=== PATIENT | female | born 1970 | race Hispanic/Latino ===

== ENCOUNTER 2019-03-14 13:37 | Emergency (ER) | payer SELFPAY ==
--- NOTE | 2019-03-14 15:10 | RAD REPORT ---
EXAM DESCRIPTION: Bruna Cuenca (2 Views)03/14/2019 2:52 pm CLINICAL HISTORY: Cough COMPARISON: 2015 FINDINGS: The lungs appear clear of acute infiltrate. The heart is normal size. Old left rib fractu res IMPRESSION: No acute abnormalities displayed
[2019-03-14 15:26] LABS: Absolute Lymphocytes (CBC) 1.7 K/uL (0.7-4.9); Basophils % 0.5 % (0-1.3); Lymphocytes % 24.2 % (15.3-44.8); MPV 9.9 fL (7.6-11.3); RBC Red Blood Cell Count 4.28 M/uL (3.86-4.86)
[2019-03-14 15:34] LABS: Potassium 3.4 mmol/L (3.5-5.1)
[2019-03-14] MEDS ORDERED: MORPHINE 4 MG/ML SYR ONE (15:38)
[2019-03-14] MEDS ORDERED: ONDANSETRON 4 MG/2 ML VIAL ONE (15:39)
--- NOTE | 2019-03-14 15:53 | EDPHYS ---
Physician Documentation [facility] Name: Ninfa Gordon Age: 48 yrs Sex: Female : 1970 Arrival Date: 03/14/2019 Time: 13:45 Bed 16 Private MD: Ferny Watkins T ED Physician Param Duarte HPI: 03/14 15:27 This 48 yrs old Female presents to ER via Ambulatory with complaints of Rib kb pain. 15:27 The patient or guardian reports cough, that is intermittent, described as moderate, kb with no sputum, flu symptoms. The patient has not experienced similar symptoms in the past. The patient has not recently seen a physician. 15:28 Onset: The symptoms/episode began/occurred 1 week(s) ago. Severity of symptoms: At kb their worst the symptoms were moderate, in the emergency department the symptoms are unchanged. Modifying factors: The symptoms are alleviated by nothing, the symptoms are aggravated by nothing. Associated signs and symptoms: Pertinent positives: chest pain, with cough, with movement, with breathing. Pt reports cough, chills, malaise and chest pain. States pain feels like pain she had in the past with pneumonia. States she has also had rib fractures on left side in the past and is worried that they are moving. 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 - Social history:: Smoking status: Patient uses tobacco products, smokes one-half pack cigarettes per day. - Ebola Screening: : Patient denies travel to an Ebola-affected area in the 21 days before illness onset. ROS: 15:25 ENT: Negative for injury, pain, and discharge, Neck: Negative for injury, pain, and kb swelling, Abdomen/GI: Negative for abdominal pain, nausea, vomiting, diarrhea, and constipation, Back: Negative for injury and pain, MS/Extremity: Negative for injury and deformity, Skin: Negative for injury, rash, and discoloration, Neuro: Negative for headache, weakness, numbness, tingling, and seizure. 15:25 Cardiovascular: Positive for chest pain, with cough, with movement, Negative for edema, orthopnea, palpitations, paroxysmal nocturnal dyspnea. 15:25 Respiratory: Positive for cough, pleurisy, Negative for dyspnea on exertion, hemoptysis, orthopnea, shortness of breath, sputum production, wheezing. 15:27 Constitutional: Positive for chills. kb Exam: 15:27 Constitutional: This is a well developed, well nourished patient who is awake, alert, kb and in no acute distress. Head/Face: Normocephalic, atraumatic. ENT: Nares patent. No nasal discharge, no septal abnormalities noted. Tympanic membranes are normal and external auditory canals are clear. Oropharynx with no redness, swelling, or masses, exudates, or evidence of obstruction, uvula midline. Mucous membranes moist. Neck: Trachea midline, no thyromegaly or masses palpated, and no cervical lymphadenopathy. Supple, full range of motion without nuchal rigidity, or vertebral point tenderness. No Meningismus. Chest/axilla: Normal chest wall appearance and motion. Nontender with no deformity. No lesions are appreciated. Cardiovascular: Regular rate and rhythm with a normal S1 and S2. No gallops, murmurs, or rubs. Normal PMI, no JVD. No pulse deficits. Respiratory: Lungs have equal breath sounds bilaterally, clear to auscultation and percussion. No rales, rhonchi or wheezes noted. No increased work of breathing, no retractions or nasal flaring. Abdomen/GI: Soft, non-tender, with normal bowel sounds. No distension or tympany. No guarding or rebound. No evidence of tenderness throughout. Back: No spinal tenderness. No costovertebral tenderness. Full range of motion. Skin: Warm, dry with normal turgor. Normal color with no rashes, no lesions, and no evidence of cellulitis. MS/ Extremity: Pulses equal, no cyanosis. Neurovascular intact. Full, normal range of motion. Neuro: Awake and alert, GCS 15, oriented to person, place, time, and situation. Cranial nerves II-XII grossly intact. Motor strength 5/5 in all extremities. Sensory grossly intact. Cerebellar exam normal. Normal gait. 15:49 ECG was reviewed by the Attending Physician. kb Vital Signs: 14:11 BP 140 / 99; Pulse 93; Resp 18; Temp 98.2; Pulse Ox 99% on R/A; Weight 79.38 kg; Height aj1 5 ft. 2 in. (157.48 cm) (R); Pain 8/10; 15:36 BP 140 / 90; Pulse 77; Resp 18; Temp 98.2(O); Pulse Ox 100% on R/A; Pain 8/10; mh5 14:11 Body Mass Index 32.01 (79.38 kg, 157.48 cm) aj1 MDM: 14:02 Patient medically screened. kb 15:22 Data reviewed: vital signs, nurses notes. Data interpreted: Pulse oximetry: on room air kb is 99 %. Interpretation: normal. Counseling: I had a detailed discussion with the patient and/or guardian regarding: the historical points, exam findings, and any diagnostic results supporting the discharge/admit diagnosis, lab results, radiology results, the need for outpatient follow up, a family practitioner, to return to the emergency department if symptoms worsen or persist or if there are any questions or concerns that arise at home. 03/14 14:12 Order name: CBC with Diff; Complete Time: 15:31 kb 03/14 14:12 Order name: Basic Metabolic Panel; Complete Time: 15:35 kb 03/14 14:12 Order name: Flu; Complete Time: 14:52 kb 03/14 14:12 Order name: Strep; Complete Time: 14:52 kb 03/14 14:53 Order name: Throat Culture EDDE 03/14 15:03 Order name: Urine Dipstick--Ancillary (enter results) 03/14 14:12 Order name: Chest Pa And Lat (2 Views) XRAY; Complete Time: 15:17 kb 03/14 15:03 Order name: Urine --Ancillary (enter results) 03/14 15:35 Order name: EKG; Complete Time: 15:36 kb 03/14 15:35 Order name: EKG - Nurse/Tech; Complete Time: 16:00 kb EC:49 Rate is 70 beats/min. Rhythm is regular, Normal Sinus Rhythm. QRS [place] is Normal. ND kb interval is normal at 160 msec. QRS interval is normal at 76 msec. QT interval is normal at 400 msec. Interpreted by me. Reviewed by me. Administered Medications: 15:42 Drug: morphine 4 mg Route: IVP; Site: left antecubital; aj 16:18 Follow up: Response: No adverse reaction; Pain is decreased; RASS: Alert and Calm (0) aj 15:42 Drug: Zofran 4 mg Route: IVP; Site: left antecubital; aj 16:17 Follow up: Response: No adverse reaction aj Disposition: 03/14/19 15:53 Discharged to Home. Impression: Acute upper respiratory infection, unspecified, Pleurisy. - Condition is Stable. - Discharge Instructions: Upper Respiratory Infection, Adult, [id number], Viral Respiratory Infection, Izcm-[id number]-Xrgh, Pleurisy, [id number]. - Prescriptions for Prednisone 20 mg Oral Tablet - take 1 tablet by ORAL route once daily for 5 days; 5 tablet. Diclofenac Sodium 75 mg Oral Tablet, Delayed Release (E.C.) - take 1 tablet by ORAL route 2 times per day As needed; 30 tablet. - Medication Reconciliation Form, Thank You Letter, Antibiotic Education, Prescription Opioid Use form. - Follow up: Emergency Department; When: As needed; Reason: Worsening of condition. Follow up: Private Physician; When: 2 - 3 days; Reason: Recheck today's complaints, Continuance of care, Re-evaluation by your physician. Addendum: 03/17/2019 19:36 Co-signature as Attending Physician, Param Duarte MD. 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 Impression: Acute upper respiratory aj1 infection, unspecified; Pleurisy. Condition is Stable. Forms are Medication Reconciliation Form, Thank You Letter, Antibiotic Education, Prescription Opioid Use. Follow up: Emergency Department; When: As needed; Reason: Worsening of condition. Follow up: Private Physician; When: 2 - 3 days; Reason: Recheck today's complaints, Continuance of care, Re-evaluation by your physician. kb
--- NOTE | 2019-03-14 15:53 | ER ---
Nurse's Notes [facility] Name: Ninfa Gordon Age: 48 yrs Sex: Female : 1970 Arrival Date: 03/14/2019 Time: 13:45 Bed 16 Private MD: Ferny Watkins T Diagnosis: Acute upper respiratory infection, unspecified;Pleurisy Presentation: 03/14 14:10 Presenting complaint: Patient states: Pain to right side that is worse with deep aj1 breathing, chills, and headache since . Denies recent injury, denies fever. Transition of care: patient was not received from another setting of care. Onset of symptoms was March 2019. Risk Assessment: Do you want to hurt yourself or someone else? Patient reports no desire to harm self or others. Initial Sepsis Screen: Does the patient meet any 2 criteria? No. Patient's initial sepsis screen is negative. Does the patient have a suspected source of infection? Yes: Productive cough/pneumonia. Care prior to arrival: None. 14:10 Method Of Arrival: Ambulatory aj 14:10 Acuity: TRES 3 aj1 Triage Assessment: 14:11 General: Appears in no apparent distress. uncomfortable, Behavior is cooperative, aj1 restless. Pain: Pain currently is 8 out of 10 on a pain scale. 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 - Social history:: Smoking status: Patient uses tobacco products, smokes one-half pack cigarettes per day. - Ebola Screening: : Patient denies travel to an Ebola-affected area in the 21 days before illness onset. Screenin:15 Abuse screen: Denies threats or abuse. Denies injuries from another. Nutritional aj1 screening: No deficits noted. Tuberculosis screening: No symptoms or risk factors identified. Fall Risk None identified. Assessment: 14:15 General: Appears in no apparent distress. uncomfortable, Behavior is calm. Pain: aj1 Complains of pain in diaphragm Pain does not radiate. Pain currently is 8 out of 10 on a pain scale. Pain: Aggravated by deep breathing. Neuro: Level of Consciousness is awake, alert, obeys commands, Oriented to person, place, time, situation. Cardiovascular: Heart tones S1 S2 present Patient's skin is warm and dry. Respiratory: Airway is patent Respiratory effort is even, unlabored, Respiratory pattern is regular, symmetrical, Breath sounds are clear bilaterally. GI: No signs and/or symptoms were reported involving the gastrointestinal system. : No signs and/or symptoms were reported regarding the genitourinary system. EENT: No signs and/or symptoms were reported regarding the EENT system. Derm: No signs and/or symptoms reported regarding the dermatologic system. Skin is pink, warm \T\ dry. normal. Musculoskeletal: No signs and/or symptoms reported regarding the musculoskeletal system. Circulation, motion, and sensation intact. 15:15 Reassessment: Patient appears in no apparent distress at this time. No changes from [facility] previously documented assessment. Patient and/or family updated on plan of care and expected duration. Pain level reassessed. Patient is alert, oriented x 3, equal unlabored respirations, skin warm/dry/pink. 16:16 Reassessment: Patient appears in no apparent distress at this time. No changes from 1 previously documented assessment. Patient and/or family updated on plan of care and expected duration. Pain level reassessed. Patient is alert, oriented x 3, equal unlabored respirations, skin warm/dry/pink. Vital Signs: 14:11 BP 140 / 99; Pulse 93; Resp 18; Temp 98.2; Pulse Ox 99% on R/A; Weight 79.38 kg; Height aj1 5 ft. 2 in. (157.48 cm) (R); Pain 8/10; 15:36 BP 140 / 90; Pulse 77; Resp 18; Temp 98.2(O); Pulse Ox 100% on R/A; Pain 8/10; mh5 14:11 Body Mass Index 32.01 (79.38 kg, 157.48 cm) aj ED Course: 13:45 Patient arrived in ED. mr 13:45 Ferny Watkins MD is Private Physician. mr 14:01 [facility]C [facility]. kb 14:01 Param Duarte MD is Attending Physician. kb 14:10 Daniel, Santa, RN is Primary Nurse. aj1 14:10 Triage completed. aj1 14:11 Arm band placed on. aj1 14:15 No provider procedures requiring assistance completed. aj1 14:52 Chest Pa And Lat (2 Views) XRAY In Process Unspecified. EDMD 15:06 Initial lab(s) drawn, by az, sent to lab. Urine collected: clean catch specimen, clear. mh5 Inserted saline lock: 22 gauge in left antecubital area, using aseptic technique. 15:07 Patient has correct armband on for positive identification. Placed in gown. Bed in low mh5 position. Call light in reach. Side rails up X 1. Warm blanket given. Pulse ox on. NIBP on. 15:07 Urine --Ancillary (enter results) Sent. [facility] 15:07 Urine Dipstick--Ancillary (enter results) Sent. [facility] 15:07 Throat Culture Sent. [facility] 15:07 Basic Metabolic Panel Sent. [facility] 15:07 CBC with Diff Sent. [facility] 16:03 EKG done, by fastener technologist. reviewed by Sheryl PANCHAL. 3 16:17 IV discontinued, intact, bleeding controlled, No redness/swelling at site. Pressure aj1 dressing applied. Administered Medications: 15:42 Drug: morphine 4 mg Route: IVP; Site: left antecubital; aj1 16:18 Follow up: Response: No adverse reaction; Pain is decreased; RASS: Alert and Calm (0) aj1 15:42 Drug: Zofran 4 mg Route: IVP; Site: left antecubital; aj1 16:17 Follow up: Response: No adverse reaction aj Outcome: 15:53 Discharge ordered by . kb 16:17 Discharged to home ambulatory. aj1 16:17 Condition: good 16:17 Discharge instructions given to patient, Instructed on discharge instructions, follow up and referral plans. medication usage, Demonstrated understanding of instructions, follow-up care, medications, Prescriptions given X 3. 16:21 Patient left the ED. aj1 Signatures: Dispatcher [employer] Sheryl Gonzalez, ANSLEY HERRING-[place], RN RN aj1 Johnson, Nicolasa VazquezNinfa [facility] Barbie Townsend 3
[2019-03-14 16:31] VITALS: TEMP 98.2
[2019-03-14 16:32] VITALS: BP 140/90; O2SAT 100
[2019-03-14 17:42] LABS: Urine Blood TRACE (NEG); Urine Glucose NEGATIVE (NEG); Urine Protein NEGATIVE (NEG); Urine Specific Gravity 1.015 (1.005-1.030)
--- NOTE | 2019-03-15 08:18 | EKG ---
Test Date: 2019-03-14 Test Time: 15:46:23 Diabetes Specialist: LINDA MEASUREMENT RESULTS: Intervals: Rate: 70 MA: 160 QRSD: 76 QT: 400 QTc: 432 [place]: P: 57 MA: 160 QRS: 58 T: 42 INTERPRETIVE STATEMENTS: Normal sinus rhythm Normal ECG Compared to ECG 10/03/2013 06:34:14 Atrial premature complex(es) no longer present Electronically Signed On 03-15-19 08:16:10 DATA POWER CONSULTANT by Pasquale Hdz
== END 2019-03-14 16:21 | disposition home or self-care (01) ==
LOC: ER 13:37
DX: J06.9 Acute upper respiratory infection, unspecified (principal); R09.1 Pleurisy; F17.210 Nicotine dependence, cigarettes, uncomplicated
CPT/HCPCS: 36415; 71046; 80048; 81003; 81025; 85025; 87070; 87081; 87804; 93005; 96374; 96375; 99284; J2405

== ENCOUNTER 2019-09-05 14:14 | Emergency (ER) | payer SELFPAY ==
[2019-09-05] MEDS ORDERED: NA CHLORIDE 0.9% 1,000 ML ONE (16:41)
[2019-09-05] MEDS ORDERED: FENTANYL CITR 100 MCG/2 ML ONE (16:41)
[2019-09-05 16:54] LABS: Absolute Lymphocytes (CBC) 2.4 K/uL (0.7-4.9); Basophils % 0.5 % (0-1.3); Hematocrit 42.8 % (36.0-45.0); Lymphocytes % 34.6 % (15.3-44.8); MPV 8.9 fL (7.6-11.3); RBC Red Blood Cell Count 4.42 M/uL (3.86-4.86)
[2019-09-05 17:09] LABS: BUN Blood Urea Nitrogen 9 mg/dL (7-18); Bicarbonate 26 mmol/L (21-32); Glucose Level 95 mg/dL (74-106); Potassium 3.5 mmol/L (3.5-5.1); Sodium Level 138 mmol/L (136-145); Troponin (Emerg Dept Use Only) < 0.02 ng/mL (0.0-0.045)
--- NOTE | 2019-09-05 17:33 | RAD REPORT ---
EXAM DESCRIPTION: RAD - Chest Pa And Lat (2 Views) - 09/05/2019 5:25 pm CLINICAL HISTORY: chest pain Chest pain. COMPARISON: Chest Pa And Lat (2 Views) dated 03/14/2019; CHEST SINGLE VIEW dated 08/27/2014; CHEST SI NGLE VIEW dated 10/03/2013; CHEST SINGLE VIEW dated 08/23/2013; Ribs Left dated 09/05/2019 FINDINGS: Two views of the chest and left rib series are submitted: The lungs are mildly emphysematous but clear. The heart is normal in size. Several old left posterior rib fractures are seen. In addition, there is evidence of acute or subacut e left lateral seventh and eighth rib fractures.
[2019-09-05] MEDS ORDERED: MORPHINE 4 MG/ML SYR IV ONE (18:30)
--- NOTE | 2019-09-05 19:34 | RAD REPORT ---
EXAM DESCRIPTION: CT - Chest For Pe Angio - 09/05/2019 7:28 pm CLINICAL HISTORY: Chest pain. breathing difficulty COMPARISON: THORAX WO CONTRAST dated 08/27/2014; Ribs Left dated 09/05/2019; Chest Pa And Lat (2 Views ) dated 09/05/2019 TECHNIQUE: CT angiogram of the pulmonary arteries was performed with MIP. All CT scans are performed using dose optimization technique as appropriate and may include automated exposure control or mA/KV adjustment according to patient size. FINDINGS: No evidence of pulmonary thromboembolism. No acute aortic finding demonstrated. The lungs are clear. No significant pericardial or pleural fluid. Several left-sided rib fractures are seen which have an old/remote appearance but without complete diallo ny bridging. IMPRESSION: No evidence of pulmonary thromboembolism.
--- NOTE | 2019-09-06 03:46 | EDPHYS ---
Physician Documentation [facility] Name: Ninfa Gordon Age: 49 yrs Sex: Female : 1970 Arrival Date: 09/05/2019 Time: 14:16 Bed 14 Private MD: ED Physician Lalit Robledo HPI: 09/04 16:35 This 49 yrs old Female presents to ER via Ambulatory with complaints of snw Breathing Difficulty, Rib Pain. 16:35 The patient has shortness of breath at rest. Onset: The symptoms/episode began/occurred snw 8 day(s) ago, and became worse and became persistent. Duration: The symptoms are continuous. The patient's shortness of breath is aggravated by movement, pressure. Associated signs and symptoms: Pertinent positives: chest pain, shortness of breath. Severity of symptoms: At their worst the symptoms were moderate severe in the emergency department the symptoms are unchanged. The patient has experienced similar episodes in the past. The patient has not recently seen a physician. hx of multiple rib fractures 2014, pneumonia x 2 since that time. 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 - Social history:: Smoking status: Patient reports the use of cigarette tobacco products, smokes one-half pack cigarettes per day. ROS: 16:34 Constitutional: Negative for fever, chills, and weight loss, Eyes: Negative for injury, snw pain, redness, and discharge, ENT: Negative for injury, pain, and discharge, Neck: Negative for injury, pain, and swelling, Abdomen/GI: Negative for abdominal pain, nausea, vomiting, diarrhea, and constipation, Back: Negative for injury and pain, : Negative for injury, bleeding, discharge, and swelling, MS/Extremity: Negative for injury and deformity, Skin: Negative for injury, rash, and discoloration, Neuro: Negative for headache, weakness, numbness, tingling, and seizure, Psych: Negative for depression, anxiety, suicide ideation, homicidal ideation, and hallucinations. 16:34 Cardiovascular: Positive for chest pain, with cough, with movement, of the anterior aspect of left upper chest, left lateral posterior chest, left lateral anterior chest and left breast. 16:34 Respiratory: Positive for pleurisy, of the left chest. Exam: 16:33 Constitutional: This is a well developed, well nourished patient who is awake, alert, snw and in no acute distress. Head/Face: Normocephalic, atraumatic. Eyes: Pupils equal round and reactive to light, extra-ocular motions intact. Lids and lashes normal. Conjunctiva and sclera are non-icteric and not injected. Cornea within normal limits. Periorbital areas with no swelling, redness, or edema. ENT: Nares patent. No nasal discharge, no septal abnormalities noted. Tympanic membranes are normal and external auditory canals are clear. Oropharynx with no redness, swelling, or masses, exudates, or evidence of obstruction, uvula midline. Mucous membranes moist. Neck: Trachea midline, no thyromegaly or masses palpated, and no cervical lymphadenopathy. Supple, full range of motion without nuchal rigidity, or vertebral point tenderness. No Meningismus. Chest/axilla: Normal chest wall appearance and motion. Nontender with no deformity. No lesions are appreciated. Cardiovascular: Regular rate and rhythm with a normal S1 and S2. No gallops, murmurs, or rubs. Normal PMI, no JVD. No pulse deficits. 16:33 Abdomen/GI: Soft, non-tender, with normal bowel sounds. No distension or tympany. No guarding or rebound. No evidence of tenderness throughout. Back: No spinal tenderness. No costovertebral tenderness. Full range of motion. Skin: Warm, dry with normal turgor. Normal color with no rashes, no lesions, and no evidence of cellulitis. MS/ Extremity: Pulses equal, no cyanosis. Neurovascular intact. Full, normal range of motion. Neuro: Awake and alert, GCS 15, oriented to person, place, time, and situation. Cranial nerves II-XII grossly intact. Motor strength 5/5 in all extremities. Sensory grossly intact. Cerebellar exam normal. Normal gait. Psych: Awake, alert, with orientation to person, place and time. Behavior, mood, and affect are within normal limits. 16:33 Respiratory: mild respiratory distress is noted, Respirations: shallow respirations, splinting, tachypnea, Breath sounds: are clear throughout, no bronchial sounds. Vital Signs: 14:33 BP 142 / 101; Pulse 85; Resp 16; Temp 97.9; Pulse Ox 100% ; Weight 79.38 kg; Pain 8/10; jl7 16:21 BP 153 / 103; Pulse 80; Resp 17 S; Pulse Ox 100% ; Pain 9/10; ca1 17:32 BP 137 / 85; Pulse 72; Resp 18 S; Pulse Ox 100% on R/A; ca1 18:32 BP 139 / 82; Pulse 62; Resp 16 S; Pulse Ox 99% on R/A; ca1 19:38 BP 135 / 75; Pulse 66; Resp 17 S; Pulse Ox 100% on R/A; ca1 20:20 BP 151 / 101; Pulse 63; Resp 18 S; Pulse Ox 100% on R/A; ca1 21:00 BP 143 / 99; Pulse 72; Resp 16 S; Pulse Ox 100% on R/A; ca1 MDM: 16:16 Patient medically screened. snw 20:49 Data reviewed: vital signs, nurses notes, lab test result(s), EKG, radiologic studies. snw Counseling: I had a detailed discussion with the patient and/or guardian regarding: the historical points, exam findings, and any diagnostic results supporting the discharge/admit diagnosis, the presence of at least one elevated blood pressure reading (>120/80) during this emergency department visit, lab results, radiology results, the need for outpatient follow up, to return to the emergency department if symptoms worsen or persist or if there are any questions or concerns that arise at home, smoking cessation. Special discussion: Based on the patient's history, exam, and Dx evaluation, there is no indication for emergent intervention or inpatient Tx. It is understood by the patient/guardian that if the Sx's persist or worsen they need to return immediately for re-evaluation. I have referred the patient to see his PCP for further evaluation of high blood pressure. Based on the history and exam findings, there is no indication for further emergent testing or inpatient evaluation. I discussed with the patient/guardian the need to see the primary care provider for further evaluation of the symptoms. 09/04 16:22 Order name: DD [facility] 09/04 16:22 Order name: Blood Culture* [facility] 09/04 16:22 Order name: CBC with Diff snw 09/04 16:22 Order name: Chem 7 snw 09/04 16:22 Order name: Troponin (emerg Dept Use Only) snw 09/04 16:36 Order name: Basic Metabolic Panel; Complete Time: 17:14 EDMS 09/04 16:36 Order name: CBC with Automated Diff; Complete Time: 17:14 EDMS 09/04 16:36 Order name: D-Dimer; Complete Time: 17:14 EDMS 09/04 16:36 Order name: Troponin (Emerg Dept Use Only); Complete Time: 17:14 EDMS 09/04 16:36 Order name: Blood Culture EDMS 09/04 16:36 Order name: Chest Pa And Lat (2 Views); Complete Time: 17:40 EDMS 09/04 16:36 Order name: Ribs Left EDMS 09/04 16:22 Order name: EKG; Complete Time: 03:52 snw 09/04 16:22 Order name: EKG - Nurse/Tech; Complete Time: 16:44 snw 09/04 17:14 Order name: CT Chest For PE Angio snw 09/04 20:46 Order name: INCENTIVE SPIROMETRY snw Administered Medications: 16:49 Drug: NS 0.9% 1000 ml Route: IV; Rate: 125 ml/hr; Site: left antecubital; ca1 21:00 Follow up: IV Status: Order to discontinue infusion; Order to discontinue infusion, Pt ca1 is discharged 16:49 Drug: fentaNYL (PF) 25 mcg {Note: rASS - 0-.} Route: IVP; Site: left antecubital; ca1 17:10 Follow up: Response: No adverse reaction; Pain is unchanged, physician notified; RASS: ca1 Alert and Calm (0) 17:14 Drug: fentaNYL (PF) 25 mcg {Note: rASS - 0.} Route: IVP; Site: left antecubital; ca1 18:29 Follow up: Response: No adverse reaction; Pain is unchanged, physician notified; RASS: ca1 Alert and Calm (0) 18:31 Drug: morphine 4 mg {Note: rass - 0.} Route: IVP; Site: left antecubital; ca1 19:05 Follow up: Response: No adverse reaction; Pain is decreased; RASS: Alert and Calm (0) ca1 Disposition: 09/05 08:20 Co-signature as Attending Physician, Lalit Robledo MD I agree with the assessment and kdr plan of care. Disposition: 09/05/19 20:48 Discharged to Home. Impression: Multiple fractures of ribs, left side - most chronic, 2 acute, Costochondritis. - Condition is Stable. - Discharge Instructions: Costochondritis, Hypertension, Rib Fracture, Steps to Quit Smoking, Smoking Hazards, Form - Blood Pressure Record Sheet. - Prescriptions for Diclofenac Sodium 75 mg Oral Tablet Sustained Release - take 1 tablet by ORAL route 2 times per day; 30 tablet. orphenadrine citrate 100 mg Oral Tablet Sustained Release - take 1 tablet by ORAL route 2 times per day As needed; 20 tablet. - Medication Reconciliation Form, Thank You Letter, Antibiotic Education, Prescription Opioid Use form. - Follow up: Emergency Department; When: As needed; Reason: Worsening of condition. Follow up: Private Physician; When: 2 - 3 days; Reason: Recheck today's complaints, Continuance of care, Re-evaluation by your physician. Signatures: Dispatcher [employer] EDND Lalit Robledo MD MD [facility] Kiana Schulz, REHABILITATION CASE COORDINATOR-C REHABILITATION CASE COORDINATOR-Csnw Estefani Lopez RN RN jl7 Brit Chadwick RN RN ca1 Corrections: (The following items were deleted from the chart) 09/04 21:07 20:48 09/05/2019 20:48 Discharged to Home. Impression: Multiple fractures of ribs, left ca1 side - most chronic, 2 acute; Costochondritis. Condition is Stable. Forms are Medication Reconciliation Form, Thank You Letter, Antibiotic Education, Prescription Opioid Use. Follow up: Emergency Department; When: As needed; Reason: Worsening of condition. Follow up: Private Physician; When: 2 - 3 days; Reason: Recheck today's complaints, Continuance of care, Re-evaluation by your physician. snw
--- NOTE | 2019-09-06 03:46 | ER ---
Nurse's Notes [facility] Name: Ninfa Gordon Age: 49 yrs Sex: Female : 1970 Arrival Date: 09/05/2019 Time: 14:16 Bed 14 Private MD: Diagnosis: Multiple fractures of ribs, left side-most chronic, 2 acute;Costochondritis Presentation: 09/04 14:33 Chief complaint: Patient states: Reports broken ribs from 2014, about 8 days ago jl7 started feeling like something is poking out and started having pain with inspiration, denies recent trauma. Coronavirus screen: Proceed with normal triage. Patient denies a cough. Patient denies shortness of breath or difficulty breathing. Patient denies measured and/or subjective temperature greater than 100.4F prior to today's visit. Patient denies travel on a cruise ship or to a country the [facility] currently lists as an affected area. Patient denies contact with known and/or suspected case of COVID-19. Ebola Screen: No symptoms or risks identified at this time. Initial Sepsis Screen: Does the patient meet any 2 criteria? No. Patient's initial sepsis screen is negative. Does the patient have a suspected source of infection? No. Patient's initial sepsis screen is negative. Risk Assessment: Do you want to hurt yourself or someone else? Patient reports no desire to harm self or others. Onset of symptoms was August 29, 2019. 14:33 Method Of Arrival: Ambulatory [facility] 14:33 Acuity: TRES 3 jl7 Triage Assessment: 14:37 General: Appears in no apparent distress. uncomfortable, Behavior is calm, cooperative, jl7 appropriate for age. Pain: Complains of pain in left ribs Pain currently is 8 out of 10 on a pain scale. Pain began 8 days ago. Neuro: Level of Consciousness is awake, alert, obeys commands, Oriented to person, place, time, situation. Cardiovascular: Patient's skin is warm and dry. Respiratory: Reports pain with movement pain with respiration since x 8 days Pain is 8 out of 10 on a pain scale. Airway is patent Respiratory effort is even, unlabored, shallow, Respiratory pattern is regular, symmetrical, Breath sounds are clear bilaterally. Crepitus is absent Onset: The symptoms/episode began/occurred x8 days, the patient has moderate shortness of breath. Derm: Skin is pink, warm \\T\\ dry. 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 - Social history:: Smoking status: Patient reports the use of cigarette tobacco products, smokes one-half pack cigarettes per day. Screenin:21 Abuse screen: Denies threats or abuse. Denies injuries from another. Nutritional ca1 screening: No deficits noted. Tuberculosis screening: No symptoms or risk factors identified. Fall Risk IV access (20 points). Assessment: 16:21 General: Appears in no apparent distress. uncomfortable, Behavior is calm, cooperative, ca1 appropriate for age. Pain: Complains of pain in diaphragm Pain currently is 9 out of 10 on a pain scale. Pain began 7-8 days days Aggravated by repositioning. Neuro: Level of Consciousness is awake, alert, obeys commands, Oriented to person, place, time, situation, Appropriate for age. Cardiovascular: Heart tones S1 S2 present Capillary refill < 3 seconds Patient's skin is warm and dry. Rhythm is sinus rhythm. Respiratory: Airway is patent Respiratory effort is even, unlabored, Respiratory pattern is regular, symmetrical, Breath sounds are clear bilaterally. GI: Abdomen is flat, non-distended, Bowel sounds present X 4 quads. Abd is soft and non tender X 4 quads. : No signs and/or symptoms were reported regarding the genitourinary system. EENT: No signs and/or symptoms were reported regarding the EENT system. Derm: Skin is intact, is healthy with good turgor, Skin is pink, warm \\T\\ dry. Musculoskeletal: Circulation, motion, and sensation intact. Capillary refill < 3 seconds. 17:32 Reassessment: Patient appears in no apparent distress at this time. Patient and/or ca1 family updated on plan of care and expected duration. Pain level reassessed. Patient is alert, oriented x 3, equal unlabored respirations, skin warm/dry/pink. 18:32 Reassessment: Patient appears in no apparent distress at this time. Patient and/or ca1 family updated on plan of care and expected duration. Pain level reassessed. Patient is alert, oriented x 3, equal unlabored respirations, skin warm/dry/pink. 19:45 Reassessment: Patient appears in no apparent distress at this time. Patient and/or ca1 family updated on plan of care and expected duration. Pain level reassessed. Patient is alert, oriented x 3, equal unlabored respirations, skin warm/dry/pink. 20:20 Reassessment: Patient appears in no apparent distress at this time. Patient and/or ca1 family updated on plan of care and expected duration. Pain level reassessed. Patient is alert, oriented x 3, equal unlabored respirations, skin warm/dry/pink. 21:00 Reassessment: Patient appears in no apparent distress at this time. Patient is alert, ca1 oriented x 3, equal unlabored respirations, skin warm/dry/pink. Vital Signs: 14:33 BP 142 / 101; Pulse 85; Resp 16; Temp 97.9; Pulse Ox 100% ; Weight 79.38 kg; Pain 8/10; jl7 16:21 BP 153 / 103; Pulse 80; Resp 17 S; Pulse Ox 100% ; Pain 9/10; ca1 17:32 BP 137 / 85; Pulse 72; Resp 18 S; Pulse Ox 100% on R/A; ca1 18:32 BP 139 / 82; Pulse 62; Resp 16 S; Pulse Ox 99% on R/A; ca1 19:38 BP 135 / 75; Pulse 66; Resp 17 S; Pulse Ox 100% on R/A; ca1 20:20 BP 151 / 101; Pulse 63; Resp 18 S; Pulse Ox 100% on R/A; ca1 21:00 BP 143 / 99; Pulse 72; Resp 16 S; Pulse Ox 100% on R/A; ca1 ED Course: 14:16 Patient arrived in ED. ds1 14:37 Triage completed. jl7 14:37 Arm band placed on right wrist. jl7 14:42 Patient placed in waiting room, Patient notified of wait time. jl7 16:14 Kiana Schulz FNP-C is PSYCHIATRICP. snw 16:14 Lalit Robledo MD is Attending Physician. snw 16:21 Brit Chadwick RN is Primary Nurse. ca1 16:21 Patient has correct armband on for positive identification. Placed in gown. Bed in low ca1 position. Call light in reach. Side rails up X 1. Pulse ox on. NIBP on. Warm blanket given. 16:40 Initial lab(s) drawn, by me, sent to lab. First set of blood cultures drawn. 5 16:43 Troponin (Emerg Dept Use Only) Sent. mh5 16:44 Blood Culture Sent. mh5 16:44 D-Dimer Sent. mh5 16:44 CBC with Automated Diff Sent. mh5 16:44 Basic Metabolic Panel Sent. mh5 16:44 Inserted saline lock: 22 gauge in left antecubital area, using aseptic technique. Blood 5 collected. 17:21 Chest Pa And Lat (2 Views) In Process Unspecified. EDMS 17:21 Ribs Left In Process Unspecified. EDMS 21:05 No provider procedures requiring assistance completed. IV discontinued, intact, ca1 bleeding controlled, No redness/swelling at site. Pressure dressing applied. Administered Medications: 16:49 Drug: NS 0.9% 1000 ml Route: IV; Rate: 125 ml/hr; Site: left antecubital; ca1 21:00 Follow up: IV Status: Order to discontinue infusion; Order to discontinue infusion, Pt ca1 is discharged 16:49 Drug: fentaNYL (PF) 25 mcg {Note: rASS - 0-.} Route: IVP; Site: left antecubital; ca1 17:10 Follow up: Response: No adverse reaction; Pain is unchanged, physician notified; RASS: ca1 Alert and Calm (0) 17:14 Drug: fentaNYL (PF) 25 mcg {Note: rASS - 0.} Route: IVP; Site: left antecubital; ca1 18:29 Follow up: Response: No adverse reaction; Pain is unchanged, physician notified; RASS: ca1 Alert and Calm (0) 18:31 Drug: morphine 4 mg {Note: rass - 0.} Route: IVP; Site: left antecubital; ca1 19:05 Follow up: Response: No adverse reaction; Pain is decreased; RASS: Alert and Calm (0) ca1 Outcome: 20:48 Discharge ordered by [place]ico 21:05 Discharged to home ambulatory. ca1 21:05 Condition: stable 21:05 Discharge instructions given to patient, Pt states,"my daughter in law is driving me home" Instructed on discharge instructions, follow up and referral plans. medication usage, Demonstrated understanding of instructions, follow-up care, medications, Prescriptions given X 2. 21:07 Patient left the ED. ca1 Signatures: Dispatcher [employer] EDMS Kiana Schulz, BRIANC CIRCUIT BOARD ASSEMBLER-Angie Izaguirre ds1 Ninfa Vazquez [facility] Estefani Lopez, LAMINE RN jl7 Brit Chadwick RN RN ca1 Corrections: (The following items were deleted from the chart) 16:25 16:21 Pain: Complains of pain in diaphragm Pain began 7-8 days days Aggravated by ca1 repositioning, ca1 16:26 16:21 Pulse 80bpm; Resp 17bpm; Spontaneous; Pulse Ox 100%; Pain 9/10; ca1 ca1 21:07 17:32 Pulse 72bpm; Resp 18bpm; Spontaneous; Pulse Ox 100% RA; ca1 ca1
--- NOTE | 2019-09-06 13:01 | EKG ---
Test Date: 2019-09-05 Test Time: 16:44:24 Plate Molder: MONTANAT MEASUREMENT RESULTS: Intervals: Rate: 62 ND: 174 QRSD: 78 QT: 438 QTc: 444 [place]: P: 52 ND: 174 QRS: 36 T: 48 INTERPRETIVE STATEMENTS: Normal sinus rhythm Normal ECG Compared to ECG 03/14/2019 15:46:23 No significant changes Electronically Signed On 09-06-19 12:58:28 CDT by Pasquale Hdz
[2019-09-06 18:16] VITALS: TEMP 97.9
[2019-09-06 18:22] VITALS: O2SAT 100
[2019-09-06 18:25] VITALS: BP 143/99
== END 2019-09-05 21:07 | disposition home or self-care (01) ==
LOC: ER 14:14
DX: S22.42XA Multiple fractures of ribs, left side, initial encounter for closed fracture (principal); M94.0 Chondrocostal junction syndrome [Tietze]; F17.210 Nicotine dependence, cigarettes, uncomplicated
CPT/HCPCS: 36415; 71046; 71275; 80048; 84484; 85025; 85379; 87040; 93005; 96361; 96374; 96375; 99284; J3010; J7030; Q9967

== ENCOUNTER 2019-10-16 20:15 | Inpatient (IN) | payer SELFPAY ==
[2019-10-16] MEDS ORDERED: PROMETHAZINE INJ 25 MG/ML AMP ONE (20:39)
[2019-10-16] MEDS ORDERED: NA CHLORIDE 0.9% 1,000 ML ONE (20:39)
[2019-10-16] MEDS ORDERED: MORPHINE 2 MG/ML SYR ONE (20:39)
[2019-10-16 20:40] LABS: Absolute Lymphocytes (CBC) 2.5 K/uL (0.7-4.9); Basophils % 0.9 % (0-1.3); Hematocrit 49.4 % (36.0-45.0); Lymphocytes % 18.5 % (15.3-44.8); MPV 9.3 fL (7.6-11.3); RBC Red Blood Cell Count 5.14 M/uL (3.86-4.86)
[2019-10-16] MEDS ORDERED: HYDROMORPHONE HCL 0.5 MG/0.5 ML INJ ONE ×2 (20:43→21:58)
[2019-10-16 21:12] LABS: ALT/SGPT 54 U/L (12-78); AST/SGOT 38 U/L (15-37); Albumin 5.2 g/dL (3.4-5.0); Alkaline Phosphatase 75 U/L (45-117); BUN Blood Urea Nitrogen 19 mg/dL (7-18); Bicarbonate 21 mmol/L (21-32); Bilirubin Direct 0.2 mg/dL (0-0.2); Bilirubin Total 0.7 mg/dL (0.2-1.0); Glucose Level 144 mg/dL (74-106); Lipase 146 U/L (73-393); Potassium 3.4 mmol/L (3.5-5.1); Protein, Total 9.6 g/dL (6.4-8.2); Sodium Level 137 mmol/L (136-145); Troponin (Emerg Dept Use Only) < 0.02 ng/mL (0.0-0.045)
[2019-10-16] MEDS ORDERED: FAMOTIDINE 20 MG/2 ML VIAL IV ONE (21:58)
--- NOTE | 2019-10-16 23:09 | ER ---
Nurse's Notes [facility] Name: Ninfa Gordon Age: 49 yrs Sex: Female : 1970 Arrival Date: 10/16/2019 Time: 20:15 Bed 20 Private MD: Diagnosis: Intractable pain and vomiting;Colitis, unspecified;Dehydration;Acute kidney failure Presentation: 10/15 20:16 Chief complaint: EMS states: "Patient stated she was working in the heat for the last vc three days, today she got overheated, started having stomach cramps, she is cool to the touch, and has a headache, her vitals were good.". 20:16 Coronavirus screen: Proceed with normal triage. Patient denies a cough. Patient denies vc shortness of breath or difficulty breathing. Patient denies measured and/or subjective temperature greater than 100.4F prior to today's visit. Patient denies travel on a cruise ship or to a country the [facility] currently lists as an affected area. Patient denies contact with known and/or suspected case of COVID-19. Ebola Screen: No symptoms or risks identified at this time. Initial Sepsis Screen: Does the patient meet any 2 criteria? RR > 20 per min. HR > 90 bpm. Initial Sepsis Screen: Does the patient meet any 2 criteria? HR > 90 bpm. No. Patient's initial sepsis screen is negative. Does the patient have a suspected source of infection? No. Patient's initial sepsis screen is negative. Risk Assessment: Do you want to hurt yourself or someone else? Patient reports no desire to harm self or others. Onset of symptoms was October 13, 2019. 20:16 Method Of Arrival: EMS: [facility] vc 20:16 Acuity: TRES 2 vc Triage Assessment: 20:16 General: Appears distressed, uncomfortable, ill, Behavior is agitated, crying, vc inappropriate for age, Reports chills for 0-12 hours. Pain: Complains of pain in abdomen Pain radiates to back Pain currently is 10 out of 10 on a pain scale. Quality of pain is described as sharp, stabbing, Pain began 2-3 days ago. Is continuous. Historical: - Allergies: 20:30 Tylenol; sg 20:35 Morphine; "doesnt work for me, only dilaudid for pain"; sg - Home Meds: 20:31 None [Active]; sg - PMHx: 20:31 None; sg - PSHx: 20:30 ; sg - Immunization history:: Adult Immunizations unknown. - Social history:: Smoking status: Patient reports the use of cigarette tobacco products. - Family history:: not pertinent. - Hospitalizations: : No recent hospitalization is reported. Screenin:16 Abuse screen: Denies threats or abuse. Nutritional screening: Has had N/V for 3 or more vc days. Tuberculosis screening: No symptoms or risk factors identified. Fall Risk None identified. Assessment: 20:30 General: Appears distressed, uncomfortable, ill, obese, Behavior is anxious, crying, vc inappropriate for age. Pain: Complains of pain in abdomen Pain radiates to back Pain currently is 10 out of 10 on a pain scale. Quality of pain is described as sharp, shooting, Alleviated by medications. Neuro: Level of Consciousness is lethargic, Oriented to person, place, time, situation, Appropriate for age. Cardiovascular: Reports diaphoresis, nausea, vomiting, Capillary refill < 3 seconds Rhythm is. Respiratory: Airway is patent Respiratory effort is even, unlabored, Respiratory pattern is regular, symmetrical. GI: Pt is actively vomiting clear fluid, Reports lower abdominal pain, upper abdominal pain, nausea, vomiting. : No signs and/or symptoms were reported regarding the genitourinary system. Derm: Skin is diaphoretic, Skin temperature is cold. 21:30 Reassessment: Patient appears in no apparent distress at this time. Patient and/or vc family updated on plan of care and expected duration. Pain level reassessed. Patient states symptoms have not improved. 22:30 Reassessment: Patient appears in no apparent distress at this time. Patient and/or vc family updated on plan of care and expected duration. Pain level reassessed. Patient states symptoms have not improved. 22:55 Reassessment: emergency department technician reports negative results, notified. 10/16 01:00 Reassessment: Patient appears in no apparent distress at this time. Patient is alert, vc oriented x 3, equal unlabored respirations, skin warm/dry/pink. General: Appears uncomfortable, ill. GI: Pt is actively vomiting bile. 01:20 Reassessment: pt reports she cannot find her cell phone, believes she may have left it sg in exam room [address] prior to going to [address] Called pt phone number, pt answered cell phone. 01:55 Reassessment: Patient appears in no apparent distress at this time. Patient and/or vc family updated on plan of care and expected duration. Pain level reassessed. Patient is alert, oriented x 3, equal unlabored respirations, skin warm/dry/pink. Patient laying on side with eyes closed, no vomiting noted. Vital Signs: 10/15 20:16 BP 148 / 107; Pulse 102; Resp 20; Temp 97.7(O); Pulse Ox 100% on R/A; Pain 10/10; vc 21:00 BP 155 / 119; Pulse 74; Resp 19; Pulse Ox 95% on R/A; vc 22:00 BP 158 / 116; Pulse 72; Resp 20; Pulse Ox 96% on R/A; vc 23:00 BP 175 / 112; Pulse 92; Resp 20; Pulse Ox 98% on R/A; vc 10/16 00:00 BP 157 / 100; Pulse 64; Resp 20; Pulse Ox 93% on R/A; vc 01:40 BP 166 / 106; Pulse 84; Resp 19; Temp 97.4; Pulse Ox 96% on R/A; vc ED Course: 10/15 20:15 Patient arrived in ED. cf2 20:16 Arm band placed on right wrist. Emesis basin given. vc 20:16 Patient has correct armband on for positive identification. Bed in low position. Call vc light in reach. Pulse ox on. NIBP on. 20:18 Param Duarte MD is Attending Physician. rn 20:21 Aspen Tang RN is Primary Nurse. vc 20:46 Triage completed. vc 22:34 Abdomen In Process Unspecified. EDMS 23:07 US Abdomen Limited In Process Unspecified. EDMS 23:08 Ana Maria Sam MD is Hospitalizing Provider. rn 10/16 01:58 No provider procedures requiring assistance completed. Patient admitted, IV remains in vc place. Administered Medications: 10/15 20:34 CANCELLED (Duplicate Order): morphine 2 mg IVP once; (PAIN>8) RASS on ADMN: Gio4, rn Very Agttd3, Agttd2, Rstlss1, AlertClm0, Drwsy-1, LtSdtn-2, ModSdtn-3, DpSdtn-4, UnArsble-5 x2 20:47 Drug: Phenergan 12.5 mg Route: IVP; Site: right antecubital; vc 23:09 Follow up: Response: No adverse reaction vc 20:47 Drug: NS 0.9% 1000 ml Route: IV; Rate: 1000 ml; Site: right antecubital; vc 20:47 Drug: Dilaudid 0.5 mg Route: IVP; Site: right antecubital; vc 23:09 Follow up: Response: No adverse reaction vc 21:55 Drug: Pepcid 20 mg Route: IVP; Site: left antecubital; vc 23:08 Follow up: Response: No adverse reaction vc 21:55 Drug: Dilaudid 0.5 mg Route: IVP; Site: right antecubital; vc 23:08 Follow up: Response: No adverse reaction vc Outcome: 23:09 Decision to Hospitalize by Provider. rn 10/16 01:58 Condition: good vc 02:15 Patient left the ED. sg Signatures: Dispatcher [employer] EDBladimir Jesus RN RN sg Param Duarte MD MD rn Frazier, Celesta cf2 Aspen Tang RN RN vc Corrections: (The following items were deleted from the chart) 10/15 20:35 20:30 Allergies: Morphine; sg sg
--- NOTE | 2019-10-16 23:09 | EDPHYS ---
Physician Documentation [facility] Name: Ninfa Gordon Age: 49 yrs Sex: Female : 1970 Arrival Date: 10/16/2019 Time: 20:15 Bed 20 Private MD: ED Physician Param Duarte HPI: 10/15 20:47 This 49 yrs old Female presents to ER via EMS with complaints of abdominal rn pain, vomiting. 20:47 The patient presents with abdominal pain in the epigastric area. Onset: The rn symptoms/episode began/occurred 3 day(s) ago. The symptoms do not radiate. Associated signs and symptoms: Pertinent positives: nausea and vomiting, Pertinent negatives: anorexia, blood in stools, fever, shortness of breath, vomiting blood. The symptoms are described as crampy, sharp. Modifying factors: The symptoms are alleviated by nothing, the symptoms are aggravated by touching the area. Severity of pain: At its worst the pain was moderate in the emergency department the pain is unchanged. The patient has experienced similar episodes in the past. The patient has not recently seen a physician. Reports nausea and upper abd pain for 2 days, got worse today, reports unable to hold anything down. She has had abd pain like this before without clear diagnosis other than gastritis, denies chest pain, reports only dilaudid works for her. . Historical: - Allergies: 20:30 Tylenol; sg 20:35 Morphine; "doesnt work for me, only dilaudid for pain"; sg - Home Meds: 20:31 None [Active]; sg - PMHx: 20:31 None; sg - PSHx: 20:30 ; sg - Immunization history:: Adult Immunizations unknown. - Social history:: Smoking status: Patient reports the use of cigarette tobacco products. - Family history:: not pertinent. - Hospitalizations: : No recent hospitalization is reported. ROS: 20:47 Constitutional: Negative for fever, chills, and weight loss, Eyes: Negative for injury, rn pain, redness, and discharge, Cardiovascular: Negative for chest pain, palpitations, and edema, Respiratory: Negative for shortness of breath, cough, wheezing, and pleuritic chest pain, Abdomen/GI: + abdominal pain and nausea/vomiting Back: Negative for injury and pain, : Negative for injury, bleeding, discharge, and swelling, MS/Extremity: Negative for injury and deformity, Skin: Negative for injury, rash, and discoloration, Neuro: Negative for headache, weakness, numbness, tingling, and seizure. Exam: 20:47 Constitutional: This is a well developed, well nourished patient who is awake, alert, rn holding emesis bag with vomit, non-bloody Head/Face: Normocephalic, atraumatic. Eyes: Pupils equal round and reactive to light, extra-ocular motions intact. Lids and lashes normal. Conjunctiva and sclera are non-icteric and not injected. Cornea within normal limits. Periorbital areas with no swelling, redness, or edema. ENT: dry MM Cardiovascular: tachycardic, regular Respiratory: Speaking full sentences. No increased work of breathing, no retractions or nasal flaring. Abdomen/GI: soft, mild epigastric tenderness, neg fisher Skin: Warm, dry MS/ Extremity: Pulses equal, no cyanosis. Neuro: Awake and alert, GCS 15, oriented to person, place, time, and situation. Cranial nerves II-XII grossly intact. Motor strength 5/5 in all extremities. Sensory grossly intact. Cerebellar exam normal. Vital Signs: 20:16 BP 148 / 107; Pulse 102; Resp 20; Temp 97.7(O); Pulse Ox 100% on R/A; Pain 10/10; vc 21:00 BP 155 / 119; Pulse 74; Resp 19; Pulse Ox 95% on R/A; vc 22:00 BP 158 / 116; Pulse 72; Resp 20; Pulse Ox 96% on R/A; vc 23:00 BP 175 / 112; Pulse 92; Resp 20; Pulse Ox 98% on R/A; vc 10/16 00:00 BP 157 / 100; Pulse 64; Resp 20; Pulse Ox 93% on R/A; vc 01:40 BP 166 / 106; Pulse 84; Resp 19; Temp 97.4; Pulse Ox 96% on R/A; vc MDM: 10/15 20:18 Patient medically screened. rn 23:07 Differential diagnosis: appendicitis, bowel obstruction, cholecystitis, Cholelithiasis, rn diverticulitis, gastritis, gastroesophageal reflux disease, non-specific abd pain, pancreatitis, Peptic Ulcer Disease, colitis. Data reviewed: vital signs, nurses notes, lab test result(s), radiologic studies, CT scan, and as a result, I will admit patient. Counseling: I had a detailed discussion with the patient and/or guardian regarding: the historical points, exam findings, and any diagnostic results supporting the discharge/admit diagnosis, lab results, radiology results, the need for further work-up and treatment in the hospital. Response to treatment: the patient's symptoms have mildly improved after treatment, and as a result, I will admit patient. Admission orders: after a detailed discussion of the patient's condition and case, the admit orders are written by me. ED course: Pt with intractable pain, mild renal insufficiency compared to past, intractable vomiting, + colitis with elevated WBC, will admit with abx to Dr. allen.. 10/15 20:19 Order name: Basic Metabolic Panel; Complete Time: 21:45 rn 10/15 20:19 Order name: CBC with Diff; Complete Time: 21:17 rn 10/15 20:19 Order name: Hepatic Function; Complete Time: 21:45 rn 10/15 20:19 Order name: Lipase; Complete Time: 21:45 rn 10/15 20:19 Order name: Troponin (emerg Dept Use Only); Complete Time: 21:45 rn 10/15 20:19 Order name: Urine Microscopic Only rn 10/16 00:49 Order name: CBC with Automated Diff EDMS 10/16 00:49 Order name: CBC with Automated Diff EDMS 10/16 00:49 Order name: CBC with Automated Diff EDMS 10/16 00:49 Order name: Comprehensive Metabolic Panel EDMS 10/16 00:49 Order name: Comprehensive Metabolic Panel EDMS 10/16 00:49 Order name: Comprehensive Metabolic Panel EDMS 10/16 00:49 Order name: Protime (+INR) EDMS 10/16 00:49 Order name: Protime (+INR) EDMS 10/15 20:19 Order name: US Abdomen Limited rn 10/15 21:49 Order name: Abdomen EDMS 10/16 00:49 Order name: Protime (+INR) EDMS 10/16 00:50 Order name: PTT, Activated Partial Thromb EDMS 10/16 00:50 Order name: PTT, Activated Partial Thromb EDMS 10/16 00:50 Order name: PTT, Activated Partial Thromb EDMS 10/16 01:19 Order name: Urine Dipstick--Ancillary (enter results) 10/16 01:19 Order name: Urine --Ancillary (enter results) 10/16 01:51 Order name: Urine --Ancillary [facility] 10/16 01:51 Order name: Urine Dipstick-Ancillary [facility] 10/15 20:19 Order name: IV Saline Lock; Complete Time: 21:21 rn 10/15 20:19 Order name: Labs collected and sent; Complete Time: 01:36 rn 10/15 20:19 Order name: EKG; Complete Time: 20:20 rn 10/15 20:19 Order name: EKG - Nurse/Tech; Complete Time: 23:56 rn 10/15 20:19 Order name: Urine Dipstick-Ancillary (obtain specimen); Complete Time: 01:35 rn 10/16 00:49 Order name: CONS Pharmacy Consult [facility] 10/16 00:49 Order name: CONS Physician Consult [facility] 10/16 00:49 Order name: NPO EDMS Administered Medications: 20:34 CANCELLED (Duplicate Order): morphine 2 mg IVP once; (PAIN>8) RASS on ADMN: Combtv4, rn Very Agttd3, Agttd2, Rstlss1, AlertClm0, Drwsy-1, LtSdtn-2, ModSdtn-3, DpSdtn-4, UnArsble-5 x2 20:47 Drug: Phenergan 12.5 mg Route: IVP; Site: right antecubital; vc 23:09 Follow up: Response: No adverse reaction vc 20:47 Drug: NS 0.9% 1000 ml Route: IV; Rate: 1000 ml; Site: right antecubital; vc 20:47 Drug: Dilaudid 0.5 mg Route: IVP; Site: right antecubital; vc 23:09 Follow up: Response: No adverse reaction vc 21:55 Drug: Pepcid 20 mg Route: IVP; Site: left antecubital; vc 23:08 Follow up: Response: No adverse reaction vc 21:55 Drug: Dilaudid 0.5 mg Route: IVP; Site: right antecubital; vc 23:08 Follow up: Response: No adverse reaction vc Disposition: 10/16/19 23:09 Hospitalization ordered by Ana Maria Allen for Inpatient Admission. Preliminary diagnosis are Intractable pain and vomiting, Colitis, unspecified, Dehydration, Acute kidney failure. - Bed requested for Telemetry/MedSurg (Inpatient). - Status is Inpatient Admission. sg - Condition is Stable. - Problem is new. - Symptoms are unchanged. Signatures: Dispatcher [employer] EDMS Bladimir Myles RN RN sg Param Duarte MD MD rn Lasagna, Tonya RN RN tl1 Aspen Tang RN RN vc Corrections: (The following items were deleted from the chart) 20:34 20:19 morphine 2 mg IVP once; (PAIN>8) RASS on ADMN: Combtv4, Very Agttd3, Agttd2, rn Rstlss1, AlertClm0, Drwsy-1, LtSdtn-2, ModSdtn-3, DpSdtn-4, UnArsble-5 x2 ordered. rn 20:35 20:30 Allergies: Morphine; sg sg 21:49 21:47 Abdomen Pelvis W Con+CT.RAD.BRZ ordered. [facility] 10/16 01:05 10/15 23:09 Hospitalization Ordered by Ana Maria Allen MD for Inpatient Admission. tl1 Preliminary diagnosis is Intractable pain and vomiting; Colitis, unspecified; Dehydration; Acute kidney failure. Bed requested for Telemetry/MedSurg (Inpatient). Status is Inpatient Admission. Condition is Stable. Problem is new. Symptoms are unchanged. rn 10/16 02:15 01:05 10/16/2019 23:09 Hospitalization Ordered by Ana Maria Allen MD for Inpatient sg Admission. Preliminary diagnosis is Intractable pain and vomiting; Colitis, unspecified; Dehydration; Acute kidney failure. Bed requested for Telemetry/MedSurg (Inpatient). Status is Inpatient Admission. Condition is Stable. Problem is new. Symptoms are unchanged. tl1
[2019-10-17] MEDS ORDERED: ACETAMINOPHEN 500 MG TAB PO PRN (00:44)
[2019-10-17] MEDS ORDERED: MORPHINE 2 MG/ML SYR IV PRN (00:44)
[2019-10-17] MEDS ORDERED: HYDROMORPHONE HCL 1 MG/ML INJ IV PRN ×2 (01:13→06:25)
[2019-10-17] MEDS ORDERED: ONDANSETRON 4 MG/2 ML VIAL ONE (01:34)
[2019-10-17] MEDS: ONDANSETRON 4 MG/2 ML VIAL IV PRN ×3 (01:34→11:21)
[2019-10-17 01:51] LABS: Urine Blood 1+ (NEG); Urine Glucose NEGATIVE (NEG); Urine Protein 2+ (NEG); Urine Specific Gravity >1.030 (1.005-1.030); Urine pH 5.5 (5.0-7.0)
[2019-10-17 02:03] LABS: Urine Bacteria 20-50 /HPF (<20); Urine Culture Reflex Order REFLEXED; Urine RBC <5 /HPF (NONE SEEN)
[2019-10-17] MEDS: NA CHLORIDE 0.9% 1,000 ML IV SCH ×4 (02:32→20:43)
[2019-10-17 02:41] VITALS: BMI 35.1
[2019-10-17] MEDS: Levofloxacin 250mg IV 250 MG/50 ML BAG IV SCH (04:32)
[2019-10-17] MEDS: METRONIDAZOLE 500mg IVPB 500 MG/100 ML BAG IV SCH ×4 (05:14→23:58)
[2019-10-17 05:45] LABS: Absolute Lymphocytes (CBC) 1.3 K/uL (0.7-4.9); Basophils % 0.4 % (0-1.3); Hematocrit 45.9 % (36.0-45.0); Lymphocytes % 10.5 % (15.3-44.8); MPV 9.9 fL (7.6-11.3); RBC Red Blood Cell Count 4.81 M/uL (3.86-4.86)
[2019-10-17 05:51] LABS: Albumin 4.5 g/dL (3.4-5.0); Bilirubin Total 0.5 mg/dL (0.2-1.0); Potassium 3.4 mmol/L (3.5-5.1); Protein, Total 8.9 g/dL (6.4-8.2)
[2019-10-17 06:13] LABS: Protime INR 1.15
--- NOTE | 2019-10-17 06:24 | EKG ---
Test Date: 2019-10-16 Test Time: 23:25:37 [id number] Architect: EVELIN MEASUREMENT RESULTS: Intervals: Rate: 69 AK: 182 QRSD: 76 QT: 418 QTc: 447 [place]: P: 57 AK: 182 QRS: 58 T: 48 INTERPRETIVE STATEMENTS: Normal sinus rhythm with sinus arrhythmia Normal ECG Compared to ECG 09/05/2019 16:44:24 No significant changes Electronically Signed On 10-17-19 06:24:15 CDT by Pasquale Hdz
[2019-10-17] MEDS ORDERED: LORazepam 2 MG/ML VIAL IV ONE (06:25)
--- NOTE | 2019-10-17 06:34 | P.HP ---
Certification for Inpatient Patient admitted to: Inpatient With expected LOS: >2 Midnights Patient will require the following post-hospital care: None Practitioner: I am a practitioner with admitting privileges, knowledge of patient current condition, hospital course, and medical plan of care. Services: Services provided to patient in accordance with Admission requirements found in Title 42 Section 412.3 of the Code of Federal Regulations Patient History Date of Service: 10/17/19 Reason for admission: Acute diverticulitis History of Present Illness: Patient is a 49-year-old female came to the hospital with abdominal pain. Patient was having severe abdominal pain which is had an on and off for the last 3 years. The last time she had was in the hospital with a couple of years ago for similar issues. She says she was told she has diverticulitis. In the emergency room she was given pain medication and IV antibiotics. CT scan revealed diverticulitis. Patient will be admitted to the hospital for IV antibiotic therapy and pain control. Continue IV fluids at this time as well. Monitor labs and we will also consult Gastroenterology. Allergies acetaminophen [From Tylenol] Allergy (Verified 10/17/19 02:12) Itching morphine Allergy (Verified 10/17/19 02:12) Unknown Home Medications: NK [No Home Meds] 10/17/19 - Past Medical/Surgical History Has patient received pneumonia vaccine in the past: No Diabetic: No -: Gastric ulcer disease -: Rib fracture -: Pneumonia -: x 2 - Family History Father Family History: Reviewed- Non-Contributory - Social History Smoking Status: Light Tobacco smoker (1-9 cigarettes/day) Alcohol use: No CD- Drugs: No Caffeine use: Yes Place of Residence: Home Review of Systems 10-point ROS is otherwise unremarkable Physical Examination - Vital Signs Temperature: 98.1 F Blood Pressure: 171/90 Pulse: 73 Respirations: 18 Pulse Ox (%): 97 - Physical Exam General: Alert, In no apparent distress, Oriented x3 HEENT: Atraumatic, PERRLA, Mucous membr. moist/pink, EOMI, Sclerae nonicteric Neck: Supple, 2+ carotid pulse no bruit, No LAD, Without JVD or thyroid abnormality Respiratory: Clear to auscultation bilaterally, Normal air movement Cardiovascular: Regular rate/rhythm, Normal S1 S2, No murmurs Gastrointestinal: Normal bowel sounds, Soft and benign, Non-distended, No rebound, No guarding, Tenderness Musculoskeletal: No clubbing, No swelling, No tenderness Integumentary: No rashes Neurological: Normal gait, Normal speech, Normal strength at 5/5 x4 extr, Normal tone, Sensation intact, Cranial nerves 3-12 intact, Normal affect Lymphatics: No axilla or inguinal lymphadenopathy - Studies Laboratory Data (last 24 hrs) 10/16/19 20:25: WBC 13.5 H, Hgb 16.3 H, Hct 49.4 H, Plt Count 288 10/16/19 20:25: Sodium 137, Potassium 3.4 L, BUN 19 H, Creatinine 1.70 H, Glucose 144 H, Total Bilirubin 0.7, AST 38 H, ALT 54, Alkaline Phosphatase 75, Lipase 146 Assessment & Plan - Problems (Diagnosis) (1) Acute diverticulitis Current Visit: Yes Status: Acute (2) Intractable nausea and vomiting Current Visit: Yes Status: Acute (3) Gastritis without peptic ulcer disease Current Visit: Yes Status: Acute - Plan 1. Continue with IV hydration 2. Continue with IV antibiotics 3. Continue with pain control 4. NPO 5. GI consultation; outpatient colonoscopy in 6-12 weeks 6. Serial H&H, and we will monitor CBC, BMP, LFTs and lipase along with electrolytes. 7. Continue with anxiolytics as well 8. GI and DVT prophylaxis Discharge Plan: Home Plan to discharge in: Greater than 2 days - Advance Directives Does patient have a Living Will: No Does patient have a Durable POA for Healthcare: No - Code Status/Comfort Care Code Status Assessed: Yes Code Status: Full Code Critical Care: No Time Spent Managing PTS Care (In Minutes): 45
[2019-10-17 07:00] LABS: Blood Morphology Comment NOT SEEN (NOT SEEN); Platelet Estimate ADEQ; Platelets, Giant FEW PRESENT
--- NOTE | 2019-10-17 08:29 | RAD REPORT ---
EXAM DESCRIPTION: US - Abdomen Exam Limited - 10/16/2019 11:06 pm CLINICAL HISTORY: ABD PAIN COMPARISON: ABDOMINAL EXAM LIMITED dated 08/23/2013 FINDINGS: The gallbladder demonstrates no gallstones. No pericholecystic fluid or gallbladder wall t hickening. The common bile duct is normal measuring 2 mm. The liver demonstrates no findings of intrahepatic biliary dilatation. IMPRESSION: Unremarkable examination.
[2019-10-17] MEDS: HYDROMORPHONE HCL 0.5 MG/0.5 ML INJ IV PRN ×4 (11:16→23:57)
--- NOTE | 2019-10-17 20:08 | RAD REPORT ---
EXAM DESCRIPTION: CT ABDOMEN PELVIS WITHOUT IV CONTRAST CLINICAL HISTORY: Abdominal pain with nausea and vomiting. COMPARISON: None. TECHNIQUE: CT scan of the abdomen and pelvis was performed without IV contrast. This exam was perfor med according to our departmental dose-optimization program, which includes automated exposure contro l, adjustment of the mA and/or kV according to patient size and/or use of iterative reconstruction te chnique. FINDINGS: The lung bases are clear. No pleural or pericardial effusions. There is no hiatal hernia. The liver, spleen, pancreas, gallbladder, adrenal glands, and kidneys are unremarkable. No hydronephr osis or urinary stones are seen. The uterus is enlarged and lobulated suggestive of fibroids. The stomach and duodenum are unremarkable. No small bowel obstruction. The appendix is normal. There is mild wall thickening of the transverse and descending colon. No adenopathy, free fluid, or free ai r is identified. The aorta is normal in caliber. No acute bony findings are seen. No abnormal body wall hernia. IMPRESSION: Query mild colitis versus underdistention involving the distal colon. Electronically signed by: Florencio Hardwick MD 10/16/2019 10:55 PM CDT Due to temporary technical issues with the PACS/Fluency reporting system, reports are being signed by the in house radiologist without review as a courtesy to ensure prompt reporting. The interpreting r adiologist is fully responsible for the content of the report.
[2019-10-17] MEDS: LORazepam 2 MG/ML VIAL IV PRN (20:27)
[2019-10-18] MEDS: Levofloxacin 250mg IV 250 MG/50 ML BAG IV SCH (03:31)
[2019-10-18] MEDS: NA CHLORIDE 0.9% 1,000 ML IV SCH ×3 (03:33→07:00)
[2019-10-18] MEDS: ONDANSETRON 4 MG/2 ML VIAL IV PRN ×5 (03:43→21:52)
[2019-10-18] MEDS: HYDROMORPHONE HCL 0.5 MG/0.5 ML INJ IV PRN ×5 (03:50→21:52)
[2019-10-18 05:15] LABS: Absolute Lymphocytes (CBC) 3.3 K/uL (0.7-4.9); Hematocrit 38.6 % (36.0-45.0); Lymphocytes % 38.5 % (15.3-44.8); MPV 10.1 fL (7.6-11.3); RBC Red Blood Cell Count 3.99 M/uL (3.86-4.86)
[2019-10-18 05:17] LABS: Protime INR 1.16
[2019-10-18 05:30] LABS: ALT/SGPT 37 U/L (12-78); AST/SGOT 31 U/L (15-37); Albumin 3.6 g/dL (3.4-5.0); Alkaline Phosphatase 51 U/L (45-117); BUN Blood Urea Nitrogen 12 mg/dL (7-18); Bicarbonate 25 mmol/L (21-32); Bilirubin Total 0.8 mg/dL (0.2-1.0); Glucose Level 84 mg/dL (74-106); Potassium 3.5 mmol/L (3.5-5.1); Protein, Total 6.8 g/dL (6.4-8.2); Sodium Level 137 mmol/L (136-145)
[2019-10-18] MEDS: METRONIDAZOLE 500mg IVPB 500 MG/100 ML BAG IV SCH ×4 (05:57→23:26)
[2019-10-18] MEDS: LORazepam 2 MG/ML VIAL IV PRN ×2 (07:34→17:04)
[2019-10-18] MEDS ORDERED: TEMAZEPAM 15 MG CAP PO PRN (08:41)
[2019-10-18] MEDS: Ringers Lactate 1,000 ML IV SCH ×3 (09:38→23:26)
--- NOTE | 2019-10-18 22:10 | CON ---
Date of Consultation: 10/18/2019 Reason For Consultation: Abdominal pain associated with nausea, vomiting, chills, and abnormal CT re vealing inflammation in the splenic flexure. History Of Present Illness: The patient is a 49-year-old female with significant history of C-sections and broken ribs. The patient states that she was in a state of health until approximatel y 4 days ago when she started experiencing left-sided abdominal pain, left upper quadrant greater meryl n left lower quadrant midepigastric pain, 9/10, now 8/10 associated with chills, nausea, vomiting. S he also has some headaches. CT scan revealed inflammation of the transverse and descending colons. She denies any fever, night sweats, diarrhea, hematochezia, melena, as well as constipation. She has had no stools since admission. She smokes about a quarter of pack of cigarettes per day for many ye ars. She is with occasional alcohol use. Of note, she states that she has had multiple bro neeraj ribs from a work accident where a co-worker had some poles and slipped and fell, and the poles hi t her chest and broke her ribs. Severe coughing broke her ribs and a strong hug from a friend broke her ribs as well. The patient denies ever having DEXA/bone density study done. Also, she has had el evated white count on admission at 13.5 down to 8.7 with IV fluids and antibiotics. Past Medical History: Significant for C-sections, broken ribs from work accident when her co-worker had poles that fell and it pushed the poles into her chest and broke her ribs. Severe coughing broke her ribs and a strong hug from a friend broke some ribs on her as well. No prior bone density scan study. By chart review, she has had x2, pneumonia, and gastric ulcers in the past. Home Medications: None. Allergies: TYLENOL, MORPHINE. Social History: She is , 2 children. Quarter pack tobacco per day. Rare alcohol use. Family History: Father with coronary artery disease, myocardial infarction, stroke. Mother with saray g cancer, both . Review of Systems: Patient has left upper quadrant, midepigastric, left lower quadrant pain with chills, nausea, vomitin g, headaches, tobacco quarter pack per day. Positive CT scan and pelvis. She denies any fever, nigh t sweats, diarrhea, constipation, hematochezia, melena, seizure, syncope, lower extremity edema, musc le aches, joint aches, backaches, depression, anxiety. No hemoptysis, hematemesis, coffee-grounds em esis, hematuria, dysuria, polydipsia. Physical Examination: Vital Signs: Patient is 5 feet 2 inches, 192 pounds, BMI 35.1 kg/sq m. Laboratory Data And Imaging: She has a white count of 8.7, down from 13.5 on the , 12.1 on the 05 08. Hemoglobin is 13.0, down from 16.3 and 15.0, previous 2 days. A platelet count of 215. Polys of 50%, down from 84% yesterday; lymphocytes 39%; monocytes 10%. The patient has a PT of 13.7, INR o f 1.2, PTT of 30.9. The patient has a sodium 137, potassium 3.5, chloride 108, bicarb 25, BUN 12, cr eatinine of 0.7, glucose 84, calcium 8.4, total bilirubin 0.8, AST 31, ALT 37, alkaline phosphatase 5 1, rapid troponin I less than 0.02. Total protein 6.8, albumin 3.6, lipase 146. Urinalysis 1+ ketone s, 1+ blood with 20-50 bacteria, negative nitrite, negative leukocyte esterase, less than 5 squamous epithelial cells, 2+ protein, negative test, and sterile pyuria. CT of abdomen and pelvis reveals inflammation with mild thickening of the transverse and descending c olon, otherwise negative. Ultrasound abdomen is negative. Impression: 1.Suspect ischemic colitis with abdominal pain being the predominant feature and first sign she had, associated with nausea, vomiting, headaches, and chills with tobacco use. CT of the abdomen and pel vis revealed inflammation of transverse and descending colon consistent with possible ischemic coliti s. Less likely would be diverticulitis or infectious colitis. The patient denies any fevers, night sweats, diarrhea, hematochezia, melena or coffee-grounds emesis. She has had no stools since admissi on. 2.Sepsis with white count of 13.5 on admission down to 12.1, down 8.7, now with IV fluids, IV antibi otics. 3.History of , broken ribs. In the past. Recommendation: 1.Increase IV fluids from normal saline 100 cc an hour to lactated Ringer's 150 cc an hour. The pat ient still has significant pain after almost 24-36 hours in hospital, otherwise continue IV antibioti cs. 2.Ice chips and water. 3.Outpatient colonoscopy in 4-6 weeks. 4.Monitor labs and also continue p.r.n. pain medications and antiemetics. COLTEN/MAXIM Voice ID: [id number] Report ID: [id number]
[2019-10-19] MEDS: LORazepam 2 MG/ML VIAL IV PRN ×3 (01:16→17:24)
[2019-10-19] MEDS: HYDROMORPHONE HCL 0.5 MG/0.5 ML INJ IV PRN ×5 (02:06→18:50)
[2019-10-19] MEDS: ONDANSETRON 4 MG/2 ML VIAL IV PRN ×5 (02:07→18:50)
[2019-10-19] MEDS: Levofloxacin 250mg IV 250 MG/50 ML BAG IV SCH (03:45)
[2019-10-19] MEDS ORDERED: ACETAMINOPHEN 500 MG TAB PO ONE (05:17)
[2019-10-19] MEDS: METRONIDAZOLE 500mg IVPB 500 MG/100 ML BAG IV SCH ×4 (05:38→23:54)
[2019-10-19] MEDS: Ringers Lactate 1,000 ML IV SCH ×4 (06:00→18:51)
[2019-10-19] MEDS: TRAMADOL HCL 50 MG TAB PO PRN ×2 (08:02→21:30)
[2019-10-19 10:59] LABS: Absolute Lymphocytes (CBC) 3.2 K/uL (0.7-4.9); Basophils % 0.8 % (0-1.3); Hematocrit 39.6 % (36.0-45.0); Lymphocytes % 48.5 % (15.3-44.8); MPV 9.7 fL (7.6-11.3); RBC Red Blood Cell Count 4.19 M/uL (3.86-4.86)
[2019-10-19 11:12] LABS: BUN Blood Urea Nitrogen 5 mg/dL (7-18); Bicarbonate 25 mmol/L (21-32); Glucose Level 80 mg/dL (74-106); Magnesium 1.7 mg/dL (1.8-2.4); Phosphorus 2.5 mg/dL (2.5-4.9); Potassium 3.5 mmol/L (3.5-5.1); Sodium Level 140 mmol/L (136-145)
--- NOTE | 2019-10-19 15:12 | P.PN ---
Subjective Date of Service: 10/19/19 Chief Complaint: LLQ/LUQ pain, abn CT with inflam transverse / descending colon Subjective: Improving (Less abdominal pain, N/V today though still problematic for her. She is awaiting MRA mesenteric. Tolerated ice chips and water, but not CLs well.) Review of Systems 10-point ROS is otherwise unremarkable General: Weakness, Malaise (Improved.) Gastrointestinal: Nausea (Improved.), Abdominal Pain (Improved.) Physical Examination - Vital Signs Temperature: 97.8 F Blood Pressure: 142/76 Pulse: 59 Respirations: 16 Pulse Ox (%): 99 - Physical Exam General: Alert, In no apparent distress, Oriented x3, Cooperative HEENT: Atraumatic, Normocephalic, PERRLA, EOMI Neck: Supple Respiratory: Normal air movement Cardiovascular: Normal pulses Gastrointestinal: No rebound, No guarding, Tenderness Neurological: Normal speech, Normal strength at 5/5 x4 extr Assessment And Plan - Current Problems (Diagnosis) (1) Colitis Current Visit: Yes Status: Acute Comment: Possible ischemic colitis versus less likely diverticulitis versus infectious colitis versus other (2) Abnormal CT of the abdomen Current Visit: Yes Status: Acute (3) Nausea & vomiting Current Visit: Yes Status: Acute (4) LLQ abdominal pain Current Visit: Yes Status: Acute (5) LUQ abdominal pain Current Visit: Yes Status: Acute - Plan REC: 1) await MRA abdomen 2) continue aggressive IVFs 3) check lactate 4) monitor other labs 5) continue prn pain medications / anti-emetics
--- NOTE | 2019-10-19 20:14 | RAD REPORT ---
EXAM DESCRIPTION: MRI - MRA Abdomen W/Cont - 10/19/2019 8:02 pm CLINICAL HISTORY: Ischemic colitis Abdominal pain COMPARISON: No comparisons FINDINGS: MR angiogram of the abdominal aorta and branching vessels was performed. No aortic aneurysm or dissection is seen. Widely patent bilateral renal arteries noted. The celiac axis, SMA are widely patent. The CASSANDRA is naylor nt but small in size. No solid organ abnormality grossly appreciated. IMPRESSION: No significant flow abnormality of the abdominal aorta and visceral arteries identified.
[2019-10-19] MEDS ORDERED: LORAZEPAM 1 MG TABLET PO ONE (21:48)
[2019-10-20 00:09] VITALS: O2SAT 100
[2019-10-20] MEDS: Ringers Lactate 1,000 ML IV SCH ×2 (03:03→08:36)
[2019-10-20] MEDS: Levofloxacin 250mg IV 250 MG/50 ML BAG IV SCH (03:03)
[2019-10-20] MEDS: HYDROMORPHONE HCL 0.5 MG/0.5 ML INJ IV PRN ×2 (03:16→09:56)
[2019-10-20] MEDS: ONDANSETRON 4 MG/2 ML VIAL IV PRN ×2 (03:16→09:56)
[2019-10-20] MEDS ORDERED: DIPHENHYDRAMINE 50 MG/ML VIAL IV ONE (03:47)
[2019-10-20] MEDS: METRONIDAZOLE 500mg IVPB 500 MG/100 ML BAG IV SCH ×2 (05:11→11:54)
[2019-10-20 06:33] LABS: BUN Blood Urea Nitrogen 4 mg/dL (7-18); Bicarbonate 26 mmol/L (21-32); Glucose Level 74 mg/dL (74-106); Magnesium 1.8 mg/dL (1.8-2.4); Phosphorus 2.9 mg/dL (2.5-4.9); Potassium 3.5 mmol/L (3.5-5.1); Sodium Level 139 mmol/L (136-145)
[2019-10-20 06:40] LABS: Absolute Lymphocytes (CBC) 2.4 K/uL (0.7-4.9); Basophils % 0.6 % (0-1.3); Hematocrit 39.3 % (36.0-45.0); Lymphocytes % 39.7 % (15.3-44.8); MPV 9.8 fL (7.6-11.3); RBC Red Blood Cell Count 4.08 M/uL (3.86-4.86)
[2019-10-20] MEDS: TRAMADOL HCL 50 MG TAB PO PRN (08:34)
[2019-10-20] MEDS: LORazepam 2 MG/ML VIAL IV PRN (10:48)
[2019-10-20 13:43] VITALS: BP 157/90; TEMP 98.7
--- NOTE | 2019-10-21 02:13 | P.PN ---
Subjective Date of Service: 10/18/19 Patient continues to improve. Still having some pain as well. Continue with antibiotics and pain control. GI consultation pending. Review of Systems 10-point ROS is otherwise unremarkable Physical Examination - Vital Signs Temperature: 98.7 F Blood Pressure: 157/90 Pulse: 65 Respirations: 16 Pulse Ox (%): 98 - Physical Exam General: Alert, In no apparent distress, Oriented x3 Respiratory: Clear to auscultation bilaterally, Normal air movement Cardiovascular: Regular rate/rhythm, Normal S1 S2, No murmurs Gastrointestinal: Normal bowel sounds, Soft and benign, Non-distended, Tenderness (Mild epigastric tenderness) Musculoskeletal: No clubbing, No swelling, No tenderness Neurological: Normal strength at 5/5 x4 extr, Normal tone, Sensation intact, Cranial nerves 3-12 intact, Normal affect Lymphatics: No axilla or inguinal lymphadenopathy - Studies Medications List Reviewed: Yes Assessment & Plan - Problems (Diagnosis) (1) Acute diverticulitis Status: Acute (2) Intractable nausea and vomiting Status: Acute (3) Gastritis without peptic ulcer disease Status: Acute (4) Mesenteric ischemia Status: Acute - Plan 1. Continue with IV hydration 2. Continue with IV antibiotics 3. Continue with pain control 4. Start clear liquid diet if okay with GI 5. GI consultation pending; colonoscopy pending 6. Serial H&H, and we will monitor CBC, BMP, LFTs and lipase along with electrolytes. 7. Continue with anxiolytics as well 8. GI and DVT prophylaxis Discharge Plan: Home Plan to discharge in: Greater than 2 days - Advance Directives Does patient have a Living Will: No Does patient have a Durable POA for Healthcare: No - Code Status/Comfort Care Code Status: Full Code Critical Care: No Time Spent Managing PTS Care (In Minutes): 25
--- NOTE | 2019-10-21 02:16 | P.PN ---
Subjective Date of Service: 10/19/19 Appreciate GI consultation. Concern for mesenteric ischemia. Check lactic acidosis an MRI of the abdomen with angio. Review of Systems 10-point ROS is otherwise unremarkable Physical Examination - Vital Signs Temperature: 98.7 F Blood Pressure: 157/90 Pulse: 65 Respirations: 16 Pulse Ox (%): 98 - Physical Exam General: Alert, In no apparent distress, Oriented x3 Respiratory: Clear to auscultation bilaterally, Normal air movement Cardiovascular: Regular rate/rhythm, Normal S1 S2 Gastrointestinal: Normal bowel sounds, Soft and benign, Non-distended Musculoskeletal: No clubbing, No swelling, No tenderness Neurological: Normal strength at 5/5 x4 extr, Normal tone, Sensation intact, Cranial nerves 3-12 intact - Studies Medications List Reviewed: Yes Assessment & Plan - Problems (Diagnosis) (1) Acute diverticulitis Status: Acute (2) Intractable nausea and vomiting Status: Acute (3) Gastritis without peptic ulcer disease Status: Acute (4) Mesenteric ischemia Status: Acute - Plan 1. Continue with IV hydration 2. Continue with IV antibiotics 3. Continue with pain control 4. Start clear liquid diet if okay with GI 5. GI consultation pending; colonoscopy pending 6. Check lactate level 7. Continue with anxiolytics as well 8. MRI of the abdomen with angio 9. GI and DVT prophylaxis Discharge Plan: Home Plan to discharge in: Greater than 2 days - Advance Directives Does patient have a Living Will: No Does patient have a Durable POA for Healthcare: No - Code Status/Comfort Care Code Status: Full Code Critical Care: No Time Spent Managing PTS Care (In Minutes): 25
--- NOTE | 2019-10-21 02:20 | P.DS ---
Discharge Date: 10/20/19 Disposition: ROUTINE DISCHARGE Discharge Condition: GOOD Reason for Admission: LLQ/LUQ pain, abn CT with inflam transverse / descending colon Consultations: Gastroenterology - Problems (1) Acute diverticulitis Status: Acute (2) Intractable nausea and vomiting Status: Acute (3) Gastritis without peptic ulcer disease Status: Acute (4) Mesenteric ischemia Status: Acute Brief History of Present Illness: Patient is a 49-year-old female came to the hospital with abdominal pain. Patient was having severe abdominal pain which is had an on and off for the last 3 years. The last time she had was in the hospital with a couple of years ago for similar issues. She says she was told she has diverticulitis. In the emergency room she was given pain medication and IV antibiotics. CT scan revealed diverticulitis. Patient will be admitted to the hospital for IV antibiotic therapy and pain control. Continue IV fluids at this time as well. Monitor labs and we will also consult Gastroenterology. Hospital Course: Patient has done well during hospital stay. Abdominal pain is improved. MRI of the abdomen was negative. No evidence of poor mesenteric blood flow. Lactic acid level was negative. Continue with antibiotics and outpatient colonoscopy. Vital Signs/Physical Exam: Temp Pulse Resp BP Pulse Ox 98.7 F 65 16 157/90 H 98 10/21/19 02:16 10/21/19 02:16 10/21/19 02:16 10/21/19 02:16 10/21/19 02:16 General: Alert, In no apparent distress, Oriented x3 Laboratory Data at Discharge: WBC 6.0 K/uL (4.3-10.9) 10/20/19 05:48 Hgb 13.4 g/dL (12.0-15.0) 10/20/19 05:48 Hct 39.3 % (36.0-45.0) 10/20/19 05:48 Plt Count 193 K/uL (152-406) 10/20/19 05:48 PT 13.7 SECONDS (9.5-12.5) H 10/18/19 04:30 INR 1.16 10/18/19 04:30 APTT 30.9 SECONDS (24.3-36.9) 10/18/19 04:30 Sodium 139 mmol/L (136-145) 10/20/19 05:48 Potassium 3.5 mmol/L (3.5-5.1) 10/20/19 05:48 BUN 4 mg/dL (7-18) L 10/20/19 05:48 Creatinine 0.61 mg/dL (0.55-1.3) 10/20/19 05:48 Glucose 74 mg/dL (74-106) 10/20/19 05:48 Phosphorus 2.9 mg/dL (2.5-4.9) 10/20/19 05:48 Magnesium 1.8 mg/dL (1.8-2.4) 10/20/19 05:48 Total Bilirubin 0.8 mg/dL (0.2-1.0) 10/18/19 04:30 AST 31 U/L (15-37) 10/18/19 04:30 ALT 37 U/L (12-78) 10/18/19 04:30 Alkaline Phosphatase 51 U/L (45-117) 10/18/19 04:30 Lipase 146 U/L (73-393) 10/16/19 20:25 Home Medications: Levofloxacin [Levaquin] 500 mg PO DAILY #7 tablet 10/20/19 Lorazepam [Ativan] 1 mg PO BEDTIME PRN #20 tablet 10/20/19 metroNIDAZOLE [Flagyl] 500 mg PO Q8H #21 tablet 10/20/19 traMADol HCL [Ultram*] 50 mg PO Q6HR #60 tab 10/20/19 New Medications: Lorazepam [Ativan] 1 mg PO BEDTIME PRN #20 tablet PRN Reason: Insomnia metroNIDAZOLE [Flagyl] 500 mg PO Q8H #21 tablet Levofloxacin [Levaquin] 500 mg PO DAILY #7 tablet traMADol HCL [Ultram*] 50 mg PO Q6HR #60 tab Patient Discharge Instructions: OK TO DC IV AND DC HOME. FOLLOW-UP WITH PRIMARY CARE PROVIDER IN 1-2 WEEKS. FOLLOW-UP WITH gastroenterology IN 1-2 WEEKS to schedule for outpatient colonoscopy. RETURN TO THE ER IF symptoms worsen. CALL DR. ALCANTARA AT [phone] IF ANY QUESTIONS REGARDING HOSPITAL STAY. PLEASE CALL THE FLOOR AT [phone] IF ANY MEDICATION OR NURSING QUESTIONS. Diet: ADA Activity: Fall precautions Followup: Salomon Zuñiga MD [ASSOCIATE-ACTIVE - CAN ADMIT] - (Call to make an appointment. ) Time spent managing pt's care (in minutes): 25
== END 2019-10-20 14:06 | disposition home or self-care (01) | DRG 391 ==
LOC: ER 20:15 → ERHOLD 10-17 01:07 → 2ND 10-17 02:06
PROVIDERS: ADMIT Hospitalist; ATTEND Hospitalist
DX: K57.32 Diverticulitis of large intestine without perforation or abscess without bleeding (principal); K55.059 Acute (reversible) ischemia of intestine, part and extent unspecified; F17.210 Nicotine dependence, cigarettes, uncomplicated; K29.70 Gastritis, unspecified, without bleeding; Z88.5 Allergy status to narcotic agent
CPT/HCPCS: 36415; 74176; 76705; 80048; 80053; 80076; 81003; 81015; 81025; 83605; 83690; 83735; 84100; 84484; 85025; 85610; 85730; 87086; 87088; 93005; 99284; J1170; J1200; J2270; J2405; J2550; J7030; J7120; U0002

== ENCOUNTER 2019-10-21 15:59 | Emergency (ER) | payer SELFPAY ==
[2019-10-21 18:07] LABS: Absolute Lymphocytes (CBC) 3.1 K/uL (0.7-4.9); Hematocrit 43.7 % (36.0-45.0); Lymphocytes % 37.8 % (15.3-44.8); MPV 10.2 fL (7.6-11.3); RBC Red Blood Cell Count 4.52 M/uL (3.86-4.86)
[2019-10-21] MEDS ORDERED: PROMETHAZINE INJ 25 MG/ML AMP ONE (18:47)
[2019-10-21 18:48] LABS: Albumin 4.1 g/dL (3.4-5.0); Bilirubin Direct 0.2 mg/dL (0-0.2); Bilirubin Total 0.7 mg/dL (0.2-1.0); Potassium 3.2 mmol/L (3.5-5.1); Protein, Total 7.4 g/dL (6.4-8.2)
[2019-10-21] MEDS ORDERED: FENTANYL CITR 100 MCG/2 ML ONE (18:48)
[2019-10-21] MEDS ORDERED: NA CHLORIDE 0.9% 1,000 ML ONE (18:48)
[2019-10-21] MEDS ORDERED: HYDROMORPHONE HCL 1 MG/ML INJ ONE (20:32)
--- NOTE | 2019-10-21 20:51 | EDPHYS ---
Physician Documentation [facility] Name: Ninfa Gordon Age: 49 yrs Sex: Female : 1970 Arrival Date: 10/21/2019 Time: 16:01 Bed 14 Private MD: ED Physician Ana Maria Blank HPI: 10/20 18:29 This 49 yrs old Female presents to ER via Ambulatory with complaints of pm1 Nausea/Vomiting. 18:29 The patient presents to the emergency department with nausea, vomiting, abdominal pain, pm1 of the left lower quadrant. Onset: The symptoms/episode began/occurred today. Possible causes: admitted for diverticulitis 6 days ago and was discharged yesterday. The symptoms are aggravated by nothing. The symptoms are alleviated by nothing. patient does not have antiemetic at home. Associated signs and symptoms: Pertinent negatives: constipation, dysuria, fever. Severity of symptoms: in the emergency department the symptoms are worse. The patient has been recently been admitted at [facility], was discharged yesterday. Historical: - Allergies: 16:24 Tylenol; ss - PSHx: 16:24 ; ss - Immunization history:: Adult Immunizations up to date. - Social history:: Smoking status: Patient reports the use of cigarette tobacco products, smokes one-half pack cigarettes per day. ROS: 18:29 Constitutional: Negative for fever, chills, and weight loss, Neck: Negative for injury, pm1 pain, and swelling, Cardiovascular: Negative for chest pain, palpitations, and edema, Respiratory: Negative for shortness of breath, cough, wheezing, and pleuritic chest pain. 18:29 Back: Negative for injury and pain, : Negative for injury, bleeding, discharge, and swelling, MS/Extremity: Negative for injury and deformity, Skin: Negative for injury, rash, and discoloration, Neuro: Negative for headache, weakness, numbness, tingling, and seizure. 18:29 Abdomen/GI: Positive for abdominal pain, nausea and vomiting, Negative for diarrhea, constipation. Exam: 18:29 Constitutional: This is a well developed, well nourished patient who is awake, alert, pm1 and in no acute distress. Head/Face: Normocephalic, atraumatic. 18:29 Back: No spinal tenderness. No costovertebral tenderness. Full range of motion. Skin: Warm, dry with normal turgor. Normal color with no rashes, no lesions, and no evidence of cellulitis. MS/ Extremity: Pulses equal, no cyanosis. Neurovascular intact. Full, normal range of motion. 18:29 Cardiovascular: Exam negative for acute changes, Rate: normal, Rhythm: regular, Pulses: no pulse deficits are appreciated. 18:29 Respiratory: Exam negative for acute changes, respiratory distress, shortness of breath. 18:29 Abdomen/GI: Inspection: abdomen appears normal, Bowel sounds: normal, Palpation: abdomen is soft and non-tender, in all quadrants, mass, is not appreciated, rebound tenderness, is not appreciated. 18:29 Neuro: Exam negative for acute changes, Orientation: is normal, Mentation: is normal, Motor: is normal, moves all fours. 18:29 Psych: Behavior/mood is anxious, Affect is animated, Oriented to person, place, time. Vital Signs: 16:17 BP 131 / 98; Pulse 95; Resp 18; Temp 98.4(TE); Pulse Ox 100% on R/A; Weight 79.38 kg; ss Height 5 ft. 2 in. (157.48 cm); Pain 9/10; 18:00 BP 146 / 95; Pulse 93; Resp 25 S; Pulse Ox 100% ; Pain 8/10; jp3 16:17 Body Mass Index 32.01 (79.38 kg, 157.48 cm) ss MDM: 18:29 Patient medically screened. pm1 20:15 Physician consultation: Ana Maria Sam MD was contacted at 20:15, regarding consult, pm1 patient's condition, Patient just discharged to home yesterday and does not meet any criteria for readmission. Patient's labs within normal limits. Patient has follow up with Yogesh for colonoscopy and patient will need to follow up with pain management if she would like additional pain medications. . 20:49 Data reviewed: vital signs. Data interpreted: Pulse oximetry: on room air is 100 %. pm1 Interpretation: normal. 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 10/20 17:44 Order name: Basic Metabolic Panel; Complete Time: 18:56 ss 10/20 17:44 Order name: CBC with Diff; Complete Time: 18:31 ss 10/20 17:44 Order name: Hepatic Function; Complete Time: 18:56 ss 10/20 17:44 Order name: Lipase; Complete Time: 18:56 ss 10/20 17:44 Order name: IV Saline Lock; Complete Time: 17:55 ss 10/20 17:44 Order name: Labs collected and sent; Complete Time: 17:55 ss Administered Medications: 18:38 CANCELLED (Physician Discretion): morphine 4 mg IVP once; RASS on ADMIN: Combtv4, Very pm1 Agttd3, Agttd2, Rstlss1, AlertClm0, Drwsy-1, Lt Sdtn-2, Mod Sdtn-3, Dp Sdtn-4, UnArsble-5 18:45 Drug: Phenergan 12.5 mg Route: IVP; Site: left antecubital; 21:06 Follow up: Response: No adverse reaction 18:45 Drug: fentaNYL (PF) 50 mcg Route: IVP; Site: left antecubital; 21:06 Follow up: Response: No adverse reaction 18:50 Drug: NS 0.9% 1000 ml Route: IV; Rate: 1000 ml; Site: left antecubital; 21:07 Follow up: Response: No adverse reaction; IV Status: Completed infusion 20:55 Drug: Dilaudid 1 mg Route: IVP; Site: left antecubital; 21:38 Follow up: Response: No adverse reaction Disposition: 10/21 07:05 Co-signature as Attending Physician, Ana Maria Blank MD. ma2 Disposition: 10/21/19 20:50 Discharged to Home. Impression: Nausea and vomiting, Unspecified abdominal pain. - Condition is Stable. - Discharge Instructions: Abdominal Pain, Adult, Nausea and Vomiting, Adult. - Prescriptions for Phenergan 25 mg Rectal Suppository - insert 1 suppository by RECTAL route every 6 hours As needed; 12 suppository. promethazine 25 mg Oral Tablet - take 1 tablet by ORAL route every 6 hours As needed; 20 tablet. - Medication Reconciliation Form, Thank You Letter, Antibiotic Education, Prescription Opioid Use form. - Follow up: Emergency Department; When: As needed; Reason: Worsening of condition. Follow up: Salomon Zuñiga MD; When: 2 - 3 days; Reason: Recheck today's complaints, Continuance of care, Re-evaluation by your physician. - Problem is new. - Symptoms have improved. Signatures: Dispatcher [employer] EDMS Pia Phelan, RN RN Frantz Kumar NP BED AND BREAKFAST OPERATOR pm1 Ana Maria Blank MD MD ga2 Vivien Solorzano, RN RN Corrections: (The following items were deleted from the chart) 10/20 18:38 18:32 morphine 4 mg IVP once; RASS on ADMIN: Combtv4, Very Agttd3, Agttd2, Rstlss1, pm1 AlertClm0, Drwsy-1, Lt Sdtn-2, Mod Sdtn-3, Dp Sdtn-4, UnArsble-5 ordered. pm1 21:53 20:50 10/21/2019 20:50 Discharged to Home. Impression: Nausea and vomiting; Unspecified ah abdominal pain. Condition is Stable. Forms are Medication Reconciliation Form, Thank You Letter, Antibiotic Education, Prescription Opioid Use. Follow up: Emergency Department; When: As needed; Reason: Worsening of condition. Follow up: Salomon Zuñiga; When: 2 - 3 days; Reason: Recheck today's complaints, Continuance of care, Re-evaluation by your physician. Problem is new. Symptoms have improved. pm1
--- NOTE | 2019-10-21 20:51 | ER ---
Nurse's Notes [facility] Name: Ninfa Gordon Age: 49 yrs Sex: Female : 1970 Arrival Date: 10/21/2019 Time: 16:01 Bed 14 Private MD: Diagnosis: Nausea and vomiting;Unspecified abdominal pain Presentation: 10/20 16:17 Chief complaint: Patient states: N/V that began 10/13/19. Pt was admitted to the [facility] 10/15 and discharged home yesterday dx diverticulitis. Pt reports that her N/V is getting worse as well as her chronic neck pain from all of the heaving. "Dr. Sam said to call him immediately if I had to come back to the ER.". Coronavirus screen: Proceed with normal triage. Patient denies a cough. Patient denies shortness of breath or difficulty breathing. Patient denies measured and/or subjective temperature greater than 100.4F prior to today's visit. Patient denies travel on a cruise ship or to a country the [facility] currently lists as an affected area. Patient denies contact with known and/or suspected case of COVID-19. Coronavirus screen: Prior COVID test collected on: 10/16/19 NEGATIVE RESULTS. Ebola Screen: Patient denies exposure to infectious person. Patient denies travel to an Ebola-affected area in the 21 days before illness onset. Initial Sepsis Screen: Does the patient meet any 2 criteria? No. Patient's initial sepsis screen is negative. Does the patient have a suspected source of infection? No. Patient's initial sepsis screen is negative. Risk Assessment: Do you want to hurt yourself or someone else? Patient reports no desire to harm self or others. Onset of symptoms was October 13, 2019. 16:17 Method Of Arrival: Ambulatory 16:17 Acuity: TRES 3 ss Historical: - Allergies: 16:24 Tylenol; ss - PSHx: 16:24 ; ss - Immunization history:: Adult Immunizations up to date. - Social history:: Smoking status: Patient reports the use of cigarette tobacco products, smokes one-half pack cigarettes per day. Screenin:50 Abuse screen: Denies threats or abuse. Nutritional screening: No deficits noted. Tuberculosis screening: No symptoms or risk factors identified. Fall Risk None identified. Assessment: 18:00 General: Appears uncomfortable, Behavior is appropriate for age, anxious, crying. Pain: ah Complains of pain in abdomen. Neuro: Level of Consciousness is awake, alert, Oriented to person, place, time, situation, Appropriate for age. Cardiovascular: Capillary refill < 3 seconds Patient's skin is warm and dry. Respiratory: Airway is patent Respiratory effort is even, unlabored, Respiratory pattern is regular, symmetrical. GI: Bowel sounds present X 4 quads. Reports nausea, vomiting, since x1wk. Derm: Skin is intact, is healthy with good turgor. 19:00 Reassessment: Patient and/or family updated on plan of care and expected duration. Pain ah level reassessed. 19:30 Reassessment: Pt resting at this time. No needs voiced. Awaiting on results from lab. 21:30 Reassessment: Discharge instructions given to patient and educated on prescriptions. pt ah voiced understanding. Vital Signs: 16:17 BP 131 / 98; Pulse 95; Resp 18; Temp 98.4(TE); Pulse Ox 100% on R/A; Weight 79.38 kg; ss Height 5 ft. 2 in. (157.48 cm); Pain 9/10; 18:00 BP 146 / 95; Pulse 93; Resp 25 S; Pulse Ox 100% ; Pain 8/10; jp3 16:17 Body Mass Index 32.01 (79.38 kg, 157.48 cm) ED Course: 16:01 Patient arrived in ED. bp1 16:23 Triage completed. ss 16:24 Arm band placed on right wrist. 17:55 Initial lab(s) drawn, by me, sent to lab. Inserted saline lock: 20 gauge in left jp3 antecubital area, using aseptic technique. Blood collected. Patient maintains SpO2 saturation greater than 95% on room air. 17:56 Bed in low position. Call light in reach. Side rails up X 1. Warm blanket given. Verbal 3 reassurance given. Lights dimmed. Pulse ox on. NIBP on. 18:15 Lab(s) recollected, by me, sent to lab. 3 18:20 Frantz Kumar NP is PHCP. pm1 18:20 Ana Maria Blank MD is Attending Physician. pm1 18:36 Vivien Solorzano, RN is Primary Nurse. 20:50 Salomon Zuñiga MD is Referral Physician. pm1 21:30 No provider procedures requiring assistance completed. IV discontinued, intact, bleeding controlled, No redness/swelling at site. Pressure dressing applied. Administered Medications: 18:38 CANCELLED (Physician Discretion): morphine 4 mg IVP once; RASS on ADMIN: Combtv4, Very pm1 Agttd3, Agttd2, Rstlss1, AlertClm0, Drwsy-1, Lt Sdtn-2, Mod Sdtn-3, Dp Sdtn-4, UnArsble-5 18:45 Drug: Phenergan 12.5 mg Route: IVP; Site: left antecubital; 21:06 Follow up: Response: No adverse reaction 18:45 Drug: fentaNYL (PF) 50 mcg Route: IVP; Site: left antecubital; 21:06 Follow up: Response: No adverse reaction 18:50 Drug: NS 0.9% 1000 ml Route: IV; Rate: 1000 ml; Site: left antecubital; 21:07 Follow up: Response: No adverse reaction; IV Status: Completed infusion 20:55 Drug: Dilaudid 1 mg Route: IVP; Site: left antecubital; 21:38 Follow up: Response: No adverse reaction Outcome: 20:50 Discharge ordered by . pm1 21:43 Discharged to home ambulatory. 21:43 Condition: good 21:43 Discharge instructions given to patient, Instructed on discharge instructions, follow up and referral plans. Demonstrated understanding of instructions, follow-up care, medications, Prescriptions given X 2. 21:53 Patient left the ED. Signatures: Pia Phelan, RN RN Frantz Kumar, KANG BUSINESS CASE ANALYST pm1 Errol Ruiz jp3 Vivien Solorzano, RN RN Evelyne Major bp1
[2019-10-21 22:01] VITALS: TEMP 98.4; O2SAT 100
[2019-10-21 22:07] VITALS: BP 146/95
== END 2019-10-21 21:53 | disposition home or self-care (01) ==
LOC: ER 15:59
DX: R10.9 Unspecified abdominal pain (principal); F17.210 Nicotine dependence, cigarettes, uncomplicated; Z88.6 Allergy status to analgesic agent
CPT/HCPCS: 36415; 80048; 80076; 83690; 85025; 96361; 96374; 96375; 99284; J1170; J2550; J3010; J7030

== ENCOUNTER 2019-11-24 19:10 | Emergency (ER) | payer SELFPAY ==
[2019-11-24 19:25] LABS: Absolute Lymphocytes (CBC) 3.9 K/uL (0.7-4.9); Basophils % 0.9 % (0-1.3); Hematocrit 42.6 % (36.0-45.0); Lymphocytes % 48.9 % (15.3-44.8); MPV 10.3 fL (7.6-11.3); RBC Red Blood Cell Count 4.42 M/uL (3.86-4.86)
[2019-11-24] MEDS ORDERED: ONDANSETRON 4 MG/2 ML VIAL ONE ×2 (19:26→20:19)
[2019-11-24] MEDS ORDERED: NA CHLORIDE 0.9% 1,000 ML ONE (19:26)
[2019-11-24] MEDS ORDERED: MORPHINE 4 MG/ML SYR ONE ×2 (19:33→20:43)
[2019-11-24] MEDS ORDERED: PANTOPRAZOLE 40 MG INJ ONE (19:38)
[2019-11-24 19:56] LABS: Blood Morphology Comment NOT SEEN (NOT SEEN); Platelet Estimate ADEQ; Platelets, Giant NOTED
[2019-11-24 19:58] LABS: ALT/SGPT 39 U/L (12-78); Albumin 4.1 g/dL (3.4-5.0); Alkaline Phosphatase 54 U/L (45-117); BUN Blood Urea Nitrogen 15 mg/dL (7-18); Bicarbonate 24 mmol/L (21-32); Bilirubin Direct < 0.1 mg/dL (0-0.2); Bilirubin Total 0.2 mg/dL (0.2-1.0); Glucose Level 106 mg/dL (74-106); Lipase 233 U/L (73-393); Protein, Total 8.2 g/dL (6.4-8.2); Sodium Level 141 mmol/L (136-145)
[2019-11-24 19:59] LABS: AST/SGOT 35 U/L (15-37); Potassium 4.5 mmol/L (3.5-5.1)
[2019-11-24] MEDS ORDERED: FENTANYL CITR 100 MCG/2 ML ONE (20:16)
[2019-11-24] MEDS ORDERED: PROMETHAZINE INJ 25 MG/ML AMP ONE (20:42)
--- NOTE | 2019-11-24 20:53 | RAD REPORT ---
EXAM DESCRIPTION: CT - Abdomen Pelvis W Contrast - 11/24/2019 8:22 pm CLINICAL HISTORY: ABD PAIN COMPARISON: CT ABD PELVIS W CONTRAST dated 08/27/2014; Abdomen Pelvis Wo Contrast dated 10/16/2019 TECHNIQUE: Biphasic, helical CT imaging of the abdomen and pelvis was performed following 100 ml non -ionic IV contrast. No oral contrast administered. All CT scans are performed using dose optimization technique as appropriate and may include automated exposure control or mA/KV adjustment according to patient size. FINDINGS: No suspicious findings in the lung bases. Small hiatal hernia is present. This accentuates rodriguez of the distal esophagus. The liver, spleen, and pancreas show no suspicious findings. Gallbladder and biliary tree are also wi thout suspicious finding. Symmetric renal function is seen with no hydronephrosis or suspicious renal mass. No pyelonephritis o r acute parenchymal process. No bladder abnormalities. No adrenal abnormalities. Lobulated multi fibr oid uterus is present matching comparison. No ovarian or adnexal acute finding. No dilated bowel loops or bowel wall thickening. Appendix is normal. No free air, free fluid or infla mmatory stranding. Small fat only umbilical hernia again noted. No mass or bulky lymphadenopathy. A few small sub centimeter peripancreatic and periaortic lymph nodes are present. No suspicious bony findings. IMPRESSION: Contrast enhanced CT abdomen and pelvis showing no acute or emergent finding. No new finding or suspicious changes since prior imaging.
--- NOTE | 2019-11-24 21:39 | EDPHYS ---
Physician Documentation [facility] Name: Ninfa Gordon Age: 49 yrs Sex: Female : 1970 Arrival Date: 11/24/2019 Time: 19:13 Bed 5 Private MD: ED Physician Darnell Singh HPI: 11/23 21:41 This 49 yrs old Female presents to ER via EMS with complaints of Vomiting. tw4 21:41 The patient presents to the emergency department with nausea, vomiting, 10 times since tw4 the onset of symptoms. Onset: The symptoms/episode began/occurred today. Possible causes: unknown. The symptoms are aggravated by nothing. The symptoms are alleviated by nothing. Associated signs and symptoms: The patient has no apparent associated signs or symptoms. Severity of symptoms: At their worst the symptoms were moderate in the emergency department the symptoms are unchanged. The patient has not experienced similar symptoms in the past. Historical: - Allergies: 19:17 Tylenol; jd3 - Home Meds: 19:17 Tramadol Oral [Active]; jd3 - PMHx: 19:17 Diverticulitis; jd3 - PSHx: 19:17 ; jd3 - Immunization history:: Adult Immunizations up to date. - Social history:: Smoking status: Patient reports the use of cigarette tobacco products, smokes one-half pack cigarettes per day. ROS: 21:41 Constitutional: Negative for fever, chills, and weight loss, Cardiovascular: Negative tw4 for chest pain, palpitations, and edema, Respiratory: Negative for shortness of breath, cough, wheezing, and pleuritic chest pain, Back: Negative for injury and pain, MS/Extremity: Negative for injury and deformity, Skin: Negative for injury, rash, and discoloration, Neuro: Negative for headache, weakness, numbness, tingling, and seizure. 21:41 Abdomen/GI: Positive for Exam: 21:41 Constitutional: This is a well developed, well nourished patient who is awake, alert, tw4 and in no acute distress. Head/Face: Normocephalic, atraumatic. Chest/axilla: Normal chest wall appearance and motion. Nontender with no deformity. No lesions are appreciated. Vital Signs: 19:14 BP 167 / 72; Pulse 84; Resp 24 S; Temp 98.6(O); Pulse Ox 100% on R/A; Weight 77.11 kg jd3 (R); Height 5 ft. 2 in. (157.48 cm) (R); Pain 10/10; 20:40 BP 163 / 107; Pulse 70; Resp 20; Pulse Ox 100% on R/A; mg2 22:08 BP 140 / 90; Pulse 89; Resp 18; Pulse Ox 100% on R/A; ea 19:14 Body Mass Index 31.09 (77.11 kg, 157.48 cm) jd3 MDM: 19:47 Patient medically screened. tw4 21:44 Differential diagnosis: Nonspecific abd pain, gastritis. Data reviewed: vital signs, tw4 nurses notes. Data reviewed: lab test result(s), CBC, electrolytes, hepatic panel, radiologic studies, CT scan. Data interpreted: Pulse oximetry: Interpretation: normal. Counseling: I had a detailed discussion with the patient and/or guardian regarding: the historical points, exam findings, and any diagnostic results supporting the discharge/admit diagnosis. Medication response: Zofran markedly relieved the patient's nausea. Response to treatment: the patient's symptoms have markedly improved after treatment, and as a result, I will discharge patient. Special discussion: I discussed with the patient/guardian in detail that at this point there is no indication for admission to the hospital. It is understood, however, that if the symptoms persist or worsen the patient needs to return immediately for re-evaluation. Special discussion: Based on the patient's Hx, exam, and Dx evaluation, there is no indication for emergent surgery or inpatient Tx. It is understood by the patient/guardian that if the Sx's persist or worsen they need to return immediately for re-evaluation. 11/23 19:14 Order name: Basic Metabolic Panel; Complete Time: 20:45 mg2 11/23 20:45 Interpretation: CL 111; GFR 81. tw11/23 19:14 Order name: CBC with Diff; Complete Time: 20:45 mg2 11/23 20:46 Interpretation: Normal except: LYM% 48.9; VANCE% 38.7. tw4 11/23 19:14 Order name: Hepatic Function; Complete Time: 20:45 mg2 11/23 20:46 Interpretation: Normal except: GLOB 4.1; A/G 1.0. tw4 11/23 19:14 Order name: Lipase; Complete Time: 20:45 mg2 11/23 20:46 Interpretation: Within normal limits: LIP 233. tw4 11/23 19:28 Order name: Manual Differential; Complete Time: 20:45 EDMS 11/23 20:46 Interpretation: Normal except: LYM 50. tw4 11/23 20:02 Order name: CT Abd/Pelvis - IV Contrast Only; Complete Time: 21:18 tw4 11/23 19:14 Order name: IV Saline Lock; Complete Time: 19:14 mg2 11/23 19:14 Order name: Labs collected and sent; Complete Time: 19:14 mg2 Administered Medications: 19:19 Drug: Zofran (Ondansetron) 4 mg Route: IVP; Site: left antecubital; mg2 20:39 Follow up: Response: No adverse reaction mg2 19:19 Drug: NS 0.9% 1000 ml Route: IV; Rate: 1000 ml; Site: left antecubital; mg2 20:40 Follow up: Response: No adverse reaction; IV Status: Completed infusion; IV Intake: mg2 1000ml 19:25 Drug: morphine 4 mg Route: IVP; Site: left antecubital; mg2 20:39 Follow up: Response: No adverse reaction; RASS: Alert and Calm (0) mg2 19:32 Drug: ProTONIX 40 mg Route: IVP; Site: left antecubital; mg2 20:39 Follow up: Response: No adverse reaction mg2 20:10 Drug: fentaNYL (PF) 25 mcg Route: IVP; Site: left antecubital; mg2 20:39 Follow up: Response: No adverse reaction; RASS: Alert and Calm (0) mg2 20:11 Drug: Zofran (Ondansetron) 4 mg Route: IVP; Site: left antecubital; mg2 20:39 Follow up: Response: No adverse reaction mg2 20:38 Drug: morphine 4 mg Route: IVP; Site: left antecubital; mg2 22:04 Follow up: Response: No adverse reaction mg2 20:39 Drug: Phenergan 12.5 mg Route: IVP; Site: left antecubital; mg2 22:04 Follow up: Response: No adverse reaction mg2 22:05 Drug: GI Cocktail without - (Maalox Suspension 30 ml, Lidocaine Liquid 2 % 15 mg2 ml) Route: PO; 22:12 Follow up: Response: Medication administered at discharge. ea Disposition: 11/24/19 21:39 Discharged to Home. Impression: Gastritis, unspecified, without bleeding. - Condition is Stable. - Discharge Instructions: Gastritis, Adult. - Prescriptions for Protonix 40 mg Oral Tablet - take 1 tablet by ORAL route once daily; 30 tablet. Zofran 4 mg Oral Tablet - take 1 tablet by ORAL route every 12 hours As needed; 6 tablet. Phenergan 25 mg Rectal Suppository - insert 1 suppository by RECTAL route every 6 hours As needed; 12 suppository. promethazine 25 mg Oral Tablet - take 1 tablet by ORAL route every 6 hours As needed; 20 tablet. - Medication Reconciliation Form, Thank You Letter, Antibiotic Education, Prescription Opioid Use form. - Follow up: Private Physician; When: Upon discharge from the Emergency Department; Reason: Recheck today's complaints, Continuance of care, Re-evaluation by your physician. - Problem is new. - Symptoms have improved. Signatures: Dispatcher [employer] EDLila James RN RN ea Davies, Jonathon, RN RN jd3 Darnell Singh MD MD tw4 Jose Andrade RN RN mg2 Corrections: (The following items were deleted from the chart) 22:12 21:39 11/24/2019 21:39 Discharged to Home. Impression: Gastritis, unspecified, without ea bleeding. Condition is Stable. Forms are Medication Reconciliation Form, Thank You Letter, Antibiotic Education, Prescription Opioid Use. Follow up: Private Physician; When: Upon discharge from the Emergency Department; Reason: Recheck today's complaints, Continuance of care, Re-evaluation by your physician. Problem is new. Symptoms have improved. tw4
--- NOTE | 2019-11-24 21:39 | ER ---
Nurse's Notes [facility] Name: Ninfa Gordon Age: 49 yrs Sex: Female : 1970 Arrival Date: 11/24/2019 Time: 19:13 Bed 5 Private MD: Diagnosis: Gastritis, unspecified, without bleeding Presentation: 11/23 19:13 Chief complaint: EMS states: "pt is reporting epigastric abdominal pain that started at jd3 about 1300 today. since then she has been vomiting a dark red color the pt thinks is blood.". Coronavirus screen: Proceed with normal triage. Ebola Screen: Patient negative for fever greater than or equal to 101.5 degrees Fahrenheit, and additional compatible Ebola Virus Disease symptoms. Initial Sepsis Screen: Does the patient meet any 2 criteria? No. Patient's initial sepsis screen is negative. Does the patient have a suspected source of infection? No. Patient's initial sepsis screen is negative. Risk Assessment: Do you want to hurt yourself or someone else? Patient reports no desire to harm self or others. Onset of symptoms was November 24, 2019. 19:13 Method Of Arrival: EMS: [facility] 19:13 Acuity: TRSE 3 jd3 Historical: - Allergies: 19:17 Tylenol; jd3 - Home Meds: 19:17 Tramadol Oral [Active]; jd3 - PMHx: 19:17 Diverticulitis; jd3 - PSHx: 19:17 ; jd3 - Immunization history:: Adult Immunizations up to date. - Social history:: Smoking status: Patient reports the use of cigarette tobacco products, smokes one-half pack cigarettes per day. Screenin:17 Abuse screen: Denies threats or abuse. Nutritional screening: No deficits noted. jd3 Tuberculosis screening: No symptoms or risk factors identified. Fall Risk IV access (20 points). Ambulatory Aid- None/Bed Rest/Nurse Assist (0 pts). Gait- Normal/Bed Rest/Wheelchair (0 pts) Mental Status- Oriented to own ability (0 pts). Total Mclean Fall Scale indicates No Risk (0-24 pts). Assessment: 19:20 General: Appears uncomfortable, Behavior is restless. Pain: Complains of pain in mg2 abdomen. Neuro: Level of Consciousness is awake, alert, obeys commands, Oriented to person, place, time, situation. Cardiovascular: Capillary refill < 3 seconds Patient's skin is warm and dry. Respiratory: Airway is patent Respiratory effort is even, unlabored, Respiratory pattern is regular, symmetrical. GI: Abdomen is non-distended, Pt is actively vomiting. : No signs and/or symptoms were reported regarding the genitourinary system. EENT: No signs and/or symptoms were reported regarding the EENT system. Derm: Skin is intact, is healthy with good turgor, Skin is pink, warm \\T\\ dry. normal. Musculoskeletal: Circulation, motion, and sensation intact. Capillary refill < 3 seconds. 20:40 Reassessment: Patient appears in no apparent distress at this time. Patient is alert, mg2 oriented x 3, equal unlabored respirations, skin warm/dry/pink. patient still in pain. pain medicine given as ordered. 22:07 Reassessment: Patient and/or family updated on plan of care and expected duration. Pain ea level reassessed. Patient is alert, oriented x 3, equal unlabored respirations, skin warm/dry/pink. Discharge instruction given to patient, verbalized the understanding of instruction. Pt reports she has no ride home and is unable to pay for taxi. Vital Signs: 19:14 BP 167 / 72; Pulse 84; Resp 24 S; Temp 98.6(O); Pulse Ox 100% on R/A; Weight 77.11 kg jd3 (R); Height 5 ft. 2 in. (157.48 cm) (R); Pain 10/10; 20:40 BP 163 / 107; Pulse 70; Resp 20; Pulse Ox 100% on R/A; mg2 22:08 BP 140 / 90; Pulse 89; Resp 18; Pulse Ox 100% on R/A; ea 19:14 Body Mass Index 31.09 (77.11 kg, 157.48 cm) jd3 ED Course: 19:13 Patient arrived in ED. jd3 19:13 Jose Andrade, RN is Primary Nurse. mg2 19:14 Triage completed. jd3 19:15 Arm band placed on. jd3 19:15 Inserted saline lock: 20 gauge in left antecubital area, using aseptic technique. Blood mg2 collected. 19:17 Patient has correct armband on for positive identification. Bed in low position. Call j light in reach. Side rails up X2. quality assurance monitor final on. Pulse ox on. NIBP on. 19:19 Darnell Singh MD is Attending Physician. tw4 19:19 No provider procedures requiring assistance completed. mg2 20:21 CT Abd/Pelvis - IV Contrast Only In Process Unspecified. EDMS 22:08 IV discontinued, intact, bleeding controlled, No redness/swelling at site. Pressure ea dressing applied. Administered Medications: 19:19 Drug: Zofran (Ondansetron) 4 mg Route: IVP; Site: left antecubital; mg2 20:39 Follow up: Response: No adverse reaction mg2 19:19 Drug: NS 0.9% 1000 ml Route: IV; Rate: 1000 ml; Site: left antecubital; mg2 20:40 Follow up: Response: No adverse reaction; IV Status: Completed infusion; IV Intake: mg2 1000ml 19:25 Drug: morphine 4 mg Route: IVP; Site: left antecubital; mg2 20:39 Follow up: Response: No adverse reaction; RASS: Alert and Calm (0) mg2 19:32 Drug: ProTONIX 40 mg Route: IVP; Site: left antecubital; mg2 20:39 Follow up: Response: No adverse reaction mg2 20:10 Drug: fentaNYL (PF) 25 mcg Route: IVP; Site: left antecubital; mg2 20:39 Follow up: Response: No adverse reaction; RASS: Alert and Calm (0) mg2 20:11 Drug: Zofran (Ondansetron) 4 mg Route: IVP; Site: left antecubital; mg2 20:39 Follow up: Response: No adverse reaction mg2 20:38 Drug: morphine 4 mg Route: IVP; Site: left antecubital; mg2 22:04 Follow up: Response: No adverse reaction mg2 20:39 Drug: Phenergan 12.5 mg Route: IVP; Site: left antecubital; mg2 22:04 Follow up: Response: No adverse reaction mg2 22:05 Drug: GI Cocktail without - (Maalox Suspension 30 ml, Lidocaine Liquid 2 % 15 mg2 ml) Route: PO; 22:12 Follow up: Response: Medication administered at discharge. ea Intake: 20:40 IV: 1000ml; Total: 1000ml. mg2 Outcome: 21:39 Discharge ordered by . tw4 22:07 Discharge instructions given to patient, Instructed on discharge instructions, follow ea up and referral plans. medication usage, Demonstrated understanding of instructions, follow-up care, medications, Prescriptions given X 4. 22:12 Patient left the ED. ea Signatures: Dispatcher [employer] EDLila James RN RN Jose Simmons RN RN jd3 Darnell Singh MD MD tw4 Jose Andrade RN RN mg2
[2019-11-24] MEDS ORDERED: MAGNE/ALUM HYDROXD 30 ML UCUP ONE (22:12)
[2019-11-24] MEDS ORDERED: LIDOCAINE VISCOUS 2% SOLN 15 ML UDC ONE (22:12)
[2019-11-24 22:20] VITALS: TEMP 98.6; O2SAT 100
[2019-11-24 22:22] VITALS: BP 140/90
== END 2019-11-24 22:12 | disposition home or self-care (01) ==
LOC: ER 19:10
DX: K29.70 Gastritis, unspecified, without bleeding (principal); F17.210 Nicotine dependence, cigarettes, uncomplicated; Z88.6 Allergy status to analgesic agent
CPT/HCPCS: 36415; 74177; 80048; 80076; 83690; 85025; 96361; 96374; 96375; 99284; C9113; J2405; J2550; J3010; J7030; Q9967

== ENCOUNTER 2020-05-29 11:22 | Emergency (ER) | payer SELFPAY ==
--- OUTSIDE RECORDS SUMMARY | 2020-05-29 11:25 | XMS REPORT | Continuity of Care Document ---
:1970 Author Organization [facility] t Address [address] [place] [address] Care Team Providers Name Role Phone Leonel Stovall MD Attending Clinician Vasyl RAMAN, Chiara Attending Clinician Unavailable Radha KAPADIA, Chiara Attending Clinician Tiera ALICEA, S Attending Clinician Problems This patient has no known problems. Allergies, Adverse Reactions, Alerts This patient has no known allergies or adverse reactions. Medications This patient has no known medications. Procedures This patient has no known procedures. Encounters Start End Encounter Admission Attending Care Care Encounter Source Date/Time Date/Time Type Type Clinicians Facility Department ID 2019-12-11 2019-12-11 Emergency Sia, TRAUMA [id number] 07:58:00 11:57:00 [facility] [id number] 2019-12-02 2019-12-02 Letter Darell LINARES [id number] 00:00:00 00:00:00 (Out) Melvina real [id number] [facility] [id number] 2019-12-02 2019-12-02 Telephone Darell LINARES [id number] 00:00:00 00:00:00 Melvina real [id number] [facility] [id number] 2019-11-29 2019-11-29 Emergency [facility] [id number] 17:39:52 22:40:00 Marina Ma [id number] [place] [id number] [place] [id number] 2019-11-27 2019-11-28 Emergency [facility] [id number] 19:33:27 00:42:00 Jaleel Ma [id number] [place] [id number] [place] [id number] [id number] Results This patient has no known results.
--- NOTE | 2020-05-29 14:21 | RAD REPORT ---
EXAM DESCRIPTION: RAD - Chest Pa And Lat (2 Views) - 05/29/2020 2:12 pm CLINICAL HISTORY: PAIN Chest pain. COMPARISON: Chest Pa And Lat (2 Views) dated 09/05/2019; Chest Pa And Lat (2 Views) dated 03/14/2019; CHEST SINGLE VIEW dated 08/27/2014; CHEST SINGLE VIEW dated 10/03/2013 FINDINGS: The lungs are clear. The heart is normal in size. Several old left lateral rib fractures a re noted.
--- NOTE | 2020-05-29 14:22 | RAD REPORT ---
EXAM DESCRIPTION: RAD - Ribs Right - 05/29/2020 2:12 pm CLINICAL HISTORY: PAIN Right-sided rib pain COMPARISON: Chest Pa And Lat (2 Views) dated 05/29/2020 FINDINGS: No displaced rib fracture is present. No aggressive rib lesion.
--- NOTE | 2020-05-29 16:49 | RAD REPORT ---
EXAM DESCRIPTION: CT - Head Brain Wo Cont - 05/29/2020 4:40 pm CLINICAL HISTORY: HEADACHE Headache, drowsiness COMPARISON: No comparisons TECHNIQUE: All CT scans are performed using dose optimization technique as appropriate and may inclu de automated exposure control or mA/KV adjustment according to patient size. FINDINGS: No intracranial hemorrhage, hydrocephalus or extra-axial fluid collection.No areas of brai n edema or evidence of midline shift. The paranasal sinuses and mastoids are clear. The calvarium is intact. IMPRESSION: No acute intracranial abnormality.
[2020-05-29] MEDS ORDERED: KETOROLAC 30 MG/ML INJ ONE (16:51)
[2020-05-29] MEDS ORDERED: DIPHENHYDRAMINE 50 MG/ML VIAL ONE (16:51)
[2020-05-29] MEDS ORDERED: DIAZEPAM 10 MG/2 ML INJ SYRINGE ONE (16:51)
--- NOTE | 2020-05-29 16:53 | RAD REPORT ---
EXAM DESCRIPTION: CT - Thorax Wo Con CLINICAL HISTORY: Chest pain right sided rib pain COMPARISON: Chest For Pe Angio dated 09/05/2019 FINDINGS: The lungs are clear. No pleural thickening or pleural effusion. No pneumothorax. No axillary, mediastinal or hilar adenopathy. No acute fracture seen along the right. Old left rib fractures are present. No gross upper abdominal finding. All CT scans are performed using dose optimization technique as appropriate and may include automated exposure control or mA/KV adjustment according to patient size. IMPRESSION: No acute intrathoracic abnormality.
--- NOTE | 2020-05-29 17:25 | ER ---
Nurse's Notes [facility] Name: Ninfa Gordon Age: 49 yrs Sex: Female : 1970 Arrival Date: 05/29/2020 Time: 11:23 Bed 28 Private MD: Diagnosis: Strain of muscle and tendon of back wall of thorax;Headache Presentation: 05/29 12:16 Chief complaint: Patient states: I think I cranked a rib from my back on the R side. I ca1 did not fall, I just moved around on the bed, I stretched and felt it. It was about 4 days ago today. I broke ribs before from just coughing and sneezing. Pretty much a lot my ribs on the L side are cracked and some have hairline fractures. I am also having pain in between my shoulder blades, I have sustained an injury 2 years ago, it has been chronic and has just gotten worse. I also have a splitting headache right now which started last night. Coronavirus screen: Client denies travel out of the [place] in the last 14 days. headache, Client presents with at least one sign or symptom that may indicate coronavirus-19. Standard/surgical mask placed on the client. Provider contacted for isolation considerations. Ebola Screen: Patient negative for fever greater than or equal to 101.5 degrees Fahrenheit, and additional compatible Ebola Virus Disease symptoms Patient denies exposure to infectious person. Patient denies travel to an Ebola-affected area in the 21 days before illness onset. No symptoms or risks identified at this time. Initial Sepsis Screen: Does the patient meet any 2 criteria? No. Patient's initial sepsis screen is negative. Does the patient have a suspected source of infection? No. Patient's initial sepsis screen is negative. Risk Assessment: Do you want to hurt yourself or someone else? Patient reports no desire to harm self or others. Onset of symptoms was May 29, 2020. 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 - Social history:: Smoking status: Patient reports the use of cigarette tobacco products, smokes one-half pack cigarettes per day, Patient uses street drugs, marijuana. Screenin:20 Abuse screen: Denies threats or abuse. Nutritional screening: No deficits noted. rb3 Tuberculosis screening: No symptoms or risk factors identified. Fall Risk None identified. Assessment: 12:24 Reassessment: Pt states, "My doctor says that I can't have CT scans, that I should just ca1 have MRIs if I need one". 16:20 General: Appears uncomfortable, Behavior is crying. Pain: Complains of pain in right rb3 mid back Pain currently is 10 out of 10 on a pain scale. Pain began x 4 days. Pain: Complains of pain in thoracic area. Neuro: Level of Consciousness is awake, alert, obeys commands, Oriented to person, place, time, situation. Neuro: Reports headache similar to previous headaches. Cardiovascular: Patient's skin is warm and dry. Respiratory: Airway is patent Respiratory effort is even, unlabored, Respiratory pattern is regular, symmetrical. GI: No signs and/or symptoms were reported involving the gastrointestinal system. : No signs and/or symptoms were reported regarding the genitourinary system. Musculoskeletal: Range of motion: intact in all extremities. 16:50 Reassessment: Patient is alert, oriented x 3, equal unlabored respirations, skin aa5 warm/dry/pink. Pt back from CT scan . 17:17 Reassessment: Patient is alert, oriented x 3, equal unlabored respirations, skin aa5 warm/dry/pink. Patient states feeling better. Patient states symptoms have improved. Vital Signs: 12:16 BP 132 / 99; Pulse 67; Resp 17 S; Temp 98.2(TE); Pulse Ox 99% on R/A; Weight 79.38 kg ca1 (R); Height 5 ft. 2 in. (157.48 cm) (R); Pain 8/10; 16:56 BP 129 / 94; Pulse 70; Resp 18 S; Pulse Ox 98% on R/A; aa5 12:16 Body Mass Index 32.01 (79.38 kg, 157.48 cm) ca1 ED Course: 11:23 Patient arrived in ED. ag5 12:21 Triage completed. ca1 12:22 Arm band placed on right wrist. ca1 14:09 XRAY Chest Pa And Lat (2 Views) In Process Unspecified. EDMS 14:09 Ribs Right XRAY In Process Unspecified. EDMS 16:03 Ryan Bond PA is PHCP. [facility] 16:03 Lalit Robledo MD is Attending Physician. [facility] 16:20 Patient has correct armband on for positive identification. Bed in low position. Call rb3 light in reach. Side rails up X 1. Pulse ox on. NIBP on. 16:35 Inserted saline lock: 22 gauge in left antecubital area, using aseptic technique. Blood kj1 collected. 16:40 CT Head Brain wo Cont In Process Unspecified. EDMS 16:41 CT Chest Wo Con In Process Unspecified. EDMS 17:52 No provider procedures requiring assistance completed. IV discontinued, intact, rb3 bleeding controlled, No redness/swelling at site. Pressure dressing applied. Administered Medications: 16:50 Drug: Valium 5 mg Route: IVP; Site: left antecubital; aa5 17:15 Follow up: Response: No adverse reaction aa5 16:50 Drug: diphenhydrAMINE 12.5 mg Route: IVP; Site: left antecubital; aa5 17:15 Follow up: Response: No adverse reaction aa5 16:50 Drug: Ketorolac 30 mg Route: IVP; Site: left antecubital; aa5 17:15 Follow up: Response: No adverse reaction aa5 Outcome: 17:25 Discharge ordered by MD. [facility] 17:52 Discharged to home ambulatory. rb3 17:52 Condition: stable 17:52 Discharge instructions given to patient, Instructed on discharge instructions, follow up and referral plans. medication usage, Demonstrated understanding of instructions, follow-up care, medications, Prescriptions given X 1. 17:52 Patient left the ED. rb3 Signatures: Dispatcher [employer] EDMT Ryan Bond PA PA Susy Acosta, LAMINE RN aa5 Brit Chadwick RN RN ca1 YrisGaryhansel ag5 Anu Romero kj1 Marbella Zhao RN RN rb3 Corrections: (The following items were deleted from the chart) 16:56 16:10 Susy Zepeda, RN is Primary Nurse. aa5 aa5
--- NOTE | 2020-05-29 17:26 | EDPHYS ---
Physician Documentation [facility] Name: Ninfa Gordon Age: 49 yrs Sex: Female : 1970 Arrival Date: 05/29/2020 Time: 11:23 Bed 28 Private MD: ED Physician Lalit Robledo HPI: 05/29 12:24 This 49 yrs old Female presents to ER via Ambulatory with complaints of Back jmm Pain, Rib Pain. 12:24 The patient presents with pain and an injury. Onset: The symptoms/episode jmm began/occurred acutely, 4 day(s) ago. The pain does not radiate. Modifying factors: The patient symptoms are alleviated by nothing, the patient symptoms are aggravated by coughing, movement. The patient has experienced similar episodes in the past. This is a 49 year old female with a history of diverticulitis, anxiety that presents to the ED with complaints of right sided posterior rib pain which occurred after stretching 4 days ago. Patient states the pain now radiates up the back and now has a left sided headache. Headache gradual onset, similar to previous headaches. . 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 - Social history:: Smoking status: Patient reports the use of cigarette tobacco products, smokes one-half pack cigarettes per day, Patient uses street drugs, marijuana. ROS: 12:24 Constitutional: Negative for fever, chills, and weight loss, Cardiovascular: Negative jmm for chest pain, palpitations, and edema, Respiratory: Negative for shortness of breath, cough, wheezing, and pleuritic chest pain. 12:24 Back: Positive for pain with movement. 12:24 Neuro: Positive for headache. 12:24 All other systems are negative. Exam: 12:24 Head/Face: atraumatic. Eyes: EOMI, no conjunctival erythema appreciated ENT: Moist jmm Mucus Membranes Neck: Trachea midline, Supple Chest/axilla: Normal chest wall appearance and motion. Cardiovascular: Regular rate and rhythm. No edema appreciated Respiratory: Normal respirations, no respiratory distress appreciated Abdomen/GI: Non distended, soft 12:24 Skin: General appearance color normal MS/ Extremity: Moves all extremities, no obvious deformities appreciated, no edema noted to the lower extremities Neuro: Awake and alert, normal gait Psych: Behavior is normal, Mood is normal, Patient is cooperative and pleasant 12:24 Constitutional: The patient appears alert, awake, anxious. 12:24 Back: right posterior lateral rib pain on palpation. Vital Signs: 12:16 BP 132 / 99; Pulse 67; Resp 17 S; Temp 98.2(TE); Pulse Ox 99% on R/A; Weight 79.38 kg ca1 (R); Height 5 ft. 2 in. (157.48 cm) (R); Pain 8/10; 16:56 BP 129 / 94; Pulse 70; Resp 18 S; Pulse Ox 98% on R/A; aa5 12:16 Body Mass Index 32.01 (79.38 kg, 157.48 cm) ca1 MDM: 16:18 Patient medically screened. jens 17:23 Data reviewed: vital signs, nurses notes. Counseling: I had a detailed discussion with jens the patient and/or guardian regarding: the historical points, exam findings, and any diagnostic results supporting the discharge/admit diagnosis, radiology results, the need for outpatient follow up, to return to the emergency department if symptoms worsen or persist or if there are any questions or concerns that arise at home. ED course: Imaging studies negative. I do not suspect meningitis or SAH. Patient advised to follow up with PCP and otherwise given strict return precautions. patient understood and agrees with the plan of care. . 05/29 12:24 Order name: XRAY Chest Pa And Lat (2 Views); Complete Time: 16: [facility] 05/29 12:30 Order name: Ribs Right XRAY; Complete Time: 16: [facility] 05/29 16:20 Order name: CT Head Brain wo Cont; Complete Time: 16:59 [facility] 05/29 16:20 Order name: CT Chest Wo Con; Complete Time: 16:59 [facility] 05/29 16:20 Order name: Saline Lock; Complete Time: 16:36 [facility] Administered Medications: 16:50 Drug: Valium 5 mg Route: IVP; Site: left antecubital; aa5 17:15 Follow up: Response: No adverse reaction aa5 16:50 Drug: diphenhydrAMINE 12.5 mg Route: IVP; Site: left antecubital; aa5 17:15 Follow up: Response: No adverse reaction aa5 16:50 Drug: Ketorolac 30 mg Route: IVP; Site: left antecubital; aa5 17:15 Follow up: Response: No adverse reaction aa5 Disposition: 18:06 Co-signature as Attending Physician, Lalit Robledo MD I agree with the assessment and kdr plan of care. Disposition: 05/29/20 17:25 Discharged to Home. Impression: Strain of muscle and tendon of back wall of thorax, Headache. - Condition is Stable. - Discharge Instructions: Thoracic Strain. - Prescriptions for Zanaflex 4 mg Oral Tablet - take 1 tablet by ORAL route every 8 hours As needed; 20 tablet. - Medication Reconciliation Form, Thank You Letter, Antibiotic Education, Prescription Opioid Use form. - Follow up: Private Physician; When: 2 - 3 days; Reason: Recheck today's complaints, Continuance of care, Re-evaluation by your physician. Signatures: Dispatcher [employer] EDMS Lalit Robledo MD MD kdr Mickail, Joel, PA PA [facility] Susy Zepeda RN RN aa5 Brit Chadwick RN RN ca1 Anu Romero kj1 Marbella Zhao RN RN rb3 Corrections: (The following items were deleted from the chart) 17:50 17:25 05/29/2020 17:25 Discharged to Home. Impression: Strain of muscle and tendon of kj1 back wall of thorax; Headache. Condition is Stable. Forms are Medication Reconciliation Form, Thank You Letter, Antibiotic Education, Prescription Opioid Use. Follow up: Private Physician; When: 2 - 3 days; Reason: Recheck today's complaints, Continuance of care, Re-evaluation by your physician. [facility] 17:52 17:50 05/29/2020 17:25 Discharged to Home. Impression: Strain of muscle and tendon of rb3 back wall of thorax; Headache. Condition is Stable. Discharge Instructions: Thoracic Strain. Prescriptions for Zanaflex 4 mg Oral Tablet - take 1 tablet by ORAL route every 8 hours As needed; 20 tablet. and Forms are Medication Reconciliation Form, Thank You Letter, Antibiotic Education, Prescription Opioid Use. Follow up: Private Physician; When: 2 - 3 days; Reason: Recheck today's complaints, Continuance of care, Re-evaluation by your physician. kj1
[2020-05-29 21:25] VITALS: TEMP 98.2
[2020-05-29 21:26] VITALS: BP 129/94; O2SAT 98
== END 2020-05-29 17:52 | disposition home or self-care (01) ==
LOC: ER 11:22
DX: S29.012A Strain of muscle and tendon of back wall of thorax, initial encounter (principal); R51.9 Headache, unspecified; F17.210 Nicotine dependence, cigarettes, uncomplicated; X58.XXXA Exposure to other specified factors, initial encounter; F41.9 Anxiety disorder, unspecified
CPT/HCPCS: 70450; 71046; 71250; 96374; 96375; 99284; J1200; J3360

== ENCOUNTER 2020-08-27 15:36 | Emergency (ER) | payer SELFPAY ==
--- OUTSIDE RECORDS SUMMARY | 2020-08-27 15:39 | XMS REPORT | Continuity of Care Document ---
:1970 [address] [facility] t Address [address] [place] [address] Care Team Providers Name Role Phone Leonel [...] Department ID 2019-12-11 2019-12-11 Emergency Sia, TRAUMA [id number] 07:58:00 11:57[facility] [id number] 2019-12-02 2019-12-02 Letter Darell LINARES [id number] 00:00:00 00:00:00 (Out) Melvina real [id number] [facility] [id number] 2019-12-02 2019-12-02 Telephone Darell LINARES [id number] 00:00:00 00:00:00 Melvina real [id number] [facility] [id number] 2019-11-29 2019-11-29 Emergency [facility] [id number] 17:39:52 22:40:00 Marina Ma [id number] [place] [id number] [place] [id number] 2019-11-27 2019-11-28 Emergency [facility] [id number] 19:33:27 00:42:00 Jaleel Ma [id number] [place] [id number] [place] [id number] [id number] Results This patient has no known results.
--- NOTE | 2020-08-27 18:03 | ER ---
Nurse's Notes [facility] Name: Ninfa Gordon Age: 49 yrs Sex: Female : 1970 Arrival Date: 08/27/2020 Time: 15:40 Bed 15 Private MD: Diagnosis: Rash and other nonspecific skin eruption;Headache Presentation: 08/27 16:38 Chief complaint: Patient states: frontal headache that radiates into top of the head em started 4 days ago, also reports a rash that started 3 days ago on her hands that is moving up her arms, reports nausea with the headache, hx of concussion in the past, denies fever. Coronavirus screen: Client denies travel out of the [place] in the last 14 days. Ebola Screen: Patient negative for fever greater than or equal to 101.5 degrees Fahrenheit, and additional compatible Ebola Virus Disease symptoms Patient denies exposure to infectious person. Patient denies travel to an Ebola-affected area in the 21 days before illness onset. No symptoms or risks identified at this time. Initial Sepsis Screen: Does the patient meet any 2 criteria? No. Patient's initial sepsis screen is negative. Does the patient have a suspected source of infection? No. Patient's initial sepsis screen is negative. Risk Assessment: Do you want to hurt yourself or someone else? Patient reports no desire to harm self or others. Onset of symptoms was August 27, 2020. 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 - Social history:: Smoking status: Patient reports the use of cigarette tobacco products, smokes one-half pack cigarettes per day. Screenin:59 Abuse screen: Denies threats or abuse. Nutritional screening: No deficits noted. tw2 Tuberculosis screening: No symptoms or risk factors identified. Fall Risk None identified. Assessment: 17:50 General: Appears in no apparent distress. Behavior is calm, cooperative, appropriate tw2 for age. Pain: Denies pain. Neuro: Level of Consciousness is awake, alert, obeys commands, Oriented to person, place, time, situation. Cardiovascular: Capillary refill < 3 seconds Patient's skin is warm and dry. Respiratory: Airway is patent Respiratory effort is even, unlabored, Respiratory pattern is regular, symmetrical. Derm: Reports increased itching, on b/l arms. Musculoskeletal: Range of motion: intact in all extremities. 18:43 Reassessment: Patient appears in no apparent distress at this time. No changes from tw2 previously documented assessment. Patient and/or family updated on plan of care and expected duration. Pain level reassessed. Patient is alert, oriented x 3, equal unlabored respirations, skin warm/dry/pink. Vital Signs: 16:38 BP 137 / 91; Pulse 81; Resp 18; Temp 97.9; Pulse Ox 100% on R/A; Weight 79.38 kg; em Height 5 ft. 2 in. (157.48 cm); Pain 8/10; 17:50 BP 122 / 83; Pulse 77; Resp 17; Pulse Ox 99% on R/A; tw2 16:38 Body Mass Index 32.01 (79.38 kg, 157.48 cm) em ED Course: 15:40 Patient arrived in ED. mr 16:33 Laxmi Jaeger RN is Primary Nurse. tw2 16:35 Bed in low position. Call light in reach. Pulse ox on. NIBP on. tw2 16:42 Triage completed. em 16:42 Arm band placed on. em 17:21 Ryan Bond PA is PHCP. [facility] 17:21 Lalit Robledo MD is Attending Physician. [facility] 18:43 No provider procedures requiring assistance completed. Patient did not have IV access tw2 during this emergency room visit. Administered Medications: 18:43 Drug: Motrin (ibuprofen) 800 mg Route: PO; tw2 Outcome: 18:02 Discharge ordered by . [facility] 18:43 Discharged to home ambulatory. tw2 18:43 Condition: stable 18:43 Discharge instructions given to patient, Instructed on discharge instructions, follow up and referral plans. no drinking with medication, no driving heavy equipment, medication usage, Demonstrated understanding of instructions, follow-up care, medications, Prescriptions given X 4. 18:51 Patient left the ED. Signatures: Verónica Stovall RN RN Ryan Bond PA PA jmm Rivera, Mary mr DeseanZaid, RN RN em Laxmi Jaeger RN RN tw2 Corrections: (The following items were deleted from the chart) 16:42 16:42 Social history: Smoking status: Patient denies any tobacco usage or history of. emanuel
--- NOTE | 2020-08-27 18:04 | EDPHYS ---
Physician Documentation [facility] Name: Ninfa Gordon Age: 49 yrs Sex: Female : 1970 Arrival Date: 08/27/2020 Time: 15:40 Bed 15 Private MD: ED Physician Lalit Robledo HPI: 08/27 17:30 This 49 yrs old Female presents to ER via Ambulatory with complaints of Rash. [facility] 17:30 The patient's rash thought to be caused by an unknown cause. The rash is located on the jmm right arm and left arm. Onset: The symptoms/episode began/occurred gradually, 3 day(s) ago. Associated signs and symptoms: Pertinent positives: headache. This is a 49 year old female with a history of anxiety that presents to the ED with complaints of rash to both hands and forearms for the past 3 days. Described as itcy. Patient also has a frontal headeache which is similar to previous headaches. Denies fever. . 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 - Social history:: Smoking status: Patient reports the use of cigarette tobacco products, smokes one-half pack cigarettes per day. ROS: 17:30 Constitutional: Negative for fever, chills, and weight loss, Cardiovascular: Negative jmm for chest pain, palpitations, and edema, Respiratory: Negative for shortness of breath, cough, wheezing, and pleuritic chest pain. 17:30 Skin: Positive for rash. 17:30 All other systems are negative. Exam: 17:30 Constitutional: This is a well developed, well nourished patient who is awake, alert, jmm and in no acute distress. Head/Face: atraumatic. Eyes: EOMI, no conjunctival erythema appreciated ENT: Moist Mucus Membranes Neck: Trachea midline, Supple Chest/axilla: Normal chest wall appearance and motion. Cardiovascular: Regular rate and rhythm. No edema appreciated Respiratory: Normal respirations, no respiratory distress appreciated Abdomen/GI: Non distended, soft Back: Normal ROM 17:30 Abdomen/GI: Non distended, soft Neuro: Awake and alert, normal gait Psych: Behavior is normal, Mood is normal, Patient is cooperative and pleasant 17:30 Skin: rash noted to the hands, forearms bilaterally, consistent with scabies type lesions. Vital Signs: 16:38 BP 137 / 91; Pulse 81; Resp 18; Temp 97.9; Pulse Ox 100% on R/A; Weight 79.38 kg; em Height 5 ft. 2 in. (157.48 cm); Pain 8/10; 17:50 BP 122 / 83; Pulse 77; Resp 17; Pulse Ox 99% on R/A; tw2 16:38 Body Mass Index 32.01 (79.38 kg, 157.48 cm) em MDM: 17:31 Patient medically screened. jmm 17:59 Data reviewed: vital signs. Counseling: I had a detailed discussion with the patient jmm and/or guardian regarding: the historical points, exam findings, and any diagnostic results supporting the discharge/admit diagnosis, the need for outpatient follow up, to return to the emergency department if symptoms worsen or persist or if there are any questions or concerns that arise at home. ED course: Patient is alert and non toxic in appearance in the ED. I do not suspect SAH or meningitis. Rash appears consistent with scabies. Administered Medications: 18:43 Drug: Motrin (ibuprofen) 800 mg Route: PO; tw2 Disposition: 08/28 06:21 Co-signature as Attending Physician, Lalit Robledo MD I agree with the assessment and kdr plan of care. Disposition: 08/27/20 18:02 Discharged to Home. Impression: Rash and other nonspecific skin eruption, Headache. - Condition is Stable. - Discharge Instructions: Rash. - Prescriptions for Elimite 5 % Topical Cream - apply 1 application by TOPICAL route one time Wash after 12 hours.; 60 gram. Hydroxyzine HCl 25 mg Oral Tablet - take 1 tablet by ORAL route every 6 hours As needed; 30 tablet. Prednisone 20 mg Oral Tablet - take 3 tablet by ORAL route once daily for 5 days; 15 tablet. Tramadol 50 mg Oral Tablet - take 1 tablet by ORAL route every 8 hours as needed; 12 tablet. - Medication Reconciliation Form, Thank You Letter, Antibiotic Education, Prescription Opioid Use form. - Follow up: Private Physician; When: 2 - 3 days; Reason: Recheck today's complaints, Continuance of care, Re-evaluation by your physician. Signatures: Verónica Stovall RN RN sv Lalit Robledo MD MD kdr Mickail, Joel, PA PA jmm Munoz, Edgar, RN RN em Laxmi Jaeger RN RN tw2 Corrections: (The following items were deleted from the chart) 08/27 16:42 16:42 Social history: Smoking status: Patient denies any tobacco usage or history of. emem 18:51 18:02 08/27/2020 18:02 Discharged to Home. Impression: Rash and other nonspecific skin sv eruption; Headache. Condition is Stable. Forms are Medication Reconciliation Form, Thank You Letter, Antibiotic Education, Prescription Opioid Use. Follow up: Private Physician; When: 2 - 3 days; Reason: Recheck today's complaints, Continuance of care, Re-evaluation by your physician. jens
[2020-08-27] MEDS ORDERED: IBUPROFEN 400 MG TAB ONE (18:57)
[2020-08-27 19:07] VITALS: BP 137/91; TEMP 97.9; O2SAT 100
== END 2020-08-27 18:51 | disposition home or self-care (01) ==
LOC: ER 15:36
DX: R21 Rash and other nonspecific skin eruption (principal); F17.210 Nicotine dependence, cigarettes, uncomplicated; Z88.6 Allergy status to analgesic agent
CPT/HCPCS: 99283

== ENCOUNTER 2021-03-22 11:20 | Emergency (ER) | payer OTHER ==
--- OUTSIDE RECORDS SUMMARY | 2021-03-22 11:25 | XMS REPORT | Continuity of Care Document ---
:1970 Author Organization [facility] t Address [address] [place] [address] Care Team Providers Name Role Phone NILA CERVANTES JR. Attending Clinician Unavailable NILA CERVANTES Attending Clinician Unavailable Rosales HERRING, Pamella Attending Clinician Pamella SAUL Attending Clinician Unavailable Leonel Sotvall MD Attending Clinician Chiara Fallon RN Attending Clinician Unavailable Chiara Ch NP Attending Clinician Chiara CH Attending Clinician Unavailable Caty Mott MD Attending Clinician Caty MOTT Attending Clinician Unavailable Payers Payer Name Policy Type Policy Number Effective Date Expiration Date [facility] [id number] HEALTH Problems Condition Condition Condition Status Onset Resolution Last Treating Co mments Source Name Details Category Date Date Treatment Clinician Date No known No known Disease Unive rs active active ity of problems problems [facility] Allergies, Adverse Reactions, Alerts Allergy Allergy Status Severity Reaction(s) Onset Inactive Treating Comm ents Source Name Type Date Date Clinician Acetamin Propensi Active Itching Unive rs ophen ty to 5-25 ity of adverse 00:00: [place] reaction 00 Medical s Branch ACETAMIN DRUG Active ITCHING Univers OPHEN INGREDI 5-25 ity of 00:00: 00 Medical Branch Pantopra Propensi Active Unknown - Uni vers zole ty to See comments 8-11 ity of Sodium adverse 00:00: [place] reaction 00 [facility] s Branch PANTOPRA DRUG Active Unknown-Cmnt Un agustín ZOLE INGREDI 8-11 ity of SODIUM 00:00: [place] 00 Medical Branch NO KNOWN Drug Active Univers ALLERGIE Class ity of S [facility] Social History Social Habit Start Date Stop Date Quantity Comments Source Exposure to Not sure [facility] SARS-CoV-2 (event) Medica l Branch Sex Ass[birth year] [facility] 00:00:00 00:00:00 [facility] Smoking Status Start Date Stop Date Source Unknown if ever smoked [facility] Medications Ordered Filled Start Stop Current Ordering Indication Dosage Frequency Signature Comments Components Source Medication Medication Date Date Medication? Clinician (SIG) Name Name FENTanyl PF 2020- No 50ug 50 mcg, Un agustín (SUBLIMAZE 09-24 Slow IV ity o f (PF)) 03:45: 02:43 Push, [place] injection 00 :00 ONCE, 1 Medical 50 mcg dose, [facility] 09/23/20 at 2245, Routine methocarbam Yes [id number] 750mg Take 1 Univers oL 5-25 tablet by ity of (ROBAXIN-75 00:00: mouth 4 [place] 0) 750 mg 00 (four) Medical tablet times Branch daily as needed for Pain (scale 7-10). traMADoL 2020- No [id number] 50mg Take 1 Univer s (ULTRAM) 50 5-25 06-02 tablet by it y of mg tablet 00:00: 04:59 mouth [place] 00 :00 every 6 Medical (six) Branch hours as needed for Pain (scale 7-10) for up to 7 days. Indication s: acute pain traMADol Yes 50mg 50 mg, Univers (ULTRAM) 11 Oral, ity of tablet 50 16:18: Q6HPRN, [place] mg 36 Starting Medical [facility] 12/11/19 at 1118, Until Discontinu ed, AMANDA, pain famotidine 2019- No 20mg 20 mg, Univ ers (PEPCID 12-10 0811 Intravenou ity o f (PF)) 14:45: 14:35 s, ONCE, 1 [place] injection 00 :00 dose, e Medic al 20 mg 12/11/19 at Branch 0945, Routine ondansetron 2020-0 2020- No 4mg 4 mg, Slow Univers (ZOFRAN 12-10 IV Push, ity of (PF)) 14:45: 14:35 ONCE, 1 [place] injection 4 00 :00 dose, [facility] ical mg 12/11/19 at Branch 0945, AMANDA morpHINE 2020-0 2020- No 4mg 4 mg, Slow Un agustín injection 4 12-10 IV Push, ity of mg 14:45: 14:35 ONCE, 1 [place] 00 :00 dose, [facility] Medical 12/11/19 at Branch 0945, STAT ondansetron 2020-0 Yes [id number] 4mg Take 1 Univers 4 mg tablet 8-11 tablet by ity of 00:00: mouth [place] 00 every 8 Medical (eight) Branch hours as needed for Nausea and Vomiting (N/V). famotidine 2020-0 Yes [id number] 40mg Take 1 U nivers (PEPCID) 40 8-11 tablet by ity of mg tablet 00:00: mouth [place] 00 daily. Medical Branch ondansetron 2020-0 Yes [id number] 4mg Take 1 Univers 4 mg tablet 8-11 tablet by ity of 00:00: mouth [place] 00 every 8 Medical (eight) Branch hours as needed for Nausea and Vomiting (N/V). famotidine 2020-0 Yes [id number] 40mg Take 1 U nivers (PEPCID) 40 8-11 tablet by ity of mg tablet 00:00: mouth [place] 00 daily. Medical Branch traMADol 50 2020-0 2020- No [id number] 50mg Take 1 Uni vers mg tablet 12-10 tablet by ity of 00:00: 04:59 mouth [place] 00 :00 every 6 Medical (six) Branch hours as needed (pain) for up to 7 days. Indication s: acute pain LORazepam 2020-0 2020- No 1mg 1 mg, Univer s (ATIVAN) 11-29 Oral, ity of tablet 1 mg 04:00: 03:18 ONCE, 1 [place] dose, [facility] 11/29/19 at Branch 2300, AMANDA NaCl 0.9% 2020-0 Yes 1000mL at 500 Univ ers (NS) IV 7-31 mL/hr, ity of infusion 02:00: Intravenou [place] 1,000 mL 00 s, Medical CONTINUOUS Branch , Starting [place] 11/29/19 at 2100, Until Discontinu ed, AMANDA ketorolac 2019- 2020- No 30mg 30 mg, Unive rs (TORADOL) 11-29 Slow IV ity of injection 02:00: 01:08 Push, [place] 30 mg 00 :00 ONCE, 1 Medical dose, [facility] 11/29/19 at 2100, Routine
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 Restricted medication : ARLEY CH famotidine 2019- 2020- No 20mg 20 mg, Univ ers (PEPCID AC) 11-28 Oral, ity of tablet 20 23:45: 22:48 ONCE, 1 [place] mg 00 :00 dose, [facility] Medical 11/29/19 at Branch 1845, AMANDA diphenhydrA 2019- 2020- No 50mg 50 mg, Uni vers MINE 11-28 Oral, ity of (BENADRYL) 23:45: 22:48 ONCE, 1 [place] tablet 50 00 :00 dose, [facility] Medic al mg 11/29/19 at Branch 1845, AMANDA dexamethaso 2019- 2020- No 10mg 10 mg, Uni vers ne 11-28 Intramuscu ity of (DECADRON 22:42: 22:50 lar, ONCE, [place] PHOSPHATE) 00 :00 1 dose, Medica l injection [facility] 10 mg 11/29/19 at 1745, STAT methylPREDN 2020-0 Yes [id number] Take by [facility] 4 7-30 mouth ity of mg tablets 00:00: [place]-INSTRU [place] 00 CTIONS. Medical follow Branch package directions methylPREDN 2020-0 Yes [id number] [facility] ity of mg tablets 00:00: [place]-INSTRU [place] CTIONS. Medical follow Branch package directions methylPREDN 2020-0 Yes [id number] [facility] mouth ity of mg tablets 00:00: SEE-INSTRU [place] CTIONS. Medical follow Branch package directions methylPREDN 2020-0 Yes [id number] Take by [facility] 4 7-30 mouth ity of mg tablets 00:00: [place]-INSTRU [place] CTIONS. Medical follow Branch package directions methylPREDN 2020-0 Yes [id number] Take by Univers ISolone 4 7-30 mouth ity of mg tablets 00:00: SEE-INSTRU [place] 00 CTIONS. Medical follow Branch package directions famotidine 2019-0 2020- No [id number] 20mg Take 1 Univers (PEPCID) 20 7-30 08-14 tablet by it y of mg tablet 00:00: 04:59 mouth 2 [place] 00 :00 (two) Medical times Branch daily for 14 days. famotidine 2019-0 2020- No [id number] 20mg Take 1 Univers (PEPCID) 20 7- 08-14 tablet by it y of mg tablet 00:00: 04:59 mouth 2 [place] 00 :00 (two) Medical times Branch daily for 14 days. famotidine 2019-0 2019- No [id number] 20mg Take 1 Univers (PEPCID) 20 7- 08-14 tablet by it y of mg tablet 00:00: 04:59 mouth 2 [place] 00 :00 (two) Medical times Branch daily for 14 days. famotidine 2019-0 2019- No [id number] 20mg Take 1 Univers (PEPCID) 20 7- 08-14 tablet by it y of mg tablet 00:00: 04:59 mouth 2 [place] 00 :00 (two) Medical times Branch daily for 14 days. LORazepam 2019-0 2019- No [id number] 1mg Take 1 U nivers (ATIVAN) 1 7-30 08-05 tablet by ity of mg tablet 00:00: 04:59 mouth at [place] 00 :00 bedtime Medical for 5 Branch days. LORazepam 2020-0 2020- No [id number] 1mg Take 1 U nivers (ATIVAN) 1 7-30 08-05 tablet by ity of mg tablet 00:00: 04:59 mouth at [place] 00 :00 bedtime Medical for 5 Branch days. LORazepam 2020-0 2020- No [id number] 1mg Take 1 U nivers (ATIVAN) 1 7-30 08-05 tablet by ity of mg tablet 00:00: 04:59 mouth at [place] 00 :00 bedtime Medical for 5 Branch days. FENTanyl PF 2019-0 2019- No 50ug 50 mcg, Un agustín (SUBLIMAZE 11-27 Slow IV ity o f (PF)) 03:30: 02:34 Push, [place] injection 00 :00 ONCE, 1 Medical 50 mcg dose, [facility] 11/27/19 at 2230, Routine iohexol 2020-0 2020- No 120mL 120 mL, Unive rs (OMNIPAQUE 11-27 Intravenou it y of 350 03:15: 02:58 s, ONCE, 1 [place] BULK-150 00 :00 dose, Tue Medica l mL) 11/27/19 at Branch injection 2215, 120 mL Routine ketorolac 2019-0 2020- No 30mg 30 mg, Unive rs (TORADOL) 11-27 Slow IV ity of injection 02:45: 01:44 Push, [place] 30 mg 00 :00 ONCE, 1 Medical dose, [facility] 11/27/19 at 2145, Routine
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 Restricted medication : XIAO MOTT dicyclomine 2019-0 2020- No 20mg 20 mg, Uni vers (BENTYL) 11-27 Intramuscu ity of injection 02:45: 01:45 lar, [place]CE [place] 20 mg 00 :00 NOW, 1 Medical dose, [facility] 11/27/19 at 2145, Routine pantoprazol 2019-0 2020- No 40mg 40 mg, IV Univers e 11-27 Piggyback, ity of (PROTONIX) 02:00: 01:21 ONCE, 1 [place] 40 mg in 00 :00 dose, Tue Medica l NaCl 0.9% 11/27/19 at Bran ch (NS) 100 mL 2100, 100 MINI-BAG mL FENTanyl PF 2020-0 2020- No 50ug 50 mcg, Un agustín (SUBLIMAZE 11-27 Slow IV ity o f (PF)) 02:00: 01:04 Push, [place] injection 00 :00 ONCE, 1 Medical 50 mcg dose, [facility] 11/27/19 at 2100, Routine proMETHazin 2020-0 2020- No 25mg 25 mg, IV Univers e 11-27 Piggyback, ity of (PHENERGAN) 02:00: 00:56 ONCE, 1 [place] 25 mg in 00 :00 dose, Tue Medica l NaCl 0.9% 11/27/19 at Bran ch (NS) 50 mL 2100, 50 piggyback mL NaCl 0.9% 2019-0 2019- No 1000mL at 999 Uni vers (NS) bolus 11-27 mL/hr, ity of infusion 01:45: 03:43 1,000 mL, [place] 1,000 mL 00 :00 IV Medical Infusion, Branch ONCE, 1 dose, 11/27/19 at 2044, STAT ondansetron 2019-0 2019- No 4mg 4 mg, Slow Univers (ZOFRAN 11-27 IV Push, ity of (PF)) 01:45: 00:43 ONCE, 1 [place] injection 4 00 :00 dose, Tue Med ical mg 11/27/19 at Branch 2044, AMANDA dicyclomine 2020-0 Yes [id number] 20mg Take 1 Univers 20 mg 7-28 tablet by ity of tablet 00:00: mouth [place] 00 every 6 Medical (six) Branch hours as needed for Abdominal pain. proMETHazin 2020-0 Yes [id number] 25mg Take 1 Univers e 25 mg 7-28 tablet by ity of tablet 00:00: mouth every 6 Medical (six) Branch hours as needed for N/V unresponsi ve to Ondansetro n. proMETHazin 2020-0 Yes [id number] 25mg Insert 1 Univers e 7-28 Suppositor ity of (PHENERGAN) 00:00: y [place] 25 mg 00 rectum Medical suppository every 4 Branc h (four) hours as needed for Nausea and Vomiting (N/V) or N/V unresponsi ve to oral antiemetic s. lactulose 2020-0 Yes [id number] 30mL Take 30 mL Univers 10 gram/15 7-28 by mouth 3 ity of mL oral 00:00: (three) [place] solution 00 times Medical daily as Branch needed for Constipati on or For bowel movement. dicyclomine 2020-0 Yes [id number] 20mg Take 1 Univers 20 mg 7-28 tablet by ity of tablet 00:00: mouth 00 every 6 Medical (six) Branch hours as needed for Abdominal pain. proMETHazin 2020-0 Yes [id number] 25mg Take 1 Univers e 25 mg 7-28 tablet by ity of tablet 00:00: mouth [place] 00 every 6 Medical (six) Branch hours as needed for N/V unresponsi ve to Ondansetro n. proMETHazin 2020-0 Yes [id number] 25mg Insert 1 Univers e 7-28 Suppositor ity of (PHENERGAN) 00:00: y into [place] 25 mg 00 rectum Medical suppository every 4 Branc h (four) hours as needed for Nausea and Vomiting (N/V) or N/V unresponsi ve to oral antiemetic s. lactulose 2020-0 Yes [id number] 30mL Take 30 mL Univers 10 gram/15 7-28 by mouth 3 ity of mL oral 00:00: (three) [place] solution 00 times Medical daily as Branch needed for Constipati on or For bowel movement. dicyclomine 2020-0 Yes [id number] 20mg Take 1 Univers 20 mg 7-28 tablet by ity of tablet 00:00: mouth [place] 00 every 6 Medical (six) Branch hours as needed for Abdominal pain. proMETHazin 2020-0 Yes [id number] 25mg Take 1 Univers e 25 mg 7-28 tablet by ity of tablet 00:00: mouth [place] 00 every 6 Medical (six) Branch hours as needed for N/V unresponsi ve to Ondansetro n. proMETHazin 2020-0 Yes [id number] 25mg Insert 1 Univers e 7-28 Suppositor ity of (PHENERGAN) 00:00: y into [place] 25 mg 00 rectum Medical suppository every 4 Branc h (four) hours as needed for Nausea and Vomiting (N/V) or N/V unresponsi ve to oral antiemetic s. lactulose 2020-0 Yes [id number] 30mL Take 30 mL Univers 10 gram/15 7-28 by mouth 3 ity of mL oral 00:00: (three) [place] solution 00 times Medical daily as Branch needed for Constipati on or For bowel movement. dicyclomine 2020-0 Yes [id number] 20mg Take 1 Univers 20 mg 7-28 tablet by ity of tablet 00:00: mouth [place] 00 every 6 Medical (six) Branch hours as needed for Abdominal pain. proMETHazin 2020-0 Yes [id number] 25mg Take 1 Univers e 25 mg 7-28 tablet by ity of tablet 00:00: mouth [place] 00 every 6 Medical (six) Branch hours as needed for N/V unresponsi ve to Ondansetro n. proMETHazin 2020-0 Yes [id number] 25mg Insert 1 Univers e 7-28 Suppositor ity of (PHENERGAN) 00:00: y into [place] 25 mg 00 rectum Medical suppository every 4 Branc h (four) hours as needed for Nausea and Vomiting (N/V) or N/V unresponsi ve to oral antiemetic s. lactulose 2020-0 Yes [id number] 30mL Take 30 mL Univers 10 gram/15 7-28 by mouth 3 ity of mL oral 00:00: (three) [place] solution 00 times Medical daily as Branch needed for Constipati on or For bowel movement. dicyclomine 2020-0 Yes [id number] 20mg Take 1 Univers 20 mg 7-28 tablet by ity of tablet 00:00: mouth [place] 00 every 6 Medical (six) Branch hours as needed for Abdominal pain. pantoprazol 2020-0 Yes [id number] 40mg Take 1 Univers e 7-28 tablet by ity of (PROTONIX) 00:00: mouth [place] 40 mg EC 00 daily. Medical tablet Branch proMETHazin 2020-0 Yes [id number] 25mg Take 1 Univers e 25 mg 7-28 tablet by ity of tablet 00:00: mouth [place] 00 every 6 Medical (six) Branch hours as needed for N/V unresponsi ve to Ondansetro n. proMETHazin 2020-0 Yes [id number] 25mg Insert 1 Univers e 7-28 Suppositor ity of (PHENERGAN) 00:00: y into [place] 25 mg 00 rectum Medical suppository every 4 Branc h (four) hours as needed for Nausea and Vomiting (N/V) or N/V unresponsi ve to oral antiemetic s. lactulose 2020-0 Yes [id number] 30mL Take 30 mL Univers 10 gram/15 7-28 by mouth 3 ity of mL oral 00:00: (three) [place] solution 00 times Medical daily as Branch needed for Constipati on or For bowel movement. dicyclomine 2020-0 Yes [id number] 20mg Take 1 Univers 20 mg 7-28 tablet by ity of tablet 00:00: mouth [place] 00 every 6 Medical (six) Branch hours as needed for Abdominal pain. proMETHazin 2019-0 Yes [id number] 25mg Take 1 Univers e 25 mg 7-28 tablet by ity of tablet 00:00: mouth [place] 00 every 6 Medical (six) Branch hours as needed for N/V unresponsi ve to Ondansetro n. proMETHazin 2019-0 Yes [id number] 25mg Insert 1 Univers e 7-28 Suppositor ity of (PHENERGAN) 00:00: y into [place] 25 mg 00 rectum Medical suppository every 4 Branc h (four) hours as needed for Nausea and Vomiting (N/V) or N/V unresponsi ve to oral antiemetic s. lactulose 2019-0 Yes [id number] 30mL Take 30 mL Univers 10 gram/15 7-28 by mouth 3 ity of mL oral 00:00: (three) [place] solution 00 times Medical daily as Branch needed for Constipati on or For bowel movement. pantoprazol 2020- No [id number] 40mg Take 1 Univers e 7-28 07-30 tablet by ity of (PROTONIX) 00:00: 00:00 mouth [place] 40 mg EC 00 :00 daily. Medical tablet Branch Vital Signs Vital Name Observation Time Observation Value Comments Source Systolic blood 2020-09-24 03:00:00 128 mm[Hg] [facility] Diastolic blood 2020-09-24 03:00:00 90 mm[Hg] [facility] Heart rate 2020-09-24 03:00:00 57 /min [facility] Respiratory rate 2020-09-24 03:00:00 12 /min [facility] Oxygen saturation in 2020-09-24 03:00:00 97 /min [facility] Arterial blood by [facility] Pulse oximetry Branch Body temperature 2020-09-23 23:34:00 36.94 Loan [facility] Body weight 2020-09-23 23:34:00 77.111 kg [facility] BMI 2020-09-23 23:34:00 31.09 kg/m2 [facility] Systolic blood 2019-12-11 15:50:00 149 mm[Hg] [facility] Diastolic blood 2019-12-11 15:50:00 96 mm[Hg] Unive rsity of pressure [place] [facility] Heart rate 2019-12-11 15:50:00 75 /min [facility] [place] [facility] Body temperature 2019-12-11 15:50:00 36.83 Loan [facility] [place] [facility] Respiratory rate 2019-12-11 15:50:00 20 /min [facility] [place] [facility] Oxygen saturation in 2019-12-11 15:50:00 99 /min [facility] of Arterial blood by [place] [facility] Pulse oximetry Branch Body weight 2019-12-11 12:55:00 77.111 kg [facility] [place] [facility] BMI 2019-12-11 12:55:00 31.09 kg/m2 [facility] [place] [facility] Systolic blood 2019-12-11 15:50:00 149 mm[Hg] Univer sity of pressure [place] [facility] Diastolic blood 2019-12-11 15:50:00 96 mm[Hg] Unive rsity of pressure [place] [facility] Heart rate 2019-12-11 15:50:00 75 /min [facility] [place] [facility] Body temperature 2019-12-11 15:50:00 36.83 Loan [facility] [place] [facility] Respiratory rate 2019-12-11 15:50:00 20 /min [facility] [place] [facility] Oxygen saturation in 2019-12-11 15:50:00 99 /min University of Arterial blood by [facility] landon Pulse oximetry Branch Body weight 2019-12-11 12:55:00 77.111 kg [facility] [place] [facility] BMI 2019-12-11 12:55:00 31.09 kg/m2 [facility] [place] [facility] Systolic blood 2019-11-30 03:00:00 127 mm[Hg] Univer sity of pressure [place] [facility] Diastolic blood 2019-11-30 03:00:00 78 mm[Hg] Unive rsity of pressure [place] [facility] Heart rate 2019-11-30 03:00:00 71 /min [facility] [place] [facility] Respiratory rate 2019-11-30 03:00:00 20 /min [facility] [place] [facility] Oxygen saturation in 2019-11-30 03:00:00 98 /min University of Arterial blood by [place] [facility] Pulse oximetry Branch Body temperature 2019-11-29 22:39:00 37.44 Loan [facility] [place] [facility] Body height 2019-11-29 22:39:00 157.5 cm [facility] [place] [facility] Body weight 2019-11-29 22:39:00 77.111 kg [facility] [place] [facility] BMI 2019-11-29 22:39:00 31.09 kg/m2 [facility] [place] [facility] Systolic blood 2019-11-30 03:00:00 127 mm[Hg] Univer sity of pressure [place] [facility] Diastolic blood 2019-11-30 03:00:00 78 mm[Hg] Unive rsity of pressure [place] [facility] Heart rate 2019-11-30 03:00:00 71 /min [facility] [place] [facility] Respiratory rate 2019-11-30 03:00:00 20 /min [facility] [place] [facility] Oxygen saturation in 2019-11-30 03:00:00 98 /min University of Arterial blood by [place] [facility] Pulse oximetry Branch Body temperature 2019-11-29 22:39:00 37.44 Loan [facility] [place] [facility] Body height 2019-11-29 22:39:00 157.5 cm [facility] [place] [facility] Body weight 2019-11-29 22:39:00 77.111 kg [facility] [place] [facility] BMI 2019-11-29 22:39:00 31.09 kg/m2 [facility] [place] [facility] Systolic blood 2019-11-28 03:42:00 158 mm[Hg] Univer sity of pressure [place] [facility] Diastolic blood 2019-11-28 03:42:00 88 mm[Hg] Unive rsity of pressure [place] [facility] Heart rate 2019-11-28 03:42:00 79 /min [facility] [place] [facility] Respiratory rate 2019-11-28 03:42:00 20 /min [facility] [place] [facility] Oxygen saturation in 2019-11-28 03:42:00 98 /min University of Arterial blood by [facility] landon Pulse oximetry Branch Body temperature 2019-11-28 00:40:00 37.5 Loan [facility] [place] [facility] Body height 2019-11-28 00:37:00 157.5 cm [facility] [place] [facility] Body weight 2019-11-28 00:37:00 77.111 kg [facility] [place] [facility] BMI 2019-11-28 00:37:00 31.09 kg/m2 [facility] [place] [facility] Systolic blood 2019-11-28 03:42:00 158 mm[Hg] Univer sity of pressure [facility] Diastolic blood 2019-11-28 03:42:00 88 mm[Hg] Unive rsity of pressure [facility] Heart rate 2019-11-28 03:42:00 79 /min [facility] Respiratory rate 2019-11-28 03:42:00 20 /min [facility] Oxygen saturation in 2019-11-28 03:42:00 98 /min [facility] Arterial blood by [facility] Pulse oximetry [place] Body temperature 2019-11-28 00:40:00 37.5 Loan [facility] Body height 2019-11-28 00:37:00 157.5 cm [facility] Body weight 2019-11-28 00:37:00 77.111 kg [facility] BMI 2019-11-28 00:37:00 31.09 kg/m2 [facility] Procedures Procedure Date / Time Performed Performing Clinician Sourcameron e D-DIMER 2020-09-24 00:40:00 Jorge Saul [facility] [place] [facility] XR CHEST 1 VW 2020-09-24 00:37:38 Jorge Saul [facility] [place] [facility] LIPASE 2020-09-24 00:01:00 Jorge Saul [facility] [place] [facility] TROPONIN I 2020-09-24 00:01:00 Jorge Saul [facility] [place] [facility] COMP. METABOLIC PANEL 2020-09-24 00:01:00 [facility] ([id number]) [facility] CBC WITH DIFF 2020-09-24 00:01:00 Jorge Saul [facility] [place] [facility] NOTICE OF PRIVACY 2020-09-23 23:25:33 Doctor Unassigned, No Univ [facility] PRACTICES Name [facility] CONSENT/REFUSAL FOR 2020-09-23 23:24:41 [facility] Name [facility] TREATMENT US GALL BLADDER 2019-12-11 15:08:38 Javi Stovall [facility] [place] [facility] LIPASE 2019-12-11 14:35:00 Javi Stovall [facility] [place] [facility] TEST, SERUM 2019-12-11 14:35:00 Javi Stovall [facility] HEPATIC FUNCTION PANEL 2019-12-11 14:35:00 Javi Stovall [facility] ([id number]) Medical [place] (ALB,T.PRO,BILI T,BU/BC,ALT,AST,ALK PHOS) BASIC METABOLIC PANEL 2019-12-11 14:35:00 S[place] [facility] (NA, K, CL, CO2, Medical Branch GLUCOSE, BUN, CREATININE, CA) CBC WITH DIFF 2019-12-11 14:35:00 Javi Stovall [facility] [place] [facility] COMP. METABOLIC PANEL 2019-11-30 02:21:00 Arley Ch [facility] ([id number]) [facility] CBC WITH DIFF 2019-11-30 01:10:00 Arley Ch [facility] [place] [facility] RAPID STREP SCREEN FOR 2019-11-29 22:47:00 Arley Ch [facility] GROUP A Medical Branch NOTICE OF PRIVACY 2019-11-29 22:31:49 Doctor Unassigned, No [facility] PRACTICES Name Medical Branch ADC / LCC - DRUG 2019-11-28 03:43:00 Xiao Mott [facility] SCREEN TRIAGE Medical Branch URINALYSIS 2019-11-28 03:22:00 Xiao Mott [facility] [place] [facility] CT ABDOMEN PELVIS W 2019-11-28 03:03:48 Xiao Mott [facility] CONTRAST [facility] Branch EKG-12 LEAD 2019-11-28 02:24:56 Xiao Mott [facility] [place] [facility] LIPASE 2019-11-28 00:44:00 Xiao Mott [facility] [place] [facility] TROPONIN I 2019-11-28 00:44:00 Xiao Mott [facility] [place] [facility] COMP. METABOLIC PANEL 2019-11-28 00:44:00 Xiao Mott [facility] ([id number]) Medical Branch CBC WITH DIFF 2019-11-28 00:44:00 Xiao Mott [facility] [place] [facility] CONSENT/REFUSAL FOR 2019-11-28 00:21:45 Doctor Unassigned, No [facility] DIAGNOSIS AND Name Medical Branch TREATMENT NOTICE OF PRIVACY 2019-11-28 00:21:31 Doctor Unassigned, No Univ ersity [facility] PRACTICES Name Medical Branch Encounters Start End Encounter Admission Attending Care Care Encounter Source Date/Time Date/Time Type Type Clinicians Facility Department ID 2020-12-01 2020-12-01 Outpatient BILLY GARCIA, [facility] [id number] [facility] 13:22:49 15:25:46 BLAKE landis of Medicin e 2020-12-01 2020-12-01 Outpatient CERVANTES, [facility] SLE [id number] [facility] 00:00:00 00:00:00 BLAKE 2020-09-23 2020-09-23 Emergency [facility] [id number] Univers 18:36:00 22:14:00 Jorge Pamella Ma 350.1.13.[address] [facility] 4.2.7.2.686 [facility] [phone] [place] [id number] [place] 2020-09-23 2020-09-23 Emergency X [facility] ERT [id number] Univers 18:36:00 18:36:00 JORGE ity of [facility] 2019-12-11 2019-12-11 Emergency [place], TRAUMA 1.2.609.900 [id number] Univers 07:58:00 11:57:00 [facility] 350.1.13.10 ity of 4.2.7.2.686 [facility] [id number] [facility] 014 Branch 2019-12-11 2019-12-11 Emergency [place], TRAUMA [id number] 07:58:00 11:57:00 [facility] 350.1.13.10 4.2.7.2.686 [id number] 014 2019-12-11 2019-12-11 Emergency X [facility] ERT [id number] Univers 07:53:00 07:53:00 ity of [facility] 2019-12-02 2019-12-02 Letter Darell LINARES 1.2.840.114 [id number] 00:00:00 00:00:00 (Out) Melvina real 350.1.13.10 [facility] 4.2.7.2.686 [id number] 019 2019-12-02 2019-12-02 Telephone Stenstadjayy LINARES 1.2.840.114 [id number] 00:00:00 00:00:00 Melvina real 350.1.13.10 [facility] 4.2.7.2.686 [id number] 2019-12-02 2019-12-02 Telephone Stenstadjayy LINARES 1.2.840.114 [id number] [facility] 00:00:00 00:00:00 Melvina real 350.1.13.10 ity of [address]686 Howard as [phone] [address] 2019-12-02 2019-12-02 Letter Stendylan LINARES 1.2.840.114 [id number] Univers 00:00:00 00:00:00 (Out) Melvina real 350.1.13.10 ity [place] [address].2.7.2.686 Howard as [phone] [address] 2019-11-29 2019-11-29 Emergency [facility] 1.2.542.785 [id number] 17:39:52 22:40:00 Arley Chiara Ma 350.1.13.10 [facility] 4.2.7.2.686 [place] [phone] [facility] 2019-11-29 2019-11-29 Emergency [facility] 1.2.296.121 [id number] [facility] 17:39:52 22:40:00 Arley Chiara Ma 350.1.13.[address] [facility] 4.2.7.2.686 [facility] [id number] [address] 2019-11-29 2019-11-29 Emergency X [facility] ERT [id number] [facility] 17:39:52 17:39:52 ARLEY itcelsa [facility] 2019-11-27 2019-11-28 Emergency [facility] [id number] 19:33:27 00:42:00 Xiao Ma 350.1.13.10 [facility] 4.2.7.2.686 [place] [phone] [id number] 2019-11-27 2019-11-28 Emergency [facility] 1.2.282.480 [id number] Univers 19:33:27 00:42:00 X[facility]13.10 [facility] 4.2.7.2.686 [facility] [phone] [place] 732594 [place] 2019-11-27 2019-11-27 Emergency X [facility] ERT [id number] Univers 19:33:27 19:33:27 [facility] Results Test Description Test Time Test Comments Results Result [facility] e Comments RAD, SPINE, 2020-12-01 Reason for CERVICAL, 15:57:00 Exam:->neck pain, COMPLETE, WITH chronicReason for FLEX Exam:->headaches [facility] - due to old head [facility] JESSIKA DE LEON : 1970 Sex: F FINAL REPORT EXAMINATION: RAD, SPINE, CERVICAL, COMPLETE, WITH FLEX \\T\\ EXTENSION INDICATION: Neck pain, chronic headaches COMPARISON: None DISCUSSION:On the lateral view, the cervical spine is visualized from the level of the skull base to C7. No acute displaced fracture or compression deformity is visualized.No abnormal spinal alignment. No dynamic motion noted on flexion and extension views.Mild multilevel degenerative disc changes with uncovertebral arthropathy. Soft tissues are unremarkable. IMPRESSION:No acute osseous abnormality. Mild multilevel degenerative disc changes and uncovertebral arthropathy. Signed: Milvia Ford MDReport Verified Date/Time: 12/01/2020 15:57:57 Reading Location: [facility] Reading Room [address] [place] [address] D-DIMER 2020-09-24 01:08:22 Test Item Value Reference Range Interpretation Comme nts D-DIMER (test code = <0.27 See_Comment [Autom ated message] The [id number]) system which ge nerated this result tra nsmitted reference range : <0.41 ?g/mL (FEU). Th e reference range was not used to interpr et this result as normal/abnormal . ANNI (test code = ANNI) This test may be used in conjunction with a clinical pretest probability (PTP) assessment model to exclude venous thromboembolism (VTE) in patients suspected of deep venous thrombosis (DVT) and pulmonary embolism (PE) A D-Dimer value less than 0.50 ?g/ml (FEU) has a negative predicative value of 96 to 100% (95% CI)and 97 to 100% (95% CI) as an aid in the diagnosis of deep vein thrombosis (DVT) and pulmonary embolism when there is low or moderate pretest probability of PE or DVT. D-Dimer values are expressed in initial fibrinogen equivalent units (FEU)" The assay results should be used with other information, including the clinical context, in forming a diagnosis. Lab Interpretation Normal (test code = 60438-6) [facility] [id number] 00:31:25 Test Item Value Reference Range Interpretation Comments TROPONIN I (test <0.012 See_Comment [Automated code = 9670980036) message] The system which generated this result transmitted reference range : <=0.034 ng/mL. The reference range was not used to interpr et this result as normal/abnormal . ANNI (test code = Equal or Less than ANNI) 0.034 ng/ml---Normal ?Note: Cardiac troponin begins to rise 3-4 hours after the onset of ischemia. Repeat in 4-6 hours if the sample was drawn within 3-4 hours of the onset of the symptom and found normal. Between 0.035 and 0.120 ng/mL--- Borderline. Questionable myocardial injury or necrosis ? ?Note: Serial measurement may be necessary to confirm or exclude the diagnosis of myocardial injury or necrosis; Clinical correlation (symptoms, EKGs, imaging studies, and others) required; Repeat in 4-6 hours if clinically indicated. ? Equal or Higher than 0.121 ng/mL---Abnormal. Myocardial Injury or Necrosis Likely ? Biotin has been reported to cause a negative bias, interpret results relative to patient's use of biotin. ? Lab Interpretation Normal (test code = 25968-8) [facility]. METABOLIC PANEL ([id number])2020-09-24 00:21:01 Test Item Value Reference Range Interpretation Comments NA (test code = 140 mmol/L 135-145 6426559599) K (test code = 3.6 mmol/L 3.5-5.0 4661233611) CL (test code = 108 mmol/L 98-108 4260833909) CO2 TOTAL (test code = 25 mmol/L 23-31 6010706336) AGAP (test code = 2-16 7666331169) BUN (test code = 8 mg/dL 7-23 5591734653) GLUCOSE (test code = 100 mg/dL 70-110 5830728460) CREATININE (test code = 0.56 mg/dL 0.50-1.04 5214470019) TOTAL BILI (test code = 0.3 mg/dL 0.1-1.5 6627221442) CALCIUM (test code = 9.4 mg/dL 8.6-10.6 2702477603) T PROTEIN (test code = 7.1 g/dL 6.3-8.2 2846065133) ALBUMIN (test code = 4.4 g/dL 3.5-5.0 4078998405) ALK PHOS (test code = 59 U/L 34-122 4184474588) ALTv (test code = 120 U/L 5-35 H 1742-6) AST(SGOT) (test code = 81 U/L 13-40 H 0771541369) eGFR (test code = mL/min/1.73m2 0879366718) ANNI (test code = ANNI) Association of Glomerular Filtration Rate (GFR) and Staging of Kidney Disease* + --+ --+ ------+| GFR (mL/min/1.73 m2) ?| With Kidney Damage ?| ?Without Kidney Damage+ --------+ --------+ +| ?>90 ?| ?Stage one ?| ? Normal ?+ ---+ ---+ -------+| ?60-89 ?| ?Stage two ?| ? Decreased GFR ? + --+ --+ ------+| ?30-59 ?| ?Stage three ?| ? Stage three ? + --+ --+ ------+| ?15-29 ?| ?Stage four ? | ? Stage four ?+ ---+ ---+ -------+| ?<15 (or dialysis) ? ?| ?Stage five ? | ? Stage five ?+ ---+ ---+ -------+ *Each stage assumes the associated GFR level has been in effect for at least three months. ?Stages 1 to 5, with or without kidney disease, indicate chronic kidney disease. Notes: Determination of stages one and two (with eGFR >59mL/min/1.73 m2) requires estimation of kidney damage for at least three months as defined by structural or functional abnormalities of the kidney, manifested by either:Pathological abnormalities or Markers of kidney damage (including abnormalities in the composition of the blood or urine or abnormalities in imaging tests). Lab Interpretation Abnormal (test code = 80224-6) [facility], [id number] 00:20:41 Test Item Value Reference Range Interpretation Comments LIPASE (test code = 5006641722) 172 U/L 0-220 Lab Interpretation (test code = Normal 29803-2) [facility] WITH [id number] 00:08:14 Test Item Value Reference Range Interpretation Comments WBC (test code = See_Comment [Automated message] 6690-2) The system [employer] generated this result transmitted ref erence range: 4.30 - 1 1.10 10*3/?L. The re ference range was not u sed to interpret this result as normal/abnor mal. RBC (test code = See_Comment [Automated message] 789-8) The system [employer] generated this result transmitted ref erence range: 3.93 - 5 .25 10*6/?L. The re ference range was not u sed to interpret this result as normal/abnor mal. HGB (test code = 13.9 g/dL 11.6-15.0 718-7) HCT (test code = 41.7 % 35.7-45.2 4544-3) MCV (test code = 95.0 fL 80.6-95.5 787-2) MCH (test code = 31.7 pg 25.9-32.8 785-6) MCHC (test code = 33.3 g/dL 31.6-35.1 786-4) RDW-SD (test code 46.3 fL 39.0-49.9 = 42531-8) RDW-CV (test code 13.1 % 12.0-15.5 = 788-0) PLT (test code = See_Comment [Automated message] 777-3) The system Desinoic h generated this result transmitted ref erence range: 166 - 35 8 10*3/?L. The re ference range was not u sed to interpret this result as normal/abnor mal. MPV (test code = 10.8 fL 9.5-12.9 60887-7) NRBC/100 WBC (test See_Comment [Automat ed message] code = 0131276810) The syste m which generated this result transmitted ref erence range: 0.0 - 10 .0 /100 WBCs. The refer ence range was not u sed to interpret this result as normal/abnor mal. NRBC x10^3 (test <0.01 See_Comment [Automated message] code = 8680812156) The syste m which generated this result transmitted ref erence range: 10*3/?L. The reference range was not used to interpr et this result as normal/abnormal . GRAN MAT (NEUT) % 35.8 % (test code = 770-8) IMM GRAN % (test 0.20 % code = 4838169829) LYMPH % (test code 52.0 % = 736-9) MONO % (test code 9.8 % = 5905-5) EOS % (test code = 1.9 % 713-8) BASO % (test code 0.3 % = 706-2) GRAN MAT 2.09 10*3/uL 1.88-7.09 x10^3(ANC) (test code = 4226839343) IMM GRAN x10^3 <0.03 0.00-0.06 (test code = 0907176704) LYMPH x10^3 (test 3.03 10*3/uL 1.32-3.29 code = 731-0) MONO x10^3 (test 0.57 10*3/uL 0.33-0.92 code = 742-7) EOS x10^3 (test 0.11 10*3/uL 0.03-0.39 code = 711-2) BASO x10^3 (test <0.03 0.01-0.07 code = 704-7) [facility] GALL [id number] 16:11:13 No cholelithiasis or sonographic evidence of cholecystitis. ILazaro MD., have reviewed this study and agree with the abovereport.US GALL BLADDER HISTORY: 49 years-old; Female; RUQ abdominal pain COMPARISON: Abdominopelvic CT 11/27/2019 FINDINGS: LIVER: The liver is normal in size and measures 12.8 cm. Normalechotexture, echogenicity, and contour No focal hepatic lesion. Hepatopetal ?flow within the main portal vein. GALLBLADDER: There is no cholelithiasis, wall thickening (2 mm),gallbladder distention, or pericholecystic fluid. Limited evaluation ofsonographic Mcdowell's sign due to administration of pain medication. Thecommon bile duct measures 4 mm. PANCREAS: Incompletely visualized due to overlying bowel gas. RIGHT KIDNEY: The partially visualized right kidney is unremarkable. [facility] Results Inft User - 12/11/2019 11:12 AM CDTUS GALL BLADDER HISTORY: 49 years-old; Female; RUQ abdominal pain COMPARISON: Abdominopelvic CT 11/27/2019 FINDINGS: LIVER: The liver is normal in size and measures 12.8 cm. Normalechotexture, echogenicity, and contour No focal hepatic lesion. Hepatopetal flow within the main portal vein. GALLBLADDER: There is no cholelithiasis, wall thickening (2 mm ),gallbladder distention, or pericholecystic fluid. Limited evaluation ofsonographic Mcdowell's sign due to administration of pain medication. Thecommon bile duct measures 4 mm.PANCREAS: Incompletely visualized due to overlying bowel gas.RIGHT KIDNEY: The partially visualized right kidney is unremarkable .IMPRESSIONNo cholelithiasis or sonographic evidence of cholecystitis.I, Lazaro Hinkle MD., have reviewed this study and agree with the abovereport.[facility] HospitalLip[facility] [id number] 15:06:00 Test Item Value Reference Range Interpretation Comments LIPASE (test code = 6622569837) 346 U/L 0-220 H Lab Interpretation (test code = Abnormal 73439-8) [facility] (NA, K, CL, CO2, GLUCOSE, BUN, CREATININE, CA)2019-12-11 15:01:00 Test Item Value Reference Range Interpretation Comments NA (test code = 137 mmol/L 135-145 6706790161) K (test code = 4.6 mmol/L 3.5-5 9195364640) CL (test code = 104 mmol/L 98-108 2655644031) CO2 TOTAL (test code = 23 mmol/L 23-31 5742425323) AGAP (test code = 2-16 7595962929) BUN (test code = 8 mg/dL 7-23 3973369981) GLUCOSE (test code = 96 mg/dL 70-110 4190203658) CREATININE (test code 0.68 mg/dL 0.5-1.04 = 0297453030) CALCIUM (test code = 10.1 mg/dL 8.6-10.6 9719797658) eGFR Calculation mL/min/1.73m2 (Non-) (test code = 2664536895) eGFR Calculation mL/min/1.73m2 () (test code = 1501917441) ANNI (test code = ANNI) Association of Glomerular Filtration Rate (GFR) and Staging of Kidney Disease* + -+ + ---+| GFR (mL/min/1.73 m2) ?| With Kidney Damage ?| ?Without Kidney Damage+ -------+ ------+ ---------+| ?>90 ?| ?Stage one ?| ? Normal ?+ --+ -+ ----+| ?60-89 ?| ?Stage two ?| ? Decreased GFR ? + -+ + ---+| ?30-59 ?| ?Stage three ?| ? Stage three ? + -+ + ---+| ?15-29 ?| ?Stage four ? | ? Stage four ?+ --+ -+ ----+| ?<15 (or dialysis) ? ?| ?Stage five ? | ? Stage five ?+ --+ -+ ----+ *Each stage assumes the associated GFR level has been in effect for at least three months. ?Stages 1 to 5, with or without kidney disease, indicate chronic kidney disease. Notes: Determination of stages one and two (with eGFR >59mL/min/1.73 m2) requires estimation of kidney damage for at least three months as defined by structural or functional abnormalities of the kidney, manifested by either:Pathological abnormalities or Markers of kidney damage (including abnormalities in the composition of the blood or urine or abnormalities in imaging tests). [facility] HospitalHep[facility] Function Panel (ALB, T.PRO, BILI T, BU/BC, ALT, AST, ALK PHOS)2019-12-11 15:01:00 Test Item Value Reference Range Interpretation Comments TOTAL BILI (test code = 4733551800) 0.7 mg/dL 0.1-1.1 BILI UNCON (test code = 3743772431) 0.8 mg/dL 0.1-1.1 BILI CONJ (test code = 6925640775) 0.0 mg/dL 0-0.3 T PROTEIN (test code = 5554936911) 7.6 g/dL 6.3-8.2 ALBUMIN (test code = 0918006410) 4.6 g/dL 3.5-5 ALK PHOS (test code = 0707949702) 53 U/L 34-122 ALTv (test code = 1742-6) 36 U/L 5-35 H AST(SGOT) (test code = 3812820719) 40 U/L 13-40 Lab Interpretation (test code = Abnormal 30894-6) [facility] HospitalPregnancy Test, [id number] 15:00:00 Test Item Value Reference Range Interpretation Comments PREG SERUM (test code Negative = 9315927850) ANNI (test code = ANNI) Less than 10 IU/L. ?If low titer or ectopic is suspected, resubmit specimen in 48-72 hours. [facility] HospitalCBC with [id number] 14:48:00 Test Item Value Reference Range Interpretation Comments WBC (test code = See_Comment [Automated 6690-2) message] The sy stem which generated this result transmitted reference range : 4.30 - 11.10 10*3/?L. The reference range was not used to interpret this result as normal/abnormal . RBC (test code = See_Comment [Automated 789-8) message] The sy stem which generated this result transmitted reference range : 3.93 - 5.25 10*6/?L. The reference range was not used to interpret this result as normal/abnormal . HGB (test code = 14.6 g/dL 11.6-15 718-7) HCT (test code = 43.8 % 35.7-45.2 4544-3) MCV (test code = 96.1 fL 80.6-95.5 H 787-2) MCH (test code = 32.0 pg 25.9-32.8 785-6) MCHC (test code = 33.3 g/dL 31.6-35.1 786-4) RDW-SD (test code = 48.1 fL 39-49.9 15631-2) RDW-CV (test code = 13.4 % 12-15.5 788-0) PLT (test code = See_Comment [Automated 777-3) message] The sy stem which generated this result transmitted reference range : 166 - 358 10*3/ ?L. The reference r bhavani was not used to interpret this result as normal/abnormal . MPV (test code = 10.6 fL 9.5-12.9 67966-9) NRBC/100 WBC (test See_Comment [Automat ed code = 8641139311) message] The system which generated this result transmitted reference range : 0.0 - 10.0 /100 WBCs. The refer ence range was not u sed to interpret th is result as normal/abnormal . NRBC x10^3 (test code <0.01 See_Comment [Auto mated = 2370017029) message] The s ystem which generated this result transmitted reference range : 10*3/?L. The reference range was not used to interpret this result as normal/abnormal . GRAN MAT (NEUT) % 50.1 % (test code = 770-8) IMM GRAN % (test code 0.30 % = 5234191549) LYMPH % (test code = 36.4 % 736-9) MONO % (test code = 11.5 % 5905-5) EOS % (test code = 1.4 % 713-8) BASO % (test code = 0.3 % 706-2) GRAN MAT x10^3(ANC) 3.17 10*3/uL 1.88-7.09 (test code = 5268380695) IMM GRAN x10^3 (test <0.03 0-0.06 code = 1414254614) LYMPH x10^3 (test code 2.31 10*3/uL 1.32-3.29 = 731-0) MONO x10^3 (test code 0.73 10*3/uL 0.33-0.92 = 742-7) EOS x10^3 (test code = 0.09 10*3/uL 0.03-0.39 711-2) BASO x10^3 (test code <0.03 0.01-0.07 = 704-7) Lab Interpretation Abnormal (test code = 43698-6) [facility] HospitalCOMP. METABOLIC PANEL (24954)2019-11-30 03:03:00 Test Item Value Reference Range Interpretation Comments NA (test code = 134 mmol/L 135-145 L 8086276599) K (test code = 3.9 mmol/L 3.5-5 6820162360) CL (test code = 100 mmol/L 98-108 2914739562) CO2 TOTAL (test code = 24 mmol/L 23-31 5912129719) AGAP (test code = 2-16 0710893898) BUN (test code = 17 mg/dL 7-23 8441959527) GLUCOSE (test code = 95 mg/dL 70-110 1205649969) CREATININE (test code = 0.80 mg/dL 0.5-1.04 9249332336) TOTAL BILI (test code = 0.5 mg/dL 0.1-1.2 0154802820) CALCIUM (test code = 9.8 mg/dL 8.6-10.6 5362113871) T PROTEIN (test code = 7.7 g/dL 6.3-8.2 0925437080) ALBUMIN (test code = 4.5 g/dL 3.5-5 1560260731) ALK PHOS (test code = 41 U/L 34-122 6564899633) ALTv (test code = 27 U/L 5-35 1742-6) AST(SGOT) (test code = 31 U/L 13-40 8146798655) eGFR Calculation mL/min/1.73m2 (Non-) (test code = 0373885092) eGFR Calculation mL/min/1.73m2 () (test code = 6076390590) ANNI (test code = ANNI) Association of Glomerular Filtration Rate (GFR) and Staging of Kidney Disease* + --+ --+ ------+| GFR (mL/min/1.73 m2) ?| With Kidney Damage ?| ?Without Kidney Damage+ --------+ --------+ +| ?>90 ?| ?Stage one ?| ? Normal ?+ ---+ ---+ -------+| ?60-89 ?| ?Stage two ?| ? Decreased GFR ? + --+ --+ ------+| ?30-59 ?| ?Stage three ?| ? Stage three ? + --+ --+ ------+| ?15-29 ?| ?Stage four ? | ? Stage four ?+ ---+ ---+ -------+| ?<15 (or dialysis) ? ?| ?Stage five ? | ? Stage five ?+ ---+ ---+ -------+ *Each stage assumes the associated GFR level has been in effect for at least three months. ?Stages 1 to 5, with or without kidney disease, indicate chronic kidney disease. Notes: Determination of stages one and two (with eGFR >59mL/min/1.73 m2) requires estimation of kidney damage for at least three months as defined by structural or functional abnormalities of the kidney, manifested by either:Pathological abnormalities or Markers of kidney damage (including abnormalities in the composition of the blood or urine or abnormalities in imaging tests). Lab Interpretation Abnormal (test code = 61725-8) [facility] WITH [id number] 01:43:00 Test Item Value Reference Range Interpretation Comments WBC (test code = See_Comment [Automated message] 6690-2) The system [employer] generated this result transmitted ref erence range: 4.30 - 1 1.10 10*3/?L. The re ference range was not u sed to interpret this result as normal/abnor mal. RBC (test code = See_Comment [Automated message] 299-8) The system [employer] generated this result transmitted ref erence range: 3.93 - 5 .25 10*6/?L. The re ference range was not u sed to interpret this result as normal/abnor mal. HGB (test code = 14.2 g/dL 11.6-15 718-7) HCT (test code = 40.7 % 35.7-45.2 4544-3) MCV (test code = 91.3 fL 80.6-95.5 787-2) MCH (test code = 31.8 pg 25.9-32.8 785-6) MCHC (test code = 34.9 g/dL 31.6-35.1 786-4) RDW-SD (test code 42.8 fL 39-49.9 = 91799-6) RDW-CV (test code 12.9 % 12-15.5 = 788-0) PLT (test code = See_Comment [Automated message] 277-3) The system [employer] generated this result transmitted ref erence range: 166 - 35 8 10*3/?L. The re ference range was not u sed to interpret this result as normal/abnor mal. MPV (test code = 10.9 fL 9.5-12.9 95953-4) NRBC/100 WBC (test See_Comment [Automat ed message] code = 7372674653) The syste m which generated this result transmitted ref erence range: 0.0 - 10 .0 /100 WBCs. The refer ence range was not u sed to interpret this result as normal/abnor mal. NRBC x10^3 (test <0.01 See_Comment [Automated message] code = 1183186150) The syste m which generated this result transmitted ref erence range: 10*3/?L. The reference range was not used to interpr et this result as normal/abnormal . GRAN MAT (NEUT) % 61.3 % (test code = 196-8) IMM GRAN % (test 0.20 % code = 1559304763) LYMPH % (test code 29.9 % = 736-9) MONO % (test code 6.3 % = 5905-5) EOS % (test code = 1.7 % 713-8) BASO % (test code 0.6 % = 706-2) GRAN MAT 5.19 10*3/uL 1.88-7.09 x10^3(ANC) (test code = 0581658393) IMM GRAN x10^3 <0.03 0-0.06 (test code = 7958429917) LYMPH x10^3 (test 2.53 10*3/uL 1.32-3.29 code = 731-0) MONO x10^3 (test 0.53 10*3/uL 0.33-0.92 code = 742-7) EOS x10^3 (test 0.14 10*3/uL 0.03-0.39 code = 711-2) BASO x10^3 (test 0.05 10*3/uL 0.01-0.07 code = 704-7) [facility] [id number] 00:25:00 Test Item Value Reference Range Interpretation Comments Streptococcus pyogenes (group A) Negative Negative antigen (test code = 75824-8) Lab Interpretation (test code = Normal 57299-7) [facility] / [facility] - DRUG SCREEN [id number] 04:11:00 Test Item Value Reference Range Interpretation Comments BENZO U (test code = Presumptive Negative A 0870201905) Positive NICHOLAS U (test code = Negative Negative 2251472118) AMPHET (test code = Negative Negative 5432741400) THC (test code = Presumptive Negative A Confirmatio n of 3866782918) Positive Presumptive Positive THC result requires physician order . METHADONE (test code Negative Negative = 3776967858) Meth U (test code = Negative Negative 4582633063) OPIATES (test code = Presumptive Negative A 3873090709) Positive Cocaine Metabolite Negative Negative (test code = 6149093533) PROPOXY (test code = Negative Negative 4695644876) Tric U (test code = Negative Negative 0836247036) PCP (test code = Negative Negative 7505625515) OXYCOD (test code = Negative Negative 7177951582) ANNI (test code = Urine Drug Cutoff ANNI) Ranges Benzodiazepines: ? ? 150 ng/mLBarbiturates : ?200 ng/mLAmphetamine: ? 500 ng/mLCannabinoids : ?50 ?ng/mLMethadone: ? 200 ng/mLMethamphetam ine: ? ? 500 ng/mL Opiates: ? 100 ng/mL or 2000 ng/mLCocaine: ? 150 ng/mLPropoxyphene : ?300 ng/mLTricyclics: ?300 ng/mLOxycodone: ? 100 ng/mLPCP: ? 25 ?ng/mL The results are to be used only for medical (i.e., treatment) purposes. Unconfirmed screening results must not be used for non-medical purposes (e.g., employment testing, legal testing). Lab Interpretation Abnormal (test code = 96822-4) [facility] [facility]00 Test Item Value Reference Range Interpretation Comments APPEARANCE (test code = Clear Clear 7335682715) COLOR (test code = Yellow Yellow 5680014460) PH (test code = 4.8-8.0 4345047705) SP GRAVITY (test code = 1.003-1.030 2592007661) GLU U QUAL (test code = Normal Normal 9739339303) BLOOD (test code = 1+ Negative A 4333419537) KETONES (test code = 5 mg/dL Negative A 4119286969) PROTEIN (test code = Negative Negative 2887-8) UROBILIN (test code = Normal Normal 0175902686) BILIRUBIN (test code = Negative Negative 0119292127) NITRITE (test code = Negative Negative 3413202375) LEUK DIEUDONNE (test code = Negative Negative 5890132017) RBC/HPF (test code = See_Comment [Autom ated message] 8181122631) The system [employer] generated this result transmitted ref erence range: 0 - 3 HP F. The reference range was not used to int erpret this result as normal/abnormal . WBC/HPF (test code = <1 See_Comment [Autom ated message] 4770833257) The system [employer] generated this result transmitted ref erence range: 0 - 5 HP F. The reference range was not used to int erpret this result as normal/abnormal . BACTERIA (test code = Negative Negative 9703675383) MUCOUS (test code = Slight Negative LPF A 2802948892) SQ EPITH (test code = HPF 0786373885) Lab Interpretation (test Abnormal code = 38232-8) [facility] [id number] 03:20:101. ?Mild to moderate stool burden within the rectum and rectosigmoid.Correlate with history of constipation. 2. ?Circumferential thickening of the distal esophagus consistent withreflux esophagitis. Correlate clinically. 3. ?Leiomyomatous uterus with largest fibroid measuring up to 4.6 cm. 4. 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 5. ?Subtle findings as above.CT ABDOMEN AND PELVIS WITH CONTRAST REASON FOR STUDY: Abd pain, acute, generalized COMPARISON: None available. TECHNIQUE: Multidetector axial CT images from lung bases through proximalthighs afterIV administration of nonionic iodinated contrast material.Coronal and sagittal MPR images also generated. FINDINGS: Lower chest: Clear lung bases. ABDOMEN AND PELVISLiver: Liver measures 17 cm in craniocaudal dimension at mid clavicularline. Subcapsular segment II 9 mm cyst ?(2:27). Multiple additional sub-5mm hypoattenuating lesions scattered throughout the liver are too small tocharacterize. Fatty infiltration at the falciform ligament. Biliary Tract/GB: Physiologically distended gallbladder without radiopaquelithiasis. No pericholecystic free fluid or inflammatory change. No biliaryductal dilatation. Spleen: Within normal limits. Pancreas: Within normal limits. Adrenals: Within normal limits. Kidneys: Kidneys enhance symmetrically. No hydronephrosis, nephrolithiasisor renal mass. Bowel: Both small and large bowel appear unremarkable excepting mild tomoderate stool burden within the rectosigmoid and rectum. Appendix isnormal. No abnormal bowel dilatation or wall thickening. Esophogastric tubetip terminates in the stomach fundus. Mild distal esophageal thickening. Peritoneum: No pneumoperitoneum or free. Vasculature: Patent abdominal vasculature.. Lymph Nodes: Within normal limits. ? Pelvic organs: Leiomyomatous uterus contains multiple fibroids with thelargest one measuring at least 4.6 cm in the right anterior uterine body.Few additional fibroids are seen throughout the uterus. For example, asubserosal fibroid measuring at least 2.7 cm arises from the anteriorfundus. Bilateral ovaries appear unremarkable. Abdominal/Pelvic Wall: Small fat-containing umbilical hernia.. Small amountof gas and stranding within subcutaneous right buttock is likely related toinjection therapy. BONES: No acute or aggressive osseous abnormality. Multilevel chronic ribfracture deformities involving anterolateral and posterior ribs. [facility], Radiant Results Inft User - 11/27/2019 10:21 PM CDTCT ABDOMEN AND PELVIS WITH CONTRASTREASON FOR STUDY: Abd pain, acute, generalized COMPARISON:None available.TECHNIQUE: Multidetector axial CT images from lung bases through proximalthighs afterIV administration of nonionic iodinated contrast material.Coronal and sagittal MPR images also genera gege.FINDINGS: Lower chest: Clear lung bases.ABDOMEN AND PELVISLiver: Liver measures 17 cm in craniocaudal dimension at mid clavicularline. Subcapsular segment II 9 mm cyst (2:27). Multiple additional sub-5mm hypoattenuating lesions scattered throughout the liver are too small tocharacterize. Fatty inf iltration at the falciform ligament.Biliary Tract/GB: Physiologically distended gallbladder without radiopaquelithiasis. No pericholecystic free fluid or inflammatory change. No biliaryductal dilatation.Spleen: Within normal limits.Pancreas: Within normal limits.Adrenals: Within normal limits.Kidneys: Kidneys enhance symmetrically. No hydronephrosis, nephrolithiasisor renal mass.Bowel: Both small andlarge bowel appear unremarkable excepting mild tomoderate stool burden within the rectosigmoid and rectum. Appendix isnormal. No abnormal bowel dilatation or wall thickening. Esophogastric tubetip termi nates in the stomach fundus. Mild distal esophageal thickening.Peritoneum: No pneumoperitoneum or free.Vasculature: Patent abdominal vasculature..Lymph Nodes: Within normal limits. Pelvic organs: Leiomyomatous uterus contains multiple fibroids with thelargest one measuring at least 4.6 cm in the right anterior uterine body.Few additional fibroids are seen throughout the uterus. For example, asubserosal fibroid measuring at least 2.7 cm arises from the anteriorfundus. Bilateral ovaries appear unremarkable.Abdominal/Pelvic Wall: Small fat-containing umbilical hernia.. Small amountof gas and stranding within subcutaneous right buttock is likely related toinjection therapy.BONES: No acute or aggressive osseous abnormality. Multilevel chronic ribfracture deformities involving anterolateral and posterior ribs. IMPRESSION1. Mild to moderate stool burden within the rectum and rectosigmoid.Correlate with history of constipation. 2. Circumferential thickening of the distal esophagus consistent withreflux esophagitis. Correlate clinically.3. Leiomyomatous uterus with largest fibroid measuring up to 4.6 cm.4. Multilevel chronic rib deformities involving left anterolateral andposterior ribs.5. Subtle findings as above. [facility] [place] [facility] HospitalTRMILTON [id number] 02:50:00 Test Item Value Reference Range Interpretation Comments TROPONIN I (test <0.012 See_Comment [Automated code = 6441464373) message] The system which generated this result transmitted reference range : <=0.034 ng/mL. The reference range was not used to interpr et this result as normal/abnormal . ANNI (test code = Equal or Less than ANNI) 0.034 ng/ml---Normal ?Note: Cardiac troponin begins to rise 3-4 hours after the onset of ischemia. Repeat in 4-6 hours if the sample was drawn within 3-4 hours of the onset of the symptom and found normal. Between 0.035 and 0.120 ng/mL--- Borderline. Questionable myocardial injury or necrosis ? ?Note: Serial measurement may be necessary to confirm or exclude the diagnosis of myocardial injury or necrosis; Clinical correlation (symptoms, EKGs, imaging studies, and others) required; Repeat in 4-6 hours if clinically indicated. ? Equal or Higher than 0.121 ng/mL---Abnormal. Myocardial Injury or Necrosis Likely ? Biotin has been reported to cause a negative bias, interpret results relative to patient's use of biotin. ? Lab Interpretation Normal (test code = 89883-1) [facility] Metabolic [id number] 01:12:00 Test Item Value Reference Range Interpretation Comments NA (test code = 138 mmol/L 135-145 4775079367) K (test code = 3.6 mmol/L 3.5-5 0807213273) CL (test code = 104 mmol/L 98-108 8715510707) CO2 TOTAL (test code = 26 mmol/L 23-31 9875723359) AGAP (test code = 2-16 0573583571) BUN (test code = 11 mg/dL 7-23 1872883919) GLUCOSE (test code = 128 mg/dL 70-110 H 7144724499) CREATININE (test code = 0.72 mg/dL 0.5-1.04 1378587422) TOTAL BILI (test code = 0.7 mg/dL 0.1-1.5 8659560291) CALCIUM (test code = 10.0 mg/dL 8.6-10.6 1674893973) T PROTEIN (test code = 8.4 g/dL 6.3-8.2 H 6073916212) ALBUMIN (test code = 4.8 g/dL 3.5-5 6734403346) ALK PHOS (test code = 40 U/L 34-122 5220716891) ALTv (test code = 32 U/L 5-35 1742-6) AST(SGOT) (test code = 42 U/L 13-40 H 3400547739) eGFR Calculation mL/min/1.73m2 (Non-) (test code = 9331201611) eGFR Calculation mL/min/1.73m2 () (test code = 5139772245) ANNI (test code = ANNI) Association of Glomerular Filtration Rate (GFR) and Staging of Kidney Disease* + --+ --+ ------+| GFR (mL/min/1.73 m2) ?| With Kidney Damage ?| ?Without Kidney Damage+ --------+ --------+ +| ?>90 ?| ?Stage one ?| ? Normal ?+ ---+ ---+ -------+| ?60-89 ?| ?Stage two ?| ? Decreased GFR ? + --+ --+ ------+| ?30-59 ?| ?Stage three ?| ? Stage three ? + --+ --+ ------+| ?15-29 ?| ?Stage four ? | ? Stage four ?+ ---+ ---+ -------+| ?<15 (or dialysis) ? ?| ?Stage five ? | ? Stage five ?+ ---+ ---+ -------+ *Each stage assumes the associated GFR level has been in effect for at least three months. ?Stages 1 to 5, with or without kidney disease, indicate chronic kidney disease. Notes: Determination of stages one and two (with eGFR >59mL/min/1.73 m2) requires estimation of kidney damage for at least three months as defined by structural or functional abnormalities of the kidney, manifested by either:Pathological abnormalities or Markers of kidney damage (including abnormalities in the composition of the blood or urine or abnormalities in imaging tests). Lab Interpretation Abnormal (test code = 36992-2) [facility] HospitalLipase, [id number] 01:12:00 Test Item Value Reference Range Interpretation Comments LIPASE (test code = 4041596820) 87 U/L 0-220 Lab Interpretation (test code = Normal 86360-1) [facility] HospitalCB with [id number] 01:00:00 Test Item Value Reference Range Interpretation Comments WBC (test code = See_Comment [Automated message] 4890-2) The system [employer] generated this result transmitted ref erence range: 4.30 - 1 1.10 10*3/?L. The re ference range was not u sed to interpret this result as normal/abnor mal. RBC (test code = See_Comment [Automated message] 789-8) The system [employer] generated this result transmitted ref erence range: 3.93 - 5 .25 10*6/?L. The re ference range was not u sed to interpret this result as normal/abnor mal. HGB (test code = 14.7 g/dL 11.6-15 718-7) HCT (test code = 43.1 % 35.7-45.2 4544-3) MCV (test code = 93.9 fL 80.6-95.5 787-2) MCH (test code = 32.0 pg 25.9-32.8 785-6) MCHC (test code = 34.1 g/dL 31.6-35.1 786-4) RDW-SD (test code 44.9 fL 39-49.9 = 98028-3) RDW-CV (test code 13.1 % 12-15.5 = 788-0) PLT (test code = See_Comment [Automated message] 777-3) The system whic h generated this result transmitted ref erence range: 166 - 35 8 10*3/?L. The re ference range was not u sed to interpret this result as normal/abnor mal. MPV (test code = 10.9 fL 9.5-12.9 66282-8) NRBC/100 WBC (test See_Comment [Automat ed message] code = 9154027810) The syste m which generated this result transmitted ref erence range: 0.0 - 10 .0 /100 WBCs. The refer ence range was not u sed to interpret this result as normal/abnor mal. NRBC x10^3 (test <0.01 See_Comment [Automated message] code = 1520397653) The syste m which generated this result transmitted ref erence range: 10*3/?L. The reference range was not used to interpr et this result as normal/abnormal . GRAN MAT (NEUT) % 64.1 % (test code = 770-8) IMM GRAN % (test 0.50 % code = 4739413086) LYMPH % (test code 26.8 % = 736-9) MONO % (test code 7.5 % = 5905-5) EOS % (test code = 0.6 % 713-8) BASO % (test code 0.5 % = 706-2) GRAN MAT 6.75 10*3/uL 1.88-7.09 x10^3(ANC) (test code = 7149785297) IMM GRAN x10^3 0.05 10*3/uL 0-0.06 (test code = 4059600979) LYMPH x10^3 (test 2.82 10*3/uL 1.32-3.29 code = 731-0) MONO x10^3 (test 0.79 10*3/uL 0.33-0.92 code = 742-7) EOS x10^3 (test 0.06 10*3/uL 0.03-0.39 code = 711-2) DARSHANO x10^3 (test 0.05 10*3/uL 0.01-0.07 code = 704-7) [facility]
[2021-03-22] MEDS ORDERED: dexAMETHasone 10 MG/ML VIAL ONE (12:10)
[2021-03-22] MEDS ORDERED: MEPERIDINE HCL 25 MG/ML SYR ONE (12:10)
[2021-03-22 12:34] LABS: Absolute Lymphocytes (CBC) 2.1 K/uL (0.7-4.9); Basophils % 0.6 % (0-1.3); Hematocrit 37.5 % (36.0-45.0); Lymphocytes % 27.6 % (15.3-44.8); MPV 8.9 fL (7.6-11.3); RBC Red Blood Cell Count 3.98 M/uL (3.86-4.86)
--- NOTE | 2021-03-22 12:56 | RAD REPORT ---
EXAM DESCRIPTION: RAD - Chest Single View - 03/22/2021 12:36 pm CLINICAL HISTORY: CHEST PAINCT chest May 29, portable chest May 29 TECHNIQUE: AP portable chest image was obtained 03/22/2021 12:36 pm . FINDINGS: Lungs are clear. Heart and vasculature are normal. No measurable pleural effusion and no p neumothorax. No acute bony abnormality seen. Old left-sided rib trauma remodeling noted. No acute aor tic findings suspected. IMPRESSION: No acute cardiopulmonary process. No significant change from comparison study.
[2021-03-22 12:58] LABS: BUN Blood Urea Nitrogen 11 mg/dL (7-18); Bicarbonate 28 mmol/L (21-32); Glucose Level 100 mg/dL (74-106); NT PRO-BNP 50 pg/mL (<125); Potassium 3.4 mmol/L (3.5-5.1); Sodium Level 140 mmol/L (136-145); Troponin (Emerg Dept Use Only) < 0.02 ng/mL (0.0-0.045)
--- NOTE | 2021-03-22 14:01 | EDPHYS ---
Physician Documentation [facility] Name: Ninfa Gordon Age: 50 yrs Sex: Female : 1970 Arrival Date: 03/22/2021 Time: 11: Bed 2 Private MD: Thuan Iniguez ED Physician Param Duarte HPI: 03/22 12:38 This 50 yrs old Female presents to ER via Wheelchair with complaints of Chest rn Pain, R Arm Numbness. 12:38 The patient or guardian reports chest pain that is located primarily in the anterior rn chest wall. Onset: at an unknown time. The pain radiates to the right shoulder. Associated signs and symptoms: Pertinent positives: cough, Pertinent negatives: abdominal pain, diaphoresis, shortness of breath, syncope, vomiting. The chest pain is described as aching. Duration: The patient or guardian reports multiple episodes, that are intermittent. Modifying factors: The symptoms are alleviated by nothing. the symptoms are aggravated by nothing. Severity of pain: At its worst the pain was moderate in the emergency department the pain is unchanged. The patient has experienced similar episodes in the past. The patient has not recently seen a physician. Patient reports chronic right shoulder and arm pain that has been going on for few years after a traumatic injury and neck injury. States worse pain over the last few days. Reports pain in the arm is burning with sensitivity. No weakness. Also reports having chest pain that is upper and feels dull. Also reports cough that is productive. No fever. No recent trauma. No known history of lung or heart problems.. 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 - Social history:: Smoking status: Patient reports the use of cigarette tobacco products, smokes one-half pack cigarettes per day. - Family history:: not pertinent. - Hospitalizations: : No recent hospitalization is reported. ROS: 12:38 Constitutional: Negative for fever, chills, and weight loss, Eyes: Negative for injury, rn pain, redness, and discharge, Neck: Negative for injury, pain, and swelling, Cardiovascular: Negative for palpitations, and edema, Respiratory: Negative for shortness of breath, wheezing, and pleuritic chest pain, Abdomen/GI: Negative for abdominal pain, nausea, vomiting, diarrhea, and constipation, Back: Negative for injury and pain, MS/Extremity: Negative for injury and deformity, Skin: Negative for injury, rash, and discoloration, Neuro: Negative for headache, weakness, and seizure. Exam: 12:38 Constitutional: This is a well developed, well nourished patient who is awake, alert, rn appears uncomfortable and slow to move right arm Head/Face: Normocephalic, atraumatic. Eyes: Periorbital areas with no swelling, redness, or edema. Cardiovascular: Regular rate and rhythm. No pulse deficits. Respiratory: No increased work of breathing, no retractions or nasal flaring. Abdomen/GI: Soft, non-tender Skin: Warm, dry MS/ Extremity: Pulses equal, no cyanosis. Neurovascular intact. Full, normal range of motion. Equal circumference. Neuro: Awake and alert, GCS 15, oriented to person, place, time, and situation. Cranial nerves II-XII grossly intact. Motor strength 5/5 in all extremities. Sensory grossly intact. 13:06 ECG was reviewed by the Attending Physician. rn Vital Signs: 11:33 BP 128 / 90; Pulse 72; Resp 18; Temp 98.3; Pulse Ox 100% ; Weight 90.72 kg; Height 5 vg1 ft. 2 in. (157.48 cm); Pain 8/10; 13:44 BP 131 / 89; Pulse 65; Resp 15; Pulse Ox 94% ; ll3 11:33 Body Mass Index 36.58 (90.72 kg, 157.48 cm) vg1 MDM: 11:40 Patient medically screened. rn 13:56 Differential diagnosis: acute pericarditis, anxiety, chest wall pain, costochondritis, rn gastroesophageal reflux disease (GERD), pleurisy, pneumonia, pneumothorax, cervical radiculopathy. Data reviewed: vital signs, nurses notes, lab test result(s), EKG, radiologic studies, plain films, and as a result, I will discharge patient. 13:58 Counseling: I had a detailed discussion with the patient and/or guardian regarding: the rn historical points, exam findings, and any diagnostic results supporting the discharge/admit diagnosis, lab results, radiology results, the need for outpatient follow up, to return to the emergency department if symptoms worsen or persist or if there are any questions or concerns that arise at home. 13:59 Response to treatment: the patient's symptoms have mildly improved after treatment, and rn as a result, I will discharge patient. Special discussion: Based on the patient's history, exam, and Dx evaluation, there is no indication for emergent intervention or inpatient Tx. It is understood by the patient/guardian that if the Sx's persist or worsen they need to return immediately for re-evaluation. I discussed with the patient/guardian in detail that at this point there is no indication for admission to the hospital. It is understood, however, that if the symptoms persist or worsen the patient needs to return immediately for re-evaluation. ED course: No acute findings on CXR or blood work, ECG normal, normal vitals. Chronic right arm and neck pain. Will dc home with pcp and pain management f/u. Already on steroid dose pack. . 03/22 11:49 Order name: Basic Metabolic Panel; Complete Time: 13: rn 03/22 11:49 Order name: CBC with Diff; Complete Time: 13: 03/22 11:49 Order name: NT PRO-BNP; Complete Time: 13: 03/22 11:49 Order name: Troponin (emerg Dept Use Only); Complete Time: 13: rn 03/22 11:49 Order name: XRAY Chest (1 view); Complete Time: 13:05 rn 03/22 11:49 Order name: EKG; Complete Time: 11:50 rn 03/22 11:49 Order name: Cardiac monitoring; Complete Time: 12:18 rn 03/22 11:49 Order name: EKG - Nurse/Tech; Complete Time: 12:18 rn 03/22 11:49 Order name: IV Saline Lock; Complete Time: 12: rn 03/22 11:49 Order name: Labs collected and sent; Complete Time: 12: rn 03/22 11:49 Order name: O2 Per Protocol; Complete Time: 12:26 rn 03/22 11:49 Order name: O2 Sat Monitoring; Complete Time: 12:26 rn EC:06 Rate is 67 beats/min. Rhythm is regular. QRS Vining is Normal. NE interval is normal. QRS rn interval is normal. QT interval is normal. No Q waves. T waves are Normal. No ST changes noted. Clinical impression: Normal ECG. Interpreted by me. Reviewed by me. Administered Medications: 12:28 Drug: Demerol (meperidine) 25 mg Route: IVP; Site: right hand; ll3 13:07 Follow up: Response: No adverse reaction; Pain is decreased ll3 12:29 Drug: Decadron - Dexamethasone 10 mg Route: IVP; Site: right hand; ll3 13:08 Follow up: Response: No adverse reaction ll3 14:10 Drug: morphine 4 mg Route: IVP; Site: right hand; jl7 14:49 Follow up: Response: No adverse reaction ll3 Disposition Summary: 03/22/21 14:01 Discharge Ordered Location: Home rn Problem: new rn Symptoms: have improved rn Condition: Stable rn Diagnosis - Chest pain, unspecified rn - Radiculopathy, cervical region rn Followup: rn - With: Private Physician - When: As needed - Reason: Recheck today's complaints, Re-evaluation by your physician Discharge Instructions: - Discharge Summary Sheet rn - Cervical Radiculopathy rn - Nonspecific Chest Pain, Adult rn Forms: - Medication Reconciliation Form rn - Thank You Letter rn - Antibiotic pattern attendant - Prescription Opioid Use rn Signatures: Dispatcher [employer] EDMS Param Duarte MD MD rn Leal, Jahala, RN RN jl7 Chelsey Dias, RN RN rj1 Neva Greene, RN RN ll3 Corrections: (The following items were deleted from the chart) 11:38 11:36 Allergies: Tylenol; vg1 vg1 12:41 12:38 Constitutional: Negative for fever, chills, and weight loss, Eyes: Negative for rn injury, pain, redness, and discharge, Neck: Negative for injury, pain, and swelling, Cardiovascular: Negative for palpitations, and edema, Respiratory: Negative for shortness of breath, wheezing, and pleuritic chest pain, Abdomen/GI: Negative for abdominal pain, nausea, vomiting, diarrhea, and constipation, Back: Negative for injury and pain, MS/Extremity: Negative for injury and deformity, Skin: Negative for injury, rash, and discoloration, Neuro: Negative for headache, weakness, numbness, tingling, and seizure, rn
--- NOTE | 2021-03-22 14:01 | ER ---
Nurse's Notes [facility] Name: Ninfa Gordon Age: 50 yrs Sex: Female : 1970 Arrival Date: 03/22/2021 Time: : Bed 2 Private MD: Thuan Iniguez Diagnosis: Chest pain, unspecified;Radiculopathy, cervical region Presentation: 03/22 11:33 Chief complaint: Patient states: Right arm numbness for 3 years, states today 'its vg1 unbearable'. States Right arm feels like its 'burning'. States pain between the shoulders that radiates to tailbone; states NV for two days and cough for 5 days. States had a concussion in 2019 and has been dealing with pain since. Coronavirus screen: Vaccine status: Patient reports being unvaccinated. Client denies travel out of the [place] in the last 14 days. Ebola Screen: Patient negative for fever greater than or equal to 101.5 degrees Fahrenheit, and additional compatible Ebola Virus Disease symptoms. Initial Sepsis Screen: Does the patient meet any 2 criteria? No. Patient's initial sepsis screen is negative. Does the patient have a suspected source of infection? No. Patient's initial sepsis screen is negative. Risk Assessment: Do you want to hurt yourself or someone else? Patient reports no desire to harm self or others. Onset of symptoms was March 19, 2021. 11:33 Method Of Arrival: Wheelchair vg1 11:33 Acuity: TRES 3 vg1 Triage Assessment: 11:36 General: Appears in no apparent distress. uncomfortable, Behavior is cooperative, vg1 anxious. Pain: Complains of pain in head, back, chest and right arm Pain currently is 8 out of 10 on a pain scale. Neuro: Level of Consciousness is awake, alert, obeys commands, Oriented to person, place, time, situation. Cardiovascular: Patient's skin is warm and dry. Musculoskeletal: Reports numbness in right foot, left foot, right arm and left arm. 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 - Social history:: Smoking status: Patient reports the use of cigarette tobacco products, smokes one-half pack cigarettes per day. - Family history:: not pertinent. - Hospitalizations: : No recent hospitalization is reported. Screenin:11 Abuse screen: Denies threats or abuse. Nutritional screening: No deficits noted. jl7 Tuberculosis screening: No symptoms or risk factors identified. Fall Risk IV access (20 points). Assessment: 13:08 General: Appears in no apparent distress. uncomfortable, Behavior is calm, cooperative. ll3 Pain: Complains of pain in dorsal aspect of right forearm and right wrist Pain does not radiate. Pain currently is 9 out of 10 on a pain scale. Quality of pain is described as aching, Pain began 2-3 days ago. Is continuous. Neuro: Level of Consciousness is awake, alert, obeys commands, Oriented to person, place, time, situation, Gait is unsteady, Speech is normal, Facial symmetry appears normal. Cardiovascular: Patient's skin is warm and dry. Respiratory: Airway is patent Trachea midline Respiratory effort is even, unlabored, Respiratory pattern is regular, symmetrical. GI: Abdomen is round. Derm: Skin is pink, warm \T\ dry. 14:10 Reassessment: Patient appears in no apparent distress at this time. No changes from jl7 previously documented assessment. Patient and/or family updated on plan of care and expected duration. Pain level reassessed. Patient is alert, oriented x 3, equal unlabored respirations, skin warm/dry/pink. Patient states symptoms have improved. Vital Signs: 11:33 BP 128 / 90; Pulse 72; Resp 18; Temp 98.3; Pulse Ox 100% ; Weight 90.72 kg; Height 5 vg1 ft. 2 in. (157.48 cm); Pain 8/10; 13:44 BP 131 / 89; Pulse 65; Resp 15; Pulse Ox 94% ; ll3 11:33 Body Mass Index 36.58 (90.72 kg, 157.48 cm) vg1 ED Course: 11:21 Patient arrived in ED. ds1 11:22 Thuan Iniguez MD is Private Physician. ds1 11:36 Triage completed. vg1 11:36 Arm band placed on. vg1 11:40 Param Duarte MD is Attending Physician. rn 11:43 Neva Greene, LAMINE is Primary Nurse. ll3 12:16 EKG done, by ED staff, reviewed by Param Duarte MD. dh3 12:36 XRAY Chest (1 view) In Process Unspecified. EDMS 14:11 Patient has correct armband on for positive identification. Placed in gown. Bed in low jl7 position. Call light in reach. Side rails up X 1. manager ccu on. Pulse ox on. NIBP on. 14:11 No provider procedures requiring assistance completed. jl7 14:11 Patient maintains SpO2 saturation greater than 95% on room air. jl7 14:48 IV discontinued, intact, bleeding controlled, No redness/swelling at site. Pressure ll3 dressing applied. Administered Medications: 12:28 Drug: Demerol (meperidine) 25 mg Route: IVP; Site: right hand; ll3 13:07 Follow up: Response: No adverse reaction; Pain is decreased ll3 12:29 Drug: Decadron - Dexamethasone 10 mg Route: IVP; Site: right hand; ll3 13:08 Follow up: Response: No adverse reaction ll3 14:10 Drug: morphine 4 mg Route: IVP; Site: right hand; jl7 14:49 Follow up: Response: No adverse reaction ll3 Outcome: 14:01 Discharge ordered by MD. rn 14:48 Discharged to home via wheelchair. ll3 14:48 Condition: stable 14:48 Discharge instructions given to patient, Instructed on discharge instructions, follow up and referral plans. Demonstrated understanding of instructions, follow-up care. 14:49 Patient left the ED. ll3 Signatures: Dispatcher [employer] [facility] Angie Murphy ds1 Param Duarte MD MD rn Leal, Jahala RN RN jl7 Georgina Burkett 3 Chelsey Dias RN RN vg1 Neva Greene, RN RN ll3 Corrections: (The following items were deleted from the chart) 11:38 11:36 Allergies: Tylenol; vg1 vg1
[2021-03-22] MEDS ORDERED: MORPHINE 4 MG/ML SYR ONE (14:02)
[2021-03-22 15:13] VITALS: TEMP 98.3
[2021-03-22 15:15] VITALS: BP 131/89; O2SAT 94
--- NOTE | 2021-03-25 08:12 | EKG ---
Test Date: 2021-03-22 Test Time: 12:11:15 Investment Professional: NGUYỄN MEASUREMENT RESULTS: Intervals: Rate: 67 MT: 180 QRSD: 82 QT: 416 QTc: 439 [place]: P: 73 MT: 180 QRS: 69 T: 64 INTERPRETIVE STATEMENTS: Normal sinus rhythm Normal ECG Compared to ECG 10/16/2019 23:25:37 Sinus arrhythmia no longer present Electronically Signed On 03-25-21 08:04:14 [employer] IN[employer] by Pasquale Hdz
== END 2021-03-22 14:49 | disposition home or self-care (01) ==
LOC: ER 11:20
DX: M54.12 Radiculopathy, cervical region (principal); F32.A Depression, unspecified; Z88.6 Allergy status to analgesic agent; Z88.8 Allergy status to other drugs, medicaments and biological substances
CPT/HCPCS: 93005; 85025; 80048; 36415; 84484; 83880; 71045; 96375; 96374; 99285; J1100; J2175

== ENCOUNTER 2021-04-16 17:03 | Emergency (ER) | payer OTHER ==
--- OUTSIDE RECORDS SUMMARY | 2021-04-16 17:08 | XMS REPORT | Continuity of Care Document ---
:1970 Author Organization [facility] [place] [facility] t Address [address] [place] [address] Care Team Providers Name Role Phone Hira Garcia MD, Ander Primary Care Physician [phone] NILA CERVANTES JR. Attending Clinician Unavailable NILA CERVANTES Attending Clinician Unavailable Rosales HERRING, Pamella Attending Clinician Pamella SAUL Attending Clinician Unavailable Leonel Stovall MD Attending Clinician Chiara Fallon RN Attending Clinician Unavailable Chiara Ch NP Attending Clinician Chiara CH Attending Clinician Unavailable Caty Mott MD Attending Clinician Caty MOTT Attending Clinician Unavailable Payers Payer Name Policy Type Policy Number Effective Date Expiration Date [facility] [id number] HEALTH Problems Condition Condition Condition Status Onset Resolution Last Treating Co mments Source Name Details Category Date Date Treatment Clinician Date No known No known Disease [facility] active active College problems problems of Medicin e Allergies, Adverse Reactions, Alerts Allergy Allergy Status Severity Reaction(s) Onset Inactive Treating Comm ents Source Name Type Date Date Clinician Acetamin Propensi Active Itching Unive rs ophen ty to 5-25 ity of adverse 00:00: [place] reaction 00 Medical s Branch ACETAMIN DRUG Active ITCHING Univers OPHEN INGREDI 5-25 ity of 00:00: [place] 00 Medical Branch Pantopra Propensi Active Unknown - Uni vers zole ty to See comments 12-10 ity of Sodium adverse 00:00: [place] reaction 00 Medical s Branch PANTOPRA DRUG Active Unknown-Cmnt Un agustín ZOLE INGREDI 12-10 ity of SODIUM 00:00: 00 Medical Branch Pantopra Propensi Active Other (See Ba ylor zole ty to Comments) 12-10 [place] Sodium adverse 00:00: of reaction 00 Medicin s to e drug NO KNOWN Drug Active [facility] ALLERGIE Class ity of [facility] Social History Social Habit Start Date Stop Date Quantity Comments Source Exposure to Not sure University of SARS-CoV-2 (event) [facility] Cigarettes smoked 2021-04-01 2021-04-01 [facility] (pack per 00:00:00 00:00:00 Medicin e day) - Reported Tobacco use and 2021-04-01 2021-04-01 Smokeless [facility] llege of exposure 00:00:00 00:00:00 tobacco non-user Medicine Alcohol intake 2021-04-01 2021-04-01 Current drinker [facility] of 00:00:00 00:00:00 of alcohol Medicine (finding) Sex [birth year] [facility] llege of 00:00:00 00:00:00 Medicine Smoking Status Start Date Stop Date Source Smokes tobacco daily 2021-04-01 00:00:00 [facility] Unknown if ever smoked [facility] Medications Ordered Filled Start Stop Current Ordering Indication Dosage Frequency Signature Comments Components Source Medication Medication Date Date Medication? Clinician (SIG) Name Name tizanidine 2020-05 Yes 2mg Take 1 [facility] (ZANAFLEX) 2-01 Tablet by Luz Marina ege 2 MG tablet 00:00: mouth 3 of 00 times Medicin daily as e needed. lamotrigine 2020-05 Yes 1{tbl} Take 1 Ba [facility]lor (LAMICTAL) 1-17 Tablet by Luz Marina ege 25 MG 00:00: mouth two of tablet 00 times Medicin daily. e doxepin 2020-05 Yes 1{capsu Take 1 [facility] (SINEQUAN) 1-17 le} capsule by Col lege 50 MG 00:00: mouth of capsule 00 nightly. Medicin e clonazepam 2020-05 Yes .5mg Take 0.5 [place] [facility] (KLONOPIN) 1-01 mg by Erwin 1 MG tablet 00:00: mouth of 00 daily. Medicin e aripiprazol 2020-05 Yes 1{tbl} Take 1 Ba ylor e (ABILIFY) 1- Tablet by Col lege 5 MG tablet 00:00: mouth of 00 daily. Medicin e methocarbam 2020-05- No 750mg Take 1 Ba y[facility] ol 0-21 12 Tablet by Erwin (ROBAXIN) 00:00: 00:00 mouth 2 of 750 MG 00 :00 times Medicin tablet daily as e needed. meloxicam 2020- No TAKE 1 [facility] (MOBIC) 7.5 9-04-01 TABLET BY Co llege MG tablet 00:00: 00:00 MOUTH of 00 :00 EVERY DAY Medicin e FENTanyl PF No 50ug 50 mcg, Un agustín (SUBLIMAZE 5-26 05-26 Slow IV ity o f (PF)) 03:45: 02:43 Push, [place] injection 00 :00 ONCE, 1 Medical 50 mcg dose, [facility] 09/23/20 at 2245, Routine methocarbam Yes [id number] 750mg Take 1 Univers oL 5-25 tablet [...] traMADol Yes 50mg 50 mg, Univers (ULTRAM) 8-11 Oral, ity of tablet 50 16:18: Q6HPRN, [place] mg 36 Starting Medical [facility] Branch 12/11/19 at 1118, Until Discontinu ed, AMANDA, pain famotidine 2020-0 2020- No 20mg 20 mg, Univ ers (PEPCID 12-10 Intravenou ity o f (PF)) 14:45: 14:35 s, ONCE, 1 [place] injection 00 :00 dose, Tue Medic al 20 mg 12/11/19 at Branch 0945, Routine ondansetron 2020-0 2020- No 4mg 4 mg, Slow Univers (ZOFRAN 12-10 IV Push, ity of (PF)) 14:45: 14:35 ONCE, 1 [place] injection 4 00 :00 dose, Tue Med ical mg 12/11/19 at Branch 0945, AMANDA morpHINE 2020-0 2020- No 4mg 4 mg, Slow Un agustín injection 4 12-10 IV Push, ity of mg 14:45: 14:35 ONCE, 1 [place] 00 :00 dose, Tue Medical 12/11/19 at Branch 0945, STAT ondansetron 2020-0 Yes [id number] 4mg Take 1 Univers 4 mg tablet 8-11 tablet by ity of 00:00: mouth [place] 00 every 8 Medical (eight) Branch hours as needed for Nausea and Vomiting (N/V). famotidine 2020-0 Yes [id number] 40mg Take 1 U nivers (PEPCID) 40 8-11 tablet by ity of mg tablet 00:00: mouth [place] 00 daily. Medical Branch ondansetron 2020-0 Yes [id number] 4mg Take 1 Univers 4 mg tablet 8-11 tablet by ity of 00:00: mouth [place] 00 every 8 Medical (eight) Branch hours as needed for Nausea and Vomiting (N/V). famotidine 2020-0 Yes [id number] 40mg Take 1 U nivers (PEPCID) 40 8-11 tablet by ity of mg tablet 00:00: mouth [place] 00 daily. Medical Branch famotidine 2020-0 Yes 1{tbl} Take 1 [place] [facility] (PEPCID) 40 8-11 Tablet by Col lege MG tablet 00:00: mouth of 00 daily. Medicin e ondansetron 2020-0 Yes 4mg Take 4 mg [facility] (ZOFRAN) 4 8-11 by mouth. Luz Marina ege MG tablet 00:00: of 00 Medicin e traMADol 50 2020-0 2020- No [id number] 50mg Take 1 Uni vers mg tablet 12-10 tablet by ity of 00:00: 04:59 mouth [place] 00 :00 every 6 Medical (six) Branch hours as needed (pain) for up to 7 days. Indication s: acute pain LORazepam 2019- No 1mg 1 mg, Univer s (ATIVAN) 11-29 Oral, ity of tablet 1 mg 04:00: 03:18 ONCE[place] 1 [place] dose, [facility] 11/29/19 at Branch 2300, AMANDA NaCl 0.9% Yes 1000mL at 500 [place] [facility] ers (NS) IV 11-29 mL/hr, ity of infusion 02:00: Intravenou [place] 1,000 mL 00 s, Medical CONTINUOUS Branch , Starting [facility] 11/29/19 at 2100, Until Discontinu ed, AMANDA ketorolac 2019- No 30mg 30 mg, [place] [facility] (TORADOL) 11-29 Slow IV ity of injection 02:00: 01:08 Push, [place] 30 mg 00 :00 ONCE, 1 Medical dose, [facility] Branch 11/29/19 at 2100, Routine
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 Restricted medication : ARLEY CH famotidine 2019- No 20mg 20 mg, [place] [facility] ers (PEPCID AC) 11-28 Oral, ity of tablet 20 23:45: 22:48 ONCE, 1 [place] mg 00 :00 dose, [facility] 11/29/19 at Branch 1845, AMANDA diphenhydrA 2019- No 50mg 50 mg, [facility] vers MINE 11-28 Oral, ity of (BENADRYL) 23:45: 22:48 ONCE, 1 [place] as tablet 50 00 :00 dose, [facility] Medic al mg 11/29/19 at Branch 1845, AMANDA dexamethaso 2019- No 10mg 10 mg, Uni vers ne 11-28 Intramuscu ity of (DECADRON 22:42: 22:50 lar, ONCE, [place] PHOSPHATE) 00 :00 1 dose, Medica l injection [facility] 10 mg 11/29/19 at 1745, STAT methylPREDN 2019-0 Yes [id number] Take by [facility] ISolone 4 7-30 mouth ity of mg tablets 00:00: SEE-INSTRU [place] 00 CTIONS. Medical follow Branch package directions methylPREDN 2020-0 Yes [id number] Take by [facility] ISolone 4 7-30 mouth ity of mg tablets 00:00: SEE-INSTRU [place] 00 CTIONS. Medical follow Branch package directions methylPREDN 2020-0 Yes [id number] Take by [facility] ISolone 4 7-30 mouth ity of mg tablets 00:00: SEE-INSTRU [place] 00 CTIONS. Medical follow Branch package directions methylPREDN 2020-0 Yes [id number] Take by [facility] ISolone 4 7-30 mouth ity of mg tablets 00:00: SEE-INSTRU [place] 00 CTIONS. Medical follow Branch package directions methylPREDN 2020-0 Yes [id number] Take by [facility] ISolone 4 7-30 mouth ity of mg tablets 00:00: SEE-INSTRU [place] 00 CTIONS. Medical follow Branch package directions methylPREDN 2020-0 Yes Take by [facility] 4 7-30 mouth. College MG TBPK 00:00: of 00 Medicin e famotidine 2020-0 2020- No [id number] 20mg Take 1 Univers (PEPCID) 20 7-30 08-14 tablet by it y of mg tablet 00:00: 04:59 mouth 2 [place] 00 :[place] (two) Medical times Branch daily for 14 days. famotidine 2020-0 2020- No [id number] 20mg Take 1 Univers (PEPCID) 20 7-30 08-14 tablet by it y of mg tablet 00:00: 04:59 mouth 2 [place] 00 :00 (two) Medical times Branch daily for 14 days. famotidine 2020-0 2020- No [id number] 20mg Take 1 Univers (PEPCID) 20 7-30 08-14 tablet by it y of mg tablet 00:00: 04:59 mouth 2 [place] 00 :00 (two) Medical times Branch daily for 14 days. famotidine 2020-0 2020- No [id number] 20mg Take 1 Univers (PEPCID) 20 7-30 08-14 tablet by it y of mg tablet 00:00: 04:59 mouth 2 [place] 00 :00 (two) Medical times Branch daily for 14 days. LORazepam 2020-0 2020- No [id number] 1mg Take 1 U nivers (ATIVAN) 1 11-28-05 tablet by ity of mg tablet 00:00: 04:59 mouth at [place] 00 :00 bedtime Medical for 5 Branch days. LORazepam 2020-0 2020- No [id number] 1mg Take 1 U nivers (ATIVAN) 1 11-28 08-05 tablet by ity of mg tablet 00:00: 04:59 mouth at [place] 00 :00 bedtime Medical for 5 Branch days. LORazepam 2020-0 2020- No [id number] 1mg Take 1 U nivers (ATIVAN) 1 11-28-05 tablet by ity of mg tablet 00:00: 04:59 mouth at [place] 00 :00 bedtime Medical for 5 Branch days. FENTanyl PF 2019- 2020- No 50ug 50 mcg, Un agustín (SUBLIMAZE 11-27 Slow IV ity o f (PF)) 03:30: 02:34 Push, [place] injection 00 :00 ONCE, 1 Medical 50 mcg dose, [facility] 11/27/19 at 2230, Routine iohexol 2019- 2020- No 120mL 120 mL, Unive rs (OMNIPAQUE 11-27 Intravenou it y of 350 03:15: 02:58 s, ONCE, 1 [place] BULK-150 00 :00 dose, Tue Medica l mL) 11/27/19 at Branch injection 2215, 120 mL Routine ketorolac 2019-2019- No 30mg 30 mg, Unive rs (TORADOL) 11-27 Slow IV ity of injection 02:45: 01:44 Push, [place] 30 mg 00 :00 ONCE, 1 Medical dose, [facility] 11/27/19 at 2145, Routine
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 Restricted medication : XIAO MOTT dicyclomine 2019-0 2020- No 20mg 20 mg, Uni vers (BENTYL) 11-27 Intramuscu ity of injection 02:45: 01:45 lar, ONCE [place] 20 mg 00 :00 NOW, 1 Medical dose, [facility] 11/27/19 at 2145, Routine pantoprazol 2019-0 2020- No 40mg 40 mg, IV Univers e 11-27 Piggyback, ity of (PROTONIX) 02:00: 01:21 ONCE, 1 [place] 40 mg in 00 :00 dose, Tue Medica l NaCl 0.9% 11/27/19 at [facility] ch (NS) 100 mL 2100, 100 MINI-BAG mL FENTanyl PF 2019- 2020- No 50ug 50 mcg, Un agustín (SUBLIMAZE 11-27 Slow IV ity o f (PF)) 02:00: 01:04 Push, [place] injection 00 :00 ONCE, 1 Medical 50 mcg dose, Tue Branch 11/27/19 at 2100, Routine proMETHazin 2019-0 2020- No 25mg 25 mg, IV Univers e 11-27 Piggyback, ity of (PHENERGAN) 02:00: 00:56 ONCE, 1 [place] 25 mg in 00 :00 dose, Tue Medica l NaCl 0.9% 11/27/19 at [facility] (NS) 50 mL 2100, 50 piggyback mL NaCl 0.9% 0 2020- No 1000mL at [facility] Uni vers (NS) bolus 11-27 mL/hr, ity of infusion 01:45: 03:43 1,000 mL, [place] 1,000 mL 00 :00 IV Medical Infusion, Branch ONCE, 1 dose, [facility] 11/27/19 at 2044, STAT ondansetron 2019-0 2020- No 4mg 4 mg, Slow Univers (ZOFRAN 11-27 IV Push, ity of (PF)) 01:45: 00:43 ONCE, 1 [place] injection 4 00 :00 dose, Tue Med ical mg 11/27/19 at Branch 2044, AMANDA dicyclomine 2019-0 Yes [id number] 20mg Take 1 Univers 20 mg 7-28 tablet by ity of tablet 00:00: mouth 00 every 6 Medical (six) Branch hours as needed for Abdominal pain. proMETHazin 2020-0 Yes [id number] 25mg Take 1 Univers e 25 mg 7-28 tablet by ity of tablet 00:00: mouth 00 every 6 Medical (six) Branch hours as needed for N/V unresponsi ve to Ondansetro n. proMETHazin 2020-0 Yes [id number] 25mg Insert 1 Univers e 7-28 Suppositor ity of (PHENERGAN) 00:00: [place] 25 mg 00 rectum Medical suppository every 4 Branc h (four) hours as needed for Nausea and Vomiting (N/V) or N/V unresponsi ve to oral antiemetic s. lactulose 2020-0 Yes [id number] 30mL Take 30 mL Univers 10 gram/15 7-28 by mouth 3 ity of mL oral 00:00: (three) [place] solution 00 times Medical daily as Branch needed for Constipati on or For bowel movement. dicyclomine 2020-0 Yes [id number] 20mg Take 1 Univers 20 mg 7-28 tablet by ity of tablet 00:00: mouth [place] 00 every 6 Medical (six) Branch hours as needed for Abdominal pain. proMETHazin 2020-0 Yes [id number] 25mg Take 1 Univers e 25 mg 7-28 tablet by ity of tablet 00:00: mouth [place] 00 every 6 Medical (six) Branch hours as needed for N/V unresponsi ve to Ondansetro n. proMETHazin 2020-0 Yes [id number] 25mg Insert 1 Univers e 7-28 Suppositor ity of (PHENERGAN) 00:00: y into [place] 25 mg 00 rectum Medical suppository every 4 Branc h (four) hours as needed for Nausea and Vomiting (N/V) or N/V unresponsi ve to oral antiemetic s. lactulose 2020-0 Yes [id number] 30mL Take 30 mL Univers 10 gram/15 7-28 by mouth 3 ity of mL oral 00:00: (three) [place] solution 00 times Medical daily as Branch needed for Constipati on or For bowel movement. dicyclomine 2020-0 Yes [id number] 20mg Take 1 Univers 20 mg 7-28 tablet by ity of tablet 00:00: mouth [place] 00 every 6 Medical (six) Branch hours as needed for Abdominal pain. proMETHazin 2020-0 Yes [id number] 25mg Take 1 Univers e 25 mg 7-28 tablet by ity of tablet 00:00: mouth [place] 00 every 6 Medical (six) Branch hours as needed for N/V unresponsi ve to Ondansetro n. dicyclomine 2020-0 Yes 20mg Take 20 mg [place] (BENTYL) 20 7-28 by mouth. Col lege MG tablet 00:00: of 00 Medicin e proMETHazin 2020-0 Yes [id number] 25mg Insert 1 Univers e 7-28 Suppositor ity of (PHENERGAN) 00:00: y into [place] 25 mg 00 rectum Medical suppository every 4 Branc h (four) hours as needed for Nausea and Vomiting (N/V) or N/V unresponsi ve to oral antiemetic s. lactulose 2020-0 Yes [id number] 30mL Take 30 mL Univers 10 gram/15 7-28 by mouth 3 ity of mL oral 00:00: (three) [place] solution 00 times Medical daily as Branch needed for Constipati on or For bowel movement. dicyclomine 2020-0 Yes [id number] 20mg Take 1 Univers 20 mg 7-28 tablet by ity of tablet 00:00: mouth [place] 00 every 6 Medical (six) Branch hours as needed for Abdominal pain. proMETHazin 2020-0 Yes [id number] 25mg Take 1 Univers e 25 mg 7-28 tablet by ity of tablet 00:00: mouth [place] 00 every 6 Medical (six) Branch hours as needed for N/V unresponsi ve to Ondansetro n. proMETHazin 2020-0 Yes [id number] 25mg Insert 1 Univers e 7-28 Suppositor ity of (PHENERGAN) 00:00: y into [place] 25 mg 00 rectum Medical suppository every 4 Branc h (four) hours as needed for Nausea and Vomiting (N/V) or N/V unresponsi ve to oral antiemetic s. lactulose 2020-0 Yes [id number] 30mL Take 30 mL Univers 10 gram/15 7-28 by mouth 3 ity of mL oral 00:00: (three) [place] solution 00 times Medical daily as Branch needed for Constipati on or For bowel movement. dicyclomine 2020-0 Yes [id number] 20mg Take 1 Univers 20 mg 7-28 tablet by ity of tablet 00:00: mouth [place] 00 every 6 Medical (six) Branch hours as needed for Abdominal pain. pantoprazol 2020-0 Yes [id number] 40mg Take 1 Univers e 7-28 tablet by ity of (PROTONIX) 00:00: mouth [place] 40 mg EC 00 daily. Medical tablet Branch proMETHazin 2020-0 Yes [id number] 25mg Take 1 Univers e 25 mg 7-28 tablet by ity of tablet 00:00: mouth [place] 00 every 6 Medical (six) Branch hours as needed for N/V unresponsi ve to Ondansetro n. proMETHazin 2020-0 Yes [id number] 25mg Insert 1 Univers e 7-28 Suppositor ity of (PHENERGAN) 00:00: y into [place] 25 mg 00 rectum Medical suppository every 4 Branc h (four) hours as needed for Nausea and Vomiting (N/V) or N/V unresponsi ve to oral antiemetic s. lactulose 2020-0 Yes 30mL Take 30 mL [facility] (CHRONULAC) 7-28 by mouth. Col lege 10 GM/15ML 00:00: of solution 00 Medicin e lactulose 2020-0 Yes [id number] 30mL Take 30 mL Univers 10 gram/15 7-28 by mouth 3 ity of mL oral 00:00: (three) [place] solution 00 times Medical daily as Branch needed for Constipati on or For bowel movement. dicyclomine 2020-0 Yes [id number] 20mg Take 1 Univers 20 mg 7-28 tablet by ity of tablet 00:00: mouth [place] 00 every 6 Medical (six) Branch hours as needed for Abdominal pain. proMETHazin 2020-0 Yes [id number] 25mg Take 1 Univers e 25 mg 7-28 tablet by ity of tablet 00:00: mouth [place] 00 every 6 Medical (six) Branch hours as needed for N/V unresponsi ve to Ondansetro n. proMETHazin 2020-0 Yes [id number] 25mg Insert 1 Univers e 7-28 Suppositor ity of (PHENERGAN) 00:00: y into [place] 25 mg 00 rectum Medical suppository every 4 Branc h (four) hours as needed for Nausea and Vomiting (N/V) or N/V unresponsi ve to oral antiemetic s. lactulose 2020-0 Yes [id number] 30mL Take 30 mL Univers 10 gram/15 7-28 by mouth 3 ity of mL oral 00:00: (three) [place] solution 00 times Medical daily as Branch needed for Constipati on or For bowel movement. promethazin 2020-[address] 25 Ba ylor e 7-28 mg College (PHENERGAN) 00:00: rectally. o f 25 MG 00 Medicin suppository e pantoprazol 2020- No [id number] 40mg Take 1 Univers e 11-26 07-30 tablet by jelena of (PROTONIX) 00:00: 00:00 mouth [place] 40 mg EC 00 :00 daily. Medical tablet Branch Vital Signs Vital Name Observation Time Observation Value Comments Source Systolic blood 2021-04-01 15:14:00 134 mm[Hg] [facility] Diastolic blood 2021-04-01 15:14:00 82 mm[Hg] [facility] Heart rate 2021-04-01 15:14:00 78 /min [facility] Body temperature 2021-04-01 15:14:00 37.39 Loan [facility] Respiratory rate 2021-04-01 15:14:00 16 /min [facility] Body height 2021-04-01 15:14:00 157.5 cm [facility] Body weight 2021-04-01 15:14:00 83.915 kg [facility] BMI 2021-04-01 15:14:00 33.84 kg/m2 [facility] Systolic blood 2020-09-24 03:00:00 128 mm[Hg] Univer sity [facility] Diastolic blood 2020-09-24 03:00:00 90 mm[facility]Hg[facility] 2020-09-24 03:00:00 57 /min [facility] Respiratory rate 2020-09-24 03:00:00 12 /[facility] 2020-09-24 03:00:00 97 /min [facility] Arterial blood by [facility] Pulse oximetry Branch Body temperature 2020-09-23 23:34:00 36.94 Loan [place] [facility] 2020-09-23 23:34:00 77.111 kg [facility] BMI 2020-09-23 23:34:00 31.09 kg/m2 [facility] Systolic blood 2019-12-11 15:50:00 149 mm[Hg] Univer sity of pressure [place] [facility] Diastolic blood 2019-12-11 15:50:00 96 mm[Hg] Unive rsity of pressure [place] [facility] Heart rate 2019-12-11 15:50:00 75 /min [facility]i ty [facility] [place] [facility] Body temperature 2019-12-11 15:50:00 36.83 Loan Univ ersity of [place] [facility] Respiratory rate 2019-12-11 15:50:00 20 /min Univ ersity [facility] [place] [facility] Oxygen saturation in 2019-12-11 15:50:00 99 /min University of Arterial blood by [facility] landon Pulse oximetry Branch Body weight 2019-12-11 12:55:00 77.111 kg Universi ty of [place] [facility] BMI 2019-12-11 12:55:00 31.09 kg/m2 [facility] [place] [facility] Systolic blood 2019-12-11 15:50:00 149 mm[Hg] Univer sity of pressure [place] [facility] Diastolic blood 2019-12-11 15:50:00 96 mm[Hg] Unive rsity of pressure [place] [facility] Heart rate 2019-12-11 15:50:00 75 /min [facility]i [facility] [place] [facility] Body temperature 2019-12-11 15:50:00 36.83 Loan Univ ersity [facility] [place] [facility] Respiratory rate 2019-12-11 15:50:00 20 /min Univ ersity [facility] [place] [facility] Oxygen saturation in 2019-12-11 15:50:00 99 /min University of Arterial blood by [facility] landon Pulse oximetry Branch Body weight 2019-12-11 12:55:00 77.111 kg [facility] [place] [facility] BMI 2019-12-11 12:55:00 31.09 kg/m2 [facility] [place] [facility] Systolic blood 2019-11-30 03:00:00 127 mm[Hg] Univer sity of pressure [place] [facility] Diastolic blood 2019-11-30 03:00:00 78 mm[Hg] Unive rsity of pressure [place] [facility] Heart rate 2019-11-30 03:00:00 71 /min [facility] [place] [facility] Respiratory rate 2019-11-30 03:00:00 20 /min Univ ers[facility] [place] [facility] Oxygen saturation in 2019-11-30 03:00:00 98 /min University of Arterial blood by [facility] landon Pulse oximetry Branch Body temperature 2019-11-29 22:39:00 37.44 Loan Univ ers[facility] [place] [facility] Body height 2019-11-29 22:39:00 157.5 cm [facility] [place] [facility] Body weight 2019-11-29 22:39:00 77.111 kg [facility] [place] [facility] BMI 2019-11-29 22:39:00 31.09 kg/m2 [facility] [place] [facility] Systolic blood 2019-11-30 03:00:00 127 mm[Hg] Univer sity of pressure [place] [facility] Diastolic blood 2019-11-30 03:00:00 78 mm[Hg] Unive rsity of pressure [place] [facility] Heart rate 2019-11-30 03:00:00 71 /min [facility] [place] [facility] Respiratory rate 2019-11-30 03:00:00 20 /min Univ ers[facility] [place] [facility] Oxygen saturation in 2019-11-30 03:00:00 98 /min University of Arterial blood by [place] [facility] landon Pulse oximetry Branch Body temperature 2019-11-29 22:39:00 37.44 Loan Univ ers[facility] [place] [facility] Body height 2019-11-29 22:39:00 157.5 cm [facility] [place] [facility] Body weight 2019-11-29 22:39:00 77.111 kg [facility] [place] [facility] BMI 2019-11-29 22:39:00 31.09 kg/m2 [facility] [place] [facility] Systolic blood 2019-11-28 03:42:00 158 mm[Hg] Univer sity of pressure [place] [facility] Diastolic blood 2019-11-28 03:42:00 88 mm[Hg] Unive rsity of pressure [place] [facility] Heart rate 2019-11-28 03:42:00 79 /min [facility] [place] [facility] Respiratory rate 2019-11-28 03:42:00 20 /min Univ ers[facility] [place] [facility] Oxygen saturation in 2019-11-28 03:42:00 98 /min University of Arterial blood by [place] [facility] landon Pulse oximetry Branch Body temperature 2019-11-28 00:40:00 37.5 Loan Univ [facility] [place] [facility] Body height 2019-11-28 00:37:00 157.5 cm [facility] [place] [facility] Body weight 2019-11-28 00:37:00 77.111 kg [facility] [place] [facility] BMI 2019-11-28 00:37:00 31.09 kg/m2 [facility] Systolic blood 2019-11-28 03:42:00 158 mm[Hg] Univer sity of pressure [facility] Diastolic blood 2019-11-28 03:42:00 88 mm[Hg] Unive rsity of pressure [facility] Heart rate 2019-11-28 03:42:00 79 /min [facility] Respiratory rate 2019-11-28 03:42:00 20 /min [facility] Oxygen saturation in 2019-11-28 03:42:00 98 /min [facility] Arterial blood by [facility] Pulse oximetry [place] Body temperature 2019-11-28 00:40:00 37.5 Loan [facility] Body height 2019-11-28 00:37:00 157.5 cm [facility] Body weight 2019-11-28 00:37:00 77.111 kg [facility] BMI 2019-11-28 00:37:00 31.09 kg/m2 [facility] Procedures Procedure Date / Time Performed Performing Clinician Sourc e D-DIMER 2020-09-24 00:40:00 Jorge Saul [facility] XR CHEST 1 VW 2020-09-24 00:37:38 Jorge Saul [facility] LIPASE 2020-09-24 00:01:00 Jorge Saul [facility] TROPONIN I 2020-09-24 00:01:00 Jorge Saul [facility] COMP. METABOLIC PANEL 2020-09-24 00:01:00 [facility] ([id number]) [facility] CBC WITH DIFF 2020-09-24 00:01:00 Jorge Saul [facility] NOTICE OF PRIVACY 2020-09-23 23:25:33 Doctor Unassigned, No [facility] CONSENT/REFUSAL FOR 2020-09-23 23:24:41 Doctor Unassigned, [facility] DI[facility]NOSIS AND Name [facility] [place] TREATMENT US GALL BLADDER 2019-12-11 15:08:38 Javi Stovall [facility] LIPASE 2019-12-11 14:35:00 Javi Stovall [facility] TEST, SERUM 2019-12-11 14:35:00 Javi Stovall [facility] HEPATIC FUNCTION PANEL 2019-12-11 14:35:00 Javi Stovall [facility] ([id number]) [facility] [place] (ALB,T.PRO,BILI T,BU/BC,ALT,AST,ALK PHOS) BASIC METABOLIC PANEL 2019-12-11 14:35:[address] [facility] (NA, K, CL, CO2, Medical [facility] GLUCOSE, BUN, CREATININE, CA) CBC WITH DIFF 2019-12-11 14:35:00 Javi Stovall [facility] COMP. METABOLIC PANEL 2019-11-30 02:21:00 Arley Ch [facility] ([id number]) [facility] CBC WITH DIFF 2019-11-30 01:10:00 Arley Ch [facility] RAPID STREP SCREEN FOR 2019-11-29 22:47:[address] [facility] GROUP A Medical [facility] NOTICE OF PRIVACY 2019-11-29 22:31:49 Doctor Unassigned, [facility] PRACTICES Name Medical [facility] ADC / LCC - DRUG 2019-11-28 03:43:00 Xiao Mott [facility] SCREEN TRIAGE Medical [facility] URINALYSIS 2019-11-28 03:22:00 Xiao Mott [facility] CT ABDOMEN PELVIS W 2019-11-28 03:03:48 Xiao Mott [facility] CONTRAST [facility] Branch EKG-12 LEAD 2019-11-28 02:24:56 Xiao Mott [facility] LIPASE 2019-11-28 00:44:00 Xiao Mott [facility] TROPONIN I 2019-11-28 00:44:00 Xiao Mott [facility] COMP. METABOLIC PANEL 2019-11-28 00:44:00 Xiao Mott [facility] ([id number]) [facility] CBC WITH DIFF 2019-11-28 00:44:00 Xiao Mott [facility] CONSENT/REFUSAL FOR 2019-11-28 00:21:45 Doctor Unassigned, [facility] DIAGNOSIS AND Name [facility] TREATMENT NOTICE OF PRIVACY 2019-11-28 00:21:31 Doctor Unassigned, No Univ ersity [facility] PRACTICES Name Medical [facility] Plan of Care Planned Activity Planned Date Details Comments Source Future Scheduled 2021-04-01 MRI CERVICAL SPINE WO 1 Occurrences [employer] Test 09:24:40 CONTRAST [code = starting of Medicine 13828-8] 04/01/2021 until 04/01/2022 Future Scheduled 2021-04-01 MRI THORACIC SPINE WO 1 Occurrences [employer] Test 09:24:40 CONTRAST [code = starting of Medicine 97388-2] 04/01/2021 until 04/01/2022 Future Scheduled 2021-04-01 PT INSTR GIVEN - Ordered: [facility] [employer] Test 09:20:37 TOBACCO [code = NOCPT] 04/01/2021 of Me dicine Future Scheduled 2021-04-01 Screening for malignant [facility] [employer] Test 09:16:36 neoplasm of colon of Medicin e (procedure) [code = 091962527] Future Scheduled 2021-04-01 Screening for malignant [employer] Test 09:16:36 neoplasm of breast of Medici ne (procedure) [code = 526873920] Future Scheduled 2021-04-01 COVID-19 Vaccine (1) [employer] Test 09:16:36 [code = COVID-19 of Medicine Vaccine (1)] Future Scheduled 2021-04-01 TETANUS SHOT (ADULT) [employer] Test 09:16:36 [code = TETANUS SHOT of Medi cine (ADULT)] Future Scheduled 2021-04-01 BMI FOLLOW UP PLAN [employer] Test 09:16:36 [code = BMI FOLLOW UP of Med icine PLAN] Future Scheduled 2021-04-01 Hepatitis C screening [employer] Test 09:16:36 (procedure) [code = of Medic ine 950753602] Future Scheduled 2021-04-01 Human immunodeficiency [employer] Test 09:16:36 virus screening of Medicine (procedure) [code = 494856224] Future Scheduled 2021-04-01 Screening for malignant [employer] Test 09:16:36 neoplasm of cervix of Medici ne (procedure) [code = 092299265] Future Scheduled 2021-04-01 FLU VACCINE > 6 MONTHS [employer] Test 09:16:36 [code = FLU VACCINE > 6 of M edicine MONTHS] Future Scheduled 2021-04-01 ZOSTER VACCINE (1 of 2) [facility] Test 09:16:36 [code = ZOSTER VACCINE of Me jaraine (1 of 2)] Encounters Start End Encounter Admission Attending Care Care Encounter Source Date/Time Date/Time Type Type Clinicians Facility Department ID 2021-04-01 2021-04-01 Office DAVID CERVANTES JR. [id number] [facility] 09:07:17 16:23:07 Visit BLAKE AMBULATOR 350.1.13.21 College Y 0.2.7.2.686 [id number] [facility] 805 e 2020-12-01 2020-12-01 Outpatient BILLY GARCIA [facility] [id number] [facility] 13:22:49 15:25:46 BLAKE [place] e of Medicin e 2020-12-01 2020-12-01 Outpatient [facility] SLE [id number] [facility]H 00:00:00 00:00:00 BLAKE 2020-09-23 2020-09-23 [facility] [id number] Univers 18:36:00 22:14:00 Jorge Ma 350.1.13.10 i ty of [place] 4.2.7.2.686 [facility] [id number] [facility] 084 Branch 2020-09-23 2020-09-23 Emergency X [facility] ERT [id number] Univers 18:36:00 18:36:00 JORGE ity of [facility] 2019-12-11 2019-12-11 Emergency [place], TRAUMA [id number] Univers 07:58:00 11:57:00 [facility] 350.1.13.10 ity 4.2.7.2.686 [facility] [id number] [facility] 014 Branch 2019-12-11 2019-12-11 Emergency [place], TRAUMA [id number] 07:58:00 11:57:00 [facility] 350.1.13.10 4.2.7.2.686 [id number] 014 2019-12-11 2019-12-11 Emergency X [facility] ERT [id number] Univers 07:53:00 07:53:00 ity of [facility] 2019-12-02 2019-12-02 Telephone Darell LINARES [id number] Univers 00:00:00 00:00:00 dMelvina 350.1.13.10 ity [facility] 4.2.7.2.686 [place] as [id number] [address] 2019-12-02 2019-12-02 Letter Darell LINARES [id number] [facility] 00:00:00 00:00:00 (Out) Melvina real 350.1.13.10 ity [facility] 4.2.7.2.686 [place] as [id number] [address] 2019-12-02 2019-12-02 Letter Darell LINARES [id number] 00:00:00 00:00:00 (Out) Melvina realY 350.1.13.10 [facility] 4.2.7.2.686 [id number] 019 2019-12-02 2019-12-02 Telephone Darell LINARES [id number] 00:00:00 00:00:00 Melvina real 350.1.13.10 [facility] 4.2.7.2.686 [id number] 019 2019-11-29 2019-11-[address] [facility] [id number] [facility] 17:39:52 22:40:00 Arley G [place] 350.1.13.10 ity [facility] 4.2.7.2.686 [facility] [id number] [address] 2019-11-29 2019-11-[address] [facility] [id number] 17:39:52 22:40:00 Arley Chiara [place] 350.1.13.10 [place] 4.2.7.2.686 [place] [id number] [facility] 2019-11-29 2019-11-29 Emergency X [facility] ERT [id number] Univers 17:39:52 17:39:52 ARLEY [facility] 2019-11-27 2019-11-28 Emergency [facility] [id number] [facility] 19:33:27 00:42:00 Xiao Byrne [place] 350.1.13.10 ity [facility] 4.2.7.2.686 [facility] [id number] [address] 2019-11-27 2019-11-28 [facility] [id number] 19:33:27 00:42:00 Xiao Byrne [place] 350.1.13.10 [place] 4.2.7.2.686 [place] [id number] [facility] 2019-11-27 2019-11-27 Emergency X [facility] ERT [id number] Univers 19:33:27 19:33:27 [facility] Results Test Description Test Time Test Comments Results Result [facility] e Comments RAD, SPINE, 2020-12-01 Reason for CERVICAL, 15:57:00 Exam:->neck pain, COMPLETE, WITH chronicReason for FLEX Exam:->headaches [facility] - due to old head MEDICAL CENTERName: [...] Verified Date/Time: 12/01/2020 15:57:57 Reading Location: [facility] Reading Room [address] [place] [address] D-DIMER 2020-09-24 01:08:22 Test Item Value Reference Range Interpretation Comme nts D-DIMER (test code = <0.27 See_Comment [Autom ated message] The 5741744528) system which ge nerated this result tra [...] diagnosis. Lab Interpretation Normal (test code = 88880-2) [facility] [id number] 00:31:25 Test Item Value Reference Range Interpretation Comments TROPONIN I (test <0.012 See_Comment [Automated code = 4194871638) message] The system which generated this result [...] ? Lab Interpretation Normal (test code = 38655-0) [facility]13[facility]24 00:21:01 Test Item Value Reference Range Interpretation Comments NA (test code = 140 mmol/L 135-145 2381086004) K (test code = 3.6 mmol/L 3.5-5.0 0723911710) CL (test code = 108 mmol/L 98-108 2837631339) CO2 TOTAL (test code = 25 mmol/L 23-31 1662197013) AGAP (test code = 2-16 9174875367) BUN (test code = 8 mg/dL 7-23 9231699771) GLUCOSE (test code = 100 mg/dL 70-110 1244079291) CREATININE (test code = 0.56 mg/dL 0.50-1.04 5206637427) TOTAL BILI (test code = 0.3 mg/dL 0.1-1.9 9091520016) CALCIUM (test code = 9.4 mg/dL 8.6-10.6 2794695154) T PROTEIN (test code = 7.1 g/dL 6.3-8.2 2261966546) ALBUMIN (test code = 4.4 g/dL 3.5-5.0 0021545974) ALK PHOS (test code = 59 U/L 34-122 2613277197) ALTv (test code = 120 U/L 5-35 H 1742-6) AST(SGOT) (test code = 81 U/L 13-40 H 3563357735) eGFR (test code = mL/min/1.73m2 2830082823) ANNI (test code = ANNI) Association of [...] tests). Lab Interpretation Abnormal (test code = 97933-9) [facility], [id number] 00:20:41 Test Item Value Reference Range Interpretation Comments LIPASE (test code = 4852591344) 172 U/L 0-220 Lab Interpretation (test code = Normal 84219-9) [facility] WITH [id number] 00:08:14 Test Item Value Reference Range Interpretation Comments WBC (test code = See_Comment [Automated message] 6690-2) The system [employer] generated this result transmitted ref erence range: 4.30 - 1 1.10 10*3/?L. The re ference range was not u sed to interpret this result as normal/abnor mal. RBC (test code = See_Comment [Automated message] 789-8) The system [employer] generated this result transmitted ref erence range: [...] RDW-SD (test code 46.3 fL 39.0-49.9 = 17676-6) RDW-CV (test code 13.1 % 12.0-15.5 = 788-0) PLT (test code = See_Comment [Automated message] 777-3) The system [employer] generated this result transmitted ref erence range: 166 - 35 8 10*3/?L. The re ference range was not u sed to interpret this result as normal/abnor mal. MPV (test code = 10.8 fL 9.5-12.9 49378-0) NRBC/100 WBC (test See_Comment [Automat ed message] code = 5644073894) The syste [employer] which generated this result transmitted ref erence range: 0.0 - 10 .0 /100 WBCs. The refer ence range was not u sed to interpret this result as normal/abnor mal. NRBC x10^3 (test <0.01 See_Comment [Automated message] code = 2930235093) The syste m which generated this result transmitted ref erence range: 10*3/?L. The reference range was not used to interpr et this result as normal/abnormal . GRAN MAT (NEUT) % 35.8 % (test code = 770-8) IMM GRAN % (test 0.20 % code = 3409204250) LYMPH % (test code 52.0 % = 736-9) MONO % (test code 9.8 % = 5905-5) EOS % (test code = 1.9 % 713-8) BASO % (test code 0.3 % = 706-2) GRAN MAT 2.09 10*3/uL 1.88-7.09 x10^3(ANC) (test code = 3666769191) IMM GRAN x10^3 <0.03 0.00-0.06 (test code = 4421598953) LYMPH x10^3 (test 3.03 10*3/uL 1.32-3.29 code = 731-0) MONO x10^3 (test 0.57 10*3/uL 0.33-0.92 code = 742-7) EOS x10^3 (test 0.11 10*3/uL 0.03-0.39 code = 711-2) BASO x10^3 (test <0.03 0.01-0.07 code = 704-7) [facility] GALL [id number] 16:11:13 No cholelithiasis or sonographic evidence of cholecystitis. I, Lazaro Hinkle MD., have reviewed this study [...] reviewed this study and agree with the abovereport.[facility] CampusLipase [id number] 15:06:00 Test Item Value Reference Range Interpretation Comments LIPASE (test code = 5859255813) 346 U/L 0-220 H Lab Interpretation (test code = Abnormal 48024-8) [facility] Met[facility] Panel (NA, K, CL, CO2, GLUCOSE, BUN, CREATININE, CA)2019-12-11 15:01:00 Test Item Value Reference Range Interpretation Comments NA (test code = 137 mmol/L 135-145 8287974937) K (test code = 4.6 mmol/L 3.5-5 4086914890) CL (test code = 104 mmol/L 98-108 7029390317) CO2 TOTAL (test code = 23 mmol/L 23-31 5302978391) AGAP (test code = 2-16 6622422342) BUN (test code = 8 mg/dL 7-23 6480409578) GLUCOSE (test code = 96 mg/dL 70-110 0714905973) CREATININE (test code 0.68 mg/dL 0.5-1.04 = 1696970227) CALCIUM (test code = 10.1 mg/dL 8.6-10.6 9896349227) eGFR Calculation mL/min/1.73m2 (Non-) (test code = 4792480848) eGFR Calculation mL/min/1.73m2 () (test code = 6804525965) ANNI (test code = ANNI) Association of [...] or urine or abnormalities in imaging tests). [facility] Campus[facility] Function Panel (ALB, T.PRO, BILI T, BU/BC, ALT, AST, ALK PHOS)2019-12-11 15:01:00 Test Item Value Reference Range Interpretation Comments TOTAL BILI (test code = 3721435967) 0.7 mg/dL 0.1-1.1 BILI UNCON (test code = 2365099932) 0.8 mg/dL 0.1-1.1 BILI CONJ (test code = 7395555678) 0.0 mg/dL 0-0.3 T PROTEIN (test code = 2629069199) 7.6 g/dL 6.3-8.2 ALBUMIN (test code = 2866613928) 4.6 g/dL 3.5-5 ALK PHOS (test code = 1964292739) 53 U/L 34-122 ALTv (test code = 1742-6) 36 U/L 5-35 H AST(SGOT) (test code = 6297525998) 40 U/L 13-40 Lab Interpretation (test code = Abnormal 68721-8) [facility] CampusPregnancy Test, [id number] 15:00:00 Test Item Value Reference Range Interpretation Comments PREG SERUM (test code Negative = 4832097522) ANNI (test code = ANNI) Less than 10 IU/L. ?If low titer or ectopic is suspected, resubmit specimen in 48-72 hours. [facility] with [id number] 14:48:00 Test Item Value Reference Range Interpretation Comments WBC (test code = See_Comment [Automated 1390-2) message] The sy stem which generated this [...] RDW-SD (test code = 48.1 fL 39-49.9 39323-5) RDW-CV (test code = 13.4 % 12-15.5 788-0) PLT (test code = See_Comment [Automated 777-3) message] The sy stem which generated this result transmitted reference range : 166 - 358 10*3/ ?L. The reference r bhavani was not used to interpret this result as normal/abnormal . MPV (test code = 10.6 fL 9.5-12.9 82025-2) NRBC/100 WBC (test See_Comment [Automat ed code = 1008099792) message] The system which generated this result transmitted reference range : 0.0 - 10.0 /100 WBCs. The refer ence range was not u sed to interpret th is result as normal/abnormal . NRBC x10^3 (test code <0.01 See_Comment [Auto mated = 1052686904) message] The s ystem which generated this result transmitted reference range : 10*3/?L. The reference range was not used to interpret this result as normal/abnormal . GRAN MAT (NEUT) % 50.1 % (test code = 770-8) IMM GRAN % (test code 0.30 % = 6249285392) LYMPH % (test code = 36.4 % 736-9) MONO % (test code = 11.5 % 5905-5) EOS % (test code = 1.4 % 713-8) BASO % (test code = 0.3 % 706-2) GRAN MAT x10^3(ANC) 3.17 10*3/uL 1.88-7.09 (test code = 4263414414) IMM GRAN x10^3 (test <0.03 0-0.06 code = 9432190565) LYMPH x10^3 (test code 2.31 10*3/uL 1.32-3.29 = 731-0) MONO x10^3 (test code 0.73 10*3/uL 0.33-0.92 = 742-7) EOS x10^3 (test code = 0.09 10*3/uL 0.03-0.39 711-2) BASO x10^3 (test code <0.03 0.01-0.07 = 704-7) Lab Interpretation Abnormal (test code = 20194-2) [facility] METABOLIC PANEL (23220)2019-11-30 03:03:00 Test Item Value Reference Range Interpretation Comments NA (test code = 134 mmol/L 135-145 L 7929728029) K (test code = 3.9 mmol/L 3.5-5 2975678433) CL (test code = 100 mmol/L 98-108 8867743732) CO2 TOTAL (test code = 24 mmol/L -31 3018740649) AGAP (test code = 2-16 2097319366) BUN (test code = 17 mg/dL 7-23 9547119717) GLUCOSE (test code = 95 mg/dL 70-110 4092126026) CREATININE (test code = 0.80 mg/dL 0.5-1.04 2331294464) TOTAL BILI (test code = 0.5 mg/dL 0.1-1.3 8297174637) CALCIUM (test code = 9.8 mg/dL 8.6-10.6 4606562949) T PROTEIN (test code = 7.7 g/dL 6.3-8.2 9120697445) ALBUMIN (test code = 4.5 g/dL 3.5-5 3951714749) ALK PHOS (test code = 41 U/L 34-122 2680527283) ALTv (test code = 27 U/L 5-35 1742-6) AST(SGOT) (test code = 31 U/L 13-40 5401109328) eGFR Calculation mL/min/1.73m2 (Non-) (test code = 6047311585) eGFR Calculation mL/min/1.73m2 () (test code = 8178969600) ANNI (test code = ANNI) Association of [...] tests). Lab Interpretation Abnormal (test code = 26229-3) [facility] WITH [id number] 01:43:00 Test Item Value Reference Range Interpretation Comments WBC (test code = See_Comment [Automated message] 6690-2) The system [employer] generated this result transmitted ref erence range: 4.30 - 1 1.10 10*3/?L. The re ference range was not u sed to interpret this result as normal/abnor mal. RBC (test code = See_Comment [Automated message] 459-8) The system [employer] generated this result transmitted ref erence range: [...] RDW-SD (test code 42.8 fL 39-49.9 = 67014-0) RDW-CV (test code 12.9 % 12-15.5 = 788-0) PLT (test code = See_Comment [Automated message] 777-3) The system [employer] generated this result transmitted ref erence range: 166 - 35 8 10*3/?L. The re ference range was not u sed to interpret this result as normal/abnor mal. MPV (test code = 10.9 fL 9.5-12.9 55413-4) NRBC/100 WBC (test See_Comment [Automat ed message] code = 3900993113) The [employer] which generated this result transmitted ref erence range: 0.0 - 10 .0 /100 WBCs. The refer ence range was not u sed to interpret this result as normal/abnor mal. NRBC x10^3 (test <0.01 See_Comment [Automated message] code = 6156816600) The syste m which generated this result transmitted ref erence range: 10*3/?L. The reference range was not used to interpr et this result as normal/abnormal . GRAN MAT (NEUT) % 61.3 % (test code = 770-8) IMM GRAN % (test 0.20 % code = 0826865758) LYMPH % (test code 29.9 % = 736-9) MONO % (test code 6.3 % = 5905-5) EOS % (test code = 1.7 % 713-8) BASO % (test code 0.6 % = 706-2) GRAN MAT 5.19 10*3/uL 1.88-7.09 x10^3(ANC) (test code = 2236467378) IMM GRAN x10^3 <0.03 0-0.06 (test code = 1153011251) LYMPH x10^3 (test 2.53 10*3/uL 1.32-3.29 code = 731-0) MONO x10^3 (test 0.53 10*3/uL 0.33-0.92 code = 742-7) EOS x10^3 (test 0.14 10*3/uL 0.03-0.39 code = 711-2) BASO x10^3 (test 0.05 10*3/uL 0.01-0.07 code = 704-7) [facility] STREP SCREEN FOR GROUP [id number] 00:25:00 Test Item Value Reference Range Interpretation Comments Streptococcus pyogenes (group A) Negative Negative antigen (test code = 02403-0) Lab Interpretation (test code = Normal 74108-4) [facility] / [facility] - DRUG SCREEN [id number] 04:11:00 Test Item Value Reference Range Interpretation Comments BENZO U (test code = Presumptive Negative A 9182246422) Positive NICHOLAS U (test code = Negative Negative 8094981969) AMPHET (test code = Negative Negative 9120717397) THC (test code = Presumptive Negative A Confirmatio n of 4600793669) Positive Presumptive Positive THC result requires physician order . METHADONE (test code Negative Negative = 8628104462) Meth U (test code = Negative Negative 6018741146) OPIATES (test code = Presumptive Negative A 0014358178) Positive Cocaine Metabolite Negative Negative (test code = 6819547572) PROPOXY (test code = Negative Negative 4938148882) Tric U (test code = Negative Negative 9440130762) PCP (test code = Negative Negative 3044422109) OXYCOD (test code = Negative Negative 1816634180) ANNI (test code = Urine Drug Cutoff [...] testing). Lab Interpretation Abnormal (test code = 50016-7) [facility] CampusUrinalysis2020-07-29 03:58:00 Test Item Value Reference Range Interpretation Comments APPEARANCE (test code = Clear Clear 9015119927) COLOR (test code = Yellow Yellow 5068621388) PH (test code = 4.8-8.0 8182966389) SP GRAVITY (test code = 1.003-1.030 7093493244) GLU U QUAL (test code = Normal Normal 0791714825) BLOOD (test code = 1+ Negative A 3196426631) KETONES (test code = 5 mg/dL Negative A 2180808172) PROTEIN (test code = Negative Negative 2887-8) UROBILIN (test code = Normal Normal 1686427519) BILIRUBIN (test code = Negative Negative 6781751461) NITRITE (test code = Negative Negative 8230718358) LEUK DIEUDONNE (test code = Negative Negative 9739604850) RBC/HPF (test code = See_Comment [Autom ated message] 9285129580) The system [employer] generated this result transmitted ref erence range: 0 - 3 HP F. The reference range was not used to int erpret this result as normal/abnormal . WBC/HPF (test code = <1 See_Comment [Autom ated message] 6452778241) The system [employer] generated this result transmitted ref erence range: 0 - 5 HP F. The reference range was not used to int erpret this result as normal/abnormal . BACTERIA (test code = Negative Negative 9075317696) MUCOUS (test code = Slight Negative LPF A 3706758931) SQ EPITH (test code = HPF 7579290639) Lab Interpretation (test Abnormal code = 36027-9) [facility] ABDOMEN PELVIS W [id number] 03:20:101. ?Mild to moderate stool burden within [...] anterolateral andposterior ribs.5. Subtle findings as above. [facility] [id number] 02:50:00 Test Item Value Reference Range Interpretation Comments TROPONIN I (test <0.012 See_Comment [Automated code = 3118330364) message] The system which generated this result [...] ? Lab Interpretation Normal (test code = 23176-3) [facility] Metabolic [id number] 01:12:00 Test Item Value Reference Range Interpretation Comments NA (test code = 138 mmol/L 135-145 4240629042) K (test code = 3.6 mmol/L 3.5-5 8813605751) CL (test code = 104 mmol/L 98-108 5717339919) CO2 TOTAL (test code = 26 mmol/L 23-31 9544733753) AGAP (test code = 2-16 9793202066) BUN (test code = 11 mg/dL 7-23 8837266782) GLUCOSE (test code = 128 mg/dL 70-110 H 4455184125) CREATININE (test code = 0.72 mg/dL 0.5-1.04 3851631861) TOTAL BILI (test code = 0.7 mg/dL 0.1-1.3 8041134676) CALCIUM (test code = 10.0 mg/dL 8.6-10.6 2663113203) T PROTEIN (test code = 8.4 g/dL 6.3-8.2 H 1972419071) ALBUMIN (test code = 4.8 g/dL 3.5-5 3778100224) ALK PHOS (test code = 40 U/L 34-122 8350131959) ALTv (test code = 32 U/L 5-35 1742-6) AST(SGOT) (test code = 42 U/L 13-40 H 2380211025) eGFR Calculation mL/min/1.73m2 (Non-) (test code = 8515720997) eGFR Calculation mL/min/1.73m2 () (test code = 4526715872) ANNI (test code = ANNI) Association of [...] tests). Lab Interpretation Abnormal (test code = 14934-3) [facility], [id number] 01:12:00 Test Item Value Reference Range Interpretation Comments LIPASE (test code = 4538328841) 87 U/L 0-220 Lab Interpretation (test code = Normal 66033-8) [facility] with [id number] 01:00:00 Test Item Value Reference Range Interpretation Comments WBC (test code = See_Comment [Automated message] 6690-2) The system [employer] generated this result transmitted ref erence range: 4.30 - 1 1.10 10*3/?L. The re ference range was not u sed to interpret this result as normal/abnor mal. RBC (test code = See_Comment [Automated message] 789-8) The system [employer] generated this result transmitted ref erence range: [...] RDW-SD (test code 44.9 fL 39-49.9 = 72344-3) RDW-CV (test code 13.1 % 12-15.5 = 788-0) PLT (test code = See_Comment [Automated message] 777-3) The system [employer] generated this result transmitted ref erence range: 166 - 35 8 10*3/?L. The re ference range was not u sed to interpret this result as normal/abnor mal. MPV (test code = 10.9 fL 9.5-12.9 80077-3) NRBC/100 WBC (test See_Comment [Automat ed message] code = 0825302846) The syste m which generated this result transmitted ref erence range: 0.0 - 10 .0 /100 WBCs. The refer ence range was not u sed to interpret this result as normal/abnor mal. NRBC x10^3 (test <0.01 See_Comment [Automated message] code = 2704047181) The syste m which generated this result transmitted ref erence range: 10*3/?L. The reference range was not used to interpr et this result as normal/abnormal . GRAN MAT (NEUT) % 64.1 % (test code = 770-8) IMM GRAN % (test 0.50 % code = 9660099271) LYMPH % (test code 26.8 % = 736-9) MONO % (test code 7.5 % = 5905-5) EOS % (test code = 0.6 % 713-8) BASO % (test code 0.5 % = 706-2) GRAN MAT 6.75 10*3/uL 1.88-7.09 x10^3(ANC) (test code = 5984578393) IMM GRAN x10^3 0.05 10*3/uL 0-0.06 (test code = 2506064701) LYMPH x10^3 (test 2.82 10*3/uL 1.32-3.29 code = 731-0) MONO x10^3 (test 0.79 10*3/uL 0.33-0.92 code = 742-7) EOS x10^3 (test 0.06 10*3/uL 0.03-0.39 code = 711-2) BASO x10^3 (test 0.05 10*3/uL 0.01-0.07 code = 704-7) [facility]
--- NOTE | 2021-04-16 19:40 | RAD REPORT ---
EXAM DESCRIPTION: CT - Head Brain Wo Cont - 04/16/2021 7:25 pm CLINICAL HISTORY: Photophobia;Headache COMPARISON: Head Brain Wo Cont dated 05/29/2020 TECHNIQUE: All CT scans are performed using dose optimization technique as appropriate and may inclu de automated exposure control or mA/KV adjustment according to patient size. FINDINGS: No intracranial hemorrhage, hydrocephalus or extra-axial fluid collection.No areas of brai n edema or evidence of midline shift. The paranasal sinuses and mastoids are clear. The calvarium is intact. IMPRESSION: No acute intracranial abnormality.
[2021-04-16 20:29] LABS: Absolute Lymphocytes (CBC) 2.7 K/uL (0.7-4.9); Basophils % 0.5 % (0-1.3); Hematocrit 34.9 % (36.0-45.0); Lymphocytes % 44.4 % (15.3-44.8); MPV 8.7 fL (7.6-11.3); RBC Red Blood Cell Count 3.69 M/uL (3.86-4.86)
[2021-04-16 20:42] LABS: BUN Blood Urea Nitrogen 12 mg/dL (7-18); Bicarbonate 27 mmol/L (21-32); Glucose Level 93 mg/dL (74-106); Potassium 3.8 mmol/L (3.5-5.1); Sodium Level 137 mmol/L (136-145)
--- NOTE | 2021-04-16 20:51 | ER ---
Nurse's Notes [facility] Name: Ninfa Gordon Age: 50 yrs Sex: Female : 1970 Arrival Date: 04/16/2021 Time: 17:05 Bed 14 Private MD: Thuan Iniguez Diagnosis: Headache Presentation: 04/16 17:09 Chief complaint: Patient states: had sx yesterday to remove a vein in Left leg; pt left vg1 leg appears to be swollen. Denies chest pain. States headache, cough and shortness of breath. Coronavirus screen: Vaccine status: Patient reports being unvaccinated. Client denies travel out of the [place] in the last 14 days. Ebola Screen: Patient negative for fever greater than or equal to 101.5 degrees Fahrenheit, and additional compatible Ebola Virus Disease symptoms. Initial Sepsis Screen: Does the patient meet any 2 criteria?. Initial Sepsis Screen: Does the patient meet any 2 criteria? No. Patient's initial sepsis screen is negative. Does the patient have a suspected source of infection? No. Patient's initial sepsis screen is negative. Risk Assessment: Do you want to hurt yourself or someone else? Patient reports no desire to harm self or others. Onset of symptoms was April 16, 2021. 17:09 Method Of Arrival: Ambulatory vg1 17:09 Acuity: TRES 3 vg1 Triage Assessment: 17:15 Headache History: The patient has had previous headaches and this one is more severe vg1 than previous episodes. General: Appears in no apparent distress. uncomfortable, Behavior is calm, cooperative. Pain: Complains of pain in head and Left leg Pain currently is 8 out of 10 on a pain scale. Pain began today Also complains of. Neuro: Level of Consciousness is awake, alert, obeys commands, Oriented to person, place, time, situation. Musculoskeletal: Swelling present in left quadriceps. 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 - Social history:: Smoking status: Patient reports the use of cigarette tobacco products, smokes one-half pack cigarettes per day. Screenin:16 Abuse screen: Denies threats or abuse. Denies injuries from another. Nutritional jg9 screening: No deficits noted. Tuberculosis screening: No symptoms or risk factors identified. Fall Risk None identified. Assessment: 18:12 General: Appears uncomfortable, Behavior is calm, cooperative. Pain: Complains of pain jg9 in back of head. Neuro: No deficits noted. Cardiovascular: No deficits noted. Respiratory: No deficits noted. GI: No deficits noted. : No deficits noted. EENT: No deficits noted. Derm: No deficits noted. Musculoskeletal: No deficits noted. 18:13 Reassessment: Patient is alert, oriented x 3, equal unlabored respirations, skin jg9 warm/dry/pink. Patient reports onset of headache to occipital region starting yesterday but progressively worsening today, patient reports she has not experienced a headache like this before. Patient has survery to remove vericose vein in left leg on yesterday-received demerol and valium for the procedure otherwise patient denied any recent medication. Patient goes to to report that the headache feels like it did when she sustained a concussion but she denied any recent trauma, there is no obvious swelling noted. Vital Signs: 17:09 BP 118 / 75; Pulse 80; Resp 18; Temp 100.6(O); Pulse Ox 92% ; Weight 90.72 kg; Height 5 vg1 ft. 2 in. (157.48 cm); Pain 8/10; 18:06 BP 114 / 73; Pulse 70; Resp 17; Pulse Ox 92% on R/A; jg9 18:56 BP 113 / 69; Pulse 65; Pulse Ox 93% on R/A; ap3 17:09 Body Mass Index 36.58 (90.72 kg, 157.48 cm) vg1 Everette Coma Score: 18:06 Eye Response: spontaneous(4). Verbal Response: oriented(5). Motor Response: obeys jg9 commands(6). Total: 15. ED Course: 17:05 Patient arrived in ED. am2 17:06 [place], Thuan, MD is Private Physician. am2 17:15 Triage completed. vg1 17:15 Arm band placed on. vg1 18:06 Sierra Madison is Primary Nurse. jg9 18:15 Lalit Robledo MD is Attending Physician. kdr 18:17 Patient has correct armband on for positive identification. Bed in low position. Call jg9 light in reach. Lights dimmed. 19:10 Attending Physician role handed off by Lalit Robledo MD sp3 19:10 Tony Schroeder MD is Attending Physician. sp3 19:25 CT Head Brain wo Cont In Process Unspecified. EDMS 20:00 No provider procedures requiring assistance completed. Patient did not have IV access mr2 during this emergency room visit. 20:09 Chem 7 Sent. mr2 20:09 CBC with Diff Sent. mr2 Administered Medications: 21:04 Drug: [place] (HYDROcodone-acetaminophen) 5 mg-325 mg 1 tabs Route: PO; mr2 Outcome: 20:50 Discharge ordered by . sp3 21:00 Discharged to home ambulatory. mr2 21:00 Condition: stable 21:00 Discharge instructions given to patient, Instructed on discharge instructions, Demonstrated understanding of instructions. 21:26 Patient left the ED. mr2 Signatures: Dispatcher [employer] EDVT Lalit Robledo MD MD kdr Moreno, Amanda am2 Nida Alcantar RN RN ap3 Chelsey Dias RN RN vg1 Tony Schroeder MD MD sp3 Jens Barillas RN RN mr2 Sierra Madison jg9
--- NOTE | 2021-04-16 20:51 | EDPHYS ---
Physician Documentation [facility] Name: Ninfa Gordon Age: 50 yrs Sex: Female : 1970 Arrival Date: 04/16/2021 Time: 17:05 Bed 14 Private MD: Thuan Iniguez ED Physician Tony Schroeder HPI: 04/16 19:00 This 50 yrs old Female presents to ER via Ambulatory with complaints of Facial kdr Swelling, Post Surgical Pain, Headache, not sleeping. 19:00 The patient complains of pain to the forehead, left side of forehead, right frontal kdr area and right side of forehead. The patient describes the headache as aching, constant, a pressure. Onset: The symptoms/episode began/occurred gradually, 4 day(s) ago. Associated signs and symptoms: Pertinent positives: malaise, Photophobia weakness, Tinnitus. Severity of symptoms: At its worst the pain was moderate, severe, "similar to past headaches". 04/17 08:01 Headache History: The patient has had previous headaches and this one is similar to kdr previous episodes. The symptoms are alleviated by nothing. the symptoms are aggravated by lights, movement. The patient has experienced similar episodes in the past, several times. The patient has not recently seen a physician. 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 - Social history:: Smoking status: Patient reports the use of cigarette tobacco products, smokes one-half pack cigarettes per day. ROS: 04/17 08:01 Constitutional: Negative for fever, chills, and weight loss, Eyes: Negative for injury, kdr pain, redness, and discharge, ENT: Negative for injury, pain, and discharge, Neck: Negative for injury, pain, and swelling, Cardiovascular: Negative for chest pain, palpitations, and edema, Respiratory: Negative for shortness of breath, cough, wheezing, and pleuritic chest pain, Abdomen/GI: Negative for abdominal pain, nausea, vomiting, diarrhea, and constipation, Back: Negative for injury and pain, : Negative for injury, bleeding, discharge, and swelling, MS/Extremity: Negative for injury and deformity, Skin: Negative for injury, rash, and discoloration, Psych: Negative for depression, anxiety, suicide ideation, homicidal ideation, and hallucinations, Allergy/Immunology: Negative for hives, rash, and allergies, Endocrine: Negative for neck swelling, polydipsia, polyuria, polyphagia, and marked weight changes, Hematologic/Lymphatic: Negative for swollen nodes, abnormal bleeding, and unusual bruising. Neuro: Positive for headache, Negative for altered mental status, dizziness, gait disturbance, hearing loss, loss of consciousness, numbness, visual changes. Exam: 08:01 Constitutional: This is a well developed, well nourished patient who is awake, alert, kdr and in no acute distress. Head/Face: Normocephalic, atraumatic. Eyes: Pupils equal round and reactive to light, extra-ocular motions intact. Lids and lashes normal. Conjunctiva and sclera are non-icteric and not injected. Cornea within normal limits. Periorbital areas with no swelling, redness, or edema. Neck: Trachea midline, no thyromegaly or masses palpated, and no cervical lymphadenopathy. Supple, full range of motion without nuchal rigidity, or vertebral point tenderness. No Meningismus. Chest/axilla: Normal chest wall appearance and motion. Nontender with no deformity. No lesions are appreciated. Cardiovascular: Regular rate and rhythm with a normal S1 and S2. No gallops, murmurs, or rubs. Normal PMI, no JVD. No pulse deficits. Respiratory: Lungs have equal breath sounds bilaterally, clear to auscultation and percussion. No rales, rhonchi or wheezes noted. No increased work of breathing, no retractions or nasal flaring. Abdomen/GI: Soft, non-tender, with normal bowel sounds. No distension or tympany. No guarding or rebound. No evidence of tenderness throughout. Back: No spinal tenderness. No costovertebral tenderness. Full range of motion. Skin: Warm, dry with normal turgor. Normal color with no rashes, no lesions, and no evidence of cellulitis. MS/ Extremity: Pulses equal, no cyanosis. Neurovascular intact. Full, normal range of motion. Neuro: Awake and alert, GCS 15, oriented to person, place, time, and situation. Cranial nerves II-XII grossly intact. Motor strength 5/5 in all extremities. Sensory grossly intact. Cerebellar exam normal. Normal gait. Psych: Awake, alert, with orientation to person, place and time. Behavior, mood, and affect are within normal limits. Vital Signs: 04/16 17:09 BP 118 / 75; Pulse 80; Resp 18; Temp 100.6(O); Pulse Ox 92% ; Weight 90.72 kg; Height 5 vg1 ft. 2 in. (157.48 cm); Pain 8/10; 18:06 BP 114 / 73; Pulse 70; Resp 17; Pulse Ox 92% on R/A; jg9 18:56 BP 113 / 69; Pulse 65; Pulse Ox 93% on R/A; ap3 17:09 Body Mass Index 36.58 (90.72 kg, 157.48 cm) vg1 Everette Coma Score: 18:06 Eye Response: spontaneous(4). Verbal Response: oriented(5). Motor Response: obeys jg9 commands(6). Total: 15. MDM: 19:10 Patient medically screened. sp3 20:48 Data reviewed: vital signs, nurses notes. ED course: Patient signed out to me by sp3 daytime physician at 7 PM. Patient is a 50-year-old female with well-documented headache history. CT scan of the head is negative and laboratory values are all normal. There is no nuchal rigidity there is no history of thunderclap headache or worst headache of the life. Clinically I do not believe patient has a subarachnoid hemorrhage or meningitis. Will discharge patient home on OTC meds and PCP follow-up at this time.. 04/16 18:56 Order name: CBC with Diff; Complete Time: 20:48 kdr 04/16 18:56 Order name: Chem 7; Complete Time: 20:48 kdr 04/16 18:55 Order name: CT Head Brain wo Cont; Complete Time: 20:09 kdr Administered Medications: 21:04 Drug: [place] (HYDROcodone-acetaminophen) 5 mg-325 mg 1 tabs Route: PO; mr2 Disposition Summary: 04/16/21 20:50 Discharge Ordered Location: Home sp3 Condition: Stable sp3 Diagnosis - Headache sp3 Followup: sp3 - With: Private Physician - When: As needed - Reason: Recheck today's complaints Discharge Instructions: - Discharge Summary Sheet sp3 - General Headache Without Cause sp3 Forms: - Medication Reconciliation Form sp3 - Thank You Letter sp3 - Antibiotic Education sp3 - Prescription Opioid Use sp3 Signatures: Dispatcher [employer] EDMS Lalti Robledo MD MD kdr Chelsey Dias RN RN vg1 Tony Schroeder MD MD sp3 Jens Barillas RN RN mr2
[2021-04-16] MEDS ORDERED: HYDROCODONE/APAP 5/325 MG TAB ONE (21:01)
[2021-04-16 22:19] VITALS: TEMP 100.6
[2021-04-16 22:22] VITALS: BP 113/69; O2SAT 93
== END 2021-04-16 21:26 | disposition home or self-care (01) ==
LOC: ER 17:03
DX: R51.9 Headache, unspecified (principal); F17.210 Nicotine dependence, cigarettes, uncomplicated
CPT/HCPCS: 36415; 70450; 80048; 85025; 99283

== ENCOUNTER 2022-01-03 05:22 | Inpatient (IN) | payer OTHER, SELFPAY ==
--- OUTSIDE RECORDS SUMMARY | 2022-01-03 05:27 | XMS REPORT | Continuity of Care Document ---
:1970 Author Organization [facility] t Address [address] [place] [address] Care Team Providers Name Role Phone Hira Garcia MD, Thuan Worthington Primary Care Physician [phone] AFIA ADKINS Attending Clinician Unavailable Afia Glass Attending Clinician MACKENZIE WILLIS Attending Clinician Unavailable Mackenzie Pierce Attending Clinician BLAKE CERVANTES JR. 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 [id number] HEALTH Problems Condition Condition Condition Status Onset Resolution Last Treating Co mments Source Name Details Category Date Date Treatment Clinician Date No known No known Disease [facility] active [place] problems problems of Medicin e Allergies, Adverse Reactions, Alerts Allergy Allergy Status Severity Reaction(s) Onset Inactive Treating Comm ents Source Name Type Date Date Clinician Acetamin Propensi Active Itching Unive rs ophen ty to 5 ity of adverse 00:00: [place] reaction 00 Medical s Branch ACETAMIN DRUG Active ITCHING Univers OPHEN INGREDI 5 ity of 00:00: [place] 00 Medical Branch Pantopra Propensi Active Other (See Ba ylor zole ty to Comments) 8 College Sodium adverse 00:00: of reaction 00 Medicin s to e drug Pantopra Propensi Active Unknown - Uni vers zole ty to See comments 8 ity of Sodium adverse 00:00: [place] reaction 00 Medical s Branch PANTOPRA DRUG Active Unknown-Cmnt 0 Un agustín ZOLE INGREDI 12-10 ity of SODIUM 00:00: [place] 00 Medical Branch NO KNOWN Drug Active Univers ALLERGIE Class ity of S [facility] Social History Social Habit Start Date Stop Date Quantity Comments Source Exposure to 2021-11-08 2021-11-18 Not sure [facility] SARS-CoV-2 (event) 00:00:00 23:45:00 [facility] Cigarettes smoked 2021-04-01 2021-04-01 [facility] current (pack per 00:00:00 00:00:00 Medicin e day) - Reported Tobacco use and 2021-04-01 2021-04-01 Smokeless [facility] l[facility] of exposure 00:00:00 00:00:00 tobacco non-user Medicine Alcohol intake 2021-04-01 2021-04-01 Current drinker [facility] of 00:00:00 00:00:00 of alcohol Medicine (finding) Sex [birth year] [facility] kes 00:00:00 00:00:00 [facility] Center Smoking Status Start Date Stop Date Source Smokes tobacco daily 2021-04-01 00:00:00 [facility] Tobacco smoking consumption [facility] Medical unknown Branch Medications Ordered Filled Start Stop Current Ordering Indication Dosage Frequency Signature Comments Components Source Medication Medication Date Date Medication? Clinician (SIG) Name Name HYDROcodone 2021- No 1{tbl} 1 tablet, Univers -acetaminop 11-19 Oral, ity of hen (NORCO 07:45: 07:42 ONCE, 1 [place] 5) 5-325 mg 00 :00 dose, On Medi landon tablet 1 [facility] Branch tablet 11/19/21 at 0245, AMANDA aspirin 2021- No 325mg 325 mg, Unive rs tablet 325 11-19 Oral, ity of mg 07:00: 06:29 ONCE, 1 [place] 00 :00 dose, On Medical [place] Branch 11/19/21 at 0200, STAT iopamidol 2021- No [id number] 80mL 80 mL, U nivers (ISOVUE 11-19 Intravenou ity o f 370-500 mL) 06:53: 06:53 s, ONCE, 1 [place] injection 00 :00 dose, On Medica l 80 mL [place] Branch 11/19/21 at 0200, Routine traMADoL 2021- No 50mg 50 mg, Univer s (ULTRAM) 07-31 Oral, ity of tablet 50 19:30: 18:40 ONCE, 1 [place] mg 00 :00 dose, On Medical Tue07/31/21 Branch at 1430, Routine ketorolac 2021- No 30mg 30 mg, Unive rs (TORADOL) 07-31 Intramuscu ity of injection 19:30: 18:40 lar, ONCE, [place] 30 mg 00 :00 1 dose, On Medical Tue07/31/21 Branch at 1430, Routine cyclobenzap Yes [id number] 10mg Take 1 Univers rine 10 mg 07-31 9103 tablet by ity of tablet 00:00: mouth [place] 00 every 8 Medical (eight) Branch hours as needed for Muscle Spasms. naproxen Yes [id number] 500mg Take 1 Univers 500 mg 07-31 9103 tablet by ity of tablet 00:00: mouth [place] 00 every 12 Medical (twelve) Branch hours as needed for Pain (scale 1-3) or Pain (scale 4-6). cyclobenzap Yes [id number] 10mg Take 1 Univers rine 10 mg 07-31 9103 tablet by ity of tablet 00:00: mouth [place] 00 every 8 Medical (eight) Branch hours as needed for Muscle Spasms. naproxen Yes [id number] 500mg Take 1 Univers 500 mg 07-31 9103 tablet by ity of tablet 00:00: mouth [place] 00 every 12 Medical (twelve) Branch hours as needed for Pain (scale 1-3) or Pain (scale 4-6). tizanidine 2020-05 Yes 2mg Take 1 [facility] (ZANAFLEX) 2- Tablet by [facility] ege 2 MG [...] e clonazepam 2020-05 Yes .5mg Take 0.5 [place] darrell (KLONOPIN) 1-01 mg by [place] 1 MG tablet 00:00: mouth of 00 daily. Medicin e aripiprazol 2020-05 Yes 1{tbl} Take 1 Ba ylor e (ABILIFY) 1- Tablet by Col lege 5 MG tablet 00:00: mouth of 00 daily. Medicin e methocarbam 2020-05- No 750mg Take 1 Ba ylor ol 0-21 04-01 Tablet by [place] (ROBAXIN) 00:00: 00:00 mouth 2 of 750 MG 00 :00 times Medicin tablet daily as e needed. meloxicam 2020- No TAKE 1 [facility] (MOBIC) 7.5 01-07 TABLET BY Co llege MG tablet 00:00: 00:00 MOUTH of 00 :00 EVERY DAY Medicin e FENTanyl PF No 50ug 50 mcg, Un agustín (SUBLIMAZE 09-24- Slow IV ity o f (PF)) 03:45: 02:43 Push, [place] injection 00 :00 ONCE, 1 Medical 50 mcg dose, Tue Branch 09/23/20 at 2245, Routine methocarbam Yes [id number] 750mg Take 1 Univers oL 5-25 tablet by ity of (ROBAXIN-75 00:00: mouth 4 [place] 0) 750 mg 00 (four) Medical tablet times Branch daily as needed for Pain (scale 7-10). methocarbam 2021- No [id number] 750mg Take 1 Univers oL 5-25 04- tablet by ity of (ROBAXIN-75 00:00: 00:00 mouth 4 [place] 0) 750 mg 00 :00 (four) Medical tablet times Branch daily as needed for Pain (scale 7-10). traMADoL No [id number] 50mg Take 1 Univer s (ULTRAM) 50 -24 10- tablet by it y of mg tablet 00:00: 04:59 mouth [place] 00 :00 every 6 Medical (six) Branch hours as needed for Pain (scale 7-10) for up to 7 days. Indication s: acute pain traMADol Yes 50mg 50 mg, Univers (ULTRAM) 12-10 Oral, ity of tablet 50 16:18: Q6HPRN, [place] mg 36 Starting Medical [facility] Branch 12/11/19 at 1118, Until Discontinu ed, AMANDA, pain famotidine 2019- No 20mg 20 mg, Univ ers (PEPCID 12-10 Intravenou ity o f (PF)) 14:45: 14:35 s, ONCE, 1 [place] injection 00 :00 dose, Tue Medic al 20 mg 12/11/19 at Branch 0945, Routine ondansetron 2019- No 4mg 4 mg, Slow Univers [...] at Branch 0945, STAT ondansetron 2020-0 Yes [id number] 4mg Take 1 Univers 4 mg tablet 8-11 tablet by ity of 00:00: mouth [place] 00 every 8 Medical (eight) Branch hours as needed for Nausea and Vomiting (N/V). famotidine 2020-0 Yes [id number] 40mg Take 1 U nivers (PEPCID) 40 8-11 tablet by ity of mg tablet 00:00: mouth [place] 00 daily. Medical Branch ondansetron 2020-0 Yes [id number] 4mg Take 1 Univers 4 mg tablet 8-11 tablet by ity of 00:00: mouth [place] 00 every 8 Medical (eight) Branch hours as needed for Nausea and Vomiting (N/V). famotidine 2020-0 Yes [id number] 40mg Take 1 U nivers (PEPCID) 40 8-11 tablet by ity of mg tablet 00:00: mouth [place] 00 daily. Medical Branch ondansetron 2020-0 Yes [id number] 4mg Take 1 Univers 4 mg tablet 8-11 tablet by ity of 00:00: mouth [place] 00 every 8 Medical (eight) Branch hours as needed for Nausea and Vomiting (N/V). famotidine 2020-0 Yes [id number] 40mg Take 1 U nivers (PEPCID) 40 8-11 tablet by ity of mg tablet 00:00: mouth [place] 00 daily. Medical Branch ondansetron 2020-0 Yes [id number] 4mg Take 1 Univers 4 mg tablet 8-11 tablet by ity of 00:00: mouth [place] 00 every 8 Medical (eight) Branch hours as needed for Nausea and Vomiting (N/V). famotidine 2020-0 Yes [id number] 40mg Take 1 U nivers (PEPCID) 40 8-11 tablet by ity of mg tablet 00:00: mouth [place] 00 daily. Medical Branch famotidine 2020-0 Yes 1{tbl} Take 1 [place] darrell (PEPCID) 40 8-11 Tablet by Col lege MG tablet 00:00: mouth of 00 daily. Medicin e ondansetron 2019-0 Yes 4mg Take 4 mg [facility] (ZOFRAN) 4 8- by mouth. [facility] MG tablet 00:00: of 00 Medicin e traMADol 50 2019-0 2020- No [id number] 50mg Take 1 Uni vers mg tablet 12-10- tablet by ity of 00:00: 04:59 mouth [place] 00 :00 every 6 Medical (six) Branch hours as needed (pain) for up to 7 days. Indication s: acute pain LORazepam 2019- No 1mg 1 mg, Univer s (ATIVAN) 11-29 Oral, ity of tablet 1 mg 04:00: 03:18 ONCE, 1 [place] 00 :[place] dose, [facility] 11/29/19 at Branch 2300, AMANDA NaCl 0.9% Yes 1000mL at 500 Univ ers (NS) IV 731 mL/hr, ity of infusion 02:00: Intravenou [place] 1,000 mL 00 s, Medical CONTINUOUS Branch , Starting [facility] 11/29/19 at 2100, Until Discontinu ed, AMANDA ketorolac 2019- No 30mg 30 mg, Unive rs (TORADOL) 11-29 Slow IV ity of injection 02:00: 01:08 Push, [place] 30 mg 00 :00 ONCE, 1 Medical dose, [facility] 11/29/19 at 2100, Routine
outreach team member approving Restricted medication : ARLEY CH famotidine 2019- No 20mg 20 mg, Univ ers (PEPCID AC) 11-28 Oral, ity of tablet 20 23:45: 22:48 ONCE, 1 [place] mg 00 :00 dose, [facility] 11/29/19 at Branch 1845, AMANDA diphenhydrA 2019- No 50mg 50 mg, Uni vers MINE 11-28 Oral, ity of (BENADRYL) 23:45: 22:48 ONCE, 1 [place] tablet 50 00 :00 dose, [place] [facility] al mg 11/29/19 at Branch 1845, AMANDA dexamethaso 2019- No 10mg 10 mg, Uni vers ne 11-28 Intramuscu ity of (DECADRON 22:42: 22:50 lar, ONCE, [place] PHOSPHATE) 00 :00 1 dose, Medica l injection [place] [facility] 10 mg 11/29/19 at 1745, STAT methylPREDN 2020-0 Yes [id number] Take by [facility] ISolone 4 7-30 mouth ity of mg tablets 00:00: SEE-INSTRU [place] 00 CTIONS. Medical follow Branch package directions methylPREDN 2020-0 Yes [id number] Take by [facility] ISolone 4 7-30 mouth ity of mg tablets 00:00: SEE-INSTRU [place] 00 CTIONS. Medical follow Branch package directions methylPREDN 2020-0 Yes [id number] Take by [facility] ISolone 4 7-30 mouth ity of mg tablets 00:00: SEE-INSTRU [place] 00 CTIONS. Medical follow Branch package directions methylPREDN 2020-0 Yes [id number] Take by [facility] ISolone 4 7-30 mouth ity of mg tablets 00:00: SEE-INSTRU [place] 00 CTIONS. Medical follow Branch package directions methylPREDN 2020-0 Yes [id number] Take by [facility] ISolone 4 7-30 mouth ity of mg tablets 00:00: SEE-INSTRU [place] 00 CTIONS. Medical follow Branch package directions methylPREDN 2020-0 Yes [id number] Take by [facility] ISolone 4 7-30 mouth ity of mg tablets 00:00: SEE-INSTRU [place] 00 CTIONS. Medical follow Branch package directions methylPREDN 2020-0 Yes [id number] Take by [facility] ISolone 4 7-30 mouth ity of mg tablets 00:00: SEE-INSTRU [place] 00 CTIONS. Medical follow Branch package directions methylPREDN 2020-0 Yes Take by [facility] ISolone 4 7-30 mouth. College MG TBPK 00:00: of 00 Medicin e famotidine 2020-0 2020- No [id number] 20mg Take 1 Univers (PEPCID) 20 7-30 -14 tablet by it y of mg tablet 00:00: 04:59 mouth 2 [place] 00 :00 (two) Medical times Branch daily for 14 days. famotidine 2020-0 2020- No [id number] 20mg Take 1 Univers (PEPCID) 20 7-30 08-14 tablet by it y of mg tablet 00:00: 04:59 mouth 2 [place] 00 :00 (two) Medical times Branch daily for 14 days. famotidine 2019- 2020- No [id number] 20mg Take 1 Univers (PEPCID) 20 11-28 08-14 tablet by it y of mg tablet 00:00: 04:59 mouth 2 [place] 00 :00 (two) Medical times Branch daily for 14 days. famotidine 2019-2019- No [id number] 20mg Take 1 Univers (PEPCID) 20 11-28-14 tablet by it y of mg tablet 00:00: 04:59 mouth 2 [place] 00 :00 (two) Medical times Branch daily for 14 days. LORazepam 2019- 2020- No [id number] 1mg Take 1 U nivers (ATIVAN) 1 11-28- tablet by ity of mg tablet 00:00: 04:59 mouth at [place] [facility] 00 :00 bedtime Medical for 5 Branch days. LORazepam 2019-2019- No [id number] 1mg Take 1 U nivers (ATIVAN) 1 11-28 tablet by ity of mg tablet 00:00: 04:59 mouth at [place] 00 :00 bedtime Medical for 5 Branch days. LORazepam 2019-2019- No [id number] 1mg Take 1 U nivers (ATIVAN) 1 11-28 tablet by ity of mg tablet 00:00: 04:59 mouth at [place] 00 :00 bedtime Medical for 5 Branch days. FENTanyl PF 2019- No 50ug 50 mcg, Un agustín (SUBLIMAZE 11-27 Slow IV ity o f (PF)) 03:30: 02:34 Push, [place] injection 00 :00 ONCE, 1 Medical 50 mcg dose, Tue Branch 11/27/19 at 2230, Routine iohexol 2019-2019- No 120mL 120 mL, Unive rs (OMNIPAQUE 11-27 Intravenou it y of 350 03:15: 02:58 s, ONCE, 1 [place] BULK-150 00 :00 dose, Tue Medica l mL) 11/27/19 at Branch injection 2215, 120 mL Routine ketorolac 2019-2019- No 30mg 30 mg, Unive rs (TORADOL) 11-27 Slow IV ity of injection 02:45: 01:44 Push, [place] 30 mg 00 :00 ONCE, 1 Medical dose, [facility] Branch 11/27/19 at 2145, Routine
outreach team member approving Restricted medication : XIAO MOTT dicyclomine 2019- No 20mg 20 mg, Uni vers (BENTYL) 11-27 Intramuscu ity of injection 02:45: 01:45 lar, ONCE [place] 20 mg 00 :00 NOW, 1 Medical dose, [facility] Branch 11/27/19 at 2145, Routine pantoprazol 2019- No 40mg 40 mg, IV Univers e 11-27 Piggyback, ity of (PROTONIX) 02:00: 01:21 ONCE, 1 [place] 40 mg in 00 :00 dose, Tue Medica l NaCl 0.9% 11/27/19 at [facility] ch (NS) 100 mL 2100, 100 MINI-BAG mL FENTanyl PF 2019- No 50ug 50 mcg, Un agustín (SUBLIMAZE 11-27 Slow IV ity o f (PF)) 02:00: 01:04 Push, [place] injection 00 :00 ONCE, 1 Medical 50 mcg dose, [facility] Branch 11/27/19 at 2100, Routine proMETHazin 2019- No 25mg 25 mg, IV Univers e 11-27 Piggyback, ity of (PHENERGAN) 02:00: 00:56 ONCE, 1 [place] 25 mg in 00 :00 dose, Tue Medica l NaCl 0.9% 11/27/19 at [facility] ch (NS) 50 mL 2100, 50 piggyback mL NaCl 0.9% 2020- No 1000mL at 999 Uni vers (NS) bolus 11-27 mL/hr, ity of infusion 01:45: 03:43 1,000 mL, [place] 1,000 mL 00 :00 IV Medical Infusion, Branch ONCE, 1 dose, [facility] 11/27/19 at 2045, STAT ondansetron 2019- No 4mg 4 mg, Slow Univers (ZOFRAN 11-27 IV Push, ity of (PF)) 01:45: 00:43 ONCE, 1 [place] injection 4 00 :00 dose, Tue Med ical mg 7/28/20 at Branch 2045, AMANDA dicyclomine 2020-0 Yes [id number] 20mg Take 1 Univers 20 mg 7-28 tablet by ity of tablet 00:00: mouth [place] 00 every 6 Medical (six) Branch hours as needed for Abdominal pain. proMETHazin 2020-0 Yes [id number] 25mg Take 1 Univers e 25 mg 7-28 tablet by ity of tablet 00:00: mouth [place] 00 every 6 Medical (six) Branch hours as needed for N/V unresponsi ve to Ondansetro n. proMETHazin 2020-0 Yes [id number] 25mg Insert 1 Univers e 7-28 Suppositor ity of (PHENERGAN) 00:00: y into [place] 25 mg 00 rectum Medical suppository every 4 Branc h (four) hours as needed for Nausea and Vomiting (N/V) or N/V unresponsi ve to oral antiemetic s. lactulose 2020-0 Yes [id number] 30mL Take 30 mL Univers 10 gram/15 7-28 by mouth 3 ity of mL oral 00:00: (three) [place] solution 00 times Medical daily as Branch needed for Constipati on or For bowel movement. dicyclomine 2020-0 Yes [id number] 20mg Take 1 Univers 20 mg 7-28 tablet by ity of tablet 00:00: mouth [place] 00 every 6 Medical (six) Branch hours as needed for Abdominal pain. proMETHazin 2020-0 Yes [id number] 25mg Take 1 Univers e 25 mg 7-28 tablet by ity of tablet 00:00: mouth [place] 00 every 6 Medical (six) Branch hours as needed for N/V unresponsi ve to Ondansetro n. proMETHazin 2020-0 Yes [id number] 25mg Insert 1 Univers e 7-28 Suppositor ity of (PHENERGAN) 00:00: y into [place] 25 mg 00 rectum Medical suppository every 4 Branc h (four) hours as needed for Nausea and Vomiting (N/V) or N/V unresponsi ve to oral antiemetic s. lactulose 2020-0 Yes [id number] 30mL Take 30 mL Univers 10 gram/15 7-28 by mouth 3 ity of mL oral 00:00: (three) [place] solution 00 times Medical daily as Branch needed for Constipati on or For bowel movement. dicyclomine 2020-0 Yes [id number] 20mg Take 1 Univers 20 mg 7-28 tablet by ity of tablet 00:00: mouth [place] 00 every 6 Medical (six) Branch hours as needed for Abdominal pain. proMETHazin 2020-0 Yes [id number] 25mg Take 1 Univers e 25 mg 7-28 tablet by ity of tablet 00:00: mouth [place] 00 every 6 Medical (six) Branch hours as needed for N/V unresponsi ve to Ondansetro n. proMETHazin 2020-0 Yes [id number] 25mg Insert 1 Univers e 7-28 Suppositor ity of (PHENERGAN) 00:00: y into [place] 25 mg 00 rectum Medical suppository every 4 Branc h (four) hours as needed for Nausea and Vomiting (N/V) or N/V unresponsi ve to oral antiemetic s. lactulose 2020-0 Yes [id number] 30mL Take 30 mL Univers 10 gram/15 7-28 by mouth 3 ity of mL oral 00:00: (three) [place] solution 00 times Medical daily as Branch needed for Constipati on or For bowel movement. dicyclomine 2020-0 Yes [id number] 20mg Take 1 Univers 20 mg 7-28 tablet by ity of tablet 00:00: mouth [place] 00 every 6 Medical (six) Branch hours as needed for Abdominal pain. proMETHazin 2020-0 Yes [id number] 25mg Take 1 Univers e 25 mg 7-28 tablet by ity of tablet 00:00: mouth [place] 00 every 6 Medical (six) Branch hours as needed for N/V unresponsi ve to Ondansetro n. proMETHazin 2020-0 Yes [id number] 25mg Insert 1 Univers e 7-28 Suppositor ity of (PHENERGAN) 00:00: y into [place] 25 mg 00 rectum Medical suppository every 4 Branc h (four) hours as needed for Nausea and Vomiting (N/V) or N/V unresponsi ve to oral antiemetic s. lactulose 2020-0 Yes [id number] 30mL Take 30 mL Univers 10 gram/15 7-28 by mouth 3 ity of mL oral 00:00: (three) [place] solution 00 times Medical daily as Branch needed for Constipati on or For bowel movement. dicyclomine 2020-0 Yes [id number] 20mg Take 1 Univers 20 mg 7-28 tablet by ity of tablet 00:00: mouth [place] 00 every 6 Medical (six) Branch hours as needed for Abdominal pain. proMETHazin 2020-0 Yes [id number] 25mg Take 1 Univers e 25 mg 7-28 tablet by ity of tablet 00:00: mouth [place] 00 every 6 Medical (six) Branch hours as needed for N/V unresponsi ve to Ondansetro n. proMETHazin 2020-0 Yes [id number] 25mg Insert 1 Univers e 7-28 Suppositor ity of (PHENERGAN) 00:00: y into [place] 25 mg 00 rectum Medical suppository every 4 Branc h (four) hours as needed for Nausea and Vomiting (N/V) or N/V unresponsi ve to oral antiemetic s. dicyclomine 2020-0 Yes [id number] 20mg Take 1 Univers 20 mg 7-28 tablet by ity of tablet 00:00: mouth [place] 00 every 6 Medical (six) Branch hours as needed for Abdominal pain. lactulose 2019-0 Yes [id number] 30mL Take 30 mL Univers 10 gram/15 7-28 by mouth 3 ity of mL oral 00:00: (three) [place] solution 00 times Medical daily as Branch needed for Constipati on or For bowel movement. pantoprazol 2019-0 Yes [id number] 40mg Take 1 Univers e 7-28 tablet by ity of (PROTONIX) 00:00: mouth [place] 40 mg EC 00 daily. Medical tablet Branch proMETHazin 2020-0 Yes [id number] 25mg Take 1 Univers e 25 mg 7-28 tablet by ity of tablet 00:00: mouth [place] 00 every 6 Medical (six) Branch hours as needed for N/V unresponsi ve to Ondansetro n. proMETHazin 2020-0 Yes [id number] 25mg Insert 1 Univers e 7-28 Suppositor ity of (PHENERGAN) 00:00: y into [place] 25 mg 00 rectum Medical suppository every 4 Branc h (four) hours as needed for Nausea and Vomiting (N/V) or N/V unresponsi ve to oral antiemetic s. dicyclomine 2020-0 Yes [id number] 20mg Take 1 Univers 20 mg 7-28 tablet by ity of tablet 00:00: mouth [place] 00 every 6 Medical (six) Branch hours as needed for Abdominal pain. dicyclomine 2020-0 Yes 20mg Take 20 mg [facility] (BENTYL) 20 7-28 by mouth. Col lege MG tablet 00:00: of 00 Medicin e proMETHazin 2020-0 Yes [id number] 25mg Take 1 Univers e 25 mg 7-28 tablet by ity of tablet 00:00: mouth [place] 00 every 6 Medical (six) Branch hours as needed for N/V unresponsi ve to Ondansetro n. proMETHazin 2020-0 Yes [id number] 25mg Insert 1 Univers e 7-28 Suppositor ity of (PHENERGAN) 00:00: y into [place] 25 mg 00 rectum Medical suppository every 4 Branc h (four) hours as needed for Nausea and Vomiting (N/V) or N/V unresponsi ve to oral antiemetic s. lactulose 2020-0 Yes [id number] 30mL Take 30 mL Univers 10 gram/15 7-28 by mouth 3 ity of mL oral 00:00: (three) [place] solution 00 times Medical daily as Branch needed for Constipati on or For bowel movement. lactulose 2020-0 Yes [id number] 30mL Take 30 mL Univers 10 gram/15 7-28 by mouth 3 ity of mL oral 00:00: (three) [place] solution 00 times Medical daily as Branch needed for Constipati on or For bowel movement. dicyclomine 2020-0 Yes [id number] 20mg Take 1 Univers 20 mg 7-28 tablet by ity of tablet 00:00: mouth [place] 00 every 6 Medical (six) Branch hours as needed for Abdominal pain. proMETHazin 2020-0 Yes [id number] 25mg Take 1 Univers e 25 mg 7-28 tablet by ity of tablet 00:00: mouth [place] 00 every 6 Medical (six) Branch hours as needed for N/V unresponsi ve to Ondansetro n. proMETHazin 2020-0 Yes [id number] 25mg Insert 1 Univers e 7-28 Suppositor ity of (PHENERGAN) 00:00: y into [place] 25 mg 00 rectum Medical suppository every 4 Branc h (four) hours as needed for Nausea and Vomiting (N/V) or N/V unresponsi ve to oral antiemetic s. lactulose 2020-0 Yes [id number] 30mL Take 30 mL Univers 10 gram/15 7-28 by mouth 3 ity of mL oral 00:00: (three) [place] solution 00 times Medical daily as Branch needed for Constipati on or For bowel movement. lactulose 2019-0 Yes 30mL Take 30 mL Ba [facility] (CHRONULAC) 7-28 by mouth. Col lege 10 GM/15ML 00:00: of solution 00 Medicin e promethazin 2019-[address] 25 Ba ylor e 7-28 mg College (PHENERGAN) 00:00: rectally. o f 25 MG 00 Medicin suppository e pantoprazol 2020- No [id number] 40mg Take 1 Univers e 7- 07-30 tablet by ity of (PROTONIX) 00:00: 00:00 mouth [place] 40 mg EC 00 :00 daily. Medical tablet Branch Vital Signs Vital Name Observation Time Observation Value Comments Source Systolic blood 2021-11-19 07:00:00 139 mm[Hg] [facility] Diastolic blood 2021-11-19 07:00:00 97 [facility] 2021-11-19 07:00:00 60 /min [facility] Respiratory rate 2021-11-19 07:00:00 24 /min [facility] Oxygen saturation in 2021-11-19 07:00:00 97 /min [facility] Arterial blood by [facility] [place] Pulse oximetry Branch Body temperature 2021-11-19 04:46:00 36.83 Loan [facility] Body height 2021-11-19 04:46:00 157.5 cm [facility] Body weight 2021-11-19 04:46:00 100.699 kg [facility] BMI 2021-11-19 04:46:00 40.60 kg/m2 [facility] Systolic blood 2021-07-31 18:03:00 127 mm[Hg] [facility]iver [facility] Diastolic blood 2021-07-31 18:03:00 97 mm[facility]Hg[facility] 2021-07-31 18:03:00 71 /min [facility] Body temperature 2021-07-31 18:03:00 37.17 Loan [facility] Respiratory rate 2021-07-31 18:03:00 19 /min [facility] Body height 2021-07-31 18:03:00 157.5 cm [facility] Body weight 2021-07-31 18:03:00 96.616 kg [facility] BMI 2021-07-31 18:03:00 38.96 kg/m2 [facility] Oxygen saturation in 2021-07-31 18:03:00 99 /min [facility] Arterial blood by [place] [employer] [facility] Pulse oximetry Branch Systolic blood 2021-04-01 15:14:00 134 mm[Hg] [facility] Medicine Diastolic blood 2021-04-01 15:14:00 82 mm[Hg] [facility] Medicine Heart rate 2021-04-01 15:14:00 78 /min [facility] Body temperature 2021-04-01 15:14:00 37.39 Loan [facility] Respiratory rate 2021-04-01 15:14:00 16 /min [facility] Body height 2021-04-01 15:14:00 157.5 cm [facility] Body weight 2021-04-01 15:14:00 83.915 kg [facility] BMI 2021-04-01 15:14:00 33.84 kg/m2 [facility] Systolic blood 2020-09-24 03:00:00 128 mm[Hg] Univer sity of pressure [facility] Diastolic blood 2020-09-24 03:00:00 90 mm[Hg] Unive rsity of pressure [facility] Heart rate 2020-09-24 03:00:00 57 /min Universi ty of [facility] Branch Respiratory rate 2020-09-24 03:00:00 12 /min Univ ersity of [facility] Oxygen saturation in 2020-09-24 03:00:00 97 /min University of Arterial blood by [place] [employer] [facility] Pulse oximetry Branch Body temperature 2020-09-23 23:34:00 36.94 Loan Univ [facility] Body weight 2020-09-23 23:34:00 77.111 kg [facility] BMI 2020-09-23 23:34:00 31.09 kg/m2 [facility] Systolic blood 2019-12-11 15:50:00 149 mm[Hg] Univer sity of pressure [facility] Diastolic blood 2019-12-11 15:50:00 96 mm[Hg] Unive rsity of pressure [facility] Heart rate 2019-12-11 15:50:00 75 /min [facility] Body temperature 2019-12-11 15:50:00 36.83 Loan [facility] Respiratory rate 2019-12-11 15:50:00 20 /min Univ [facility] Oxygen saturation in 2019-12-11 15:50:00 99 /min University of Arterial blood by [facility] landon Pulse oximetry Branch Body weight 2019-12-11 12:55:00 77.111 kg [facility] BMI 2019-12-11 12:55:00 31.09 kg/m2 [facility] Systolic blood 2019-12-11 15:50:00 149 mm[Hg] Univer sity of [facility] Diastolic blood 2019-12-11 15:50:00 96 mm[Hg] Unive rsity of pressure [facility] Heart rate 2019-12-11 15:50:00 75 /min [facility] Body temperature 2019-12-11 15:50:00 36.83 Loan Univ [facility] Respiratory rate 2019-12-11 15:50:00 20 /min Univ [facility] Oxygen saturation in 2019-12-11 15:50:00 99 /min [facility] Ar[place]ial blood by [place] [facility] Branch Body weight 2019-12-11 12:55:00 77.111 kg [facility] BMI 2019-12-11 12:55:00 31.09 kg/m2 [facility] Systolic blood 2019-11-30 03:00:00 127 mm[Hg] Univer sity of pressure [facility] Diastolic blood 2019-11-30 03:00:00 78 mm[Hg] Unive rsity of pressure [facility] Heart rate 2019-11-30 03:00:00 71 /min [facility] Respiratory rate 2019-11-30 03:00:00 20 /min Univ [facility] Oxygen saturation in 2019-11-30 03:00:00 98 /min University of Arterial blood by [facility] Pulse oximetry [place] Body temperature 2019-11-29 22:39:00 37.44 Loan Univ [facility] Body height 2019-11-29 22:39:00 157.5 cm [facility] Body weight 2019-11-29 22:39:00 77.111 kg [facility] BMI 2019-11-29 22:39:00 31.09 kg/m2 [facility] Systolic blood 2019-11-30 03:00:00 127 mm[Hg] Univer sity of pressure [facility] Diastolic blood 2019-11-30 03:00:00 78 mm[Hg] Unive rsity of [facility] Heart rate 2019-11-30 03:00:00 71 /min [facility] Respiratory rate 2019-11-30 03:00:00 20 /min Univ [facility] Oxygen saturation in 2019-11-30 03:00:00 98 /min University of Arterial blood by [facility] Pulse oximetry Branch Body temperature 2019-11-29 22:39:00 37.44 Loan Univ [facility] Body height 2019-11-29 22:39:00 157.5 cm [facility] Body weight 2019-11-29 22:39:00 77.111 kg [facility] BMI 2019-11-29 22:39:00 31.09 kg/m2 [facility] Systolic blood 2019-11-28 03:42:00 158 mm[Hg] Univer sity of pressure [facility] Diastolic blood 2019-11-28 03:42:00 88 mm[Hg] Unive rsity of pressure [facility] Heart rate 2019-11-28 03:42:00 79 /min [facility] Respiratory rate 2019-11-28 03:42:00 20 /min Univ [facility] Oxygen saturation in 2019-11-28 03:42:00 98 /min University of [place]ial blood by [place] [facility] P[facility] oxim[facility] Branch Body temperature 2019-11-28 00:40:00 37.5 Loan [facility] ersity [facility] Body height 2019-11-28 00:37:00 157.5 cm Universi ty of [facility] Body weight 2019-11-28 00:37:00 77.111 kg Universi ty of [facility] BMI 2019-11-28 00:37:00 31.09 kg/m2 Universi ty of [facility] Systolic blood 2019-11-28 03:42:00 158 mm[Hg] Univer sity of pressure [facility] Diastolic blood 2019-11-28 03:42:00 88 mm[Hg] Unive rsity of [facility] Heart rate 2019-11-28 03:42:00 79 /min Universi ty [facility] Respiratory rate 2019-11-28 03:42:00 20 /min [facility] Oxygen saturation in 2019-11-28 03:42:00 98 /min [facility] Arterial blood by [facility] Pulse oximetry Branch Body temperature 2019-11-28 00:40:00 37.5 Loan [facility] ersity [facility] Body height 2019-11-28 00:37:[address] [facility] Body weight 2019-11-28 00:37:[address] [facility] BMI 2019-11-28 00:37:00 31.09 kg/m2 [facility] Procedures Procedure Date / Time Performing Clinician Source Performed CT CHEST PULMONARY 2021-11-19 06:57:47 Afia Adkins [facility] ANGIOGRAM Medical Branch TROPONIN I 2021-11-19 06:30:00 Afia Adkins [facility] COMP. METABOLIC PANEL 2021-11-19 06:30:00 Afia Adkins [facility] ([id number]) [facility] CBC WITH DIFF 2021-11-19 06:30:00 Afia Adkins [facility] CONSENT/REFUSAL FOR 2021-11-19 04:34:04 Doctor Unassigned, No Un [facility] DIAGNOSIS AND Name Medical Branch TREATMENT POCT TEST 2021-07-31 18:42:00 Mackenzie Willis [facility] CONSENT/REFUSAL FOR 2021-07-31 17:49:05 [facility]igned, [facility] Branch TREATMENT NOTICE OF PRIVACY 2021-07-31 17:48:51 Doctor Unassigned, No [facility] Name [facility] D-DIMER 2020-09-24 00:40:00 Jorge Saul [facility] XR CHEST 1 VW 2020-09-24 00:37:38 Jorge Saul [facility] LIPASE 2020-09-24 00:01:00 Jorge Saul [facility] TROPONIN I 2020-09-24 00:01:00 Jorge Saul [facility] COMP. METABOLIC PANEL 2020-09-24 00:01:00 Jorge Saul [facility] ([id number]) [facility] CBC WITH DIFF 2020-09-24 00:01:00 Jorge Saul [facility] NOTICE OF PRIVACY 2020-09-23 23:25:33 Doctor Unassigned, No [facility] Name [facility] Branch CONSENT/REFUSAL FOR 2020-09-23 23:24:41 Doctor Unassigned, No [facility] DIAGNOSIS AND Name [facility] TREATMENT US GALL BLADDER 2019-12-11 15:08:38 Sia [facility] LIPASE 2019-12-11 14:35:00 Sia [facility] TEST, SERUM 2019-12-11 14:35:00 Sia [facility] HEPATIC FUNCTION PANEL 2019-12-11 14:35:00 Javi Stovall [facility] ([id number]) [facility] (ALB,T.PRO,BILI T,BU/BC,ALT,AST,ALK PHOS) BASIC METABOLIC PANEL 2019-12-11 14:35:00 Sia [facility] (NA, K, CL, CO2, Medical Branch GLUCOSE, BUN, CREATININE, CA) CBC WITH DIFF 2019-12-11 14:35:00 Javi Stovall [facility] COMP. METABOLIC PANEL 2019-11-30 02:21:00 Arley Ch [facility] ([id number]) Medical Branch CBC WITH DIFF 2019-11-30 01:10:00 Arley Ch [facility] RAPID STREP SCREEN FOR 2019-11-29 22:47:00 Arley Ch [facility] GROUP A Medical Branch NOTICE OF PRIVACY 2019-11-29 22:31:49 Doctor Unassigned, No [facility] PRACTICES Name Medical [place] ADC / LCC - DRUG 2019-11-28 03:43:00 Xiao Mott [facility] SCREEN TRIAGE Medical Branch URINALYSIS 2019-11-28 03:22:00 Xiao Mott [facility] CT ABDOMEN PELVIS W 2019-11-28 03:03:48 Xiao Mott [facility] CONTRAST [facility] Branch EKG-12 LEAD 2019-11-28 02:24:56 Xiao Mott [facility] LIPASE 2019-11-28 00:44:00 Xiao Mott [facility] TROPONIN I 2019-11-28 00:44:00 Xiao Mott [facility] COMP. METABOLIC PANEL 2019-11-28 00:44:00 Xiao Mott [facility] ([id number]) Medical Branch CBC WITH DIFF 2019-11-28 00:44:00 Xiao Mott [facility] CONSENT/REFUSAL FOR 2019-11-28 00:21:45 Doctor Unassigned, No [facility] DIAGNOSIS AND Name Medical [place] TREATMENT NOTICE OF PRIVACY 2019-11-28 00:21:31 Doctor Unassigned, No [facility] PRACTICES Name [facility] Plan of Care Planned Activity Planned Date Details Comments Source Future Scheduled 2021-12-31 INFLUENZA VACCINE (#1) [facility] 00:00:00 [code = INFLUENZA Medical Ce nter VACCINE (#1)] Future Scheduled 2021-08-31 SHINGLES VACCINES ([address] [facility] Test 00:00:00 2) [code = SHINGLES Medical Center VACCINES (1 of 2)] Future Scheduled 2021-05-[address] [facility] Test 00:00:00 (12+) [code = Medical Center DEPRESSION SCREENING (12+)] Future Scheduled 2021-04-01 MRI CERVICAL SPINE WO 1 Occurrences [facility] Test 09:24:40 CONTRAST [code = starting of Medicine 13784-1] 04/01/2021 until 04/01/2022 Future Scheduled 2021-04-01 MRI THORACIC SPINE WO 1 Occurrences [facility] Test 09:24:40 CONTRAST [code = starting of Medicine 03347-3] 04/01/2021 until 04/01/2022 Future Scheduled 2021-04-01 PT INSTR GIVEN - Ordered: [facility] Test 09:20:37 TOBACCO [code = NOCPT] 04/01/2021 of Me dicine Future Scheduled 2021-04-01 Screening for malignant [facility] Test 09:16:36 neoplasm of colon of Medicin e (procedure) [code = 565823563] Future Scheduled 2021-04-01 Screening for malignant [facility] Test 09:16:36 neoplasm of breast of Medici ne (procedure) [code = 065504889] Future Scheduled 2021-04-01 COVID-19 Vaccine (1) [facility] Test 09:16:36 [code = COVID-19 of Medicine Vaccine (1)] Future Scheduled 2021-04-01 TETANUS SHOT (ADULT) [place] [facility] [employer] Test 09:16:36 [code = TETANUS SHOT of Medi cine (ADULT)] Future Scheduled 2021-04-01 BMI FOLLOW UP PLAN [facility] r College Test 09:16:36 [code = BMI FOLLOW UP of Med icine PLAN] Future Scheduled 2021-04-01 Hepatitis C screening [facility] Test 09:16:36 (procedure) [code = of Medic ine 023681785] Future Scheduled 2021-04-01 Human immunodeficiency [facility] Test 09:16:36 virus screening of Medicine (procedure) [code = 302172707] Future Scheduled 2021-04-01 Screening for malignant [facility] Test 09:16:36 neoplasm of cervix of Medici ne (procedure) [code = 137681491] Future Scheduled 2021-04-01 FLU VACCINE > 6 MONTHS [facility] Test 09:16:36 [code = FLU VACCINE > 6 of M edicine MONTHS] Future Scheduled 2021-04-01 ZOSTER VACCINE (1 of 2) [facility] Test 09:16:36 [code = ZOSTER VACCINE of Me dicine (1 of 2)] Future Scheduled 2016-08-31 Lipid panel (procedure) [facility] Test 00:00:00 [code = 29187110] Medical Ce nter Future Scheduled 1992-08-31 Screening for malignant [facility] Test 00:00:00 neoplasm of cervix Medical C enter (procedure) [code = 284373146] Future Scheduled 1990-08-31 DTAP/TDAP/TD VACCINES [facility] Test 00:00:00 (1 - Tdap) [code = Medical C enter DTAP/TDAP/TD VACCINES (1 - Tdap)] Future Scheduled 1989-08-31 HEPATITIS C [facility]CREENING [facility] Test 00:00:00 [code = HEPATITIS C Medical Center SCREENING] Future Scheduled 1972-03-03 COVID-19 VACCINE (#1) [facility] Test 00:00:00 [code = COVID-[address] VACCINE (#1)] Future Scheduled 1971 Screening for malignant [facility] Test 00:00:00 neoplasm of breast Medical C enter (procedure) [code = 838981318] Future Scheduled 1971 CT Colonography (combo) [facility] Test 00:00:00 [code = CT Colonography [facility] (combo)] Future Scheduled 1971 Screening for malignant [facility] Test 00:00:00 neoplasm of colon Medical Ce nter (procedure) [code = 084276945] Future Scheduled 1971 Screening for malignant [facility] Test 00:00:00 neoplasm of colon Medical Ce nter (procedure) [code = 129656640] Future Scheduled [address] Screening for malignant [facility] Test 00:00:00 neoplasm of colon Medical Ce nter (procedure) [code = 030660096] Future Scheduled 1971 Screening for malignant [facility] Test 00:00:00 neoplasm of colon Medical Ce nter (procedure) [code = 656789745] Future Scheduled 1970 Sigmoidoscopy [facility]code = [facility] 00:[facility] S[facility]oscopy] Medical Cente r Encounters Start End Encounter Admission Attending Care Care Encounter Source Date/Time Date/Time Type Type Clinicians Facility Department ID 2021-11-19 2021-11-19 Emergency X KESHAWN ADKINS ERT [id number] Univers 00:31:00 02:52:00 AFIA fuentesy of [facility] 2021-11-19 2021-11-19 Emergency Adkins, [facility] [id number] Univers 00:31:00 02:52:00 Afia PERAZA [id number] i ty of [facility] 4.2.7.2.686 [facility] [id number] [place] [address] Branch 2021-07-31 2021-07-31 Emergency [facility] ERT [id number] Univers 13:04:00 14:24:00 CHRISTOPHER it y of [facility] 2021-07-31 2021-07-31 Emergency Minter, [facility] [id number] Univers 13:04:00 14:24:00 Mackenzie PERAZA [id number] ity of [facility] 4.2.7.2.686 [facility] [id number] [place] [address] Branch 2021-04-01 2021-04-01 Office BILLY GARCIA, [facility] [id number] [facility] 09:07:17 16:23:07 Visit BLAKE AMBULATOR 350.1.13.21 College Y 0.2.7.2.686 [id number] [facility] 805 e 2020-12-01 2020-12-01 Outpatient BILLY GARCIA, [facility] [id number] [facility] 13:22:49 15:25:46 BLAKE landis of Medicin e 2020-12-01 2020-12-01 Outpatient BILLY [facility] SLE [id number] [facility] 00:00:00 00:00:00 BLAKE 2020-09-23 2020-09-23 Emergency Dorys, [facility] [id number] Univers 18:36:00 22:14:00 Jorge Peraza 350.1.13.10 i ty of [place] 4.2.7.2.686 [facility] [id number] [place] [address] Branch 2020-09-23 2020-09-23 Emergency X DORYS, [facility] ERT [id number] Univers 18:36:00 18:36:00 JORGE ity of [facility] 2019-12-11 2019-12-11 Emergency [place], [place] [id number] Univers 07:58:00 11:57:00 [facility] 350.1.13.10 [place] [id number] [facility] 014 Branch 2019-12-11 2019-12-11 Emergency [place], [place] [id number] 07:58:00 11:57:00 [facility] 350.1.13.10 4.2.7.2.686 [id number] 2019-12-11 2019-12-11 Emergency X [facility] ERT [id number] Univers 07:53:00 07:53:00 ity of [facility] 2019-12-02 2019-12-02 Telephone Darell LINARES [id number] Univers 00:00:00 00:00:00 Melvina realY 350.1.13.10 ity of HOSPITAL 4.2.7.2.686 [place] as [id number] [address] 2019-12-02 2019-12-02 Letter Stendylan LINARES [id number] Univers 00:00:00 00:00:00 (Out) Melvina realY 350.1.13.10 ity of [facility] 4.2.7.2.686 [place] as [id number] [address] 2019-12-02 2019-12-02 Letter Stenstjane LINARES [id number] 00:00:00 00:00:00 (Out) Melvina realY 350.1.13.10 HOSPITAL 4.2.7.2.686 [id number] 019 2019-12-02 2019-12-02 Telephone Stenstjane LINARES [id number] 00:00:00 00:00:00 Melvina realY 350.1.13.10 HOSPITAL 4.2.7.2.686 [id number] 019 2019-11-29 2019-11-29 [email or web address] [id number] Univers 17:39:52 22:40:00 Arley Peraza 350.1.13.10 ity of [place] 4.2.7.2.686 [facility] [id number] [address] 2019-11-29 2019-11-29 Emergency [facility] [id number] 17:39:52 22:40:00 Arley Peraza 350.1.13.10 [place] 4.2.7.2.686 [place] [id number] [facility] 2019-11-29 2019-11-29 Emergency X [facility] ERT [id number] Univers 17:39:52 17:39:52 [facility] 2019-11-27 2019-11-28 Emergency [facility] [id number] Univers 19:33:27 00:42:00 Xiao Peraza 350.1.13.10 ity of [place] 4.2.7.2.6 [facility] [id number] [address] 2019-11-27 2019-11-28 Emergency [facility] [id number] 19:33:27 00:42:00 Xiao Peraza 350.1.13.[address] [place] [address] [place] [address] [id number] [facility] 2019-11-27 2019-11-27 Emergency X [facility] ERT [id number] Univers 19:33:27 19:33:27 [facility] Results Test Description Test Time Test Comments Results Result Comments Source TROPONIN I 2021-11-19 07:11:43 Test Item Value Reference Range Interpretation Comme nts TROPONIN I (test code = 0.003 ng/mL See_Comment [Au tomated message] The [id number]) system which ge nerated this result tra nsmitted reference range : <=0.034. The reference r bhavani was not used to int erpret this result as normal/abnormal . ANNI (test code = ANNI) Reference (Normal) Range (defined by the 99th percentile reference limit): <= 0.034 ng/mL Note: Cardiac troponin begins to rise 3-4 hours after the onset of ischemia. Repeat in 4-6 hours if the sample was drawn within 3-4 hours of the onset of the symptom and found normal. Diagnosis of myocardial injury is made with acute changes in cTn concentrations with at least one serial sample above the 99th percentile upper reference limit (URL), taken together with the patient's clinical presentation. Biotin has been reported to cause a negative bias, interpret results relative to patient's use of biotin. Lab Interpretation Normal (test code = 42439-8) [facility]. METABOLIC PANEL ([id number])2021-11-19 07:00:21 Test Item Value Reference Range Interpretation Comments NA (test code = 138 mmol/L 135-145 4966481197) K (test code = 4.2 mmol/L 3.5-5 0894408976) CL (test code = 104 mmol/L 98-108 7509351750) CO2 TOTAL (test code = 29 mmol/L 23-31 6176261966) AGAP (test code = 2-16 3776507417) BUN (test code = 11 mg/dL 7-23 9423620720) GLUCOSE (test code = 98 mg/dL 70-110 8405489534) CREATININE (test code = 0.68 mg/dL 0.5-1.04 9451867335) TOTAL BILI (test code = 0.3 mg/dL 0.1-1.7 7951107805) CALCIUM (test code = 9.5 mg/dL 8.6-10.6 4601733373) T PROTEIN (test code = 6.8 g/dL 6.3-8.2 2249557272) ALBUMIN (test code = 4.2 g/dL 3.5-5 6680081777) ALK PHOS (test code = 54 U/L 34-122 8348077512) ALTv (test code = 43 U/L 5-35 H 1742-6) AST(SGOT) (test code = 39 U/L 13-40 8626358936) eGFR (test code = mL/min/1.73m2 6278636088) ANNI (test code = ANNI) Association of [...] tests). Lab Interpretation Abnormal (test code = 38134-5) [facility] WITH [id number] 06:47:40 Test Item Value Reference Range Interpretation Comments WBC (test code = See_Comment [Automated 8493-2) message] The sy stem which generated this result transmitted reference range : 4.30 - 11.10 10*3/?L. The reference range was not used to interpret this result as normal/abnormal . RBC (test code = See_Comment L [Automated 829-8) message] The sy stem which generated this result transmitted reference range : 3.93 - 5.25 10*6/?L. The reference range was not used to interpret this result as normal/abnormal . HGB (test code = 12.2 g/dL 11.6-15 718-7) HCT (test code = 36.6 % 35.7-45.2 4544-3) MCV (test code = 95.1 fL 80.6-95.5 787-2) MCH (test code = 31.7 pg 25.9-32.8 785-6) MCHC (test code = 33.3 g/dL 31.6-35.1 786-4) RDW-SD (test code = 46.6 fL 39-49.9 97157-8) RDW-CV (test code = 13.4 % 12-15.5 788-0) PLT (test code = See_Comment [Automated 777-3) message] The sy stem which generated this result transmitted reference range : 166 - 358 10*3/ ?L. The reference r bhavani was not used to interpret this result as normal/abnormal . MPV (test code = 10.8 fL 9.5-12.9 35018-0) NRBC/100 WBC (test See_Comment [Automat ed code = 3604154025) message] The system which generated this result transmitted reference range : 0.0 - 10.0 /100 WBCs. The refer ence range was not u sed to interpret th is result as normal/abnormal . NRBC x10^3 (test code See_Comment [Auto mated = 7944042092) message] The s ystem which generated this result transmitted reference range : 10*3/?L. The reference range was not used to interpret this result as normal/abnormal . GRAN MAT (NEUT) % 47.3 % (test code = 770-8) IMM GRAN % (test code 0.20 % = 0630635248) LYMPH % (test code = 41.2 % 736-9) MONO % (test code = 9.7 % 5905-5) EOS % (test code = 1.3 % 713-8) BASO % (test code = 0.3 % 706-2) GRAN MAT x10^3(ANC) 4.36 10*3/uL 1.88-7.09 (test code = 0130933830) IMM GRAN x10^3 (test 0-0.06 code = 8928960644) LYMPH x10^3 (test code 3.79 10*3/uL 1.32-3.29 H = 731-0) MONO x10^3 (test code 0.89 10*3/uL 0.33-0.92 = 742-7) EOS x10^3 (test code = 0.12 10*3/uL 0.03-0.39 711-2) BASO x10^3 (test code 0.03 10*3/uL 0.01-0.07 = 704-7) Lab Interpretation Abnormal (test code = 36710-2) [id number] 18:42[facility]00 Test Item Value Reference Range Interpretation Comments POCT PREG (test code = 1605) negative On board controls acceptable with present C Line (test code = 3574) POCT PREG LOT # (test code = 3575) [id number] POCT PREG TEST DATE (test 01/29/2023 code = 3576) Lab Interpretation (test code = Normal 87203-5) [facility]ERV[facility], COMPLETE, WITH FLEX 2020-12-01 15:57:00Reason for Exam:->neck pain, chronicReason for Exam:- >headaches due to old head [facility] 1970 Sex: FFINAL REPORT EXAMINATION: RAD, SPINE, CERVICAL, COMPLETE, WITH [...] disc changes and uncovertebral arthropathy. Signed: Milvia Fordeport Verified Date/Time: 12/01/2020 15:57:57 Reading Location: [facility] Reading Room [address] [place] [address] -[id number] 01:08:22 Test Item Value Reference Interpretation Comments Range D-DIMER (test code = <0.27 See_Comment [Autom ated 7539034827) message] The system which generated this result transmitted reference range : <0.41 ?g/mL (FEU). The reference range was not used to interpret this result as normal/abnormal . ANNI (test code = This test may be ANNI) used in conjunction with a clinical pretest [...] diagnosis. Lab Interpretation Normal (test code = 93648-6) [facility] [id number] 00:31:25 Test Item Value Reference Range Interpretation Comments TROPONIN I (test <0.012 See_Comment [Automated code = 4589313632) message] The system which generated this result [...] ? Lab Interpretation Normal (test code = 01454-7) [facility]. METABOLIC PANEL (81930)2020-09-24 00:21:01 Test Item Value Reference Range Interpretation Comments NA (test code = 140 mmol/L 135-145 6783981994) K (test code = 3.6 mmol/L 3.5-5.0 3399718914) CL (test code = 108 mmol/L 98-108 3400226116) CO2 TOTAL (test code = 25 mmol/L 23-31 8914266347) AGAP (test code = 2-16 7316260192) BUN (test code = 8 mg/dL 7-23 4656629017) GLUCOSE (test code = 100 mg/dL 70-110 6642533877) CREATININE (test code = 0.56 mg/dL 0.50-1.04 3712152266) TOTAL BILI (test code = 0.3 mg/dL 0.1-1.0 5220590608) CALCIUM (test code = 9.4 mg/dL 8.6-10.6 2938276486) T PROTEIN (test code = 7.1 g/dL 6.3-8.2 5024493339) ALBUMIN (test code = 4.4 g/dL 3.5-5.0 4020596983) ALK PHOS (test code = 59 U/L 34-122 3264212276) ALTv (test code = 120 U/L 5-35 H 1742-6) AST(SGOT) (test code = 81 U/L 13-40 H 7968491745) eGFR (test code = mL/min/1.73m2 0612943472) ANNI (test code = ANNI) Association of [...] tests). Lab Interpretation Abnormal (test code = 97360-9) [facility] [id number] 00:20:41 Test Item Value Reference Range Interpretation Comments LIPASE (test code = 7925447596) 172 U/L 0-220 Lab Interpretation (test code = Normal 79542-5) [facility] [id number] 00:08:14 Test Item Value Reference Range Interpretation Comments WBC (test code = See_Comment [Automated message] 6690-2) The system [employer] generated this result transmitted ref erence range: 4.30 - 1 1.10 10*3/?L. The re ference range was not u sed to interpret this result as normal/abnor mal. RBC (test code = See_Comment [Automated message] 789-8) The system [employer] generated this result transmitted ref erence range: [...] RDW-SD (test code 46.3 fL 39.0-49.9 = 47561-7) RDW-CV (test code 13.1 % 12.0-15.5 = 788-0) PLT (test code = See_Comment [Automated message] 777-3) The system [employer] generated this result transmitted ref erence range: 166 - 35 8 10*3/?L. The re ference range was not u sed to interpret this result as normal/abnor mal. MPV (test code = 10.8 fL 9.5-12.9 75203-4) NRBC/100 WBC (test See_Comment [Automat ed message] code = 9509794532) The syste m which generated this result transmitted ref erence range: 0.0 - 10 .0 /100 WBCs. The refer ence range was not u sed to interpret this result as normal/abnor mal. NRBC x10^3 (test <0.01 See_Comment [Automated message] code = 8521937190) The syste m which generated this result transmitted ref erence range: 10*3/?L. The reference range was not used to interpr et this result as normal/abnormal . GRAN MAT (NEUT) % 35.8 % (test code = 770-8) IMM GRAN % (test 0.20 % code = 8456081329) LYMPH % (test code 52.0 % = 736-9) MONO % (test code 9.8 % = 5905-5) EOS % (test code = 1.9 % 713-8) BASO % (test code 0.3 % = 706-2) GRAN MAT 2.09 10*3/uL 1.88-7.09 x10^3(ANC) (test code = 5930593331) IMM GRAN x10^3 <0.03 0.00-0.06 (test code = 1967388592) LYMPH x10^3 (test 3.03 10*3/uL 1.32-3.29 code = 731-0) MONO x10^3 (test 0.57 10*3/uL 0.33-0.92 code = 742-7) EOS x10^3 (test 0.11 10*3/uL 0.03-0.39 code = 711-2) BASO x10^3 (test <0.03 0.01-0.07 code = 704-7) [facility]US GALL [id number] 16:11:13 No cholelithiasis or sonographic evidence of [...] The partially visualized right kidney is unremarkable. [facility], Radiant Results Inft User - 12/11/2019 11:12 AM CDTUS GALL BLADDER HISTORY: 49 years-old; Female; RUQ ab dominal pain COMPARISON: Abdominopelvic CT 11/27/2019 FINDINGS: LIVER: The liver is normal in size and measures 12.8 cm. Normalechotexture, echogenicity, and contour No focal hepatic lesion. Hepatopetalflow within the main portal vein. GALLBLADDER: There is no cholelithiasis, wall thickening (2 mm),gallbladder distention, or pericholecystic fluid. Limited evaluation ofsonographic Mcdowell's sign due toadministration of pain medication. Thecommon bile duct measures 4 mm.PANCREAS: Incompletely visualized due to overlying bowel gas.RIGHT KIDNEY: The partially visualized right kidney is unremarkable.IMPRESSIONNo cholelithiasis or sonographic evidence of cholecystitis.I, Lazaro Hinkle MD., have reviewed this study and agree with the abovereport.[facility] Texas[facility] [id number] 15:06:00 Test Item Value Reference Range Interpretation Comments LIPASE (test code = 5477876391) 346 U/L 0-220 H Lab Interpretation (test code = Abnormal 32152-5) [facility] (NA, K, CL, CO2, GLUCOSE, BUN, CREATININE, CA)2019-12-11 15:01:00 Test Item Value Reference Range Interpretation Comments NA (test code = 137 mmol/L 135-145 6192514508) K (test code = 4.6 mmol/L 3.5-5 8443738218) CL (test code = 104 mmol/L 98-108 1528446072) CO2 TOTAL (test code = 23 mmol/L 23-31 6619032066) AGAP (test code = 2-16 4604986999) BUN (test code = 8 mg/dL 7-23 0249720900) GLUCOSE (test code = 96 mg/dL 70-110 0819250907) CREATININE (test code 0.68 mg/dL 0.5-1.04 = 5301169494) CALCIUM (test code = 10.1 mg/dL 8.6-10.6 0624955511) eGFR Calculation mL/min/1.73m2 (Non-) (test code = 5687844041) eGFR Calculation mL/min/1.73m2 () (test code = 6709054564) ANNI (test code = ANNI) Association of [...] or urine or abnormalities in imaging tests). [facility]atic [facility] (ALB, T.PRO, BILI T, BU/BC, ALT, AST, ALK PHOS)2019-12-11 15:01:00 Test Item Value Reference Range Interpretation Comments TOTAL BILI (test code = 0761217718) 0.7 mg/dL 0.1-1.1 BILI UNCON (test code = 1313613265) 0.8 mg/dL 0.1-1.1 BILI CONJ (test code = 1529338147) 0.0 mg/dL 0-0.3 T PROTEIN (test code = 1608688354) 7.6 g/dL 6.3-8.2 ALBUMIN (test code = 9732656796) 4.6 g/dL 3.5-5 ALK PHOS (test code = 2063884153) 53 U/L 34-122 ALTv (test code = 1742-6) 36 U/L 5-35 H AST(SGOT) (test code = 3085021625) 40 U/L 13-40 Lab Interpretation (test code = Abnormal 62518-4) [facility] TexasPregnancy Test, [id number] 15:00:00 Test Item Value Reference Range Interpretation Comments PREG SERUM (test code Negative = 6290609618) ANNI (test code = ANNI) Less than 10 IU/L. ?If low titer or ectopic is suspected, resubmit specimen in 48-72 hours. [facility] with [id number] 14:48:00 Test Item Value Reference Range Interpretation [...] RDW-SD (test code = 48.1 fL 39-49.9 07619-1) RDW-CV (test code = 13.4 % 12-15.5 788-0) PLT (test code = See_Comment [Automated 777-3) message] The sy stem which generated this result transmitted reference range : 166 - 358 10*3/ ?L. The reference r bhavani was not used to interpret this result as normal/abnormal . MPV (test code = 10.6 fL 9.5-12.9 98374-5) NRBC/100 WBC (test See_Comment [Automat ed code = 0896792612) message] The system which generated this result transmitted reference range : 0.0 - 10.0 /100 WBCs. The refer ence range was not u sed to interpret th is result as normal/abnormal . NRBC x10^3 (test code <0.01 See_Comment [Auto mated = 1836158884) message] The s ystem which generated this result transmitted reference range : 10*3/?L. The reference range was not used to interpret this result as normal/abnormal . GRAN MAT (NEUT) % 50.1 % (test code = 770-8) IMM GRAN % (test code 0.30 % = 8419606292) LYMPH % (test code = 36.4 % 736-9) MONO % (test code = 11.5 % 5905-5) EOS % (test code = 1.4 % 713-8) BASO % (test code = 0.3 % 706-2) GRAN MAT x10^3(ANC) 3.17 10*3/uL 1.88-7.09 (test code = 6336027738) IMM GRAN x10^3 (test <0.03 0-0.06 code = 6309109249) LYMPH x10^3 (test code 2.31 10*3/uL 1.32-3.29 = 731-0) MONO x10^3 (test code 0.73 10*3/uL 0.33-0.92 = 742-7) EOS x10^3 (test code = 0.09 10*3/uL 0.03-0.39 711-2) BASO x10^3 (test code <0.03 0.01-0.07 = 704-7) Lab Interpretation Abnormal (test code = 42585-7) [facility]COMP. METABOLIC PANEL (14692)2019-11-30 03:03:00 Test Item Value Reference Range Interpretation Comments NA (test code = 134 mmol/L 135-145 L 6153011348) K (test code = 3.9 mmol/L 3.5-5 4460137934) CL (test code = 100 mmol/L 98-108 4180222628) CO2 TOTAL (test code = 24 mmol/L 23-31 3234980947) AGAP (test code = 2-16 4062638091) BUN (test code = 17 mg/dL 7-23 1961418141) GLUCOSE (test code = 95 mg/dL 70-110 3630863334) CREATININE (test code = 0.80 mg/dL 0.5-1.04 5051382036) TOTAL BILI (test code = 0.5 mg/dL 0.1-1.7 6654200703) CALCIUM (test code = 9.8 mg/dL 8.6-10.6 0857842982) T PROTEIN (test code = 7.7 g/dL 6.3-8.2 0520198942) ALBUMIN (test code = 4.5 g/dL 3.5-5 9003276830) ALK PHOS (test code = 41 U/L 34-122 8640480862) ALTv (test code = 27 U/L 5-35 1742-6) AST(SGOT) (test code = 31 U/L 13-40 0579758116) eGFR Calculation mL/min/1.73m2 (Non-) (test code = 3995825047) eGFR Calculation mL/min/1.73m2 () (test code = 0143266568) ANNI (test code = ANNI) Association of [...] tests). Lab Interpretation Abnormal (test code = 59484-0) [facility] WITH [id number] 01:43:00 Test Item Value Reference Range Interpretation Comments WBC (test code = See_Comment [Automated message] 6690-2) The system [employer] generated this result transmitted ref erence range: 4.30 - 1 1.10 10*3/?L. The re ference range was not u sed to interpret this result as normal/abnor mal. RBC (test code = See_Comment [Automated message] 309-8) The system [employer] generated this result transmitted ref erence range: [...] RDW-SD (test code 42.8 fL 39-49.9 = 29324-0) RDW-CV (test code 12.9 % 12-15.5 = 788-0) PLT (test code = See_Comment [Automated message] 827-3) The system [employer] generated this result transmitted ref erence range: 166 - 35 8 10*3/?L. The re ference range was not u sed to interpret this result as normal/abnor mal. MPV (test code = 10.9 fL 9.5-12.9 26206-1) NRBC/100 WBC (test See_Comment [Automat ed message] code = 8506128602) The syste m which generated this result transmitted ref erence range: 0.0 - 10 .0 /100 WBCs. The refer ence range was not u sed to interpret this result as normal/abnor mal. NRBC x10^3 (test <0.01 See_Comment [Automated message] code = 7314676218) The syste m which generated this result transmitted ref erence range: 10*3/?L. The reference range was not used to interpr et this result as normal/abnormal . GRAN MAT (NEUT) % 61.3 % (test code = 770-8) IMM GRAN % (test 0.20 % code = 3284686613) LYMPH % (test code 29.9 % = 736-9) MONO % (test code 6.3 % = 5905-5) EOS % (test code = 1.7 % 713-8) BASO % (test code 0.6 % = 706-2) GRAN MAT 5.19 10*3/uL 1.88-7.09 x10^3(ANC) (test code = 0912746931) IMM GRAN x10^3 <0.03 0-0.06 (test code = 8364898070) LYMPH x10^3 (test 2.53 10*3/uL 1.32-3.29 code = 731-0) MONO x10^3 (test 0.53 10*3/uL 0.33-0.92 code = 742-7) EOS x10^3 (test 0.14 10*3/uL 0.03-0.39 code = 711-2) BASO x10^3 (test 0.05 10*3/uL 0.01-0.07 code = 704-7) [facility] GROUP [id number] 00:25:00 Test Item Value Reference Range Interpretation Comments Streptococcus pyogenes (group A) Negative Negative antigen (test code = 18048-2) Lab Interpretation (test code = Normal 86650-3) [facility] / [facility] - DRUG SCREEN [id number] 04:11:00 Test Item Value Reference Range Interpretation Comments BENZO U (test code = Presumptive Negative A 1006419086) Positive NICHOLAS U (test code = Negative Negative 1240391245) AMPHET (test code = Negative Negative 0882372923) THC (test code = Presumptive Negative A Confirmatio n of 2239136022) Positive Presumptive Positive THC result requires physician order . METHADONE (test code Negative Negative = 7833017187) Meth U (test code = Negative Negative 9147348944) OPIATES (test code = Presumptive Negative A 9788084483) Positive Cocaine Metabolite Negative Negative (test code = 4218869185) PROPOXY (test code = Negative Negative 0556476077) Tric U (test code = Negative Negative 6378735890) PCP (test code = Negative Negative 9833725265) OXYCOD (test code = Negative Negative 9855389974) ANNI (test code = Urine Drug Cutoff [...] testing). Lab Interpretation Abnormal (test code = 91185-6) [facility] TexasUrinalysis2020-07-29 03:58:00 Test Item Value Reference Range Interpretation Comments APPEARANCE (test code = Clear Clear 6287221358) COLOR (test code = Yellow Yellow 4149810769) PH (test code = 4.8-8.0 1311405494) SP GRAVITY (test code = 1.003-1.030 2913217019) GLU U QUAL (test code = Normal Normal 6165345227) BLOOD (test code = 1+ Negative A 4494758128) KETONES (test code = 5 mg/dL Negative A 3050951717) PROTEIN (test code = Negative Negative 2887-8) UROBILIN (test code = Normal Normal 5222438423) BILIRUBIN (test code = Negative Negative 2725131394) NITRITE (test code = Negative Negative 6788407896) LEUK DIEUDONNE (test code = Negative Negative 7204180369) RBC/HPF (test code = See_Comment [Autom ated message] 0704504885) The system [employer] generated this result transmitted ref erence range: 0 - 3 HP F. The reference range was not used to int erpret this result as normal/abnormal . WBC/HPF (test code = <1 See_Comment [Autom ated message] 5619093929) The system [employer] generated this result transmitted ref erence range: 0 - 5 HP F. The reference range was not used to int erpret this result as normal/abnormal . BACTERIA (test code = Negative Negative 2175321199) MUCOUS (test code = Slight Negative LPF A 6740559903) SQ EPITH (test code = HPF 7228980295) Lab Interpretation (test Abnormal code = 44566-2) [facility] ABDOMEN PELVIS W [id number] 03:20:101. ?Mild to moderate stool burden within [...] CT images from lung bases through proximalthighs after IV administration of nonionic iodinated contrast material.Coronal and [...] excepting mild tomoderate stool burden within the rectosigmoidand rectum. Appendix isnormal. No abnormal bowel dilatation [...] Radiant Results Inft User - 11/27/2019 10:21 PMCDTCT ABDOMEN AND PELVIS WITH CONTRASTREASON FOR STUDY: Abd pain, acute, generalized COMPARISON: None available.TECHNIQUE: Multidetector axial CT images from lung bases through proximalthighs after IV administration of nonionic iodinated contrast material.Coronal and sagittal MPR images also generated. FINDINGS: Lower chest: Clear lung bases.ABDOMEN AND PELVISLiver: Liver measures 17 cm in craniocaudal dimension at mid clavicularline. Subcapsular segment II 9 mm cyst (2:27). Multiple additional sub-5mm hypoattenuating lesions scattered throughout the liver are too small tocharacterize. Fatty infiltration at the falciform ligament.Biliary Tract/GB: Physiologically distended gallbladder without radiopaquelithiasis. No pericholecystic free fluid or inflammatory change. No biliaryductal dilatation.Spleen: Within normal limits.Pancreas: Within normal limits.Adrenals: Within normal limits.Kidneys: Kidneys enhance symmetrically. No hydronephrosis, nephrolithiasisor renal mass.Bowel: Both small and large bowel appear unremarkable [...] seen throughout the uterus. For example, asubserosal fib roid measuring at least 2.7 cm arises from [...] left anterolateral andposterior ribs.5. Subtle findings as above.[facility] TROPONIN [id number] 02:50:00 Test Item Value Reference Range Interpretation Comments TROPONIN I (test <0.012 See_Comment [Automated code = 5757033563) message] The system which generated this result [...] ? Lab Interpretation Normal (test code = 83315-9) [facility] TexasComplete Metabolic [id number] 01:12:00 Test Item Value Reference Range Interpretation Comments NA (test code = 138 mmol/L 135-145 1508115447) K (test code = 3.6 mmol/L 3.5-5 1096462349) CL (test code = 104 mmol/L 98-108 2028861688) CO2 TOTAL (test code = 26 mmol/L 23-31 1527211703) AGAP (test code = 2-16 8067059922) BUN (test code = 11 mg/dL 7-23 4070016562) GLUCOSE (test code = 128 mg/dL 70-110 H 8062015419) CREATININE (test code = 0.72 mg/dL 0.5-1.04 2379984265) TOTAL BILI (test code = 0.7 mg/dL 0.1-1.1 6047022543) CALCIUM (test code = 10.0 mg/dL 8.6-10.6 8508060295) T PROTEIN (test code = 8.4 g/dL 6.3-8.2 H 1261999118) ALBUMIN (test code = 4.8 g/dL 3.5-5 0849196037) ALK PHOS (test code = 40 U/L 34-122 5553980298) ALTv (test code = 32 U/L 5-35 1742-6) AST(SGOT) (test code = 42 U/L 13-40 H 6082700580) eGFR Calculation mL/min/1.73m2 (Non-) (test code = 5300752027) eGFR Calculation mL/min/1.73m2 () (test code = 0940689064) ANNI (test code = ANNI) Association of [...] tests). Lab Interpretation Abnormal (test code = 89184-6) [facility]Lip[facility], [id number] 01:12:00 Test Item Value Reference Range Interpretation Comments LIPASE (test code = 3193243310) 87 U/L 0-220 Lab Interpretation (test code = Normal 87106-7) [facility] with [id number] 01:00:00 Test Item Value Reference Range Interpretation Comments WBC (test code = See_Comment [Automated message] 6690-2) The system [employer] generated this result transmitted ref erence range: 4.30 - 1 1.10 10*3/?L. The re ference range was not u sed to interpret this result as normal/abnor mal. RBC (test code = See_Comment [Automated message] 789-8) The system [employer] generated this result transmitted ref erence range: [...] RDW-SD (test code 44.9 fL 39-49.9 = 52323-4) RDW-CV (test code 13.1 % 12-15.5 = 788-0) PLT (test code = See_Comment [Automated message] 777-3) The system whic h generated this result transmitted ref erence range: 166 - 35 8 10*3/?L. The re ference range was not u sed to interpret this result as normal/abnor mal. MPV (test code = 10.9 fL 9.5-12.9 74853-0) NRBC/100 WBC (test See_Comment [Automat ed message] code = 6415063101) The syste m which generated this result transmitted ref erence range: 0.0 - 10 .0 /100 WBCs. The refer ence range was not u sed to interpret this result as normal/abnor mal. NRBC x10^3 (test <0.01 See_Comment [Automated message] code = 7800337766) The syste m which generated this result transmitted ref erence range: 10*3/?L. The reference range was not used to interpr et this result as normal/abnormal . GRAN MAT (NEUT) % 64.1 % (test code = 770-8) IMM GRAN % (test 0.50 % code = 4875048160) LYMPH % (test code 26.8 % = 736-9) MONO % (test code 7.5 % = 5905-5) EOS % (test code = 0.6 % 713-8) BASO % (test code 0.5 % = 706-2) GRAN MAT 6.75 10*3/uL 1.88-7.09 x10^3(ANC) (test code = 2753008608) IMM GRAN x10^3 0.05 10*3/uL 0-0.06 (test code = 0031539653) LYMPH x10^3 (test 2.82 10*3/uL 1.32-3.29 code = 731-0) MONO x10^3 (test 0.79 10*3/uL 0.33-0.92 code = 742-7) EOS x10^3 (test 0.06 10*3/uL 0.03-0.39 code = 711-2) BASO x10^3 (test 0.05 10*3/uL 0.01-0.07 code = 704-7) [facility]
[2022-01-03] MEDS ORDERED: HYDROMORPHONE HCL 1 MG/ML INJ ONE ×3 (06:01→10:58)
[2022-01-03] MEDS ORDERED: FAMOTIDINE 20 MG/2 ML VIAL IV ONE ×2 (06:01→08:17)
[2022-01-03] MEDS ORDERED: NA CHLORIDE 0.9% 1,000 ML ONE ×2 (06:02→07:06)
[2022-01-03] MEDS ORDERED: ONDANSETRON 4 MG/2 ML VIAL ONE ×3 (06:05→10:58)
[2022-01-03 06:15] LABS: Absolute Lymphocytes (CBC) 1.8 K/uL (0.7-4.9); Hematocrit 44.5 % (36.0-45.0); Lymphocytes % 16.7 % (15.3-44.8); MCV 93.5 fL (80-100); MPV 9.4 fL (7.6-11.3); RBC Red Blood Cell Count 4.76 M/uL (3.86-4.86)
[2022-01-03 06:33] LABS: Albumin 4.5 g/dL (3.4-5.0); Bilirubin Direct 0.2 mg/dL (0-0.2); Bilirubin Total 0.7 mg/dL (0.2-1.0); Magnesium 1.8 mg/dL (1.8-2.4); Protein, Total 8.6 g/dL (6.4-8.2); Troponin High Sensitivity 4.9 pg/mL (<58.9)
[2022-01-03 06:35] LABS: SARS-CoV-2 Antigen Rapid Res Negative (Negative)
[2022-01-03] MEDS ORDERED: KCL 20 MEQ/100 mL IVPB 100 ML IV ONE (07:06)
--- NOTE | 2022-01-03 07:18 | RAD REPORT ---
EXAM DESCRIPTION: CT - Abdomen Pelvis W Contrast - 01/03/2022 7:05 am CLINICAL HISTORY: Abdominal pain COMPARISON: 2019 TECHNIQUE: Computed axial tomography of the abdomen pelvis was obtained. 100 cc Isovue-300 was admin istered intravenously. Oral contrast was not requested which limits evaluation of bowel and appendix All CT scans are performed using dose optimization technique as appropriate and may include automated exposure control or mA/KV adjustment according to patient size. FINDINGS: Tiny hepatic cysts Old rib fractures Spleen, pancreas, adrenal and kidneys appear unremarkable. There is no evidence of diverticulitis. Normal appendix Uterine fibroids. No adnexal mass Small to moderate umbilical hernia contains fat IMPRESSION: No acute abnormality is displayed.
--- NOTE | 2022-01-03 08:01 | ER ---
Nurse's Notes [facility] Name: Ninfa Gordon Age: 51 yrs Sex: Female : 1970 Arrival Date: 01/03/2022 Time: 05:24 Bed 15 Private MD: Diagnosis: Chest pain, unspecified;Epigastric abdominal tenderness;Vomiting;Epigastric pain;Gastritis, unspecified, without bleeding Presentation: 01/03 05:39 Chief complaint: Patient states: "I feel like I am dying. This feels like one of my tw5 diverticulitis flair ups but I am also having chest pain! It hurts so bad. I have been vomiting since noon yesterday.". Coronavirus screen: Vaccine status: Patient reports being unvaccinated. Ebola Screen: Patient negative for fever greater than or equal to 101.5 degrees Fahrenheit, and additional compatible Ebola Virus Disease symptoms Patient denies exposure to infectious person. Patient denies travel to an Ebola-affected area in the 21 days before illness onset. Initial Sepsis Screen: Does the patient meet any 2 criteria? RR > 20 per min. Does the patient have a suspected source of infection? Yes: Acute abdominal pain. Risk Assessment: Do you want to hurt yourself or someone else? Patient reports no desire to harm self or others. Onset of symptoms was January 02, 2022 at 12:00. 05:39 Method Of Arrival: Wheelchair tw5 05:39 Acuity: TRES 2 tw5 Triage Assessment: 05:41 General: Appears distressed, uncomfortable, Behavior is cooperative, anxious, crying, tw5 restless. Pain: Complains of pain in chest and abdomen Pain currently is 10 out of 10 on a pain scale. GI: Reports nausea, vomiting. VENEER GLUER: 05:41 LMP N/A - Post-menopause Historical: - Allergies: 05:41 Ibuprofen; 05:41 Protonix; tw 05:41 Tylenol; tw - PMHx: 05:41 Anxiety; depressive disorder; Diverticulitis; PTSD; tw - PSHx: 05:41 Biopsy of Lungs; section; tw5 - Immunization history:: Flu vaccine is not up to date. - Social history:: Smoking status: Patient reports the use of cigarette tobacco products, smokes one pack cigarettes per day. Screenin:47 Abuse screen: Denies threats or abuse. Nutritional screening: No deficits noted. ja4 Tuberculosis screening: No symptoms or risk factors identified. Fall Risk IV access (20 points). Assessment: 05:47 General: Appears distressed, uncomfortable, obese, Behavior is cooperative, anxious, ja4 crying. Pain: Complains of pain in right upper quadrant. GI: Abd is soft Abdomen is tender to palpation Abdomen has rebound tenderness Reports upper abdominal pain. 07:00 Reassessment: RECD REPORT FROM JORGE ALBERTO RAMAN. 51YO HF P/W ABD PAIN AND N/V. PT IN CT. bp 07:26 Reassessment: U/S AT B/S. bp 09:00 Reassessment: ADMIT IN PROCESS. bp 11:00 Reassessment: ADMIT COMPLETED FOR RM 408. GI: Bowel sounds present X 4 quads. bp Vital Signs: 05:39 BP 172 / 140; Pulse 63; Resp 30; Temp 98.0(O); Pulse Ox 100% on R/A; Weight 99.79 kg; tw5 Height 5 ft. 2 in. (157.48 cm); Pain 10/10; 07:26 BP 167 / 88; Pulse 64; Resp 26; Pulse Ox 99% ; bp 09:00 BP 142 / 87; Pulse 57; Resp 17; Pulse Ox 98% ; bp 11:00 BP 154 / 75; Pulse 55; Resp 15; Pulse Ox 100% ; bp 05:39 Body Mass Index 40.24 (99.79 kg, 157.48 cm) tw5 ED Course: 05:24 Patient arrived in ED. bp1 05:35 Frank Pino MD is Attending Physician. dominick 05:39 Jorge Alberto Lama, RN is Primary Nurse. ja4 05:41 Triage completed. tw5 05:41 Arm band placed on left wrist. tw5 05:47 Bed in low position. Call light in reach. Side rails up X 1. Side rails up X2. ja4 05:47 No provider procedures requiring assistance completed. Inserted saline lock: 20 gauge Brennen in left antecubital area, using aseptic technique. Blood collected. 06:06 EKG done, by ED staff, reviewed by Frank Pino MD. 5 06:08 XRAY Chest (1 view) In Process Unspecified. EDMS 06:23 Lipase Sent. ja4 07:06 CT Abd/Pelvis - IV Contrast Only In Process Unspecified. EDMS 07:40 US Abdomen Limited In Process Unspecified. EDMS 07:58 Eliazar Duarte MD is Hospitalizing Provider. [facility] 11:04 Patient admitted, IV remains in place. bp Administered Medications: 06:01 Drug: Dilaudid (HYDROmorphone) 1 mg Route: IVP; Site: left antecubital; ja4 11:05 Follow up: Response: Pain is decreased bp 06:01 Drug: Zofran (Ondansetron) 4 mg Route: IVP; Site: left antecubital; ja4 11:05 Follow up: Response: No adverse reaction bp 06:02 Drug: Pepcid (famotidine) 20 mg Route: IVP; Site: left antecubital; ja4 11:05 Follow up: Response: No adverse reaction bp 06:09 Drug: NS 0.9% 1000 ml Route: IV; Rate: 1 bolus; Site: left antecubital; ja4 11:05 Follow up: IV Status: Completed infusion; IV Intake: 1000ml bp 07:10 Drug: NS 0.9% 1000 ml Route: IV; Rate: 125 ml/hr; Site: left antecubital; bp 11:06 Follow up: IV Status: Completed infusion; IV Intake: 1000ml bp 07:10 Drug: NS 0.9% with KCl 20 mEq/L 1000 ml Route: IV; Rate: 125 ml/hr; Site: left ja antecubital; 11:06 Follow up: IV Status: Infusion continued upon admission bp 07:10 Drug: Potassium Chloride 20 mEq Route: IV; Rate: per protocol; Site: left antecubital; ja4 11:06 Follow up: IV Status: Completed infusion; IV Intake: 1000ml bp 07:10 Drug: Dilaudid (HYDROmorphone) 1 mg Route: IVP; Site: left antecubital; ja4 11:07 Follow up: Response: Pain is decreased bp 07:10 Drug: Zofran (Ondansetron) 4 mg Route: IVP; Site: left antecubital; ja4 11:07 Follow up: Response: No adverse reaction bp 08:10 Drug: Pepcid (famotidine) 20 mg Route: IVP; Site: left antecubital; bp 11:07 Follow up: Response: No adverse reaction bp Medication: 05:47 VIS not applicable for this client. ja4 Intake: 11:05 IV: 1000ml; Total: 1000ml. bp 11:06 IV: 1000ml; Total: 2000ml. bp 11:06 IV: 1000ml; Total: 3000ml. bp Outcome: 08:01 Decision to Hospitalize by Provider. dominick 11:04 Admitted to Med/surg accompanied by tech, via wheelchair, room 408. bp 11:04 Condition: stable 11:04 Instructed on the need for admit. 11:11 Patient left the ED. bp Signatures: Dispatcher [employer] EDMS Frank Pino MD MD cha Martinez, Ninfa 5 Roshan Tidwell, LAMINE RN Evelyne Faustin Tiffany [facility] Jorge Alberto Lama, LAMINE RN [email or web address]
--- NOTE | 2022-01-03 08:01 | EDPHYS ---
Physician Documentation [facility] [place], [place] Name: Ninfa Gordon Age: 51 yrs Sex: Female : 1970 Arrival Date: 01/03/2022 Time: 05:24 Bed 15 Private MD: CHOLO Physician Frank Pino HPI: 01/03 05:48 This 51 yrs old Female presents to ER via Wheelchair with complaints of dominick Abdominal Pain, Vomiting. 05:48 The patient presents to the emergency department with nausea, vomiting, abdominal pain, dominick of the right upper quadrant and left upper quadrant. Onset: The symptoms/episode began/occurred 2 day(s) ago. Possible causes: antibiotics. The symptoms are aggravated by nothing. The symptoms are alleviated by remaining still. Associated signs and symptoms: Pertinent positives: abdominal pain, nausea, vomiting. Severity of symptoms: At their worst the symptoms were mild moderate in the emergency department the symptoms are unchanged. The patient has not experienced similar symptoms in the past. 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 - Social history:: Smoking status: Patient reports the use of cigarette tobacco products, smokes one pack cigarettes per day. ROS: 05:50 Constitutional: Negative for fever, chills, and weight loss, Eyes: Negative for injury, dominick pain, redness, and discharge, ENT: Negative for injury, pain, and discharge, Neck: Negative for injury, pain, and swelling, Cardiovascular: Negative for chest pain, palpitations, and edema, Respiratory: Negative for shortness of breath, cough, wheezing, and pleuritic chest pain, Back: Negative for injury and pain, : Negative for injury, bleeding, discharge, and swelling, MS/Extremity: Negative for injury and deformity, Skin: Negative for injury, rash, and discoloration, Neuro: Negative for headache, weakness, numbness, tingling, and seizure, Psych: Negative for depression, anxiety, suicide ideation, homicidal ideation, and hallucinations, Allergy/Immunology: Negative for hives, rash, and allergies, Endocrine: Negative for neck swelling, polydipsia, polyuria, polyphagia, and marked weight changes. 05:50 Respiratory: Positive for cough, shortness of breath, on exertion. Exam: 05:52 Constitutional: This is a well developed, well nourished patient who is awake, alert, dominick and in no acute distress. Head/Face: Normocephalic, atraumatic. Eyes: Pupils equal round and reactive to light, extra-ocular motions intact. Lids and lashes normal. Conjunctiva and sclera are non-icteric and not injected. Cornea within normal limits. Periorbital areas with no swelling, redness, or edema. ENT: Nares patent. No nasal discharge, no septal abnormalities noted. Tympanic membranes are normal and external auditory canals are clear. Oropharynx with no redness, swelling, or masses, exudates, or evidence of obstruction, uvula midline. Mucous membranes moist. Neck: Trachea midline, no thyromegaly or masses palpated, and no cervical lymphadenopathy. Supple, full range of motion without nuchal rigidity, or vertebral point tenderness. No Meningismus. Chest/axilla: Normal chest wall appearance and motion. Nontender with no deformity. No lesions are appreciated. Cardiovascular: Regular rate and rhythm with a normal S1 and S2. No gallops, murmurs, or rubs. Normal PMI, no JVD. No pulse deficits. Respiratory: Lungs have equal breath sounds bilaterally, clear to auscultation and percussion. No rales, rhonchi or wheezes noted. No increased work of breathing, no retractions or nasal flaring. Back: No spinal tenderness. No costovertebral tenderness. Full range of motion. Pelvic Exam: Normal external genitalia. Speculum exam with closed cervical os, no discharge or bleeding noted. Bimanual exam with normal adnexa, no adnexal or cervical motion tenderness. Normal uterus. Female : Normal external genitalia. Skin: Warm, dry with normal turgor. Normal color with no rashes, no lesions, and no evidence of cellulitis. MS/ Extremity: Pulses equal, no cyanosis. Neurovascular intact. Full, normal range of motion. Neuro: Awake and alert, GCS 15, oriented to person, place, time, and situation. Cranial nerves II-XII grossly intact. Motor strength 5/5 in all extremities. Sensory grossly intact. Cerebellar exam normal. Normal gait. 05:52 Abdomen/GI: Inspection: distension, Bowel sounds: normal, active, high pitched, Palpation: abdomen is soft and non-tender, soft, mild abdominal tenderness, moderate abdominal tenderness, in the epigastric area, right upper quadrant and left upper quadrant. 06:30 ECG was reviewed by the Attending Physician. dominick 07:56 Abdomen/GI: Rectal exam: is unremarkable, rectal tone normal, Stool: guaiac negative, dominick hemorrhoid(s), are not appreciated, mass, is not appreciated, swelling, is not appreciated, tenderness, is not appreciated, fecal impaction, is not appreciated, the exam is chaperoned by a family member. Vital Signs: 05:39 BP 172 / 140; Pulse 63; Resp 30; Temp 98.0(O); Pulse Ox 100% on R/A; Weight 99.79 kg; tw5 Height 5 ft. 2 in. (157.48 cm); Pain 10/10; 07:26 BP 167 / 88; Pulse 64; Resp 26; Pulse Ox 99% ; bp 09:00 BP 142 / 87; Pulse 57; Resp 17; Pulse Ox 98% ; bp 11:00 BP 154 / 75; Pulse 55; Resp 15; Pulse Ox 100% ; bp 05:39 Body Mass Index 40.24 (99.79 kg, 157.48 cm) tw5 MDM: 05:35 Patient medically screened. dominick 05:53 Differential diagnosis: Nonspecific abd pain, gastritis, cholecystitis, pancreatitis, dominick appendicitis, diverticulitis, viral gastroenteritis, gastroenteritis. Data reviewed: vital signs, nurses notes, lab test result(s), EKG, radiologic studies, CT scan, plain films, ultrasound. 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 Test interpretation: by ED physician or midlevel provider: ECG, plain radiologic studies. Counseling: I had a detailed discussion with the patient and/or guardian regarding: the historical points, exam findings, and any diagnostic results supporting the discharge/admit diagnosis, lab results, radiology results. 06:58 ED course: DR Yessenia CORRALES TO DISPO THE PATIENT . dominick 01/03 05:47 Order name: Basic Metabolic Panel; Complete Time: :40 dominick 01/03 05:47 Order name: CBC with Diff; Complete Time: 06:40 dominick 01/03 05:47 Order name: LFT's; Complete Time: 06:40 dominick 01/03 05:47 Order name: Magnesium; Complete Time: 06:40 dominick 01/03 05:47 Order name: NT PRO-BNP; Complete Time: 06:40 dominick 01/03 05:47 Order name: PT-INR [facility] 01/03 05:47 Order name: Troponin HS; Complete Time: 06:40 dominick 01/03 05:47 Order name: Lipase; Complete Time: 06:40 dominick 01/03 05:47 Order name: SARS RAPID; Complete Time: 06:40 dominick 01/03 07:56 Order name: Occult Blood--Ancillary eb 01/03 08:29 Order name: Basic Metabolic Panel EDMS 01/03 08:34 Order name: Hemoglobin A1c EDMS 01/03 08:34 Order name: Lipid Profile EDMS 01/03 08:34 Order name: Magnesium EDMS 01/03 05:47 Order name: XRAY Chest (1 view) [facility] 01/03 05:47 Order name: CT Abd/Pelvis - IV Contrast Only; Complete Time: 07:44 dominick 01/03 05:52 Order name: US Abdomen Limited [facility] 01/03 08:34 Order name: Phosphorus EDMS 01/03 08:34 Order name: Urinalysis EDMS 01/03 08:34 Order name: Basic Metabolic Panel EDMS 01/03 08:34 Order name: Basic Metabolic Panel EDMS 01/03 08:34 Order name: CBC with Automated Diff EDMS 01/03 08:34 Order name: CBC with Automated Diff EDMS 01/03 05:47 Order name: EKG; Complete Time: 05:48 dominick 01/03 05:47 Order name: Cardiac monitoring; Complete Time: 06:06 dominick 01/03 05:47 Order name: EKG - Nurse/Tech; Complete Time: 06:06 dominick 01/03 05:47 Order name: IV Saline Lock; Complete Time: 06:06 dominick 01/03 05:47 Order name: Labs collected and sent; Complete Time: 06:06 dominick 01/03 05:47 Order name: O2 Per Protocol; Complete Time: 06:06 dominick 01/03 05:47 Order name: O2 Sat Monitoring; Complete Time: 06:06 [facility] 01/03 08:34 Order name: Clear Liquid EDMS EC:30 Rate is 56 beats/min. Rhythm is regular. QRS [place] is Normal. MA interval is normal. QRS dominick interval is normal. QT interval is prolonged at 496 msec. No Q waves. T waves are Normal. No ST changes noted. Clinical impression: NSR w/ Non-specific ST/T Changes and No evidence of ischemia. Interpreted by me. Reviewed by me. Administered Medications: 06:01 Drug: Dilaudid (HYDROmorphone) 1 mg Route: IVP; Site: left antecubital; 4 11:05 Follow up: Response: Pain is decreased bp 06:01 Drug: Zofran (Ondansetron) 4 mg Route: IVP; Site: left antecubital; 4 11:05 Follow up: Response: No adverse reaction bp 06:02 Drug: Pepcid (famotidine) 20 mg Route: IVP; Site: left antecubital; ja4 11:05 Follow up: Response: No adverse reaction bp 06:09 Drug: NS 0.9% 1000 ml Route: IV; Rate: 1 bolus; Site: left antecubital; ja4 11:05 Follow up: IV Status: Completed infusion; IV Intake: 1000ml bp 07:10 Drug: NS 0.9% 1000 ml Route: IV; Rate: 125 ml/hr; Site: left antecubital; bp 11:06 Follow up: IV Status: Completed infusion; IV Intake: 1000ml bp 07:10 Drug: NS 0.9% with KCl 20 mEq/L 1000 ml Route: IV; Rate: 125 ml/hr; Site: left ja antecubital; 11:06 Follow up: IV Status: Infusion continued upon admission bp 07:10 Drug: Potassium Chloride 20 mEq Route: IV; Rate: per protocol; Site: left antecubital; ja4 11:06 Follow up: IV Status: Completed infusion; IV Intake: 1000ml bp 07:10 Drug: Dilaudid (HYDROmorphone) 1 mg Route: IVP; Site: left antecubital; ja4 11:07 Follow up: Response: Pain is decreased bp 07:10 Drug: Zofran (Ondansetron) 4 mg Route: IVP; Site: left antecubital; ja4 11:07 Follow up: Response: No adverse reaction bp 08:10 Drug: Pepcid (famotidine) 20 mg Route: IVP; Site: left antecubital; bp 11:07 Follow up: Response: No adverse reaction bp Disposition Summary: 01/03/22 08:01 Hospitalization Ordered Hospitalization Status: Observation dominick Provider: Eliazar Duarte cha Location: Telemetry/MedSurg (observation) dominick Condition: Fair dominick Problem: new dominick Symptoms: have improved dominick Bed/Room Type: Standard dominick Room Assignment: 408(01/03/22 10:47) eb Diagnosis - Chest pain, unspecified dominick - Epigastric abdominal tenderness dominick - Vomiting dominick - Epigastric pain dominick - Gastritis, unspecified, without bleeding dominick Forms: - Medication Reconciliation Form dominick - SBAR form dominick Signatures: Dispatcher [employer] EDFrank Dumont MD MD cha Peltier, Brian, RN RN Lyudmila Chase Tiffany tw5 Jorge Alberto Lama RN RN ja4 Corrections: (The following items were deleted from the chart) 10:47 08:01 dominick gonzalez
--- NOTE | 2022-01-03 08:22 | RAD REPORT ---
EXAM DESCRIPTION: US - Abdomen Exam Limited - 01/03/2022 7:38 am CLINICAL HISTORY: Abdominal pain. COMPARISON: 2020 FINDINGS: The gallbladder wall is not thickened. A gallstone is not seen. The biliary tree is normal caliber. IMPRESSION: Unremarkable gallbladder ultrasound.
[2022-01-03] MEDS ORDERED: ACETAMINOPHEN 500 MG TAB PO PRN (08:29)
[2022-01-03] MEDS ORDERED: LORAZEPAM 1 MG TABLET PO PRN (08:37)
[2022-01-03] MEDS ORDERED: GUAIFENESIN/CODEINE 5ML UCUP PO PRN (08:37)
--- NOTE | 2022-01-03 08:39 | P.HP ---
Certification for Inpatient Patient admitted to: Observation With expected LOS: <2 Midnights Patient will require the following post-hospital care: None Practitioner: I am a practitioner with admitting privileges, knowledge of patient current condition, hospital course, and medical plan of care. Services: Services provided to patient in accordance with Admission requirements found in Title 42 Section 412.3 of the Code of Federal Regulations Patient History Date of Service: 01/03/22 Reason for admission: Abdominal pain. History of Present Illness: Patient is a 51-year-old female with a past medical history significant for anxiety disorder, depression, nicotine dependence, obesity, PTSD, diverticulitis, cannabis use, gastric ulcer disease who presents with complaint of abdominal pain onset yesterday. Patient reported that abdominal pain is located in the epigastric area with radiation to the substernal chest area, bilateral shoulders and back. Patient rated pain as 9/10 in severity and described pain as sharp\dull in quality. Patient reported associated signs and symptoms of diarrhea, chills, headache, dizziness and numbness\tingling in b ilateral hands fingertips. Patient denies any other signs and symptoms. Symptoms are aggravated or relieved by nothing. Patient decided to present to the hospital due to worsening symptoms. Allergies acetaminophen [From Tylenol] Allergy (Verified 01/03/22 11:56) Itching/Hives/Rash pantoprazole [From Protonix] Adverse Reaction (Verified 01/03/22 11:56) Itching/Hives/Rash Home Medications: Levofloxacin [Levaquin] 500 mg PO DAILY #7 tablet 10/20/19 Lorazepam [Ativan] 1 mg PO BEDTIME PRN #20 tablet 10/20/19 metroNIDAZOLE [Flagyl] 500 mg PO Q8H #21 tablet 10/20/19 traMADol HCL [Ultram*] 50 mg PO Q6HR #60 tab 10/20/19 - Past Medical/Surgical History Diabetic: No -: Gastric ulcer disease -: Rib fracture -: Pneumonia -: x 2 - Family History Family History: Reviewed- Non-Contributory - Social History Smoking Status: Light Tobacco smoker (1-9 cigarettes/day) Smoking therapy provided: Yes Patient receptive to therapy: Yes Alcohol use: No CD- Drugs: No Caffeine use: Yes Place of Residence: Home Review of Systems General: Chills, Malaise Eyes: Unremarkable ENT: Unremarkable Respiratory: Unremarkable Cardiovascular: Chest Pain Gastrointestinal: Nausea, Vomiting, Abdominal Pain, Diarrhea Genitourinary: Unremarkable Musculoskeletal: Shoulder Pain, Back Pain Integumentary: Unremarkable Neurological: Numbness (JOHNSON, dizziness, Bilateral finger tips tingling ) Lymphatics: Unremarkable Physical Examination - Physical Exam General: Alert, Oriented x3 HEENT: Atraumatic, Normocephalic, PERRLA Neck: Supple, 2+ carotid pulse no bruit, JVD not distended Respiratory: Clear to auscultation bilaterally, Normal air movement Cardiovascular: Normal pulses, Regular rate/rhythm Capillary refill: <2 Seconds Gastrointestinal: Normal bowel sounds, Non-distended, Tenderness, Guarding Musculoskeletal: No clubbing, No swelling, No contractures, No erythema, No tenderness Integumentary: No rashes, No breakdown, No significant lesion Neurological: Normal gait, Normal speech, Normal strength at 5/5 x4 extr, Normal tone, Sensation intact Lymphatics: No axilla or inguinal lymphadenopathy - Studies Laboratory Data (last 24 hrs) 01/03/22 05:50: WBC 11.00 H, Hgb 15.1 H, Hct 44.5, Plt Count 274 01/03/22 05:50: Sodium 140, Potassium 3.0 L, BUN 10, Creatinine 0.82, Glucose 177 H, Magnesium 1.8, Total Bilirubin 0.7, AST 62 H, ALT 103 H, Alkaline Phosphatase 66, Lipase 69 L Assessment and Plan - Plan --Abdominal pain. CT abdomen and gallbladder ultrasound unremarkable for any acute intra abdominal abnormality. Abdominal pain could likely be secondary to cannabinoid hyperemesis syndrome versus gastric ulcer disease.. Patient placed on famotidine IV. Continue supportive care. --Acute pain. We will manage pain with current pain medication regimen --Cannabinoid hyperemesis syndrome. Patient reports frequent use of cannabis. Patient counseled on drug cessation. Continue supportive care --Nicotine dependence. Patient placed on nicotine patch and counseled on tobacco cessation. --Gastric ulcer disease. Continue famotidine. --Anxiety disorder\depression\PTSD. Continue home medication. --Intractable nausea and vomiting. Antiemetics on board. Continue supportive care. --Hypokalemia. Replete as needed. --JOHNSON. Tylenol as needed. --Class III obesity. Likely secondary to excess calories intake. Patient counseled on weight reduction, diet and exercise therapy. --Mild leukocytosis. Likely reactive. Will reassess levels in am. --Chest pain. Likely atypical. Will trend troponins--so far negative. Telemetry to monitor for any significant arrhythmia. --Diarrhea. Will get some stool studies. Continue supportive care. --Elevated blood pressure. Will manage BP with hydralazine as needed. -- DVT prophylaxis with Lovenox subQ. Discharge Plan: Home Plan to discharge in: 48 Hours - Advance Directives Does patient have a Living Will: No Does patient have a Durable POA for Healthcare: No Physician Review: Patient Assessed, Agree with Above Assessment and Plan Critical Care: No
[2022-01-03] MEDS: ASPIRIN EC 81 MG TAB PO SCH (09:00)
[2022-01-03] MEDS: HYDROMORPHONE HCL 1 MG/ML INJ IV PRN ×3 (10:00→21:06)
[2022-01-03] MEDS: ONDANSETRON 4 MG/2 ML VIAL IV PRN ×2 (10:00→21:08)
[2022-01-03] MEDS ORDERED: SODIUM CHLORIDE 0.9% 10ML INJ IV PRN (11:04)
[2022-01-03 11:18] LABS: Urine Blood 1+ (Negative); Urine Glucose Negative (Negative); Urine Protein 1+ (Negative); Urine pH 8.5 (5.0-7.0)
[2022-01-03] MEDS: NICOTINE 14 MG/PAT TD SCH (11:32)
[2022-01-03 11:55] VITALS: BMI 40.2
[2022-01-03] MEDS ORDERED: HYDRALAZINE HCL 20 MG/ML VIAL IV PRN (12:25)
[2022-01-03 14:15] LABS: Protime INR 1.19
[2022-01-03 14:25] LABS: Potassium 3.4 mmol/L (3.5-5.1)
[2022-01-03 14:33] LABS: Magnesium 1.9 mg/dL (1.8-2.4); Phosphorus 4.2 mg/dL (2.5-4.9)
[2022-01-03 16:18] LABS: Specific Gravity > 1.030 (1.005-1.030); Urine Bilirubin NEGATIVE (Negative); Urine Blood Trace (Negative); Urine Clarity Clear (Clear); Urine Color Yellow (Yellow); Urine Glucose NEGATIVE (Negative); Urine Mucus Slight /HPF (None Seen); Urine Protein 1+ (Negative); Urine RBC 21-50 /HPF (None Seen); Urine Urobilinogen Normal (Normal)
[2022-01-03] MEDS ORDERED: ENOXAPARIN 40 MG/0.4 ML SQ SCH (17:00)
[2022-01-03] MEDS ORDERED: PANTOPRAZOLE 40 MG INJ IVP SCH (21:00)
[2022-01-03] MEDS: SUCRALFATE 1 GM TABLET PO SCH (21:05)
[2022-01-03] MEDS: FAMOTIDINE 20 MG/2 ML VIAL IV SCH (21:06)
[2022-01-04 06:10] LABS: Hematocrit 38.5 % (36.0-45.0); Lymphocytes % 44.4 % (15.3-44.8); RBC Red Blood Cell Count 4.01 M/uL (3.86-4.86)
[2022-01-04 06:44] VITALS: BP 119/57; TEMP 98.7
[2022-01-04 08:24] VITALS: O2SAT 93
[2022-01-04] MEDS ORDERED: POTASSIUM CL SA 10 MEQ TAB PO ONE (09:00)
[2022-01-04] MEDS: NICOTINE 14 MG/PAT TD SCH (09:00)
[2022-01-04] MEDS: ONDANSETRON 4 MG/2 ML VIAL IV PRN (09:42)
[2022-01-04] MEDS: ASPIRIN EC 81 MG TAB PO SCH (09:43)
[2022-01-04] MEDS: FAMOTIDINE 20 MG/2 ML VIAL IV SCH (09:43)
[2022-01-04] MEDS: SUCRALFATE 1 GM TABLET PO SCH (09:43)
--- NOTE | 2022-01-04 09:47 | RAD REPORT ---
EXAM DESCRIPTION: RAD - Chest Single View - 01/03/2022 6:01 am CLINICAL HISTORY: 51 years Female, Abdominal distention COMPARISON: None. TECHNIQUE: Single portable x-ray view of the chest performed on 01/03/2022 at 5:57 AM FINDINGS: The lungs are well expanded and are clear. There is no evidence of a pneumothorax. The cardiac silhouette is normal in size and configuration. The mediastinal contours are normal. No acute osseous abnormality is identified. There are old left-sided rib fractures. No acute soft tissue abnormalities are seen. Lines and tubes: None. Free air: None IMPRESSION: No evidence of acute intrathoracic disease. Old left-sided rib fractures. Electronically signed by: Megan Paige DO 01/03/2022 6:17 AM CDT Due to temporary technical issues with the PACS/Fluency reporting system, reports are being signed by the in house radiologists without review as a courtesy to insure prompt reporting. The interpreting radiologist is fully responsible for the content of the report.
--- NOTE | 2022-01-05 14:36 | EKG ---
Test Date: 2022-01-03 Test Time: 06:14:27 Shredder Tender: ADITI MEASUREMENT RESULTS: Intervals: Rate: 56 AK: 192 QRSD: 82 QT: 496 QTc: 478 [place]: P: 62 AK: 192 QRS: 60 T: 46 INTERPRETIVE STATEMENTS: Sinus bradycardia with sinus arrhythmia Nonspecific T wave abnormality Prolonged QT Abnormal ECG Compared to ECG 03/22/2021 12:11:15 T-wave abnormality now present Prolonged QT interval now present Sinus rhythm no longer present Electronically Signed On 01-05-22 14:31:53 CDT by Bandar Sanchez
== END 2022-01-04 10:57 | disposition home or self-care (01) | DRG 392 ==
LOC: ER 05:22 → ERHOLD 08:25 → 4TH 11:02 → OBSVTOIN 22:17
PROVIDERS: ADMIT Hospitalist; ATTEND Hospitalist
DX: R11.2 Nausea with vomiting, unspecified (principal); Z68.41 Body mass index [BMI] 40.0-44.9, adult; F41.9 Anxiety disorder, unspecified; F32.A Depression, unspecified; F12.920 Cannabis use, unspecified with intoxication, uncomplicated; K25.9 Gastric ulcer, unspecified as acute or chronic, without hemorrhage or perforation; F43.10 Post-traumatic stress disorder, unspecified; E87.6 Hypokalemia; R51.9 Headache, unspecified; E66.9 Obesity, unspecified; R19.7 Diarrhea, unspecified; R07.89 Other chest pain; F17.210 Nicotine dependence, cigarettes, uncomplicated; Z20.822 Contact with and (suspected) exposure to COVID-19
CPT/HCPCS: 36415; 71045; 74177; 76705; 80048; 80061; 80076; 81001; 81003; 82272; 83036; 83690; 83735; 83880; 84100; 84484; 85025; 85610; 87811; 93005; 96361; 96365; 96366; 96375; 99285; G0378; J1170; J1650; J2405; J3480; J7030; Q9967

== ENCOUNTER 2022-02-28 23:03 | Emergency (ER) | payer SELFPAY ==
--- OUTSIDE RECORDS SUMMARY | 2022-02-28 23:12 | XMS REPORT | Continuity of Care Document ---
:1970 Author Organization [facility] t Address 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 [id number] HEALTH Problems Condition Condition Condition Status Onset Resolution Last Treating Co mments Source Name Details Category Date Date Treatment Clinician Date No known No known Disease [facility] active active [place] problems problems of Medicin e Allergies, Adverse Reactions, Alerts Allergy Allergy Status Severity Reaction(s) Onset Inactive Treating Comm ents Source Name Type Date Date Clinician Acetamin Propensi Active Itching Unive rs ophen ty to 5-25 ity of adverse 00:00: [place] reaction 00 Medical s Branch ACETAMIN DRUG Active ITCHING Univers OPHEN INGREDI 09-23 ity of 00:00: [place] 00 Medical Branch Pantopra Propensi Active Unknown - Uni vers zole ty to See comments 8 ity of Sodium adverse 00:00: [place] reaction 00 Medical s Branch PANTOPRA DRUG Active Unknown-Cmnt Un agustín ZOLE INGREDI 8- ity of SODIUM 00:00: [place] 00 Medical Branch Pantopra Propensi Active Other (See Ba ylor zole ty to Comments) 8 [place] Sodium adverse 00:00: of reaction 00 Medicin s to e drug NO KNOWN Drug Active Univers ALLERGIE Class ity of S [facility] Social History Social Habit Start Date Stop Date Quantity Comments Source Exposure to 2021-11-08 2021-11-18 Not sure University SARS-CoV-2 (event) 00:00:00 23:45:00 [facility] Cigarettes smoked 2021-04-01 2021-04-01 [facility] current (pack per 00:00:00 00:00:00 Medicin e day) - Reported Tobacco use and 2021-04-01 2021-04-01 Smokeless [facility] Co llege of exposure 00:00:00 00:00:00 tobacco non-user Medicine Alcohol intake 2021-04-01 2021-04-01 Current drinker [facility] of 00:00:00 00:00:00 of alcohol Medicine (finding) Sex Ass[birth year] [facility] 00:00:00 00:00:00 [facility] Smoking Status Start Date Stop Date Source Smokes tobacco daily 2021-04-01 00:00:00 [facility] Tobacco smoking consumption [facility] Medical unknown Branch Medications Ordered Filled Start Stop Current Ordering Indication Dosage Frequency Signature Comments Components Source Medication Medication Date Date Medication? Clinician (SIG) Name Name HYDROcodone 2021- No 1{tbl} 1 tablet, Univers -acetaminop 11-19 Oral, ity of hen (NORCO 07:45: 07:42 ONCE, 1 [place] 5) 5-325 mg 00 :00 dose, On Medi landon tablet 1 [facility] Branch tablet 11/19/21 at 0245, AMANDA aspirin No 325mg 325 mg, Unive rs tablet 325 11-19 Oral, ity of mg 07:00: 06:29 ONCE, 1 [place] 00 :00 dose, On Medical [place] Branch 11/19/21 at 0200, STAT iopamidol 2021- No [id number] 80mL 80 mL, U nivers (ISOVUE 11-19 [...] Tue07/31/21 Branch at 1430, Routine cyclobenzap Yes [id number] 10mg Take 1 Univers rine 10 mg 07-31 tablet by ity of tablet 00:00: mouth [place] 00 every 8 Medical (eight) Branch hours as needed for Muscle Spasms. naproxen Yes [id number] 500mg Take 1 Univers 500 mg 07-31 9103 tablet by ity of tablet 00:00: mouth [place] 00 every 12 Medical (twelve) Branch hours as needed for Pain (scale 1-3) or Pain (scale 4-6). cyclobenzap Yes [id number] 10mg Take 1 Univers rine 10 mg 07-31 9103 tablet by ity of tablet 00:00: mouth [place] 00 every 8 Medical (eight) Branch hours as needed for Muscle Spasms. naproxen Yes [id number] 500mg Take 1 Univers 500 mg 07-31 [...] e clonazepam 2020-05 Yes .5mg Take 0.5 [place] darrell (KLONOPIN) 1- mg by [place] 1 MG tablet 00:00: mouth of 00 daily. Medicin e aripiprazol 2020-05 Yes 1{tbl} Take 1 Ba ylor e (ABILIFY) 1- Tablet by Col lege 5 MG tablet 00:00: mouth of 00 daily. Medicin e methocarbam 2020-05- No 750mg Take 1 Ba ylor ol 0-21 04-01 Tablet by [place] (ROBAXIN) 00:00: 00:00 mouth 2 of 750 MG 00 :00 times Medicin tablet daily as e needed. meloxicam 2020- No TAKE 1 [facility] (MOBIC) 7.5 01-07 TABLET BY Co llege MG tablet 00:00: 00:00 MOUTH of 00 :00 EVERY DAY Medicin e FENTanyl PF 2020- No 50ug 50 mcg, Un agustín (SUBLIMAZE 09-24 Slow IV ity o f (PF)) 03:45: 02:43 Push, [place] injection 00 :00 ONCE, 1 Medical 50 mcg dose, [facility] Branch 09/23/20 at 2245, Routine methocarbam Yes [id number] 750mg Take 1 Univers oL 5-25 tablet by ity of (ROBAXIN-75 00:00: mouth 4 [place] 0) 750 mg 00 (four) Medical tablet times Branch daily as needed for Pain (scale 7-10). methocarbam 2021- No [id number] 750mg Take 1 Univers oL -25 07-31 tablet by ity of (ROBAXIN-75 00:00: 00:00 mouth 4 [place] 0[place] 750 mg 00 :00 (four) Medical tablet times Branch daily as needed for Pain (scale 7-10). traMADoL 2020- No [id number] 50mg Take 1 Univer s (ULTRAM) 50 09-23 tablet by it y of mg tablet 00:00: 04:59 mouth [place] 00 :00 every 6 Medical (six) Branch hours as needed for Pain (scale 7-10) for up to 7 days. Indication s: acute pain traMADol Yes 50mg 50 mg, Univers (ULTRAM) 12-10 Oral, ity of tablet 50 16:18: Q6HPRN, [place] mg 36 Starting Medical [facility] Branch 12/11/19 at 1118, Until Discontinu ed, [...] 14:35 ONCE, 1 [place] 00 :00 dose, [facility] Medical 12/11/19 at Branch 0945, STAT ondansetron 2020-0 Yes [id number] 4mg Take 1 Univers 4 mg tablet 8-11 tablet by ity of 00:00: mouth [place] 00 every 8 Medical (eight) Branch hours as needed for Nausea and Vomiting (N/V). famotidine 2020-0 Yes [id number] 40mg Take 1 U nivers (PEPCID) 40 8-11 tablet by ity of mg tablet 00:00: mouth [place] 00 daily. Medical Branch ondansetron 2020-0 Yes [id number] 4mg Take 1 Univers 4 mg tablet 8-11 tablet by ity of 00:00: mouth [place] 00 every 8 Medical (eight) Branch hours as needed for Nausea and Vomiting (N/V). famotidine 2020-0 Yes [id number] 40mg Take 1 U nivers (PEPCID) 40 8-11 tablet by ity of mg tablet 00:00: mouth [place] 00 daily. Medical Branch ondansetron 2020-0 Yes [id number] 4mg Take 1 Univers 4 mg tablet 8-11 tablet by ity of 00:00: mouth [place] 00 every 8 Medical (eight) Branch hours as needed for Nausea and Vomiting (N/V). famotidine 2020-0 Yes [id number] 40mg Take 1 U nivers (PEPCID) 40 8-11 tablet by ity of mg tablet 00:00: mouth [place] 00 daily. Medical Branch ondansetron 2020-0 Yes [id number] 4mg Take 1 Univers 4 mg tablet 8-11 tablet by ity of 00:00: mouth [place] 00 every 8 Medical (eight) Branch hours as needed for Nausea and Vomiting (N/V). famotidine 2020-0 Yes [id number] 40mg Take 1 U nivers (PEPCID) 40 8-11 tablet by ity of mg tablet 00:00: mouth [place] 00 daily. Medical Branch famotidine 2020-0 Yes 1{tbl} Take 1 [place] darrell (PEPCID) 40 8-11 Tablet by Col lege MG tablet 00:00: mouth of 00 daily. Medicin e ondansetron 2020-0 Yes 4mg Take 4 mg B ayl[place] (ZOFRAN) 4 8-11 by mouth. [place] ege MG tablet 00:00: of 00 Medicin e traMADol 50 2019-0 2020- No [id number] 50mg Take 1 Uni vers mg tablet 8 08-19 tablet by ity of 00:00: 04:59 mouth [place] 00 :00 every 6 Medical (six) Branch hours as needed (pain) for up to 7 days. Indication s: acute pain LORazepam 2019-2019- No 1mg 1 mg, Univer s (ATIVAN) 11-29 Oral, ity of tablet 1 mg 04:00: 03:18 ONCE, 1 [place] :[place] dose, [facility] 11/29/19 at Branch 2300, AMANDA NaCl 0.9% 2019-0 Yes 1000mL at 500 [facility] ers (NS) IV 7- mL/hr, ity of infusion 02:00: Intravenou [place] 1,000 mL 00 s, Medical CONTINUOUS Branch , Starting [facility] 11/29/19 at 2100, Until Discontinu ed, AMANDA ketorolac 2019- No 30mg 30 mg, Unive rs (TORADOL) 11-29 Slow IV ity of injection 02:00: 01:08 Push, [place] 30 mg 00 :00 ONCE, 1 Medical dose, [facility] Branch 11/29/19 at 2100, Routine
geography faculty member approving Restricted medication : ARLEY CH famotidine 2019- No 20mg 20 mg, Univ ers (PEPCID AC) 11-28 Oral, ity of tablet 20 23:45: 22:48 ONCE, 1 [place] mg 00 :00 dose, [facility] Medical 11/29/19 at Branch 1845, AMANDA diphenhydrA 2019-2019- No 50mg 50 mg, Uni vers MINE 11-28 Oral, ity of (BENADRYL) 23:45: 22:48 ONCE, 1 [place] tablet 50 00 :00 dose, [place] [facility] mg 11/29/19 at Branch 1845, AMANDA dexamethaso 2019-2019- No 10mg 10 mg, Uni vers ne 7-30 07-30 Intramuscu ity of (DECADRON 22:42: 22:50 lar, ONCE, [place] PHOSPHATE) 00 :00 1 dose, Medica l injection [place] [facility] 10 mg 11/29/19 at 1745, STAT methylPREDN 2020-0 Yes [id number] Take by [facility] ISolone 4 7-30 mouth ity of mg tablets 00:00: [place]-INSTRU [place] 00 CTIONS. Medical follow Branch package directions methylPREDN 2020-0 Yes [id number] Take by Univers ISolone 4 7-30 mouth ity of mg tablets 00:00: SEE-INSTRU [place] 00 CTIONS. Medical follow Branch package directions methylPREDN 2020-0 Yes [id number] Take by [facility] ISolone 4 7-30 mouth ity of mg tablets 00:00: SEE-INSTRU [place] 00 CTIONS. Medical follow Branch package directions methylPREDN 2020-0 Yes [id number] Take by [facility] ISolone 4 7-30 mouth ity of mg tablets 00:00: SEE-INSTRU [place] 00 CTIONS. Medical follow Branch package directions methylPREDN 2020-0 Yes [id number] Take by [facility] ISolone 4 7-30 mouth ity of mg tablets 00:00: SEE-INSTRU [place] 00 CTIONS. Medical follow Branch package directions methylPREDN 2020-0 Yes [id number] Take by [facility] ISolone 4 7-30 mouth ity of mg tablets 00:00: SEE-INSTRU [place] 00 CTIONS. Medical follow Branch package directions methylPREDN 2020-0 Yes [id number] Take by [facility] ISolone 4 7-30 mouth ity of mg tablets 00:00: SEE-INSTRU [place] 00 CTIONS. Medical follow Branch package directions methylPREDN 2020-0 Yes Take by [facility] ISolone 4 7-30 mouth. College MG TBPK 00:00: of 00 Medicin e famotidine 2020-0 2020- No [id number] 20mg Take 1 Univers (PEPCID) 20 7-30 08-14 tablet by it y of mg tablet 00:00: 04:59 mouth 2 [place] 00 :00 (two) Medical times Branch daily for 14 days. famotidine 2020-0 2020- No [id number] 20mg Take 1 Univers (PEPCID) 20 7-30 08-14 tablet by it y of mg tablet 00:00: 04:59 mouth 2 [place] 00 :00 (two) Medical times Branch daily for 14 days. famotidine 2019-2019- No [id number] 20mg Take 1 Univers (PEPCID) 20 11-28 tablet by it y of mg tablet 00:00: 04:59 mouth 2 [place] 00 :00 (two) Medical times Branch daily for 14 days. famotidine 2019-2019- No [id number] 20mg Take 1 Univers (PEPCID) 20 11-28 tablet by it y of mg tablet 00:00: 04:59 mouth 2 [place] 00 :00 (two) Medical times Branch daily for 14 days. LORazepam 2019-2019- No [id number] 1mg Take 1 U nivers (ATIVAN) 1 11-28 tablet by ity of mg tablet 00:00: 04:59 mouth at [place] 00 :00 bedtime Medical for 5 Branch days. LORazepam 2019-2019- No [id number] 1mg Take 1 U nivers (ATIVAN) 1 11-28 tablet by ity of mg tablet 00:00: 04:59 mouth at [place] 00 :00 bedtime Medical for 5 Branch days. LORazepam 2019-2019- No [id number] 1mg Take 1 U nivers (ATIVAN) 1 [...] Branch injection 2215, 120 mL Routine ketorolac 2019- No 30mg 30 mg, Unive rs (TORADOL) 11-27 Slow IV ity of injection 02:45: 01:44 Push, [place] 30 mg 00 :00 ONCE, 1 Medical dose, [facility] 11/27/19 at 2145, Routine
geography faculty member approving Restricted medication : XIAO MOTT dicyclomine 2019-0 2020- No 20mg 20 mg, Uni vers (BENTYL) 11-27 Intramuscu ity of injection 02:45: 01:45 [place] ONCE [place] 20 mg 00 :00 NOW, 1 Medical dose, [facility] 11/27/19 at 2145, Routine pantoprazol 2019- 2020- No 40mg 40 mg, IV Univers e 11-27 Piggyback, ity of (PROTONIX) 02:00: 01:21 ONCE, 1 [place] 40 mg in 00 :00 dose, Tue Medica l NaCl 0.9% 11/27/19 at Bran ch (NS) 100 mL 2100, 100 MINI-BAG mL FENTanyl PF 2020- No 50ug 50 mcg, Un agustín (SUBLIMAZE 11-27 Slow IV ity o f (PF)) 02:00: 01:04 Push, [place] injection 00 :00 ONCE, 1 Medical 50 mcg dose, [facility] 11/27/19 at 2100, Routine proMETHazin 2019- 2020- No 25mg 25 mg, IV Univers e 11-27 Piggyback, ity of (PHENERGAN) 02:00: 00:56 ONCE, 1 [place] 25 mg in 00 :00 dose, Tue Medica l NaCl 0.9% 11/27/19 at Bran ch (NS) 50 mL 2100, 50 piggyback mL NaCl 0.9% 2019-0 2020- No 1000mL at 999 Uni vers (NS) bolus 11-27 mL/hr, ity of infusion 01:45: 03:43 1,000 mL, [place] 1,000 mL 00 :00 IV Medical Infusion, Branch ONCE, 1 dose, [facility] 11/27/19 at 2045, STAT ondansetron 2019-0 2020- No 4mg 4 mg, Slow Univers (ZOFRAN 11-27 IV Push, ity of (PF)) 01:45: 00:43 ONCE, 1 [place] injection 4 00 :00 dose, Tue Med ical mg 7/28/20 at Branch 2045, AMANDA dicyclomine 2020-0 Yes [id number] 20mg Take 1 Univers 20 mg 7-28 tablet by ity of tablet 00:00: mouth [place] 00 every 6 Medical (six) Branch hours as needed for Abdominal pain. proMETHazin 2020-0 Yes [id number] 25mg Take 1 Univers e 25 mg 7-28 tablet by ity of tablet 00:00: mouth [place] 00 every 6 Medical (six) Branch hours as needed for N/V unresponsi ve to Ondansetro n. proMETHazin 2020-0 Yes [id number] 25mg Insert 1 Univers e 7-28 Suppositor ity of (PHENERGAN) 00:00: y into [place] 25 mg 00 rectum Medical suppository every 4 Branc h (four) hours as needed for Nausea and Vomiting (N/V) or N/V unresponsi ve to oral antiemetic s. lactulose 2020-0 Yes [id number] 30mL Take 30 mL Univers 10 gram/15 7-28 by mouth 3 ity of mL oral 00:00: (three) [place] solution 00 times Medical daily as Branch needed for Constipati on or For bowel movement. dicyclomine 2020-0 Yes [id number] 20mg Take 1 Univers 20 mg 7-28 tablet by ity of tablet 00:00: mouth [place] 00 every 6 Medical (six) Branch hours as needed for Abdominal pain. proMETHazin 2020-0 Yes [id number] 25mg Take 1 Univers e 25 mg 7-28 tablet by ity of tablet 00:00: mouth [place] 00 every 6 Medical (six) Branch hours as needed for N/V unresponsi ve to Ondansetro n. proMETHazin 2020-0 Yes [id number] 25mg Insert 1 Univers e 7-28 Suppositor ity of (PHENERGAN) 00:00: y into [place] 25 mg 00 rectum Medical suppository every 4 Branc h (four) hours as needed for Nausea and Vomiting (N/V) or N/V unresponsi ve to oral antiemetic s. lactulose 2020-0 Yes [id number] 30mL Take 30 mL Univers 10 gram/15 7-28 by mouth 3 ity of mL oral 00:00: (three) [place] solution 00 times Medical daily as Branch needed for Constipati on or For bowel movement. dicyclomine 2020-0 Yes [id number] 20mg Take 1 Univers 20 mg 7-28 tablet by ity of tablet 00:00: mouth [place] 00 every 6 Medical (six) Branch hours as needed for Abdominal pain. proMETHazin 2020-0 Yes [id number] 25mg Take 1 Univers e 25 mg 7-28 tablet by ity of tablet 00:00: mouth [place] 00 every 6 Medical (six) Branch hours as needed for N/V unresponsi ve to Ondansetro n. proMETHazin 2020-0 Yes [id number] 25mg Insert 1 Univers e 7-28 Suppositor ity of (PHENERGAN) 00:00: y into [place] 25 mg 00 rectum Medical suppository every 4 Branc h (four) hours as needed for Nausea and Vomiting (N/V) or N/V unresponsi ve to oral antiemetic s. lactulose 2020-0 Yes [id number] 30mL Take 30 mL Univers 10 gram/15 7-28 by mouth 3 ity of mL oral 00:00: (three) [place] solution 00 times Medical daily as Branch needed for Constipati on or For bowel movement. dicyclomine 2020-0 Yes [id number] 20mg Take 1 Univers 20 mg 7-28 tablet by ity of tablet 00:00: mouth [place] 00 every 6 Medical (six) Branch hours as needed for Abdominal pain. proMETHazin 2020-0 Yes [id number] 25mg Take 1 Univers e 25 mg 7-28 tablet by ity of tablet 00:00: mouth [place] 00 every 6 Medical (six) Branch hours as needed for N/V unresponsi ve to Ondansetro n. proMETHazin 2020-0 Yes [id number] 25mg Insert 1 Univers e 7-28 Suppositor ity of (PHENERGAN) 00:00: y into [place] 25 mg 00 rectum Medical suppository every 4 Branc h (four) hours as needed for Nausea and Vomiting (N/V) or N/V unresponsi ve to oral antiemetic s. lactulose 2020-0 Yes [id number] 30mL Take 30 mL Univers 10 gram/15 7-28 by mouth 3 ity of mL oral 00:00: (three) [place] solution 00 times Medical daily as Branch needed for Constipati on or For bowel movement. dicyclomine 2020-0 Yes [id number] 20mg Take 1 Univers 20 mg 7-28 tablet by ity of tablet 00:00: mouth [place] 00 every 6 Medical (six) Branch hours as needed for Abdominal pain. proMETHazin 2020-0 Yes [id number] 25mg Take 1 Univers e 25 mg 7-28 tablet by ity of tablet 00:00: mouth [place] 00 every 6 Medical (six) Branch hours as needed for N/V unresponsi ve to Ondansetro n. proMETHazin 2020-0 Yes [id number] 25mg Insert 1 Univers e 7-28 Suppositor ity of (PHENERGAN) 00:00: y into [place] 25 mg 00 rectum Medical suppository every 4 Branc h (four) hours as needed for Nausea and Vomiting (N/V) or N/V unresponsi ve to oral antiemetic s. dicyclomine 2020-0 Yes [id number] 20mg Take 1 Univers 20 mg 7-28 tablet by ity of tablet 00:00: mouth [place] 00 every 6 Medical (six) Branch hours as needed for Abdominal pain. lactulose 2020-0 Yes [id number] 30mL Take 30 mL Univers 10 gram/15 7-28 by mouth 3 ity of mL oral 00:00: (three) [place] solution 00 times Medical daily as Branch needed for Constipati on or For bowel movement. pantoprazol 2020-0 Yes [id number] 40mg Take 1 Univers e 7-28 tablet by ity of (PROTONIX) 00:00: mouth [place] 40 mg EC 00 daily. Medical tablet Branch proMETHazin 2020-0 Yes [id number] 25mg Take 1 Univers e 25 mg 7-28 tablet by ity of tablet 00:00: mouth [place] 00 every 6 Medical (six) Branch hours as needed for N/V unresponsi ve to Ondansetro n. proMETHazin 2020-0 Yes [id number] 25mg Insert 1 Univers e 7-28 Suppositor ity of (PHENERGAN) 00:00: y into [place] 25 mg 00 rectum Medical suppository every 4 Branc h (four) hours as needed for Nausea and Vomiting (N/V) or N/V unresponsi ve to oral antiemetic s. dicyclomine 2020-0 Yes [id number] 20mg Take 1 Univers 20 mg 7-28 tablet by ity of tablet 00:00: mouth [place] 00 every 6 Medical (six) Branch hours as needed for Abdominal pain. proMETHazin 2020-0 Yes [id number] 25mg Take 1 Univers e 25 mg 7-28 tablet by ity of tablet 00:00: mouth [place] 00 every 6 Medical (six) Branch hours as needed for N/V unresponsi ve to Ondansetro n. proMETHazin 2020-0 Yes [id number] 25mg Insert 1 Univers e 7-28 Suppositor ity of (PHENERGAN) 00:00: y into [place] 25 mg 00 rectum Medical suppository every 4 Branc h (four) hours as needed for Nausea and Vomiting (N/V) or N/V unresponsi ve to oral antiemetic s. lactulose 2020-0 Yes [id number] 30mL Take 30 mL Univers 10 gram/15 7-28 by mouth 3 ity of mL oral 00:00: (three) [place] solution 00 times Medical daily as Branch needed for Constipati on or For bowel movement. lactulose 2020-0 Yes [id number] 30mL Take 30 mL Univers 10 gram/15 7-28 by mouth 3 ity of mL oral 00:00: (three) [place] solution 00 times Medical daily as Branch needed for Constipati on or For bowel movement. dicyclomine 2020-0 Yes [id number] 20mg Take 1 Univers 20 mg 7-28 tablet by ity of tablet 00:00: mouth [place] 00 every 6 Medical (six) Branch hours as needed for Abdominal pain. proMETHazin 2020-0 Yes [id number] 25mg Take 1 Univers e 25 mg 7-28 tablet by ity of tablet 00:00: mouth [place] 00 every 6 Medical (six) Branch hours as needed for N/V unresponsi ve to Ondansetro n. proMETHazin 2020-0 Yes [id number] 25mg Insert 1 Univers e 7-28 Suppositor ity of (PHENERGAN) 00:00: y into [place] 25 mg 00 rectum Medical suppository every 4 Branc h (four) hours as needed for Nausea and Vomiting (N/V) or N/V unresponsi ve to oral antiemetic s. lactulose 2020-0 Yes [id number] 30mL Take 30 mL Univers 10 gram/15 7-28 by mouth 3 ity of mL oral 00:00: (three) [place] solution 00 times Medical daily as Branch needed for Constipati on or For bowel movement. dicyclomine 2020-0 Yes 20mg Take 20 mg [facility] (BENTYL) 20 7-28 by mouth. Col lege MG tablet 00:00: of 00 Medicin e lactulose 2020-0 Yes 30mL Take 30 mL Ba ylor (CHRONULAC) 7-28 by mouth. Col lege 10 GM/15ML 00:00: of solution 00 Medicin e promethazin 2020-[address] 25 Ba ylor e 7-28 mg College (PHENERGAN) 00:00: rectally. o f 25 MG 00 Medicin suppository e pantoprazol 2019-0 2020- No [id number] 40mg Take 1 Univers e 7- 07-30 tablet by ity of (PROTONIX) 00:00: 00:00 mouth [place] 40 mg EC 00 :00 daily. Medical tablet Branch Vital Signs Vital Name Observation Time Observation Value Comments Source Systolic blood 2021-11-19 07:00:00 139 [facility]Hg[facility] 2021-11-19 07:00:00 97 mm[Hg] Unive [facility] Heart rate 2021-11-19 07:00:00 60 /min [facility] Respiratory rate 2021-11-19 07:00:00 24 /min [facility] Oxygen saturation in 2021-11-19 07:00:00 97 /min [facility] Arterial blood by [facility] Pulse oximetry Branch Body temperature 2021-11-19 04:46:00 36.83 Loan [facility] Body height 2021-11-19 04:46:00 157.5 cm [facility] Body weight 2021-11-19 04:46:00 100.699 kg [facility] BMI 2021-11-19 04:46:00 40.60 kg/m2 [facility] Systolic blood 2021-07-31 18:03:00 127 mm[Hg] Univer [facility] Diastolic blood 2021-07-31 18:03:00 97 mm[facility]Hg] [facility] 2021-07-31 18:03:00 71 /min [...] /min University of Arterial blood by [place] [employer] Pulse oximetry Branch Systolic blood 2021-04-01 15:14:00 134 mm[Hg] [facility] Medicine Diastolic blood 2021-04-01 15:14:00 82 mm[Hg] [facility] Medicine Heart rate 2021-04-01 15:14:00 78 /min [facility] Body temperature 2021-04-01 15:14:00 37.39 Loan [facility] Respiratory rate 2021-04-01 15:14:00 16 /min [facility] Body height 2021-04-01 15:14:00 157.5 cm [facility] Body weight 2021-04-01 15:14:00 83.915 kg [facility] BMI 2021-04-01 15:14:00 33.84 kg/m2 [facility] Systolic blood 2020-09-24 03:00:00 128 mm[Hg] Univer sity of pressure [facility] Branch Diastolic blood 2020-09-24 03:00:00 90 mm[Hg] Unive rsity of pressure [facility] Heart rate 2020-09-24 03:00:00 57 /min [facility]i [facility] [place] [facility] Respiratory rate 2020-09-24 03:00:00 12 /min Univ ers[facility] [place] [facility] Oxygen saturation in 2020-09-24 03:00:00 97 /min University of Arterial blood by [employer] [facility] Pulse oximetry Branch Body temperature 2020-09-23 [...] /min University of Arterial blood by [place] [employer] [facility]on Pulse oximetry Branch Body weight 2019-12-11 [...] /min University of Arterial blood by [place] [employer] [facility] Pulse oximetry Branch Body weight 2019-12-11 [...] 98 /min University of Arterial blood by [facility] Pulse oximetry Branch Body temperature 2019-11-29 22:39:00 [...] 98 /min University of Arterial blood by [facility] Pulse oximetry Branch Body temperature 2019-11-29 22:39:00 [...] 98 /min University of Arterial blood by [facility] Pulse oximetry Branch Body temperature 2019-11-28 00:40:00 37.5 Loan [facility] height 2019-11-28 00:37:00 157.5 cm Universi ty [facility] Body weight 2019-11-28 00:37:00 77.111 kg [facility] BMI 2019-11-28 00:37:00 31.09 kg/m2 Universi [facility] Systolic blood 2019-11-28 03:42:00 158 mm[Hg] Univer sity of pressure [facility] Diastolic blood 2019-11-28 03:42:00 88 mm[Hg] [facility] Heart rate 2019-11-28 03:42:00 79 /min [facility] Respiratory rate 2019-11-28 03:42:00 20 /min [facility] Oxygen saturation in 2019-11-28 03:42:00 98 /min [facility] [facility] Arterial blood by [facility] Pulse oximetry Branch Body temperature 2019-11-28 00:40:00 37.5 Loan [facility] Body height 2019-11-28 00:37:00 157.5 cm [facility] Body weight 2019-11-28 00:37:00 77.111 kg [facility] BMI 2019-11-28 00:37:00 31.09 kg/m2 [facility] Procedures Procedure Date / Time Performing Clinician Source Performed CT CHEST PULMONARY 2021-11-19 06:57:47 Afia Adkins [facility] ANGIOGRAM Medical Branch TROPONIN I 2021-11-19 06:30:[address] [facility] COMP. METABOLIC PANEL 2021-11-19 06:30:00 Afia Adkins [facility] ([id number]) [facility] CBC WITH DIFF 2021-11-19 06:30:[address] [facility] CONSENT/REFUSAL FOR 2021-11-19 04:34:04 Doctor Unassigned, No Un [facility] DIAGNOSIS AND Name Medical Branch TREATMENT POCT TEST 2021-07-31 18:42:00 Mackenzie Willis [facility] CONSENT/REFUSAL FOR 2021-07-31 17:49:05 Doctor Unassigned, [facility] Name Medical Branch TREATMENT NOTICE OF PRIVACY 2021-07-31 17:48:51 Doctor Unassigned, No [facility] PRACTICES Name [facility] Branch D-DIMER 2020-09-24 00:40:00 Jorge Saul [facility] XR CHEST 1 VW 2020-09-24 00:37:38 Jorge Saul [facility] LIPASE 2020-09-24 00:01:00 Jorge Saul [facility] TROPONIN I 2020-09-24 00:01:00 Dorys Jroge [facility] COMP. METABOLIC PANEL 2020-09-24 00:01:00 Jorge Saul [facility] ([id number]) Medical [place] CBC WITH DIFF 2020-09-24 00:01:00 Jorge Saul [facility] NOTICE OF PRIVACY 2020-09-23 23:25:33 Doctor Unassigned, No [facility] PRACTICES Name [facility] CONSENT/REFUSAL FOR 2020-09-23 23:24:41 Doctor Unassigned, No [facility] DIAGNOSIS AND Name [facility] TREATMENT US GALL BLADDER 2019-12-11 15:08:38 Sia [facility] LIPASE 2019-12-11 14:35:00 Javi Stovall [facility] TEST, SERUM 2019-12-11 14:35:00 Sia [facility] HEPATIC FUNCTION PANEL 2019-12-11 14:35:00 Javi Stovall [facility] ([id number]) [facility] (ALB,T.PRO,BILI T,BU/BC,ALT,AST,ALK PHOS) BASIC METABOLIC PANEL 2019-12-11 14:35:00 Sia [facility] (NA, K, CL, CO2, Medical Branch GLUCOSE, BUN, CREATININE, CA) CBC WITH DIFF 2019-12-11 14:35:00 Javi Stovall [facility] COMP. METABOLIC PANEL 2019-11-30 02:21:00 Arley Ch [facility] ([id number]) Medical Branch CBC WITH DIFF 2019-11-30 01:10:00 Arley Ch [facility] RAPID STREP SCREEN FOR 2019-11-29 22:47:00 Arley Ch [facility] GROUP A Medical Branch NOTICE OF PRIVACY 2019-11-29 22:31:49 Doctor Unassigned, No [facility] PRACTICES Name [facility] ADC / LCC - DRUG 2019-11-28 03:43:00 Xiao Mott [facility] SCREEN TRIAGE Medical Branch URINALYSIS 2019-11-28 03:22:00 Xiao Mott [facility] CT ABDOMEN PELVIS W 2019-11-28 03:03:48 Xiao Mott [facility] CONTRAST [facility] Branch EKG-12 LEAD 2019-11-28 02:24:56 Xiao Mott [facility] LIPASE 2019-11-28 00:44:00 Xiao Mott [facility] TROPONIN I 2019-11-28 00:44:00 Xiao Mott [facility] COMP. METABOLIC PANEL 2019-11-28 00:44:00 Xiao Mott [facility] ([id number]) Medical Branch CBC WITH DIFF 2019-11-28 00:44:00 Xiao Mott [facility] CONSENT/REFUSAL FOR 2019-11-28 00:21:45 Doctor Unassigned, No [facility] DIAGNOSIS AND Name Medical Branch TREATMENT NOTICE OF PRIVACY 2019-11-28 00:21:31 Doctor Unassigned, No [facility] Name [facility] Plan of Care Planned Activity Planned Date Details Comments Source Future Scheduled 2021-12-31 INFLUENZA VACCINE (#1) [facility] 00:00:00 [code = INFLUENZA Medical Ce nter VACCINE (#1)] Future Scheduled 2021-12-31 INFLUENZA VACCINE (#1) [facility] 00:00:00 [code = INFLUENZA Medical Ce nter VACCINE (#1)] Future Scheduled 2021-08-31 SHINGLES VACCINES ([address] [facility] Test 00:00:00 2) [code = SHINGLES Medical Center VACCINES (1 of 2)] Future Scheduled 2021-08-31 SHINGLES VACCINES ([address] [facility] Test 00:00:00 2) [code = SHINGLES Medical Center VACCINES (1 of 2)] Future Scheduled 2021-05-[address] [facility] Test 00:00:00 (12+) [code = Medical Center DEPRESSION SCREENING (12+)] Future Scheduled 2021-05-[address] [facility] Test 00:00:00 (12+) [code = Medical Center DEPRESSION SCREENING (12+)] Future Scheduled 2021-04-01 MRI CERVICAL SPINE WO 1 Occurrences [employer] Test 09:24:40 CONTRAST [code = starting of Medicine 84640-5] 04/01/2021 until 04/01/2022 Future Scheduled 2021-04-01 MRI THORACIC SPINE WO 1 Occurrences [employer] Test 09:24:40 CONTRAST [code = starting of Medicine 65907-9] 04/01/2021 until 04/01/2022 Future Scheduled 2021-04-01 PT INSTR GIVEN - Ordered: [employer] Test 09:20:37 TOBACCO [code = NOCPT] 04/01/2021 of Me dicine Future Scheduled 2021-04-01 Screening for malignant [facility] Test 09:16:36 neoplasm of colon of Medicin e (procedure) [code = 975614234] Future Scheduled 2021-04-01 Screening for malignant [employer] Test 09:16:36 neoplasm of breast of Medici ne (procedure) [code = 866031068] Future Scheduled 2021-04-01 COVID-19 Vaccine (1) [place] [employer] Test 09:16:36 [code = COVID-19 of Medicine Vaccine (1)] Future Scheduled 2021-04-01 TETANUS SHOT (ADULT) [place] [employer] Test 09:16:36 [code = TETANUS SHOT of Medi cine (ADULT)] Future Scheduled 2021-04-01 BMI FOLLOW UP PLAN [employer] Test 09:16:36 [code = BMI FOLLOW UP of Med icine PLAN] Future Scheduled 2021-04-01 Hepatitis C screening [employer] Test 09:16:36 (procedure) [code = of Medic ine 092712086] Future Scheduled 2021-04-01 Human immunodeficiency [employer] Test 09:16:36 virus screening of Medicine (procedure) [code = 525179323] Future Scheduled 2021-04-01 Screening for malignant [facility] Test 09:16:36 neoplasm of cervix of Medici ne (procedure) [code = 248652069] Future Scheduled 2021-04-01 FLU VACCINE > 6 MONTHS B [facility] Test 09:16:36 [code = FLU VACCINE > 6 of M edicine MONTHS] Future Scheduled 2021-04-01 ZOSTER VACCINE (1 of 2) [facility] Test 09:16:36 [code = ZOSTER VACCINE of Me dicine (1 of 2)] Future Scheduled 2016-08-31 Lipid panel (procedure) [facility] Test 00:00:00 [code = 34550792] Medical Ce nter Future Scheduled 2016-08-31 Lipid panel (procedure) [facility] Test 00:00:00 [code = 54888105] Medical Ce nter Future Scheduled 1992-08-31 Screening for malignant [facility] Test 00:00:00 neoplasm of cervix Medical C enter (procedure) [code = 515120636] Future Scheduled 1992-08-31 Screening for malignant [facility] Test 00:00:00 neoplasm of cervix Medical C enter (procedure) [code = 576169385] Future Scheduled 1990-08-31 DTAP/TDAP/TD [facility]ACCINES [facility] 00:00:00 (1 - Tdap) [code = Medical C enter DTAP/TDAP/TD VACCINES (1 - Tdap)] Future Scheduled 1990-08-31 DTAP/TDAP/TD [facility]ACCINES [facility] 00:00:00 (1 - Tdap) [code = Medical C enter DTAP/TDAP/TD VACCINES (1 - Tdap)] Future Scheduled 1989-08-31 HEPATITIS C [facility]CRE[facility]ING [facility] 00:00[facility]00 [code = HEPATITIS C Medical Center SCREENING] Future Scheduled 1989-08-31 HEPATITIS C [facility]ING [facility] 00:00:00 [code = HEPATITIS C Medical Center SCREENING] Future Scheduled 1972-03-03 COVID-19 VACCINE (#1) [facility] 00:00:00 [code = COVID-[address] VACCINE (#1)] Future Scheduled 1972-03-03 COVID-19 VACCINE (#1) [facility] 00:00:00 [code = COVID-[address] VACCINE (#1)] Future Scheduled 1970 Sigmoidoscopy [code = [facility] 00:[facility]00 Sigmoidoscopy] [facility] [place] Future Scheduled 1971 Screening for malignant [facility] Test 00:00:00 neoplasm of breast Medical C enter (procedure) [code = 977513261] Future Scheduled 1971 CT Colonography (combo) [facility] Test 00:00:00 [code = CT Colonography [facility] (combo)] Future Scheduled 1971 Screening for malignant [facility] Test 00:00:00 neoplasm of breast Medical C enter (procedure) [code = 631890696] Future Scheduled 1971 CT Colonography (combo) [facility] Test 00:00:00 [code = CT Colonography [facility] (combo)] Future Scheduled 1971 Screening for malignant [facility] Test 00:00:00 neoplasm of colon Medical Ce nter (procedure) [code = 867739855] Future Scheduled [address] Screening for malignant [facility] Test 00:00:00 neoplasm of colon Medical Ce nter (procedure) [code = 918274965] Future Scheduled [address] Screening for malignant [facility] Test 00:00:00 neoplasm of colon Medical Ce nter (procedure) [code = 748046171] Future Scheduled 1971 Screening for malignant [facility] Test 00:00:00 neoplasm of colon Medical Ce nter (procedure) [code = 160748434] Future Scheduled 1970 Sigmoidoscopy [code = [facility] 00:[facility]:00 Sigmoidoscopy] Medical [place] Future Scheduled 1971 Screening for malignant [facility] Test 00:00:00 neoplasm of colon Medical Ce nter (procedure) [code = 817024147] Future Scheduled 1971 Screening for malignant [facility] Test 00:00:00 neoplasm of colon Medical Ce nter (procedure) [code = 338813183] Future Scheduled 1971 Screening for malignant [facility] Test 00:00:00 neoplasm of colon Medical Ce nter (procedure) [code = 019654534] Future Scheduled 1971 Screening for malignant [facility] Test 00:00:00 neoplasm of colon Medical Ce nter (procedure) [code = 973858512] Encounters Start End Encounter Admission Attending Care Care Encounter Source Date/Time Date/Time Type Type Clinicians Facility Department ID 2021-11-19 2021-11-19 Emergency X LUCILLE RUST ERT [id number] [facility] 00:31:00 02:52:00 AFIA ity of [facility] 2021-11-19 2021-11-19 [facility] [id number] [facility] 00:31:00 02:52:00 Afia PERAZA 350.1.13.10 i ty of [place] 4.2.7.2.686 [facility] [id number] [address] 2021-07-31 2021-07-31 Emergency [facility] [id number] Univers 13:04:00 14:24:00 CHRISTOPHER it y of [facility] 2021-07-31 2021-07-31 Emergency [facility] [id number] Univers 13:04:00 14:24:00 Mackenzie PERAZA 350.1.13.10 ity [facility] 4.2.7.2.686 [facility] [id number] [address] 2021-04-01 2021-04-01 Office DAVID CERVANTES JR. [id number] [facility] 09:07:17 16:23:07 Visit BLAKE MENONATOR 350.1.13.21 College Y 0.2.7.2.686 [id number] [facility] 805 e 2020-12-01 2020-12-01 Outpatient BILLY GARCIA [facility] [id number] [facility] 13:22:49 15:25:46 BLAKE landis of Medicin e 2020-12-01 2020-12-01 Outpatient JUAN RAMON CERVANTES SLE [id number] [facility] 00:00:00 00:00:00 BLAKE 2020-09-23 2020-09-23 [facility] [id number] Univers 18:36:00 22:14:00 Jorge Pamella Peraza 350.1.13.10 i ty [place] 4[place] [id number] [facility] 084 [place] 2020-09-23 2020-09-23 Emergency X DORYS, RUST ERT [id number] Univers 18:36:00 22:14:00 JORGE ity of [facility] 2019-12-11 2019-12-11 Emergency Kaale, TRAUMA [id number] [id number] Univers 07:58:00 11:57:00 [facility] 350.1.13.10 [place] [id number] [facility] 014 [place] 2019-12-11 2019-12-11 Emergency [place], TRAUMA [id number] 07:58:00 11:57:00 [facility] 350.1.13.10 4.2.7.2.686 [id number] [facility] 2019-12-11 2019-12-11 Emergency X RUST ERT [id number] Univers 07:53:00 07:53:00 ity of [facility] 2019-12-02 2019-12-02 Telephone Darell LINARES [id number] Univers 00:00:00 00:00:00 Melvina real 350.1.13.[address] [facility] 4.2.7.2.686 [place] as [id number] [address] 2019-12-02 2019-12-02 Letter Stenstjane LINARES 1.2.840.114 [id number] Univers 00:00:00 00:00:00 (Out) Melvina real 350.1.13.[address] [facility] 4.2.7.2.686 [place] as [phone] [address] 2019-12-02 2019-12-02 Letter Stenstadjayy LINARES 1.2.840.114 [id number] 00:00:00 00:00:00 (Out) Melvina realY 350.1.13.10 [facility] 4.2.7.2.686 [id number] [facility] 2019-12-02 2019-12-02 Telephone Darell LINARES 1.2.840.114 [id number] 00:00:00 00:00:00 farhan Melvina Guadarrama MORENA 350.1.13.10 [facility] 4.2.7.2.686 [id number] [facility] 2019-11-29 2019-11-29 Emergency [facility] [id number] [id number] Univers 17:39:52 22:40:00 Arley Peraza 350.1.13.10 ity of [place] 4.2.7.2.686 [facility] [phone] [address] 2019-11-29 2019-11-29 Emergency [facility] [id number] 17:39:52 22:40:00 Arley Peraza 350.1.13.10 [place] [address] [place] [address] [id number] [facility] 2019-11-29 2019-11-29 Emergency X [facility] ERT [id number] Univers 17:39:52 17:39:52 [facility] 2019-11-27 2019-11-28 Emergency Critical access hospital [id number] Univers 19:33:27 00:42:00 Xiao Peraza 350.1.13.10 ity of [place] 4.2.7.2.[address] [place] [id number] 2019-11-27 2019-11-28 Emergency Critical access hospital 1.2.341.915 [id number] 19:33:27 00:42:00 Xiao Peraza 350.1.13.10 [place] [address] [place] [address] [id number] [facility] 2019-11-27 2019-11-27 Emergency X [facility] ERT [id number] Univers 19:33:27 19:33:27 XIAO [facility] Results Test Description Test Time Test Comments Results Result Comments Source TROPONIN I 2021-11-19 07:11:43 Test Item Value Reference Range Interpretation Comme nts TROPONIN I (test code = 0.003 ng/mL See_Comment [Au tomated message] The 0566326944) system which ge nerated this result tra [...] biotin. Lab Interpretation Normal (test code = 14978-5) [facility]. METABOLIC PANEL (33605)2021-11-19 07:00:21 Test Item Value Reference Range Interpretation Comments NA (test code = 138 mmol/L 135-145 4140297095) K (test code = 4.2 mmol/L 3.5-5 5499969723) CL (test code = 104 mmol/L 98-108 6337536623) CO2 TOTAL (test code = 29 mmol/L 23-31 9128413444) AGAP (test code = 2-16 8313960302) BUN (test code = 11 mg/dL 7-23 7625176156) GLUCOSE (test code = 98 mg/dL 70-110 2792687241) CREATININE (test code = 0.68 mg/dL 0.5-1.04 0943936710) TOTAL BILI (test code = 0.3 mg/dL 0.1-1.3 9731001077) CALCIUM (test code = 9.5 mg/dL 8.6-10.6 1123226154) T PROTEIN (test code = 6.8 g/dL 6.3-8.2 4672204573) ALBUMIN (test code = 4.2 g/dL 3.5-5 4996415987) ALK PHOS (test code = 54 U/L 34-122 2428368369) ALTv (test code = 43 U/L 5-35 H 1742-6) AST(SGOT) (test code = 39 U/L 13-40 5452142084) eGFR (test code = mL/min/1.73m2 2895585595) ANNI (test code = ANNI) Association of [...] tests). Lab Interpretation Abnormal (test code = 53706-0) [facility] WITH [id number] 06:47:40 Test Item Value Reference Range Interpretation Comments WBC (test code = See_Comment [Automated 0448-2) message] The sy stem which generated this result transmitted reference range : 4.30 - 11.10 10*3/?L. The reference range was not used to interpret this result as normal/abnormal . RBC (test code = See_Comment L [Automated 149-8) message] The sy stem which generated this [...] RDW-SD (test code = 46.6 fL 39-49.9 43150-4) RDW-CV (test code = 13.4 % 12-15.5 788-0) PLT (test code = See_Comment [Automated 777-3) message] The sy stem which generated this result transmitted reference range : 166 - 358 10*3/ ?L. The reference r bhavani was not used to interpret this result as normal/abnormal . MPV (test code = 10.8 fL 9.5-12.9 92608-0) NRBC/100 WBC (test See_Comment [Automat ed code = 9576760016) message] The system which generated this result transmitted reference range : 0.0 - 10.0 /100 WBCs. The refer ence range was not u sed to interpret th is result as normal/abnormal . NRBC x10^3 (test code See_Comment [Auto mated = 5752743145) message] The s ystem which generated this result transmitted reference range : 10*3/?L. The reference range was not used to interpret this result as normal/abnormal . GRAN MAT (NEUT) % 47.3 % (test code = 770-8) IMM GRAN % (test code 0.20 % = 5898837967) LYMPH % (test code = 41.2 % 736-9) MONO % (test code = 9.7 % 5905-5) EOS % (test code = 1.3 % 713-8) BASO % (test code = 0.3 % 706-2) GRAN MAT x10^3(ANC) 4.36 10*3/uL 1.88-7.09 (test code = 5189682061) IMM GRAN x10^3 (test 0-0.06 code = 0363978683) LYMPH x10^3 (test code 3.79 10*3/uL 1.32-3.29 H = 731-0) MONO x10^3 (test code 0.89 10*3/uL 0.33-0.92 = 742-7) EOS x10^3 (test code = 0.12 10*3/uL 0.03-0.39 711-2) BASO x10^3 (test code 0.03 10*3/uL 0.01-0.07 = 704-7) Lab Interpretation Abnormal (test code = 91329-5) [id number] 18:42:00 Test Item Value Reference Range Interpretation Comments POCT PREG (test code = 1605) negative On board controls acceptable with present C Line (test code = 3574) POCT PREG LOT # (test code = 3575) [id number] POCT PREG TEST DATE (test 01/29/2023 code = 3576) Lab Interpretation (test code = Normal 66771-0) [facility], CERVICAL, COMPLETE, WITH FLEX 2020-12-01 15:57:00Reason for Exam:->neck pain, chronicReason for Exam:- >headaches due to old head injury [facility] : 1970 Sex: [...] Reading Location: [facility] Reading Room [address] [place] [address] -[id number] 01:08:22 Test Item Value Reference Interpretation Comments Range D-DIMER (test code = <0.27 See_Comment [Autom ated 8595937976) message] The system which generated this result [...] diagnosis. Lab Interpretation Normal (test code = 33660-1) [facility] [id number] 00:31:25 Test Item Value Reference Range Interpretation Comments TROPONIN I (test <0.012 See_Comment [Automated code = 3759298382) message] The system which generated this result [...] ? Lab Interpretation Normal (test code = 08194-7) [facility] METABOLIC PANEL (00272)2020-09-24 00:21:01 Test Item Value Reference Range Interpretation Comments NA (test code = 140 mmol/L 135-145 4800837181) K (test code = 3.6 mmol/L 3.5-5.0 7891819573) CL (test code = 108 mmol/L 98-108 1814260165) CO2 TOTAL (test code = 25 mmol/L 23-31 8838564494) AGAP (test code = 2-16 0498912731) BUN (test code = 8 mg/dL 7-23 8585178756) GLUCOSE (test code = 100 mg/dL 70-110 0623743313) CREATININE (test code = 0.56 mg/dL 0.50-1.04 7069646555) TOTAL BILI (test code = 0.3 mg/dL 0.1-1.5 1405827595) CALCIUM (test code = 9.4 mg/dL 8.6-10.6 8462883395) T PROTEIN (test code = 7.1 g/dL 6.3-8.2 4021019623) ALBUMIN (test code = 4.4 g/dL 3.5-5.0 8401874399) ALK PHOS (test code = 59 U/L 34-122 4168594670) ALTv (test code = 120 U/L 5-35 H 1742-6) AST(SGOT) (test code = 81 U/L 13-40 H 8284418369) eGFR (test code = mL/min/1.73m2 9668187556) ANNI (test code = ANNI) Association of [...] tests). Lab Interpretation Abnormal (test code = 17912-8) [facility] CenterL[facility], [id number] 00:20:41 Test Item Value Reference Range Interpretation Comments LIPASE (test code = 4850093583) 172 U/L 0-220 Lab Interpretation (test code = Normal 15118-3) [facility] CenterCB WITH [id number] 00:08:14 Test Item Value Reference Range Interpretation Comments WBC (test code = See_Comment [Automated message] 6690-2) The system [employer] generated this result transmitted ref erence range: 4.30 - 1 1.10 10*3/?L. The re ference range was not u sed to interpret this result as normal/abnor mal. RBC (test code = See_Comment [Automated message] 789-8) The system [employer] generated this result transmitted ref erence range: [...] RDW-SD (test code 46.3 fL 39.0-49.9 = 82660-0) RDW-CV (test code 13.1 % 12.0-15.5 = 788-0) PLT (test code = See_Comment [Automated message] 777-3) The system [employer] generated this result transmitted ref erence range: 166 - 35 8 10*3/?L. The re ference range was not u sed to interpret this result as normal/abnor mal. MPV (test code = 10.8 fL 9.5-12.9 13385-5) NRBC/100 WBC (test See_Comment [Automat ed message] code = 0244626551) The syste [employer] which generated this result transmitted ref erence range: 0.0 - 10 .0 /100 WBCs. The refer ence range was not u sed to interpret this result as normal/abnor mal. NRBC x10^3 (test <0.01 See_Comment [Automated message] code = 3768777511) The syste m which generated this result transmitted ref erence range: 10*3/?L. The reference range was not used to interpr et this result as normal/abnormal . GRAN MAT (NEUT) % 35.8 % (test code = 770-8) IMM GRAN % (test 0.20 % code = 3972567784) LYMPH % (test code 52.0 % = 736-9) MONO % (test code 9.8 % = 5905-5) EOS % (test code = 1.9 % 713-8) BASO % (test code 0.3 % = 706-2) GRAN MAT 2.09 10*3/uL 1.88-7.09 x10^3(ANC) (test code = 8296181628) IMM GRAN x10^3 <0.03 0.00-0.06 (test code = 9133937652) LYMPH x10^3 (test 3.03 10*3/uL 1.32-3.29 code = 731-0) MONO x10^3 (test 0.57 10*3/uL 0.33-0.92 code = 742-7) EOS x10^3 (test 0.11 10*3/uL 0.03-0.39 code = 711-2) BASO x10^3 (test <0.03 0.01-0.07 code = 704-7) [facility] CenterUS GALL [id number] 16:11:13 No cholelithiasis or sonographic evidence of [...] reviewed this study and agree with the abovereport.[facility] CenterLipase [id number] 15:06:00 Test Item Value Reference Range Interpretation Comments LIPASE (test code = 9216440867) 346 U/L 0-220 H Lab Interpretation (test code = Abnormal 92348-6) [facility] CenterBasic [facility] Panel (NA, K, CL, CO2, GLUCOSE, BUN, CREATININE, CA)2019-12-11 15:01:00 Test Item Value Reference Range Interpretation Comments NA (test code = 137 mmol/L 135-145 2708412108) K (test code = 4.6 mmol/L 3.5-5 1425609857) CL (test code = 104 mmol/L 98-108 7568352796) CO2 TOTAL (test code = 23 mmol/L 23-31 0545026059) AGAP (test code = 2-16 3914483543) BUN (test code = 8 mg/dL 7-23 9144700121) GLUCOSE (test code = 96 mg/dL 70-110 2495962186) CREATININE (test code 0.68 mg/dL 0.5-1.04 = 1770323164) CALCIUM (test code = 10.1 mg/dL 8.6-10.6 3968319188) eGFR Calculation mL/min/1.73m2 (Non-) (test code = 1621908656) eGFR Calculation mL/min/1.73m2 () (test code = 8014988113) ANNI (test code = ANNI) Association of [...] or urine or abnormalities in imaging tests). [facility] CenterHepatic Function Panel (ALB, T.PRO, BILI T, BU/BC, ALT, AST, ALK PHOS)2019-12-11 15:01:00 Test Item Value Reference Range Interpretation Comments TOTAL BILI (test code = 5999035449) 0.7 mg/dL 0.1-1.1 BILI UNCON (test code = 6045371561) 0.8 mg/dL 0.1-1.1 BILI CONJ (test code = 7634737937) 0.0 mg/dL 0-0.3 T PROTEIN (test code = 0372996616) 7.6 g/dL 6.3-8.2 ALBUMIN (test code = 4459354354) 4.6 g/dL 3.5-5 ALK PHOS (test code = 0432741237) 53 U/L 34-122 ALTv (test code = 1742-6) 36 U/L 5-35 H AST(SGOT) (test code = 5115384147) 40 U/L 13-40 Lab Interpretation (test code = Abnormal 96393-9) [facility] CenterPregnancy Test, [id number] 15:00:00 Test Item Value Reference Range Interpretation Comments PREG SERUM (test code Negative = 5425360125) ANNI (test code = ANNI) Less than 10 IU/L. ?If low titer or ectopic is suspected, resubmit specimen in 48-72 hours. [facility] [id number] 14:48:00 Test Item Value Reference Range Interpretation Comments WBC (test code = See_Comment [Automated 5490-2) message] The sy stem which generated this [...] RDW-SD (test code = 48.1 fL 39-49.9 91713-6) RDW-CV (test code = 13.4 % 12-15.5 788-0) PLT (test code = See_Comment [Automated 777-3) message] The sy stem which generated this result transmitted reference range : 166 - 358 10*3/ ?L. The reference r bhavani was not used to interpret this result as normal/abnormal . MPV (test code = 10.6 fL 9.5-12.9 92652-7) NRBC/100 WBC (test See_Comment [Automat ed code = 5999814633) message] The system which generated this result transmitted reference range : 0.0 - 10.0 /100 WBCs. The refer ence range was not u sed to interpret th is result as normal/abnormal . NRBC x10^3 (test code <0.01 See_Comment [Auto mated = 4875443995) message] The s ystem which generated this result transmitted reference range : 10*3/?L. The reference range was not used to interpret this result as normal/abnormal . GRAN MAT (NEUT) % 50.1 % (test code = 770-8) IMM GRAN % (test code 0.30 % = 0066231763) LYMPH % (test code = 36.4 % 736-9) MONO % (test code = 11.5 % 5905-5) EOS % (test code = 1.4 % 713-8) BASO % (test code = 0.3 % 706-2) GRAN MAT x10^3(ANC) 3.17 10*3/uL 1.88-7.09 (test code = 0140533581) IMM GRAN x10^3 (test <0.03 0-0.06 code = 8150829035) LYMPH x10^3 (test code 2.31 10*3/uL 1.32-3.29 = 731-0) MONO x10^3 (test code 0.73 10*3/uL 0.33-0.92 = 742-7) EOS x10^3 (test code = 0.09 10*3/uL 0.03-0.39 711-2) BASO x10^3 (test code <0.03 0.01-0.07 = 704-7) Lab Interpretation Abnormal (test code = 62624-1) [facility]99[facility]03:00 Test Item Value Reference Range Interpretation Comments NA (test code = 134 mmol/L 135-145 L 3696898882) K (test code = 3.9 mmol/L 3.5-5 4414041554) CL (test code = 100 mmol/L 98-108 2711105290) CO2 TOTAL (test code = 24 mmol/L -31 2587770402) AGAP (test code = 2-16 1051093615) BUN (test code = 17 mg/dL 7-23 5764506256) GLUCOSE (test code = 95 mg/dL 70-110 7541284621) CREATININE (test code = 0.80 mg/dL 0.5-1.04 6619111834) TOTAL BILI (test code = 0.5 mg/dL 0.1-1.9 6899993182) CALCIUM (test code = 9.8 mg/dL 8.6-10.6 5919878785) T PROTEIN (test code = 7.7 g/dL 6.3-8.2 7490124664) ALBUMIN (test code = 4.5 g/dL 3.5-5 4070310149) ALK PHOS (test code = 41 U/L 34-122 8111803199) ALTv (test code = 27 U/L 5-35 1742-6) AST(SGOT) (test code = 31 U/L 13-40 8079488149) eGFR Calculation mL/min/1.73m2 (Non-) (test code = 3505548291) eGFR Calculation mL/min/1.73m2 () (test code = 6915530146) ANNI (test code = ANNI) Association of [...] tests). Lab Interpretation Abnormal (test code = 81904-0) [facility] WITH [id number] 01:43:00 Test Item Value Reference Range Interpretation Comments WBC (test code = See_Comment [Automated message] 6690-2) The system [employer] generated this result transmitted ref erence range: 4.30 - 1 1.10 10*3/?L. The re ference range was not u sed to interpret this result as normal/abnor mal. RBC (test code = See_Comment [Automated message] 269-8) The system [employer] generated this result transmitted ref erence range: [...] RDW-SD (test code 42.8 fL 39-49.9 = 56534-0) RDW-CV (test code 12.9 % 12-15.5 = 788-0) PLT (test code = See_Comment [Automated message] 777-3) The system [employer] generated this result transmitted ref erence range: 166 - 35 8 10*3/?L. The re ference range was not u sed to interpret this result as normal/abnor mal. MPV (test code = 10.9 fL 9.5-12.9 54246-8) NRBC/100 WBC (test See_Comment [Automat ed message] code = 7050207208) The syste [employer] which generated this result transmitted ref erence range: 0.0 - 10 .0 /100 WBCs. The refer ence range was not u sed to interpret this result as normal/abnor mal. NRBC x10^3 (test <0.01 See_Comment [Automated message] code = 3370518718) The syste m which generated this result transmitted ref erence range: 10*3/?L. The reference range was not used to interpr et this result as normal/abnormal . GRAN MAT (NEUT) % 61.3 % (test code = 770-8) IMM GRAN % (test 0.20 % code = 0297872160) LYMPH % (test code 29.9 % = 736-9) MONO % (test code 6.3 % = 5905-5) EOS % (test code = 1.7 % 713-8) BASO % (test code 0.6 % = 706-2) GRAN MAT 5.19 10*3/uL 1.88-7.09 x10^3(ANC) (test code = 0640456867) IMM GRAN x10^3 <0.03 0-0.06 (test code = 5781886957) LYMPH x10^3 (test 2.53 10*3/uL 1.32-3.29 code = 731-0) MONO x10^3 (test 0.53 10*3/uL 0.33-0.92 code = 742-7) EOS x10^3 (test 0.14 10*3/uL 0.03-0.39 code = 711-2) BASO x10^3 (test 0.05 10*3/uL 0.01-0.07 code = 704-7) [facility] STREP SCREEN FOR GROUP [id number] 00:25:00 Test Item Value Reference Range Interpretation Comments Streptococcus pyogenes (group A) Negative Negative antigen (test code = 47903-4) Lab Interpretation (test code = Normal 15263-2) General acute hospital / [facility] - DRUG SCREEN [id number] 04:11:00 Test Item Value Reference Range Interpretation Comments BENZO U (test code = Presumptive Negative A 2430933716) Positive NICHOLAS U (test code = Negative Negative 3291387949) AMPHET (test code = Negative Negative 3287574375) THC (test code = Presumptive Negative A Confirmatio n of 8437240997) Positive Presumptive Positive THC result requires physician order . METHADONE (test code Negative Negative = 3767191475) Meth U (test code = Negative Negative 8399651025) OPIATES (test code = Presumptive Negative A 7367410825) Positive Cocaine Metabolite Negative Negative (test code = 1510544342) PROPOXY (test code = Negative Negative 3691111895) Tric U (test code = Negative Negative 2013581403) PCP (test code = Negative Negative 0936175200) OXYCOD (test code = Negative Negative 6000160645) ANNI (test code = Urine Drug Cutoff [...] testing). Lab Interpretation Abnormal (test code = 52139-5) [facility] Test Item Value Reference Range Interpretation Comments APPEARANCE (test code = Clear Clear 7429725270) COLOR (test code = Yellow Yellow 5906938175) PH (test code = 4.8-8.0 3078799363) SP GRAVITY (test code = 1.003-1.030 5026438849) GLU U QUAL (test code = Normal Normal 0659890017) BLOOD (test code = 1+ Negative A 5293525715) KETONES (test code = 5 mg/dL Negative A 8108069919) PROTEIN (test code = Negative Negative 2887-8) UROBILIN (test code = Normal Normal 7130706095) BILIRUBIN (test code = Negative Negative 8093617060) NITRITE (test code = Negative Negative 6919463884) LEUK DIEUDONNE (test code = Negative Negative 3234955849) RBC/HPF (test code = See_Comment [Autom ated message] 6240304450) The system [employer] generated this result transmitted ref erence range: 0 - 3 HP F. The reference range was not used to int erpret this result as normal/abnormal . WBC/HPF (test code = <1 See_Comment [Autom ated message] 3759758590) The system [employer] generated this result transmitted ref erence range: 0 - 5 HP F. The reference range was not used to int erpret this result as normal/abnormal . BACTERIA (test code = Negative Negative 1750542896) MUCOUS (test code = Slight Negative LPF A 5112951426) SQ EPITH (test code = HPF 6505869471) Lab Interpretation (test Abnormal code = 50622-7) [facility] W [id number] 03:20:101. ?Mild to moderate stool burden within [...] left anterolateral andposterior ribs.5. Subtle findings as above.[facility] TROPONIN [id number] 02:50:00 Test Item Value Reference Range Interpretation Comments TROPONIN I (test <0.012 See_Comment [Automated code = 4678803432) message] The system which generated this result [...] ? Lab Interpretation Normal (test code = 49040-0) [facility] [id number] 01:12:00 Test Item Value Reference Range Interpretation Comments NA (test code = 138 mmol/L 135-145 3705181408) K (test code = 3.6 mmol/L 3.5-5 5571397308) CL (test code = 104 mmol/L 98-108 7117811796) CO2 TOTAL (test code = 26 mmol/L 23-31 1085885969) AGAP (test code = 2-16 1389729697) BUN (test code = 11 mg/dL 7-23 9223569818) GLUCOSE (test code = 128 mg/dL 70-110 H 6606201669) CREATININE (test code = 0.72 mg/dL 0.5-1.04 0313908174) TOTAL BILI (test code = 0.7 mg/dL 0.1-1.4 8054603671) CALCIUM (test code = 10.0 mg/dL 8.6-10.6 2083927714) T PROTEIN (test code = 8.4 g/dL 6.3-8.2 H 6999959873) ALBUMIN (test code = 4.8 g/dL 3.5-5 7069399112) ALK PHOS (test code = 40 U/L 34-122 0149178978) ALTv (test code = 32 U/L 5-35 1742-6) AST(SGOT) (test code = 42 U/L 13-40 H 2410964101) eGFR Calculation mL/min/1.73m2 (Non-) (test code = 1973272455) eGFR Calculation mL/min/1.73m2 () (test code = 1251219909) ANNI (test code = ANNI) Association of [...] tests). Lab Interpretation Abnormal (test code = 67936-6) [facility] Center[facility], [id number] 01:12:00 Test Item Value Reference Range Interpretation Comments LIPASE (test code = 6227190442) 87 U/L 0-220 Lab Interpretation (test code = Normal 48980-9) [facility] with [id number] 01:00:00 Test Item Value Reference Range Interpretation Comments WBC (test code = See_Comment [Automated message] 6690-2) The system [employer] generated this result transmitted ref erence range: 4.30 - 1 1.10 10*3/?L. The re ference range was not u sed to interpret this result as normal/abnor mal. RBC (test code = See_Comment [Automated message] 789-8) The system [employer] generated this result transmitted ref erence range: [...] RDW-SD (test code 44.9 fL 39-49.9 = 92259-0) RDW-CV (test code 13.1 % 12-15.5 = 788-0) PLT (test code = See_Comment [Automated message] 777-3) The system [employer]ic h generated this result transmitted ref erence range: 166 - 35 8 10*3/?L. The re ference range was not u sed to interpret this result as normal/abnor mal. MPV (test code = 10.9 fL 9.5-12.9 37998-1) NRBC/100 WBC (test See_Comment [Automat ed message] code = 4352298635) The syste m which generated this result transmitted ref erence range: 0.0 - 10 .0 /100 WBCs. The refer ence range was not u sed to interpret this result as normal/abnor mal. NRBC x10^3 (test <0.01 See_Comment [Automated message] code = 3684897605) The syste m which generated this result transmitted ref erence range: 10*3/?L. The reference range was not used to interpr et this result as normal/abnormal . GRAN MAT (NEUT) % 64.1 % (test code = 770-8) IMM GRAN % (test 0.50 % code = 8590344303) LYMPH % (test code 26.8 % = 736-9) MONO % (test code 7.5 % = 5905-5) EOS % (test code = 0.6 % 713-8) BASO % (test code 0.5 % = 706-2) GRAN MAT 6.75 10*3/uL 1.88-7.09 x10^3(ANC) (test code = 2536849826) IMM GRAN x10^3 0.05 10*3/uL 0-0.06 (test code = 3044027042) LYMPH x10^3 (test 2.82 10*3/uL 1.32-3.29 code = 731-0) MONO x10^3 (test 0.79 10*3/uL 0.33-0.92 code = 742-7) EOS x10^3 (test 0.06 10*3/uL 0.03-0.39 code = 711-2) BASO x10^3 (test 0.05 10*3/uL 0.01-0.07 code = 704-7) [facility]
--- NOTE | 2022-03-01 01:19 | ER ---
Nurse's Notes [facility] Name: Ninfa Gordon Age: 51 yrs Sex: Female : 1970 Arrival Date: 02/28/2022 Time: 23:06 Bed 18 Private MD: Diagnosis: Presentation: 02/28 23:16 Chief complaint: Left sided facial swelling and pain that radiates to left ear x 1 hb hour. Coronavirus screen: At this time, the client does not indicate any symptoms associated with coronavirus-19. Ebola Screen: No symptoms or risks identified at this time. Initial Sepsis Screen: Does the patient meet any 2 criteria? No. Patient's initial sepsis screen is negative. Does the patient have a suspected source of infection? No. Patient's initial sepsis screen is negative. Risk Assessment: Do you want to hurt yourself or someone else? Patient reports no desire to harm self or others. Onset of symptoms was February 28, 2022. 23:16 Method Of Arrival: Ambulatory hb 23:16 Acuity: TRES 4 hb Historical: - Allergies: 23:17 Protonix; hb - PMHx: 23:17 Anxiety; depressive disorder; Diverticulitis; PTSD; hb - PSHx: 23:17 section; Biopsy of Lungs; hb - Immunization history:: Adult Immunizations up to date. - Social history:: Smoking status: Patient reports the use of cigarette tobacco products, smokes one-half pack cigarettes per day. Assessment: 03/01 01:18 General: called for patient in lobby . No answer. tw5 Vital Signs: 02/28 23:16 BP 132 / 70; Pulse 71; Resp 16; Temp 97.8; Pulse Ox 100% on R/A; Weight 99.79 kg; hb Height 5 ft. 2 in. (157.48 cm); Pain 6/10; 23:16 Body Mass Index 40.24 (99.79 kg, 157.48 cm) hb ED Course: 23:06 Patient arrived in ED. bp1 23:17 Triage completed. hb 23:17 Arm band placed on. hb 03/01 00:18 Frank Pino MD is Attending Physician. dominick Administered Medications: No medications were administered Outcome: 01:18 Patient left the ED. tw5 Signatures: Frank Pino MD MD cha Baxter, Heather, RN RN hb Evelyne Major Tiffany tw5 Corrections: (The following items were deleted from the chart) 02/28 23:17 Allergies: Ibuprofen; hb hb 23:17 Allergies: Tylenol; hb hb
[2022-03-01 02:59] VITALS: BP 132/70; TEMP 97.8; O2SAT 100
== END 2022-03-01 01:18 | disposition left against medical advice (07) ==
LOC: ER 23:03
DX: Z53.21 Procedure and treatment not carried out due to patient leaving prior to being seen by health care provider (principal)
CPT/HCPCS: 99281

== ENCOUNTER 2022-05-25 03:36 | Emergency (ER) | payer SELFPAY ==
--- OUTSIDE RECORDS SUMMARY | 2022-05-25 03:46 | XMS REPORT | Continuity of Care Document ---
:1970 Author Organization [facility] t Address [address] [place] [address] Care Team Providers Name Role Phone Hira Garcia MD, Thuan Worthington Primary Care Physician [phone] DARA DC Attending Clinician Unavailable Doctor Unassigned, [place] Attending Clinician Unavailable Jeanie Frost Attending Clinician Unavailable Lab, Ang - Db Attending Clinician Unavailable Dara Vasquez Attending Clinician AFIA ADKINS Attending Clinician Unavailable Afia Glass [...] Policy Number Effective Date Expiration Date [place] [id number] 2022 2022 00:00:00 00:00:00 COMMERCIAL [id number] 2021 NON-CONTRACT 00:00:00 GENERIC AMBETTER - [id number] [facility] Problems Condition Condition Condition Status Onset Resolution Last Treating Co mments Source Name Details Category Date Date Treatment Clinician Date Arthritis Arthritis Disease Active Uni vers 1-12 ity of 00:00: Medical [place] Pain in Pain in Disease Active Univers joint, joint, 05-13 ity of multiple multiple 00:00: [place] sites sites 00 [facility] Hepatitis Hepatitis Disease Active 2021-05 Uni vers a without a without 2 ity of hepatic hepatic 00:00: [place] coma coma 00 [facility] Lung Lung Disease Active 2021-05 Univers nodule nodule 2 ity of 00:00: [facility] Mini Mini Disease Active 2021-05 Overview: [facility] stroke stroke 06-02 Formatt[place] ity of 00:00: g of this 00 note Medical might be Branch different from the original. 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 00:00: [facility] No known No known Disease [facility] active [facility] problems problems of Medicin e Allergies, Adverse Reactions, Alerts Allergy Allergy Status Severity Reaction(s) Onset Inactive Treating Comm ents Source Name Type Date Date Clinician Acetamin Propensi Active Itching Unive rs ophen ty to 5-25 ity of adverse 00:00: [place] reaction 00 [facility] ACETAMIN DRUG Active ITCHING Univers OPHEN INGREDI 5-25 ity of 00:00: [facility] Pantopra Propensi Active Unknown - Uni vers zole ty to See comments 8-11 ity of Sodium adverse 00:00: [place] reaction 00 [facility] PANTOPRA DRUG Active Unknown-Cmnt Un agustín ZOLE INGREDI 12-10 ity of SODIUM 00:00: Medical Branch Pantopra Propensi Active Other (See Ba ylvan torres ty to Comments) 12-10 [place] Sodium adverse 00:00: of reaction 00 Medicin s to e drug NO KNOWN Drug Active Univers ALLERGIE Class ity of S [facility] Social History Social Habit Start Date Stop Date Quantity Comments Source History of Cigarette Smoker Universi ty of tobacco use [facility] Exposure to 2022-05-11 2022-05-21 Not sure [facility] SARS-CoV-2 00:00:00 14:01:00 [facility] [place] [facility] (event) [place] Alcohol intake 2022-05-21 2022-05-21 .43 /d University of 00:00:00 00:00:00 [facility] Cigarettes smoked 2022-04-01 2022-04-01 Univers ity of current (pack per 00:00:00 00:00:00 ) - Reported Branch Cigarette 2022-04-01 2022-04-01 University of pack-years 00:00:00 00:00:00 [facility] Tobacco use and 2022-04-01 2022-04-01 Smokeless tobacco Un iversity of exposure 00:00:00 00:00:00 non-user [facility] Alcohol Comment 2022-04-01 2022-04-01 Occasionally Univers ity of 00:00:00 00:00:00 [facility] Sex Assigned At [address] [facility] 00:00:00 00:00:00 [facility] Smoking Status Start Date Stop Date Source Smokes tobacco daily 2022-04-01 00:00:00 Univers ity of [facility] Tobacco smoking consumption Univ ersity of [facility] Branch Medications Ordered Filled Start Stop Current Ordering Indication Dosage Frequency Signature Comments Components Source Medication Medication Date Date Medication? Clinician (SIG) Name Name diclofenac Yes [id number] 75mg Take 1 U nivers 75 mg EC 1-12 tablet by ity of tablet 00:00: mouth in [place] 00 the Medical morning Branch and 1 tablet in the evening. Take with meals. diclofenac Yes [id number] 75mg Take 1 U nivers 75 mg EC 1-12 tablet by ity of tablet 00:00: mouth in [place] [address] the Medical morning Branch and 1 tablet in the evening. Take with meals. diclofenac 2023-0 Yes [id number] 75mg Take 1 U nivers 75 mg EC 1-12 tablet by ity of tablet 00:00: mouth in [place] [address] the [facility] morning [place] and 1 tablet in the evening. Take with meals. diclofenac 2023-0 Yes [id number] 75mg Take 1 U nivers 75 mg EC 1-12 tablet by ity of tablet 00:00: mouth in [place] [address] the [facility] morning [place] and 1 tablet in the evening. Take with meals. diclofenac 2023-0 Yes [id number] 75mg Take 1 U nivers 75 mg EC 1-12 tablet by ity of tablet 00:00: mouth in [place] [address] the [facility] morning [place] and 1 tablet in the evening. Take with meals. diclofenac 2023-0 Yes [id number] 75mg Take 1 U nivers 75 mg EC 1-12 tablet by ity of tablet 00:00: mouth in [place] [address] the [facility] morning [place] and 1 tablet in the evening. Take with meals. methylPREDN 2022-0 2022- Yes [id number] Take by [place] [id number] 05-13 mouth ity of mg tablets 00:00: 05:59 SEE-INSTRU [place] 00 :00 CTIONS for Medical 6 days. Branch follow package directions methylPREDN 2022-0 2022- Yes [id number] Take by [place] [address] 05-13 mouth ity of mg tablets 00:00: 05:59 SEE-INSTRU [place] 00 :00 CTIONS for Medical 6 days. Branch follow package directions methylPREDN 2022-0 2022- Yes [id number] Take by [place] [address] 05-13 mouth ity of mg tablets 00:00: 05:59 SEE-INSTRU [place] 00 :00 CTIONS for Medical 6 days. Branch follow package directions methylPREDN 3-0 2022- Yes [id number] Take by [place] [address] 05-13 mouth ity of mg tablets 00:00: 05:59 SEE-INSTRU [place] 00 :00 CTIONS for Medical 6 days. Branch follow package directions risperiDONE 3-0 Yes [id number] 1mg Take 1 Univers 1 mg tablet 1-05 tablet by ity of 00:00: mouth in [place] 00 the Medical morning Branch and 1 tablet in the evening. risperiDONE 2023-0 Yes [id number] 1mg Take 1 Univers 1 mg tablet 1-05 tablet by ity of 00:00: mouth in [place] 00 the Medical morning Branch and 1 tablet in the evening. risperiDONE 2023-0 Yes [id number] 1mg Take 1 Univers 1 mg tablet 1-05 tablet by ity of 00:00: mouth in [place] 00 the Medical morning Branch and 1 tablet in the evening. risperiDONE 2023-0 Yes [id number] 1mg Take 1 Univers 1 mg tablet 1-05 tablet by ity of 00:00: mouth in [place] 00 the Medical morning Branch and 1 tablet in the evening. risperiDONE 2023-0 Yes [id number] 1mg Take 1 Univers 1 mg tablet 1-05 tablet by ity of 00:00: mouth in [place] [address] the Medical morning Branch and 1 tablet in the evening. risperiDONE 2023-0 Yes [id number] 1mg Take 1 Univers 1 mg tablet 1-05 tablet by ity of 00:00: mouth in [place] [address] the Medical morning Branch and 1 tablet in the evening. risperiDONE 2023-0 Yes [id number] 1mg Take 1 Univers 1 mg tablet 1-05 tablet by ity of 00:00: mouth in [place] 00 the Medical morning Branch and 1 tablet in the evening. risperiDONE 2023-0 Yes [id number] 1mg Take 1 Univers 1 mg tablet 1-05 tablet by ity of 00:00: mouth in [place] [address] the Medical morning Branch and 1 tablet in the evening. risperiDONE 2023-0 Yes [id number] 1mg Take 1 Univers 1 mg tablet 1-05 tablet by ity of 00:00: mouth in [place] [address] the Medical morning Branch and 1 tablet in the evening. escitalopra 2021-05- No 10mg Take 10 mg Univers m oxalate 06-02 by mouth ity o f (LEXAPRO) 15:48: 00:00 in the [place] 10 mg 27 :00 morning Medical tablet and 10 mg Branch in the evening. doxepin 50 2021-05- No 50mg Take 50 mg Univers mg capsule 06-02 by mouth ity of 15:48: 00:00 at [place] 27 :00 bedtime. Medical Branch escitalopra 2021-05- No 10mg Take 10 mg Univers m oxalate 06-02 by mouth ity o f (LEXAPRO) 15:48: 00:00 in the [place] 10 mg 27 :00 morning Medical tablet and 10 mg Branch in the evening. doxepin 50 2021-05- No 50mg Take 50 mg Univers mg capsule 06-02 by mouth ity of 15:48: 00:00 at [place] 27 :00 bedtime. Medical Branch escitalopra 2021-05- No 10mg Take 10 mg Univers m oxalate 06-02 by mouth ity o f (LEXAPRO) 15:48: 00:00 in the [place] 10 mg 27 :00 morning Medical tablet and 10 mg Branch in the evening. doxepin 50 2021-05- No 50mg Take 50 mg Univers mg capsule 06-02 by mouth ity of 15:48: 00:00 at [place] [address] :00 bedtime. Medical Branch escitalopra 2021-05- No 10mg Take 10 mg Univers m oxalate 06-02 by mouth ity o f (LEXAPRO) 15:48: 00:00 in the [place] 10 mg 27 :00 morning Medical tablet and 10 mg Branch in the evening. doxepin 50 2021-05- No 50mg Take 50 mg Univers mg capsule 06-02 by mouth ity of 15:48: 00:00 at [place] 27 :00 bedtime. Medical Branch escitalopra 2021-05- No 10mg Take 10 mg Univers m oxalate 06-02 by mouth ity o f (LEXAPRO) 15:48: 00:00 in the [place] 10 mg 27 :00 morning Medical tablet and 10 mg Branch in the evening. doxepin 50 2021-05- No 50mg Take 50 mg Univers mg capsule 06-02 by mouth ity of 15:48: 00:00 at [place] 27 :00 bedtime. Medical Branch escitalopra 2021-05- No 10mg Take 10 mg Univers m oxalate 06-02 by mouth ity o f (LEXAPRO) 15:48: 00:00 in the [place] 10 mg 27 :00 morning Medical tablet and 10 mg Branch in the evening. doxepin 50 2021-05 50mg Take 50 mg Univers mg capsule 06-02 by mouth ity of 15:48: 00:00 at [place] 27 :00 bedtime. Medical Branch brexpiprazo 2021-05 1mg Take 1 mg Univers le 06-02 by mouth 2 ity of (REXULTI) 1 15:48: 00:00 (two[place] mg Tab 21 :00 times Medical daily. Branch brexpiprazo 2021-05 1mg Take 1 mg Univers le 06-02 by mouth 2 ity of (REXULTI) 1 15:48: 00:00 (two[place] mg Tab 21 :00 times Medical daily. Branch brexpiprazo 2021-05 1mg Take 1 mg Univers le 06-02 by mouth 2 ity of (REXULTI) 1 15:48: 00:00 (two[place] mg Tab 21 :00 times Medical daily. Branch brexpiprazo 2021-05 1mg Take 1 mg Univers le 06-02 by mouth 2 ity of (REXULTI) 1 15:48: 00:00 (two[place] mg Tab 21 :00 times Medical daily. Branch brexpiprazo 2021-05 1mg Take 1 mg Univers le 06-02 by mouth 2 ity of (REXULTI) 1 15:48: 00:00 (two[place] mg Tab 21 :00 times Medical daily. Branch brexpiprazo 2021-05 1mg Take 1 mg Univers le 06-02 by mouth 2 ity of (REXULTI) 1 15:48: 00:00 (two[place] mg Tab 21 :00 times Medical daily. Branch sofosbuvir- 2021-05 Yes 1{tbl} Take 1 Un agustín velpatasvir 06-02 tablet by ity of 400-100 mg 14:42: mouth in [place] 31 the Medical morning. Branch omeprazole 2021-05 Yes 40mg Take 40 mg U nivers 40 mg 06-02 by mouth ity of capsule 14:42: in the [place] 31 morning Medical and 40 mg Branch at noon and 40 mg in the evening. Take with meals. sofosbuvir- 2021-1 Yes 1{tbl} Take 1 Un agustín velpatasvir 2-01 tablet by ity of 400-100 mg 14:42: mouth in [place] 31 the Medical morning. Branch omeprazole 2021- Yes 40mg Take 40 mg U nivers 40 mg 2-01 by mouth ity of capsule 14:42: in the [place] [address] morning Medical and 40 mg Branch at noon and 40 mg in the evening. Take with meals. sofosbuvir- 2021-1 Yes 1{tbl} Take 1 Un agustín velpatasvir 2-01 tablet by ity of 400-100 mg 14:42: mouth in [place] 31 the Medical morning. Branch omeprazole 2021- Yes 40mg Take 40 mg U nivers 40 mg 2-01 by mouth ity of capsule 14:42: in the [place] [address] morning Medical and 40 mg Branch at noon and 40 mg in the evening. Take with meals. sofosbuvir- 2021-1 Yes 1{tbl} Take 1 Un agustín velpatasvir 2-01 tablet by ity of 400-100 mg 14:42: mouth in [place] 31 the Medical morning. Branch omeprazole 2021- Yes 40mg Take 40 mg U nivers 40 mg 2-01 by mouth ity of capsule 14:42: in the [place] [address] morning Medical and 40 mg Branch at noon and 40 mg in the evening. Take with meals. sofosbuvir- 2021-1 Yes 1{tbl} Take 1 Un agustín velpatasvir 2-01 tablet by ity of 400-100 mg 14:42: mouth in [place] 31 the Medical morning. Branch omeprazole 2021-1 Yes 40mg Take 40 mg U nivers 40 mg 2-01 by mouth ity of capsule 14:42: in the [place] [address] morning Medical and 40 mg Branch at noon and 40 mg in the evening. Take with meals. sofosbuvir- 2021-1 Yes 1{tbl} Take 1 Un agustín velpatasvir 2-01 tablet by ity of 400-100 mg 14:42: mouth in [place] 31 the Medical morning. Branch omeprazole 2021-1 Yes 40mg Take 40 mg U nivers 40 mg 2-01 by mouth ity of capsule 14:42: in the [place] [address] morning Medical and 40 mg Branch at noon and 40 mg in the evening. Take with meals. sofosbuvir- 2021- Yes 1{tbl} Take 1 Un agustín velpatasvir 2-01 tablet by ity of 400-100 mg 14:42: mouth in [place] 31 the Medical morning. Branch omeprazole 2021-05 Yes 40mg Take 40 mg U nivers 40 mg 2-01 by mouth ity of capsule 14:42: in the [place] [address] morning Medical and 40 mg Branch at noon and 40 mg in the evening. Take with meals. sofosbuvir- 2021-05 Yes 1{tbl} Take 1 Un agustín velpatasvir 2-01 tablet by ity of 400-100 mg 14:42: mouth in [place] 31 the Medical morning. Branch omeprazole 2021-05 Yes 40mg Take 40 mg U nivers 40 mg 2-01 by mouth ity of capsule 14:42: in the [place] [address] morning Medical and 40 mg Branch at noon and 40 mg in the evening. Take with meals. sofosbuvir- 2021- Yes 1{tbl} Take 1 Un agustín velpatasvir 2-01 tablet by ity of 400-100 mg 14:42: mouth in [place] 31 the Medical morning. Branch omeprazole 2021-05 Yes 40mg Take 40 mg U nivers 40 mg 2-01 by mouth ity of capsule 14:42: in the [place] [address] morning Medical and 40 mg Branch at noon and 40 mg in the evening. Take with meals. sofosbuvir- 2021- Yes 1{tbl} Take 1 Un agustín velpatasvir 2-01 tablet by ity of 400-100 mg 14:42: mouth in [place] 31 the Medical morning. Branch omeprazole 2021-05 Yes 40mg Take 40 mg U nivers 40 mg 2-01 by mouth ity of capsule 14:42: in the [place] [address] morning Medical and 40 mg Branch at noon and 40 mg in the evening. Take with meals. sofosbuvir- 2021- Yes 1{tbl} Take 1 Un agustín velpatasvir 2-01 tablet by ity of 400-100 mg 14:42: mouth in [place] 31 the Medical morning. Branch omeprazole 2021- Yes 40mg Take 40 mg U nivers 40 mg 2-01 by mouth ity of capsule 14:42: in the [place] [address] morning Medical and 40 mg Branch at noon and 40 mg in the evening. Take with meals. sofosbuvir- 2021- Yes 1{tbl} Take 1 Un agustín velpatasvir 2-01 tablet by ity of 400-100 mg 14:42: mouth in [place] 31 the Medical morning. Branch omeprazole 2021- Yes 40mg Take 40 mg U nivers 40 mg 2-01 by mouth ity of capsule 14:42: in the [place] [address] morning Medical and 40 mg Branch at noon and 40 mg in the evening. Take with meals. sofosbuvir- 2021- Yes 1{tbl} Take 1 Un agustín velpatasvir 2-01 tablet by ity of 400-100 mg 14:42: mouth in [place] 31 the Medical morning. Branch omeprazole 2021- Yes 40mg Take 40 mg U nivers 40 mg 2-01 by mouth ity of capsule 14:42: in the [place] [address] morning Medical and 40 mg Branch at noon and 40 mg in the evening. Take with meals. sofosbuvir- 2021- Yes 1{tbl} Take 1 Un agustín velpatasvir 2-01 tablet by ity of 400-100 mg 14:42: mouth in [place] as 31 the Medical morning. Branch omeprazole 2021- Yes 40mg Take 40 mg U nivers 40 mg 2-01 by mouth ity of capsule 14:42: in the [place] [address] morning Medical and 40 mg Branch at noon and 40 mg in the evening. Take with meals. sofosbuvir- 2021- Yes 1{tbl} Take 1 Un agustín velpatasvir 2-01 tablet by ity of 400-100 mg 14:42: mouth in [place] 31 the Medical morning. Branch omeprazole 2021- Yes 40mg Take 40 mg U nivers 40 mg 2-01 by mouth ity of capsule 14:42: in the [place] [address] morning Medical and 40 mg Branch at noon and 40 mg in the evening. Take with meals. sofosbuvir- 2021-1 Yes 1{tbl} Take 1 Un agustín velpatasvir 2-01 tablet by ity of 400-100 mg 14:42: mouth in [place] as 31 the Medical morning. Branch omeprazole 2021- Yes 40mg Take 40 mg U nivers 40 mg 2-01 by mouth ity of capsule 14:42: in the [place] [address] morning Medical and 40 mg Branch at noon and 40 mg in the evening. Take with meals. sofosbuvir- 2021- Yes 1{tbl} Take 1 Un agustín velpatasvir 2-01 tablet by ity of 400-100 mg 14:42: mouth in [place] 31 the Medical morning. Branch omeprazole 2021- Yes 40mg Take 40 mg U nivers 40 mg 2-01 by mouth ity of capsule 14:42: in the [place] [address] morning Medical and 40 mg Branch at noon and 40 mg in the evening. Take with meals. sofosbuvir- 2021- Yes 1{tbl} Take 1 Un agustín velpatasvir 2-01 tablet by ity of 400-100 mg 14:42: mouth in [place] 31 the Medical morning. Branch omeprazole 2021- Yes 40mg Take 40 mg U nivers 40 mg 2-01 by mouth ity of capsule 14:42: in the [place] [address] morning Medical and 40 mg Branch at noon and 40 mg in the evening. Take with meals. sofosbuvir- 2021- Yes 1{tbl} Take 1 Un agustín velpatasvir 2-01 tablet by ity of 400-100 mg 14:42: mouth in [place] 31 the Medical morning. Branch omeprazole 2021- Yes 40mg Take 40 mg U nivers 40 mg 2-01 by mouth ity of capsule 14:42: in the [place] [address] morning Medical and 40 mg Branch at noon and 40 mg in the evening. Take with meals. sofosbuvir- 2021-1 Yes 1{tbl} Take 1 Un agustín velpatasvir 2-01 tablet by ity of 400-100 mg 14:42: mouth in [place] 31 the Medical morning. Branch omeprazole 2021- Yes 40mg Take 40 mg U nivers 40 mg 2-01 by mouth ity of capsule 14:42: in the [place] [address] morning Medical and 40 mg Branch at noon and 40 mg in the evening. Take with meals. sofosbuvir- 2021-05 Yes 1{tbl} Take 1 Un ag[place]ín velpatasvir 2-01 tablet by ity of 400-100 mg 14:42: mouth in [place] as 31 the Medical morning. Branch omeprazole 2021-05 Yes 40mg Take 40 mg U nivers 40 mg 2-01 by mouth ity of capsule 14:42: in the [place] [address] morning Medical and 40 mg Branch at noon and 40 mg in the evening. Take with meals. sofosbuvir- 2021-05 Yes 1{tbl} Take 1 Un ag[place]ín velpatasvir 2-01 tablet by ity of 400-100 mg 14:42: mouth in [place] as 31 the Medical morning. Branch omeprazole 2021-05 Yes 40mg Take 40 mg U nivers 40 mg 2-01 by mouth ity of capsule 14:42: in the [place] [address] morning Medical and 40 mg Branch at noon and 40 mg in the evening. Take with meals. escitalopra 2021-05 Yes [id number] 10mg Take 1 Univers m oxalate 2-01 tablet by ity o f (LEXAPRO) 00:00: [place] 10 mg 00 the Medical tablet morning Branch and 1 tablet in the evening. doxepin 50 2021-05 Yes [id number] 50mg Take 1 Univers mg capsule 2-01 capsule by ity of 00:00: mouth at [place] [address] bedtime. Medical Branch brexpiprazo 2021-05 Yes [id number] 4mg Take 4 mg Univers le 2-01 by mouth ity of (REXULTI) 4 00:00: [place]. [place] mg Tab 00 Medical Branch escitalopra 2021-05 Yes [id number] 10mg Take 1 Univers m oxalate 2-01 tablet by ity o f (LEXAPRO) 00:00: mouth [place] 10 mg 00 the Medical tablet morning Branch and 1 tablet in the evening. doxepin 50 2021-05 Yes [id number] 50mg Take 1 Univers mg capsule 2-01 capsule by ity of 00:00: mouth at [place] 00 bedtime. Medical Branch brexpiprazo 2021-05 Yes [id number] 4mg Take 4 mg Univers le 2-01 by mouth ity of (REXULTI) 4 00:00: daily. [place] mg Tab 00 Medical Branch escitalopra 2021-05 Yes [id number] 10mg Take 1 Univers m oxalate 2-01 tablet by ity o f (LEXAPRO) 00:00: mouth [place] 10 mg 00 the Medical tablet morning Branch and 1 tablet in the evening. doxepin 50 2021-05 Yes [id number] 50mg Take 1 Univers mg capsule 2-01 capsule by ity of 00:00: mouth at [place] 00 bedtime. Medical Branch brexpiprazo 2021-05 Yes [id number] 4mg Take 4 mg Univers le 2-01 by mouth ity of (REXULTI) 4 00:00: daily. [place] mg Tab 00 Medical Branch escitalopra 2021-05 Yes [id number] 10mg Take 1 Univers m oxalate 2-01 tablet by ity o f (LEXAPRO) 00:00: mouth [place] 10 mg 00 the Medical tablet morning Branch and 1 tablet in the evening. doxepin 50 2021-05 Yes [id number] 50mg Take 1 Univers mg capsule 2-01 capsule by ity of 00:00: mouth at [place] 00 bedtime. Medical Branch brexpiprazo 2021-05 Yes [id number] 4mg Take 4 mg Univers le 2-01 by mouth ity of (REXULTI) 4 00:00: daily. [place] mg Tab 00 Medical Branch escitalopra 2021-05 Yes [id number] 10mg Take 1 Univers m oxalate 2-01 tablet by ity o f (LEXAPRO) 00:00: mouth [place] 10 mg 00 the Medical tablet morning Branch and 1 tablet in the evening. doxepin 50 2021-05 Yes [id number] 50mg Take 1 Univers mg capsule 2-01 capsule by ity of 00:00: mouth at [place] 00 bedtime. Medical Branch brexpiprazo 2021-05 Yes [id number] 4mg Take 4 mg Univers le 2-01 by mouth ity of (REXULTI) 4 00:00: daily. [place] mg Tab 00 Medical Branch escitalopra 2021-05 Yes [id number] 10mg Take 1 Univers m oxalate 2-01 tablet by ity o f (LEXAPRO) 00:00: mouth [place] 10 mg 00 the Medical tablet morning Branch and 1 tablet in the evening. doxepin 50 2021-05 Yes [id number] 50mg Take 1 Univers mg capsule 2-01 capsule by ity of 00:00: mouth at [place] 00 bedtime. Medical Branch brexpiprazo 2021-05 Yes [id number] 4mg Take 4 mg Univers le 2-01 by mouth ity of (REXULTI) 4 00:00: daily. [place] mg Tab 00 Medical Branch escitalopra 2021-05 Yes [id number] 10mg Take 1 Univers m oxalate 2-01 tablet by ity o f (LEXAPRO) 00:00: mouth [place] 10 mg 00 the Medical tablet morning Branch and 1 tablet in the evening. doxepin 50 2021-05 Yes [id number] 50mg Take 1 Univers mg capsule 2-01 capsule by ity of 00:00: mouth at [place] 00 bedtime. Medical Branch brexpiprazo 2021-05 Yes [id number] 4mg Take 4 mg Univers le 2-01 by mouth ity of (REXULTI) 4 00:00: daily. [place] mg Tab 00 Medical Branch escitalopra 2021-05 Yes [id number] 10mg Take 1 Univers m oxalate 2-01 tablet by ity o f (LEXAPRO) 00:00: mouth [place] 10 mg 00 the Medical tablet morning Branch and 1 tablet in the evening. doxepin 50 2021-05 Yes [id number] 50mg Take 1 Univers mg capsule 2-01 capsule by ity of 00:00: mouth at [place] 00 bedtime. Medical Branch brexpiprazo 2021-05 Yes [id number] 4mg Take 4 mg Univers le 2-01 by mouth ity of (REXULTI) 4 00:00: daily. [place] mg Tab 00 Medical Branch escitalopra 2021-05 Yes [id number] 10mg Take 1 Univers m oxalate 2-01 tablet by ity o f (LEXAPRO) 00:00: mouth [place] 10 mg 00 the Medical tablet morning Branch and 1 tablet in the evening. doxepin 50 2021-05 Yes [id number] 50mg Take 1 Univers mg capsule 2-01 capsule by ity of 00:00: mouth at [place] 00 bedtime. Medical Branch brexpiprazo 2021-05 Yes [id number] 4mg Take 4 mg Univers le 2-01 by mouth ity of (REXULTI) 4 00:00: daily. [place] mg Tab 00 Medical Branch escitalopra 2021-05 Yes [id number] 10mg Take 1 Univers m oxalate 2-01 tablet by ity o f (LEXAPRO) 00:00: mouth [place] 10 mg 00 the Medical tablet morning Branch and 1 tablet in the evening. doxepin 50 2021-05 Yes [id number] 50mg Take 1 Univers mg capsule 2-01 capsule by ity of 00:00: mouth at [place] 00 bedtime. Medical Branch brexpiprazo 2021-05 Yes [id number] 4mg Take 4 mg Univers le 2-01 by mouth ity of (REXULTI) 4 00:00: daily. [place] mg Tab 00 Medical Branch escitalopra 2021-05 Yes [id number] 10mg Take 1 Univers m oxalate 2-01 tablet by ity o f (LEXAPRO) 00:00: mouth [place] 10 mg 00 the Medical tablet morning Branch and 1 tablet in the evening. doxepin 50 2021-05 Yes [id number] 50mg Take 1 Univers mg capsule 2-01 capsule by ity of 00:00: mouth at [place] 00 bedtime. Medical Branch brexpiprazo 2021-05 Yes [id number] 4mg Take 4 mg Univers le 2-01 by mouth ity of (REXULTI) 4 00:00: daily. [place] mg Tab 00 Medical Branch escitalopra 2021-05 Yes [id number] 10mg Take 1 Univers m oxalate 2-01 tablet by ity o f (LEXAPRO) 00:00: mouth in [place] 10 mg 00 the Medical tablet morning Branch and 1 tablet in the evening. doxepin 50 2021-05 Yes [id number] 50mg Take 1 Univers mg capsule 2-01 capsule by ity of 00:00: mouth at [place] 00 bedtime. Medical Branch brexpiprazo 2021-05 Yes [id number] 4mg Take 4 mg Univers le 2-01 by mouth ity of (REXULTI) 4 00:00: daily. [place] mg Tab 00 Medical Branch escitalopra 2021-05 Yes [id number] 10mg Take 1 [facility] m oxalate 2-01 tablet by ity o f (LEXAPRO) 00:[place]: [place] 10 mg 00 the Medical tablet morning Branch and 1 tablet in the evening. doxepin 50 2021-05 Yes [id number] 50mg Take 1 [facility] mg capsule 2-01 capsule by ity of 00:00: mouth at [place] 00 bedtime. Medical Branch escitalopra 2021-05 Yes [id number] 10mg Take 1 [facility] m oxalate 2-01 tablet by ity o f (LEXAPRO) 00:00: [place] 10 mg 00 the Medical tablet morning Branch and 1 tablet in the evening. doxepin 50 2021-05 Yes [id number] 50mg Take 1 [facility] mg capsule 2-01 capsule by ity of 00:00: mouth at [place] 00 bedtime. Medical Branch escitalopra 2021-05 Yes [id number] 10mg Take 1 [facility] m oxalate 2-01 tablet by ity o f (LEXAPRO) 00:00: [place] 10 mg 00 the Medical tablet morning Branch and 1 tablet in the evening. doxepin 50 2021-05 Yes [id number] 50mg Take 1 [facility] mg capsule 2-01 capsule by ity of 00:00: mouth at [place] 00 bedtime. Medical Branch escitalopra 2021-05 Yes [id number] 10mg Take 1 [facility] m oxalate 2-01 tablet by ity o f (LEXAPRO) 00:00: [place] 10 mg 00 the Medical tablet morning Branch and 1 tablet in the evening. doxepin 50 2021-05 Yes [id number] 50mg Take 1 [facility] mg capsule 2-01 capsule by ity of 00:00: mouth at [place] 00 bedtime. Medical Branch escitalopra 2021-05 Yes [id number] 10mg Take 1 [facility] m oxalate 2-01 tablet by ity o f (LEXAPRO) 00:00: mouth [place] 10 mg 00 the Medical tablet morning Branch and 1 tablet in the evening. doxepin 50 2021-05 Yes [id number] 50mg Take 1 [facility] mg capsule 2-01 capsule by ity of 00:00: mouth at [place] 00 bedtime. Medical Branch escitalopra 2022-1 Yes [id number] 10mg Take 1 [facility] m oxalate 2-01 tablet by ity o f (LEXAPRO) 00:00: [place] 10 mg 00 the Medical tablet morning Branch and 1 tablet in the evening. doxepin 50 2021-05 Yes [id number] 50mg Take 1 [facility] mg capsule 2-01 capsule by ity of 00:00: mouth at [place] 00 bedtime. Medical Branch escitalopra 2021-05 Yes [id number] 10mg Take 1 [facility] m oxalate 2-01 tablet by [facility] o f (LEXAPRO) 00:00: [place] 10 mg 00 the Medical tablet morning Branch and 1 tablet in the evening. doxepin 50 2021-05 Yes [id number] 50mg Take 1 [facility] mg capsule 2-01 capsule by ity of 00:00: mouth at [place] 00 bedtime. Medical Branch escitalopra 2021-05 Yes [id number] 10mg Take 1 [facility] m oxalate 2-01 tablet by [facility] o f (LEXAPRO) 00:00: mouth [place] 10 mg 00 the Medical tablet morning Branch and 1 tablet in the evening. doxepin 50 2021-05 Yes [id number] 50mg Take 1 [facility] mg capsule 2-01 capsule by ity of 00:00: mouth at [place] 00 bedtime. Medical Branch escitalopra 2021-05 Yes [id number] 10mg Take 1 [facility] m oxalate 2-01 tablet by [facility]y o f (LEXAPRO) 00:00: mouth [place] 10 mg 00 the Medical tablet morning Branch and 1 tablet in the evening. doxepin 50 2021-05 Yes [id number] 50mg Take 1 [facility] mg capsule 2-01 capsule by ity of 00:00: mouth at [place] 00 bedtime. Medical Branch escitalopra 2021-05 Yes [id number] 10mg Take 1 [facility] m oxalate 2-01 tablet by ity o f (LEXAPRO) 00:00: [place] 10 mg 00 the Medical tablet morning Branch and 1 tablet in the evening. doxepin 50 2021-05 Yes [id number] 50mg Take 1 [facility] mg capsule 2-01 capsule by ity of 00:00: mouth at [place] 00 bedtime. Medical Branch brexpiprazo 2021-05- No [id number] 4mg Take 4 mg [facility] le 06-02 by mouth ity of (REXULTI) 4 00:00: 00:00 daily. [place] [facility] mg Tab 00 :00 Medical Branch brexpiprazo 2021-05- No [id number] 4mg Take 4 mg [facility] le 06-02 by mouth ity of (REXULTI) 4 00:00: 00:00 daily. [place] [facility] mg Tab 00 :00 [facility] Branch escitalopra 2021-05 Yes 10mg Take 10 mg [facility] m oxalate 1-17 by mouth ity of (LEXAPRO) 16:20: in the [place] 10 mg 25 morning Medical tablet and 10 mg Branch in the evening. brexpiprazo 2021-05 Yes 1mg Take 1 mg U nivers le 1-17 by mouth 2 ity of (REXULTI) 1 16:20: (two) [place] mg Tab 25 times Medical daily. Branch doxepin 50 2021-05 Yes 50mg Take 50 mg U nivers mg capsule 1-17 by mouth ity o f 16:20: at [place] [address] bedtime. Medical Branch eszopiclone 2021-05 Yes 2mg Take 2 mg [facility] 2 mg tablet 1-17 by mouth ity of 16:20: at [place] [address] bedtime. Medical Branch sofosbuvir- 2021-05 Yes 1{tbl} Take 1 [facility] velpatasvir 1-17 tablet by ity of (EPCLUSA) 16:20: [place] 400-100 mg 25 the Medical morning. Branch tiZANidine 2021-05 Yes 2mg Take 2 mg [facility] 2 mg 1-17 by mouth ity of capsule 16:20: in the [place] [address] morning Medical and 2 mg Branch at noon and 2 mg in the evening. eszopiclone 2021-05 Yes 2mg Take 2 mg [facility] 2 mg tablet 1-17 by mouth ity of 16:20: at [place] [address] bedtime. Medical Branch tiZANidine 2021-05 Yes 2mg Take 2 mg [facility] [place] 2 mg 1-17 by mouth ity of capsule 16:20: in the [place] [address] morning Medical and 2 mg Branch at noon and 2 mg in the evening. eszopiclone 2021-05 Yes 2mg Take 2 mg [facility] 2 mg tablet 1-17 by mouth ity of 16:20: at [place] [address] bedtime. Medical Branch tiZANidine 2021-05 Yes 2mg Take 2 mg [facility] [place] 2 mg 1-17 by mouth ity of capsule 16:20: in the [place] [address] morning Medical and 2 mg Branch at noon and 2 mg in the evening. eszopiclone 2021-05 Yes 2mg Take 2 mg [facility] 2 mg tablet 1-17 by mouth ity of 16:20: at [place] [address] bedtime. Medical Branch tiZANidine 2021-05 Yes 2mg Take 2 mg [place] 2 mg 1-17 by mouth ity of capsule 16:20: in the [place] [address] morning Medical and 2 mg Branch at noon and 2 mg in the evening. eszopiclone 2021-05 Yes 2mg Take 2 mg [facility] 2 mg tablet 1-17 by mouth ity of 16:20: at [place] [address] bedtime. Medical Branch tiZANidine 2021-05 Yes 2mg Take 2 mg [place] 2 mg 1-17 by mouth ity of capsule 16:20: in the [place] [address] morning Medical and 2 mg Branch at noon and 2 mg in the evening. eszopiclone 2021-05 Yes 2mg Take 2 mg [facility] 2 mg tablet 1-17 by mouth ity of 16:20: at [place] [address] bedtime. Medical Branch tiZANidine 2021-05 Yes 2mg Take 2 mg [place] 2 mg 1-17 by mouth ity of capsule 16:20: in the [place] [address] morning Medical and 2 mg Branch at noon and 2 mg in the evening. eszopiclone 2021-05 Yes 2mg Take 2 mg [facility] 2 mg tablet 1-17 by mouth ity of 16:20: at [place] [address] bedtime. Medical Branch tiZANidine 2021-05 Yes 2mg Take 2 mg [place] 2 mg 1-17 by mouth ity of capsule 16:20: in the [place] [address] morning Medical and 2 mg Branch at noon and 2 mg in the evening. eszopiclone 2021-05 Yes 2mg Take 2 mg [facility] 2 mg tablet 1-17 by mouth ity of 16:20: at [place] [address] bedtime. Medical Branch tiZANidine 2021-05 Yes 2mg Take 2 mg [place] 2 mg 1-17 by mouth ity of capsule 16:20: in the [place] [address] morning Medical and 2 mg Branch at noon and 2 mg in the evening. eszopiclone 2021-05 Yes 2mg Take 2 mg [facility] 2 mg tablet 1-17 by mouth ity of 16:20: at [place] [address] bedtime. Medical Branch tiZANidine 2021-05 Yes 2mg Take 2 mg [place] 2 mg 1-17 by mouth ity of capsule 16:20: in the [place] [address] morning Medical and 2 mg Branch at noon and 2 mg in the evening. eszopiclone 2021-05 Yes 2mg Take 2 mg [facility] 2 mg tablet 1-17 by mouth ity of 16:20: at [place] [address] bedtime. Medical Branch tiZANidine 2021-05 Yes 2mg Take 2 mg [facility] [place] 2 mg 1-17 by mouth ity of capsule 16:20: in the [place] [address] morning Medical and 2 mg Branch at noon and 2 mg in the evening. eszopiclone 2021-05 Yes 2mg Take 2 mg [facility] 2 mg tablet 1-17 by mouth ity of 16:20: at [place] [address] bedtime. Medical Branch tiZANidine 2021-05 Yes 2mg Take 2 mg [place] 2 mg 1-17 by mouth ity of capsule 16:20: in the [place] [address] morning Medical and 2 mg Branch at noon and 2 mg in the evening. eszopiclone 2021-05 Yes 2mg Take 2 mg [facility] 2 mg tablet 1-17 by mouth ity of 16:20: at [place] [address] bedtime. Medical Branch tiZANidine 2021-05 Yes 2mg Take 2 mg [place] 2 mg 1-17 by mouth ity of capsule 16:20: in the [place] [address] morning Medical and 2 mg Branch at noon and 2 mg in the evening. eszopiclone 2021-05 Yes 2mg Take 2 mg [facility] 2 mg tablet 1-17 by mouth ity of 16:20: at [place] [address] bedtime. Medical Branch tiZANidine 2021-05 Yes 2mg Take 2 mg [place] 2 mg 1-17 by mouth ity of capsule 16:20: in the [place] [address] morning Medical and 2 mg Branch at noon and 2 mg in the evening. eszopiclone 2021-05 Yes 2mg Take 2 mg [facility] 2 mg tablet 1-17 by mouth ity of 16:20: at [place] [address] bedtime. Medical Branch tiZANidine 2021-05 Yes 2mg Take 2 mg [place] 2 mg 1-17 by mouth ity of capsule 16:20: in the [place] [address] morning Medical and 2 mg Branch at noon and 2 mg in the evening. eszopiclone 2021-05 Yes 2mg Take 2 mg [facility] 2 mg tablet 1-17 by mouth ity of 16:20: at [place] [address] bedtime. Medical Branch tiZANidine 2021-05 Yes 2mg Take 2 mg [place] 2 mg 1-17 by mouth ity of capsule 16:20: in the [place] [address] morning Medical and 2 mg Branch at noon and 2 mg in the evening. eszopiclone 2021-05 Yes 2mg Take 2 mg [facility] 2 mg tablet 1-17 by mouth ity of 16:20: at [place] [address] bedtime. Medical Branch tiZANidine 2021-05 Yes 2mg Take 2 mg [place] 2 mg 1-17 by mouth ity of capsule 16:20: in the [place] [address] morning Medical and 2 mg Branch at noon and 2 mg in the evening. eszopiclone 2021-05 Yes 2mg Take 2 mg [facility] 2 mg tablet 1-17 by mouth ity of 16:20: at [place] [address] bedtime. Medical Branch tiZANidine 2021-05 Yes 2mg Take 2 mg [place] 2 mg 1-17 by mouth ity of capsule 16:20: in the [place] [address] morning Medical and 2 mg Branch at noon and 2 mg in the evening. eszopiclone 2021-05 Yes 2mg Take 2 mg [facility] 2 mg tablet 1-17 by mouth ity of 16:20: at [place] [address] bedtime. Medical Branch tiZANidine 2021-05 Yes 2mg Take 2 mg [place] 2 mg 1-17 by mouth ity of capsule 16:20: in the [place] [address] morning Medical and 2 mg Branch at noon and 2 mg in the evening. eszopiclone 2021-05 Yes 2mg Take 2 mg [facility] 2 mg tablet 1-17 by mouth ity of 16:20: at [place] [address] bedtime. Medical Branch tiZANidine 2021-05 Yes 2mg Take 2 mg [place] 2 mg 1-17 by mouth ity of capsule 16:20: in the [place] [address] morning Medical and 2 mg Branch at noon and 2 mg in the evening. eszopiclone 2021-05 Yes 2mg Take 2 mg [facility] 2 mg tablet 1-17 by mouth ity of 16:20: at [place] [address] bedtime. Medical Branch tiZANidine 2021-05 Yes 2mg Take 2 mg [place] 2 mg 1-17 by mouth ity of capsule 16:20: in the [place] [address] morning Medical and 2 mg Branch at noon and 2 mg in the evening. eszopiclone 2021-05 Yes 2mg Take 2 mg [facility] 2 mg tablet 1-17 by mouth ity of 16:20: at [place] [address] bedtime. Medical Branch tiZANidine 2021-05 Yes 2mg Take 2 mg [place] 2 mg 1-17 by mouth ity of capsule 16:20: in the [place] [address] morning Medical and 2 mg Branch at noon and 2 mg in the evening. eszopiclone 2021-05 Yes 2mg Take 2 mg [facility] 2 mg tablet 1-17 by mouth ity of 16:20: at [place] [address] bedtime. Medical Branch tiZANidine 2021-05 Yes 2mg Take 2 mg [place] 2 mg 1-17 by mouth ity of capsule 16:20: in the [place] [address] morning Medical and 2 mg Branch at noon and 2 mg in the evening. eszopiclone 2021-05 Yes 2mg Take 2 mg [facility] 2 mg tablet 1-17 by mouth ity of 16:20: at [place] [address] bedtime. Medical Branch tiZANidine 2021-05 Yes 2mg Take 2 mg [place] 2 mg 1-17 by mouth ity of capsule 16:20: in the [place] [address] morning Medical and 2 mg Branch at noon and 2 mg in the evening. HYDROcodone No 1{tbl} 1 tablet, [facility] -acetaminop 7- 07-21 Oral, ity of hen (NORCO 07:45: 07:42 ONCE, 1 [place] [facility] 5) 5-325 mg 00 :00 dose, On Medi [place]on tablet u Branch tablet 11/19/21 at 0245, AMANDA aspirin 2021- No 325mg 325 mg, [facility] tablet 325 11-19 Oral, ity of mg 07:00: 06:29 ONCE, 1 [place] 00 :00 dose, On Medical [place] Branch 11/19/21 at 0200, STAT iopamidol 2021- No [id number] 80mL 80 mL, U nivers (ISOVUE 11-19 Intravenou ity o f 370-500 mL) 06:53: 06:53 s, ONCE, 1 [place] injection 00 :00 dose, On Medica l 80 mL [place] Branch 11/19/21 at 0200, Routine traMADoL 2021- No 50mg 50 mg, Univer s (ULTRAM) 07-31 Oral, ity of tablet 50 19:30: 18:40 ONCE, 1 [place] mg 00 :00 dose, On Medical 07/31/21 Branch at 1430, Routine ketorolac 2021- No 30mg 30 mg, [facility] (TORADOL) 07-31 Intramuscu ity of injection 19:30: 18:40 [place], ONCE, [place] 30 mg 00 :00 1 dose, On Medical 07/31/21 Branch at 1430, Routine cyclobenzap Yes [id number] 10mg Take 1 [facility] rine 10 mg 4- 9103 tablet by ity of tablet 00:00: mouth [place] 00 every 8 Medical (eight) Branch hours as needed for Muscle Spasms. naproxen 0 Yes [id number] 500mg Take 1 [facility] 500 mg 4- 9103 tablet by ity of tablet 00:00: mouth [place] 00 every 12 Medical (twelve) Branch hours as needed for Pain (scale 1-3) or Pain (scale 4-6). cyclobenzap 0 Yes [id number] 10mg Take 1 [facility] rine 10 mg 4- 9103 tablet by ity of tablet 00:00: mouth [place] 00 every 8 Medical (eight) Branch hours as needed for Muscle Spasms. naproxen 0 Yes [id number] 500mg Take 1 [facility] 500 mg 4-01 9103 tablet by ity of tablet 00:00: mouth [place] 00 every 12 Medical (twelve) Branch hours as needed for Pain (scale 1-3) or Pain (scale 4-6). cyclobenzap 2022-0 Yes [id number] 10mg Take 1 [facility] rine 10 mg 4-01 9103 tablet by ity of tablet 00:00: mouth [place] 00 every 8 Medical (eight) Branch hours as needed for Muscle Spasms. naproxen 2022-0 Yes [id number] 500mg Take 1 [facility] 500 mg 4-01 9103 tablet by ity of tablet 00:00: mouth [place] 00 every 12 Medical (twelve) Branch hours as needed for Pain (scale 1-3) or Pain (scale 4-6). cyclobenzap 2022-0 Yes [id number] 10mg Take 1 [facility] rine 10 mg 4-01 9103 tablet by ity of tablet 00:00: mouth [place] 00 every 8 Medical (eight) Branch hours as needed for Muscle Spasms. naproxen 2022-0 Yes [id number] 500mg Take 1 [facility] 500 mg 4-01 9103 tablet by ity of tablet 00:00: mouth [place] 00 every 12 Medical (twelve) Branch hours as needed for Pain (scale 1-3) or Pain (scale 4-6). cyclobenzap 2-0 Yes [id number] 10mg Take 1 [facility] rine 10 mg 4-01 9103 tablet by ity of tablet 00:00: mouth [place] 00 every 8 Medical (eight) Branch hours as needed for Muscle Spasms. naproxen 2022-0 Yes [id number] 500mg Take 1 [facility] 500 mg 4-01 9103 tablet by ity of tablet 00:00: mouth [place] 00 every 12 Medical (twelve) Branch hours as needed for Pain (scale 1-3) or Pain (scale 4-6). cyclobenzap 2022-0 Yes [id number] 10mg Take 1 [facility] rine 10 mg 4-01 9103 tablet by ity of tablet 00:00: mouth [place] 00 every 8 Medical (eight) Branch hours as needed for Muscle Spasms. naproxen 2022-0 Yes [id number] 500mg Take 1 [facility] 500 mg 4-01 9103 tablet by ity of tablet 00:00: mouth [place] 00 every 12 Medical (twelve) Branch hours as needed for Pain (scale 1-3) or Pain (scale 4-6). cyclobenzap 2022-0 Yes [id number] 10mg Take 1 [facility] rine 10 mg 4-01 9103 tablet by ity of tablet 00:00: mouth [place] 00 every 8 Medical (eight) Branch hours as needed for Muscle Spasms. naproxen 2022-0 Yes [id number] 500mg Take 1 [facility] 500 mg 4-01 9103 tablet by ity of tablet 00:00: mouth [place] 00 every 12 Medical (twelve) Branch hours as needed for Pain (scale 1-3) or Pain (scale 4-6). cyclobenzap 2022-0 Yes [id number] 10mg Take 1 [facility] rine 10 mg 4-01 9103 tablet by ity of tablet 00:00: mouth [place] 00 every 8 Medical (eight) Branch hours as needed for Muscle Spasms. naproxen 2022-0 Yes [id number] 500mg Take 1 [facility] 500 mg 4-01 9103 tablet by ity of tablet 00:00: mouth [place] 00 every 12 Medical (twelve) Branch hours as needed for Pain (scale 1-3) or Pain (scale 4-6). cyclobenzap 2022-0 Yes [id number] 10mg Take 1 [facility] rine 10 mg 4-01 9103 tablet by ity of tablet 00:00: mouth [place] 00 every 8 Medical (eight) Branch hours as needed for Muscle Spasms. naproxen 2022-0 Yes [id number] 500mg Take 1 [facility] 500 mg 4-01 9103 tablet by ity of tablet 00:00: mouth [place] 00 every 12 Medical (twelve) Branch hours as needed for Pain (scale 1-3) or Pain (scale 4-6). cyclobenzap 2022-0 Yes [id number] 10mg Take 1 [facility] rine 10 mg 4-01 9103 tablet by ity of tablet 00:00: mouth [place] 00 every 8 Medical (eight) Branch hours as needed for Muscle Spasms. naproxen 2022-0 Yes [id number] 500mg Take 1 [facility] 500 mg 4-01 9103 tablet by ity of tablet 00:00: mouth [place] 00 every 12 Medical (twelve) Branch hours as needed for Pain (scale 1-3) or Pain (scale 4-6). cyclobenzap 2022-0 Yes [id number] 10mg Take 1 [facility] rine 10 mg 4-01 9103 tablet by ity of tablet 00:00: mouth [place] 00 every 8 Medical (eight) Branch hours as needed for Muscle Spasms. naproxen 2022-0 Yes [id number] 500mg Take 1 [facility] 500 mg 4-01 9103 tablet by ity of tablet 00:00: mouth [place] 00 every 12 Medical (twelve) Branch hours as needed for Pain (scale 1-3) or Pain (scale 4-6). cyclobenzap 2022-0 Yes [id number] 10mg Take 1 [facility] rine 10 mg 4-01 9103 tablet by ity of tablet 00:00: mouth [place] 00 every 8 Medical (eight) Branch hours as needed for Muscle Spasms. naproxen 2022-0 Yes [id number] 500mg Take 1 [facility] 500 mg 4-01 9103 tablet by ity of tablet 00:00: mouth [place] 00 every 12 Medical (twelve) Branch hours as needed for Pain (scale 1-3) or Pain (scale 4-6). cyclobenzap 2022-0 Yes [id number] 10mg Take 1 [facility] rine 10 mg 4-01 9103 tablet by ity of tablet 00:00: mouth [place] 00 every 8 Medical (eight) Branch hours as needed for Muscle Spasms. naproxen 2022-0 Yes [id number] 500mg Take 1 [facility] 500 mg 4-01 9103 tablet by ity of tablet 00:00: mouth [place] 00 every 12 Medical (twelve) Branch hours as needed for Pain (scale 1-3) or Pain (scale 4-6). cyclobenzap 2022-0 Yes [id number] 10mg Take 1 [facility] rine 10 mg 4-01 9103 tablet by ity of tablet 00:00: mouth [place] 00 every 8 Medical (eight) Branch hours as needed for Muscle Spasms. naproxen 2022-0 Yes [id number] 500mg Take 1 [facility] 500 mg 4-01 9103 tablet by ity of tablet 00:00: mouth [place] 00 every 12 Medical (twelve) Branch hours as needed for Pain (scale 1-3) or Pain (scale 4-6). cyclobenzap 2022-0 Yes [id number] 10mg Take 1 [facility] rine 10 mg 4-01 9103 tablet by ity of tablet 00:00: mouth [place] 00 every 8 Medical (eight) Branch hours as needed for Muscle Spasms. naproxen 2022-0 Yes [id number] 500mg Take 1 [facility] 500 mg 4-01 9103 tablet by ity of tablet 00:00: mouth [place] 00 every 12 Medical (twelve) Branch hours as needed for Pain (scale 1-3) or Pain (scale 4-6). cyclobenzap 2022-0 Yes [id number] 10mg Take 1 [facility] rine 10 mg 4-01 9103 tablet by ity of tablet 00:00: mouth [place] 00 every 8 Medical (eight) Branch hours as needed for Muscle Spasms. naproxen 2022-0 Yes [id number] 500mg Take 1 [facility] 500 mg 4-01 9103 tablet by ity of tablet 00:00: mouth [place] 00 every 12 Medical (twelve) Branch hours as needed for Pain (scale 1-3) or Pain (scale 4-6). cyclobenzap 2022-0 Yes [id number] 10mg Take 1 [facility] rine 10 mg 4-01 9103 tablet by ity of tablet 00:00: mouth [place] 00 every 8 Medical (eight) Branch hours as needed for Muscle Spasms. naproxen 2022-0 Yes [id number] 500mg Take 1 [facility] 500 mg 4-01 9103 tablet by ity of tablet 00:00: mouth [place] 00 every 12 Medical (twelve) Branch hours as needed for Pain (scale 1-3) or Pain (scale 4-6). cyclobenzap 2022-0 Yes [id number] 10mg Take 1 [facility] rine 10 mg 4-01 9103 tablet by ity of tablet 00:00: mouth [place] 00 every 8 Medical (eight) Branch hours as needed for Muscle Spasms. naproxen 2022-0 Yes [id number] 500mg Take 1 [facility] 500 mg 4-01 9103 tablet by ity of tablet 00:00: mouth [place] 00 every 12 Medical (twelve) Branch hours as needed for Pain (scale 1-3) or Pain (scale 4-6). cyclobenzap 2022-0 Yes [id number] 10mg Take 1 [facility] rine 10 mg 4-01 9103 tablet by ity of tablet 00:00: mouth [place] 00 every 8 Medical (eight) Branch hours as needed for Muscle Spasms. naproxen 2022-0 Yes [id number] 500mg Take 1 [facility] 500 mg 4-01 9103 tablet by ity of tablet 00:00: mouth [place] 00 every 12 Medical (twelve) Branch hours as needed for Pain (scale 1-3) or Pain (scale 4-6). cyclobenzap 2022-0 Yes [id number] 10mg Take 1 [facility] rine 10 mg 4-01 9103 tablet by ity of tablet 00:00: mouth [place] 00 every 8 Medical (eight) Branch hours as needed for Muscle Spasms. naproxen 2022-0 Yes [id number] 500mg Take 1 [facility] 500 mg 4-01 9103 tablet by ity of tablet 00:00: mouth [place] 00 every 12 Medical (twelve) Branch hours as needed for Pain (scale 1-3) or Pain (scale 4-6). cyclobenzap 2022-0 Yes [id number] 10mg Take 1 [facility] rine 10 mg 4-01 9103 tablet by ity of tablet 00:00: mouth [place] 00 every 8 Medical (eight) Branch hours as needed for Muscle Spasms. naproxen 2022-0 Yes [id number] 500mg Take 1 [facility] 500 mg 4-01 9103 tablet by ity of tablet 00:00: mouth [place] 00 every 12 Medical (twelve) Branch hours as needed for Pain (scale 1-3) or Pain (scale 4-6). cyclobenzap 2022-0 Yes [id number] 10mg Take 1 [facility] rine 10 mg 4-01 9103 tablet by ity of tablet 00:00: mouth [place] 00 every 8 Medical (eight) Branch hours as needed for Muscle Spasms. naproxen 2022-0 Yes [id number] 500mg Take 1 [facility] 500 mg 4-01 9103 tablet by ity of tablet 00:00: mouth [place] 00 every 12 Medical (twelve) Branch hours as needed for Pain (scale 1-3) or Pain (scale 4-6). cyclobenzap 2022-0 Yes [id number] 10mg Take 1 [facility] rine 10 mg 4-01 9103 tablet by ity of tablet 00:00: mouth [place] 00 every 8 Medical (eight) Branch hours as needed for Muscle Spasms. naproxen 2022-0 Yes [id number] 500mg Take 1 [facility] 500 mg 4-01 9103 tablet by ity of tablet 00:00: mouth [place] 00 every 12 Medical (twelve) Branch hours as needed for Pain (scale 1-3) or Pain (scale 4-6). cyclobenzap 0 Yes [id number] 10mg Take 1 [facility] rine 10 mg 4- 9103 tablet by ity of tablet 00:00: mouth [place] 00 every 8 Medical (eight) Branch hours as needed for Muscle Spasms. naproxen 0 Yes [id number] 500mg Take 1 [facility] 500 mg 4- 9103 tablet by ity of tablet 00:00: mouth [place] 00 every 12 Medical (twelve) Branch hours as needed for Pain (scale 1-3) or Pain (scale 4-6). cyclobenzap 0 Yes [id number] 10mg Take 1 [facility] rine 10 mg 4- 9103 tablet by ity of tablet 00:00: mouth [place] 00 every 8 Medical (eight) Branch hours as needed for Muscle Spasms. naproxen 0 Yes [id number] 500mg Take 1 [facility] 500 mg 4- 9103 tablet by ity of tablet 00:00: [...] e clonazepam 2020-05 Yes .5mg Take 0.5 [place] [facility] (KLONOPIN) 1-01 mg by [place] 1 MG tablet 00:00: mouth of 00 daily. Medicin e aripiprazol 2020-05 Yes 1{tbl} Take 1 [facility] (ABILIFY) 1-01 Tablet by [facility]ge 5 MG tablet 00:00: mouth of 00 daily. Medicin e methocarbam 2020-05- No 750mg Take 1 [facility] 0-21 04-01 Tablet by [facility] (ROBAXIN) 00:00: 00:00 mouth 2 of 750 MG 00 :00 times Medicin tablet daily as e needed. meloxicam 2020- TAKE 1 [facility] (MOBIC) 7.5 01-07 TABLET BY [facility] MG tablet 00:00: 00:00 MOUTH of 00 :00 EVERY DAY Medicin e FENTanyl PF 2020- No 50ug 50 mcg, [facility] (SUBLIMAZE -24 09- Slow IV ity o f (PF)) 03:45: 02:43 Push, [place] injection 00 :00 ONCE, 1 Medical 50 mcg dose, [facility] 09/23/20 at 2245, Routine methocarbam Yes [id number] 750mg Take 1 [facility] oL 5-25 tablet by ity of (ROBAXIN-75 00:00: mouth 4 [place] [facility] 0) 750 mg 00 (four) Medical tablet times Branch daily as needed for Pain (scale 7-10). methocarbam 2021- No [id number] 750mg Take 1 [facility] oL 5-25 04- tablet by ity of (ROBAXIN-75 00:00: 00:00 mouth 4 [place] 0[place] 750 mg 00 :00 (four) Medical tablet times Branch daily as needed for Pain (scale 7-10). traMADoL 2020- No [id number] 50mg Take 1 Univer s (ULTRAM) 50 5-25 06- tablet by it y of mg tablet 00:00: 04:59 mouth [place] 00 :00 every 6 Medical (six) Branch hours as needed for Pain (scale 7-10) for up to 7 days. Indication s: acute pain traMADol Yes 50mg 50 mg, [facility] (ULTRAM) 8- Oral, ity of tablet 50 16:18: Q6HPRN, [place] mg 36 Starting Medical [facility] Branch 12/11/19 at 1118, Until Discontinu ed, [...] Tue Medical 12/11/19 at Branch 0945, STAT famotidine 2020-0 Yes 1{tbl} Take 1 [place] [facility] (PEPCID) 40 8-11 Tablet by Col [facility]ge MG tablet 00:00: mouth of 00 daily. Medicin e ondansetron 2020-0 Yes 4mg Take 4 mg [facility] (ZOFRAN) 4 8-11 by mouth. [place] e[facility] MG tablet 00:00: of 00 Medicin e ondansetron 2020-0 Yes [id number] 4mg Take 1 [facility] 4 mg tablet 8-11 tablet by ity of 00:00: mouth [place] 00 every 8 Medical (eight) Branch hours as needed for Nausea and Vomiting (N/V). famotidine 2020-0 Yes [id number] 40mg Take 1 [facility] nivers (PEPCID) 40 8-11 tablet by ity of mg tablet 00:00: mouth [place] 00 daily. Medical Branch ondansetron 2020-0 Yes [id number] 4mg Take 1 [facility] 4 mg tablet 8-11 tablet by ity of 00:00: mouth [place] 00 every 8 Medical (eight) Branch hours as needed for Nausea and Vomiting (N/V). famotidine 2020-0 Yes [id number] 40mg Take 1 [facility] (PEPCID) 40 8-11 tablet by ity of mg tablet 00:00: mouth [place] 00 daily. Medical Branch ondansetron 2020-0 Yes [id number] 4mg Take 1 [facility] 4 mg tablet 8-11 tablet by ity of 00:00: mouth [place] 00 every 8 Medical (eight) Branch hours as needed for Nausea and Vomiting (N/V). famotidine 2020-0 Yes [id number] 40mg Take 1 [facility] n[facility] (PEPCID) 40 8-11 tablet by ity of mg tablet 00:00: mouth [place] 00 daily. Medical Branch ondansetron 2020-0 Yes [id number] 4mg Take 1 [facility] 4 mg tablet 8-11 tablet by ity of 00:00: mouth [place] 00 every 8 Medical (eight) Branch hours as needed for Nausea and Vomiting (N/V). famotidine 2020-0 Yes [id number] 40mg Take 1 [facility] (PEPCID) 40 8-11 tablet by ity of mg tablet 00:00: mouth [place] 00 daily. Medical Branch ondansetron 2020-0 Yes [id number] 4mg Take 1 [facility] 4 mg tablet 8-11 tablet by ity of 00:00: mouth [place] 00 every 8 Medical (eight) Branch hours as needed for Nausea and Vomiting (N/V). famotidine 2020-0 Yes [id number] 40mg Take 1 [facility] n[facility] (PEPCID) 40 8-11 tablet by ity of mg tablet 00:00: mouth [place] 00 daily. Medical Branch famotidine 2020-0 Yes [id number] 40mg Take 1 [facility] n[facility] (PEPCID) 40 8-11 tablet by ity of mg tablet 00:00: mouth [place] 00 daily. Medical Branch famotidine 2020-0 Yes [id number] 40mg Take 1 [facility] (PEPCID) 40 8-11 tablet by ity of mg tablet 00:00: mouth [place] 00 daily. Medical Branch famotidine 2020-0 Yes [id number] 40mg Take 1 [facility] (PEPCID) 40 8-11 tablet by ity of mg tablet 00:00: mouth [place] 00 daily. Medical Branch famotidine 2020-0 Yes [id number] 40mg Take 1 [facility] n[facility] (PEPCID) 40 8-11 tablet by ity of mg tablet 00:00: mouth [place] 00 daily. Medical Branch famotidine 2020-0 Yes [id number] 40mg Take 1 [facility] (PEPCID) 40 8-11 tablet by ity of mg tablet 00:00: mouth [place] 00 daily. Medical Branch famotidine 2020-0 Yes [id number] 40mg Take 1 [facility] (PEPCID) 40 8-11 tablet by ity of mg tablet 00:00: mouth [place] 00 daily. Medical Branch famotidine 2020-0 Yes [id number] 40mg Take 1 [facility] n[facility] (PEPCID) 40 8-11 tablet by ity of mg tablet 00:00: mouth [place] 00 daily. [facility] Branch famotidine 2020-0 Yes [id number] 40mg Take 1 U nivers (PEPCID) 40 8-11 tablet by ity of mg tablet 00:00: mouth [place] 00 daily. [facility] Branch famotidine 2020-0 Yes [id number] 40mg Take 1 U nivers (PEPCID) 40 8-11 tablet by ity of mg tablet 00:00: mouth [place] 00 daily. [facility] Branch famotidine 2020-0 Yes [id number] 40mg Take 1 [facility] nivers (PEPCID) 40 8-11 tablet by ity of mg tablet 00:00: mouth [place] 00 daily. [facility] Branch famotidine 2020-0 Yes [id number] 40mg Take 1 U nivers (PEPCID) 40 8-11 tablet by ity of mg tablet 00:00: mouth [place] 00 daily. [facility] Branch famotidine 2020-0 Yes [id number] 40mg Take 1 [facility] nivers (PEPCID) 40 8-11 tablet by ity of mg tablet 00:00: mouth [place] 00 daily. [facility] Branch famotidine 2020-0 Yes [id number] 40mg Take 1 [facility] nivers (PEPCID) 40 8-11 tablet by ity of mg tablet 00:00: mouth [place] 00 daily. [facility] Branch famotidine 2020-0 Yes [id number] 40mg Take 1 [facility] nivers (PEPCID) 40 8-11 tablet by ity of mg tablet 00:00: mouth [place] 00 daily. [facility] Branch famotidine 2020-0 Yes [id number] 40mg Take 1 [facility] nivers (PEPCID) 40 8-11 tablet by ity of mg tablet 00:00: mouth [place] 00 daily. [facility] Branch famotidine 2020-0 Yes [id number] 40mg Take 1 [facility] nivers (PEPCID) 40 8-11 tablet by ity of mg tablet 00:00: mouth [place] 00 daily. [facility] Branch famotidine 2020-0 Yes [id number] 40mg Take 1 [facility] nivers (PEPCID) 40 8-11 tablet by ity of mg tablet 00:00: mouth [place] 00 daily. [facility] Branch famotidine 2020-0 Yes [id number] 40mg Take 1 [facility] nivers (PEPCID) 40 8-11 tablet by ity of mg tablet 00:00: mouth [place] 00 daily. Medical Branch famotidine 2020-0 Yes [id number] 40mg Take 1 [facility] nivers (PEPCID) 40 8-11 tablet by ity of mg tablet 00:00: mouth [place] 00 daily. Medical Branch famotidine 2020-0 Yes [id number] 40mg Take 1 [facility] nivers (PEPCID) 40 8-11 tablet by ity of mg tablet 00:00: mouth [place] 00 daily. Medical Branch famotidine 2020-0 Yes [id number] 40mg Take 1 [facility] nivers (PEPCID) 40 8-11 tablet by ity of mg tablet 00:00: mouth [place] 00 daily. Medical Branch famotidine 2020-0 Yes [id number] 40mg Take 1 [facility] nivers (PEPCID) 40 8-11 tablet by ity of mg tablet 00:00: mouth [place] 00 daily. Medical Branch ondansetron 2019-2021- No [id number] 4mg Take 1 [facility] 4 mg tablet 12-10 tablet by it y of 00:00: 00:00 mouth [place] 00 :00 every 8 Medical (eight) Branch hours as needed for Nausea and Vomiting (N/V). ondansetron 2019-2021- No [id number] 4mg Take 1 [facility] 4 mg tablet 12-10 tablet by it y of 00:00: 00:00 mouth [place] 00 :00 every 8 Medical (eight) Branch hours as needed for Nausea and Vomiting (N/V). ondansetron 2019-2021- No [id number] 4mg Take 1 [facility] 4 mg tablet 12-10 tablet by it y of 00:00: 00:00 mouth [place] 00 :00 every 8 Medical (eight) Branch hours as needed for Nausea and Vomiting (N/V). ondansetron 2019-0 2021- No [id number] 4mg Take 1 [facility] 4 mg tablet 12-10 tablet by it y of 00:00: 00:00 mouth [place] 00 :00 every 8 Medical (eight) Branch hours as needed for Nausea and Vomiting (N/V). ondansetron 2019-2021- No [id number] 4mg Take 1 [facility] 4 mg tablet 12-10 tablet by it y of 00:00: 00:00 mouth [place] 00 :00 every 8 Medical (eight) Branch hours as needed for Nausea and Vomiting (N/V). ondansetron 2021- No [id number] 4mg Take 1 [facility] 4 mg tablet 12-10 tablet by it y of 00:00: 00:00 mouth [place] 00 :00 every 8 Medical (eight) Branch hours as needed for Nausea and Vomiting (N/V). traMADol 50 2019- No [id number] 50mg Take 1 Uni vers mg tablet 12-10 tablet by ity of 00:00: 04:59 mouth [place] 00 :00 every 6 Medical (six) Branch hours as needed (pain) for up to 7 days. Indication s: acute pain LORazepam 2019- No 1mg 1 mg, Univer s (ATIVAN) 11-29 Oral, ity of tablet 1 mg 04:00: 03:18 ONCE, 1 [place] :[place] dose, [facility] 11/29/19 at Branch 2300, AMANDA NaCl 0.9% Yes 1000mL at 500 Univ ers (NS) IV 11-29 mL/hr, ity of infusion 02:00: Intravenou [place] 1,000 mL 00 s, Medical CONTINUOUS Branch , Starting [place] 11/29/19 at 2100, Until Discontinu ed, AMANDA ketorolac 2019- No 30mg 30 mg, Unive rs (TORADOL) 11-29 Slow IV ity of injection 02:00: 01:08 Push, [place] 30 mg 00 :00 ONCE, 1 Medical dose, [facility] Branch 11/29/19 at 2100, Routine
human resources team member approving Restricted medication : ARLEY CH famotidine 2019- No 20mg 20 mg, Univ ers (PEPCID AC) 11-28 Oral, ity of tablet 20 23:45: 22:48 ONCE, 1 [place] mg 00 :00 dose, [facility] 11/29/19 at Branch 1845, AMANDA diphenhydrA 2019- No 50mg 50 mg, Uni vers MINE 11-28 Oral, ity of (BENADRYL) 23:45: 22:48 ONCE, 1 [place] tablet 50 00 :00 dose, [place] mg 11/29/19 at Branch 1845, AMANDA dexamethaso 2020-0 2020- No 10mg 10 mg, Uni vers ne 11-28-30 Intramuscu ity of (DECADRON 22:42: 22:50 [place], ONCE, [place] PHOSPHATE) 00 :00 1 dose, Medica l injection [facility] 10 mg 11/29/19 at 1745, STAT methylPREDN 2020-0 Yes Take by [facility] ISolone 4 7-30 mouth. College MG TBPK 00:00: of 00 Medicin e methylPREDN 2020-0 Yes [id number] Take by [place] [facility] ISolone 4 7-30 mouth ity of mg tablets 00:00: SEE-INSTRU [place] 00 CTIONS. Medical follow Branch package directions methylPREDN 2020-0 Yes [id number] Take by [place] [facility] ISolone 4 7-30 mouth ity of mg tablets 00:00: SEE-INSTRU [place] 00 CTIONS. Medical follow Branch package directions methylPREDN 2020-0 Yes [id number] Take by [place] [facility] ISolone 4 7-30 mouth ity of mg tablets 00:00: SEE-INSTRU [place] 00 CTIONS. Medical follow Branch package directions methylPREDN 2020-0 Yes [id number] Take by [place] [facility] ISolone 4 7-30 mouth ity of mg tablets 00:00: SEE-INSTRU [place] 00 CTIONS. Medical follow Branch package directions methylPREDN 2020-0 Yes [id number] Take by [place] [facility] ISolone 4 7-30 mouth ity of mg tablets 00:00: SEE-INSTRU [place] 00 CTIONS. Medical follow Branch package directions methylPREDN 2020-0 Yes [id number] Take by [place] [facility] ISolone 4 7-30 mouth ity of mg tablets 00:00: SEE-INSTRU [place] 00 CTIONS. Medical follow Branch package directions methylPREDN 2020-0 Yes [id number] Take by [place] [facility] ISolone 4 7-30 mouth ity of mg tablets 00:00: SEE-INSTRU [place] 00 CTIONS. Medical follow Branch package directions methylPREDN 2020-0 Yes [id number] Take by [place] [facility] ISolone 4 7-30 mouth ity of mg tablets 00:00: SEE-INSTRU [place] 00 CTIONS. Medical follow Branch package directions methylPREDN 2020-0 Yes [id number] Take by [facility] ISolone 4 7-30 mouth ity of mg tablets 00:00: SEE-INSTRU [place] 00 CTIONS. Medical follow Branch package directions methylPREDN 2020-0 Yes [id number] Take by [facility] ISolone 4 7-30 mouth ity of mg tablets 00:00: SEE-INSTRU [place] 00 CTIONS. Medical follow Branch package directions methylPREDN 2020-0 Yes [id number] Take by [facility] ISolone 4 7-30 mouth ity of mg tablets 00:00: SEE-INSTRU [place] 00 CTIONS. Medical follow Branch package directions methylPREDN 2020-0 Yes [id number] Take by [facility] ISolone 4 7-30 mouth ity of mg tablets 00:00: SEE-INSTRU [place] 00 CTIONS. Medical follow Branch package directions methylPREDN 2020-0 Yes [id number] Take by [facility] ISolone 4 7-30 mouth ity of mg tablets 00:00: SEE-INSTRU [place] 00 CTIONS. Medical follow Branch package directions methylPREDN 2020-0 Yes [id number] Take by [facility] ISolone 4 7-30 mouth ity of mg tablets 00:00: SEE-INSTRU [place] 00 CTIONS. Medical follow Branch package directions methylPREDN 2020-0 Yes [id number] Take by [facility] ISolone 4 7-30 mouth ity of mg tablets 00:00: SEE-INSTRU [place] 00 CTIONS. Medical follow Branch package directions methylPREDN 2020-0 Yes [id number] Take by [facility] ISolone 4 7-30 mouth ity of mg tablets 00:00: SEE-INSTRU [place] 00 CTIONS. Medical follow Branch package directions methylPREDN 2020-0 Yes [id number] Take by [facility] ISolone 4 7-30 mouth ity of mg tablets 00:00: SEE-INSTRU [place] 00 CTIONS. Medical follow Branch package directions methylPREDN 2020-0 Yes [id number] Take by [facility] ISolone 4 7-30 mouth ity of mg tablets 00:00: SEE-INSTRU [place] 00 CTIONS. Medical follow Branch package directions methylPREDN 2020-0 Yes [id number] Take by [facility] ISolone 4 7-30 mouth ity of mg tablets 00:00: SEE-INSTRU [place] 00 CTIONS. Medical follow Branch package directions methylPREDN 2020-0 Yes [id number] Take by [place] [facility] ISolone 4 7-30 mouth ity of mg tablets 00:00: SEE-INSTRU [place] 00 CTIONS. Medical follow Branch package directions methylPREDN 2020-0 Yes [id number] Take by [facility] ISolone 4 7-30 mouth ity of mg tablets 00:00: SEE-INSTRU [place] 00 CTIONS. Medical follow Branch package directions methylPREDN 2020-0 Yes [id number] Take by [facility] ISolone 4 7-30 mouth ity of mg tablets 00:00: SEE-INSTRU [place] 00 CTIONS. Medical follow Branch package directions methylPREDN 2020-0 Yes [id number] Take by [facility] ISolone 4 7-30 mouth ity of mg tablets 00:00: SEE-INSTRU [place] 00 CTIONS. Medical follow Branch package directions methylPREDN 2020-0 Yes [id number] Take by [place] [facility] ISolone 4 7-30 mouth ity of mg tablets 00:00: SEE-INSTRU [place] 00 CTIONS. Medical follow Branch package directions methylPREDN 2020-0 2022- No [id number] Take by [facility] ISolone 4 730 12 mouth ity of mg tablets 00:00: 00:00 SEE-INSTRU [place] 00 :00 CTIONS. Medical follow Branch package directions methylPREDN 2020-0 3- No [id number] Take by [place] [facility] ISolone 4 730 -12 mouth ity of mg tablets 00:00: 00:00 SEE-INSTRU [place] 00 :00 CTIONS. Medical follow Branch package directions methylPREDN 2020-0 2022- No [id number] Take by [place] [facility] ISolone 4 730 -12 mouth ity of mg tablets 00:00: 00:00 SEE-INSTRU [place] 00 :00 CTIONS. Medical follow Branch package directions famotidine 2020-0 2020- No [id number] 20mg Take 1 [facility] (PEPCID) 20 11-28-14 tablet by it y of mg tablet 00:00: 04:59 mouth [place] 00 :00 (two) Medical times Branch daily for 14 days. famotidine 2020-0 2020- No [id number] 20mg Take 1 [facility] (PEPCID) 20 11-28 08-14 tablet by it y of mg tablet 00:00: 04:59 mouth [place] :[place] (two) Medical times Branch daily for 14 days. famotidine 2020-0 2020- No [id number] 20mg Take 1 [facility] (PEPCID) 20 11-28 08-14 tablet by it y of mg tablet 00:00: 04:59 mouth [place] 00 :00 (two) Medical times Branch daily for 14 days. famotidine 2020-0 2020- No [id number] 20mg Take 1 [facility] (PEPCID) 20 11-28 08-14 tablet by it y of mg tablet 00:00: 04:59 mouth 2 [place] 00 :00 (two) Medical times Branch daily for 14 days. LORazepam 2020-0 2020- No [id number] 1mg Take 1 U nivers (ATIVAN) 1 11-28-05 tablet by ity of mg tablet 00:00: 04:59 mouth at [place] 00 :00 bedtime Medical for 5 Branch days. LORazepam 2020-0 2020- No [id number] 1mg Take 1 U nivers (ATIVAN) 1 11-28- tablet by ity of mg tablet 00:00: 04:59 mouth at [place] 00 :00 bedtime Medical for 5 Branch days. LORazepam 2019-0 2020- No [id number] 1mg Take 1 U nivers (ATIVAN) 1 11-28 tablet by ity of mg tablet 00:00: 04:59 mouth at [place] 00 :00 bedtime Medical for 5 Branch days. FENTanyl PF 2019-0 2020- No 50ug 50 mcg, Un agustín (SUBLIMAZE 11-27 Slow IV ity o f (PF)) 03:30: 02:34 Push, [place] injection 00 :00 ONCE, 1 Medical 50 mcg dose, Tue Branch 11/27/19 at 2230, Routine iohexol 2019-0 2020- No 120mL 120 mL, Unive rs [...] mg 00 :00 ONCE, 1 Medical dose, [facility] Branch 11/27/19 at 2145, Routine
human resources team member approving Restricted medication : XIAO MOTT dicyclomine 2019- No 20mg 20 mg, Uni vers (BENTYL) 11-27 Intramuscu ity of injection 02:45: 01:45 lar, ONCE [place] 20 mg 00 :00 NOW, 1 Medical dose, [facility] Branch 11/27/19 at 2145, Routine pantoprazol 2019- [...] :00 ONCE, 1 Medical 50 mcg dose, [facility] Branch 11/27/19 at 2100, Routine proMETHazin 2019- No 25mg 25 mg, IV Univers e 11-27 Piggyback, ity of (PHENERGAN) 02:00: 00:56 ONCE, 1 [place] 25 mg in 00 :00 dose, Tue Medica l NaCl 0.9% 11/27/19 at Bran ch (NS) 50 mL 2100, 50 piggyback mL NaCl 0.9% 0 2020- No 1000mL at 999 Uni vers (NS) bolus 11-27 mL/hr, ity of infusion 01:45: 03:43 1,000 mL, [place] 1,000 mL 00 :00 IV Medical Infusion, Branch ONCE, 1 dose, [facility] 11/27/19 at 2045, STAT ondansetron 2019- No 4mg 4 mg, Slow Univers (ZOFRAN 11-27 IV Push, ity of (PF)) 01:45: 00:43 ONCE, 1 [place] injection 4 00 :00 dose, Tue Med ical mg 7/28/20 at Branch 2044, AMANDA dicyclomine 2020-0 Yes 20mg Take 20 mg [...] f 25 MG 00 Medicin suppository e dicyclomine 2020-0 Yes [id number] 20mg Take 1 [facility] 20 mg 7-28 tablet by ity of tablet 00:00: mouth [place] 00 every 6 Medical (six) Branch hours as needed for Abdominal pain. proMETHazin 2020-0 Yes [id number] 25mg Take 1 Univers e 25 mg 7-28 tablet by ity of tablet 00:00: mouth [place] 00 every 6 Medical (six) Branch hours as needed for N/V unresponsi ve to Ondansetro n. proMETHazin 2020-0 Yes [id number] 25mg Insert 1 [facility] e 7-28 Suppositor ity of (PHENERGAN) 00:00: y [place] 25 mg 00 rectum Medical suppository every 4 Branc h (four) hours as needed for Nausea and Vomiting (N/V) or N/V unresponsi ve to oral antiemetic s. lactulose 2020-0 Yes [id number] 30mL Take 30 mL [facility] 10 gram/15 7-28 by mouth 3 ity of mL oral 00:00: (three) [place] solution 00 times Medical daily as Branch needed for Constipati on or For bowel movement. dicyclomine 2020-0 Yes [id number] 20mg Take 1 [facility] 20 mg 7-28 tablet by ity of tablet 00:00: mouth [place] 00 every 6 Medical (six) Branch hours as needed for Abdominal pain. proMETHazin 2020-0 Yes [id number] 25mg Take 1 [facility] e 25 mg 7-28 tablet by ity of tablet 00:00: mouth [place] 00 every 6 Medical (six) Branch hours as needed for N/V unresponsi ve to Ondansetro n. proMETHazin 2020-0 Yes [id number] 25mg Insert 1 [facility] e 7-28 Suppositor ity of (PHENERGAN) 00:00: y [place] 25 mg 00 rectum Medical suppository every 4 Branc h (four) hours as needed for Nausea and Vomiting (N/V) or N/V unresponsi ve to oral antiemetic s. lactulose 2020-0 Yes [id number] 30mL Take 30 mL [facility] 10 gram/15 7-28 by mouth 3 ity of mL oral 00:00: (three) [place] solution 00 times Medical daily as Branch needed for Constipati on or For bowel movement. dicyclomine 2020-0 Yes [id number] 20mg Take 1 [facility] 20 mg 7-28 tablet by ity of tablet 00:00: mouth [place] 00 every 6 Medical (six) Branch hours as needed for Abdominal pain. proMETHazin 2020-0 Yes [id number] 25mg Take 1 [facility] e 25 mg 7-28 tablet by ity of tablet 00:00: mouth [place] 00 every 6 Medical (six) Branch hours as needed for N/V unresponsi ve to Ondansetro n. proMETHazin 2019-0 Yes [id number] 25mg Insert 1 [facility] e 7-28 Suppositor ity of (PHENERGAN) 00:00: y [place] 25 mg 00 rectum Medical suppository every 4 Branc h (four) hours as needed for Nausea and Vomiting (N/V) or N/V unresponsi ve to oral antiemetic s. lactulose 2019-0 Yes [id number] 30mL Take 30 mL [facility] 10 gram/15 7-28 by mouth 3 ity of mL oral 00:00: (three) [place] solution 00 times Medical daily as Branch needed for Constipati on or For bowel movement. dicyclomine 2020-0 Yes [id number] 20mg Take 1 [facility] 20 mg 7-28 tablet by ity of tablet 00:00: mouth [place] 00 every 6 Medical (six) Branch hours as needed for Abdominal pain. proMETHazin 2020-0 Yes [id number] 25mg Take 1 [facility] e 25 mg 7-28 tablet by ity of tablet 00:00: mouth [place] 00 every 6 Medical (six) Branch hours as needed for N/V unresponsi ve to Ondansetro n. proMETHazin 2019-0 Yes [id number] 25mg Insert 1 [facility] e 7-28 Suppositor ity of (PHENERGAN) 00:00: y into [place] 25 mg 00 rectum Medical suppository every 4 Branc h (four) hours as needed for Nausea and Vomiting (N/V) or N/V unresponsi ve to oral antiemetic s. lactulose 2020-0 Yes [id number] 30mL Take 30 mL [facility] 10 gram/15 7-28 by mouth 3 ity of mL oral 00:00: (three) [place] solution 00 times Medical daily as Branch needed for Constipati on or For bowel movement. dicyclomine 2020-0 Yes [id number] 20mg Take 1 [facility] 20 mg 7-28 tablet by ity of tablet 00:00: mouth [place] 00 every 6 Medical (six) Branch hours as needed for Abdominal pain. proMETHazin 2020-0 Yes [id number] 25mg Take 1 Univers e 25 mg 7-28 tablet by ity of tablet 00:00: mouth [place] 00 every 6 Medical (six) Branch hours as needed for N/V unresponsi ve to Ondansetro n. proMETHazin 2019-0 Yes [id number] 25mg Insert 1 [facility] e 7-28 Suppositor ity of (PHENERGAN) 00:00: y into [place] 25 mg 00 rectum Medical suppository every 4 Branc h (four) hours as needed for Nausea and Vomiting (N/V) or N/V unresponsi ve to oral antiemetic s. dicyclomine 2020-0 Yes [id number] 20mg Take 1 [facility] 20 mg 7-28 tablet by ity of tablet 00:00: mouth [place] 00 every 6 Medical (six) Branch hours as needed for Abdominal pain. lactulose 2020-0 Yes [id number] 30mL Take 30 mL [facility] 10 gram/15 7-28 by mouth 3 ity of mL oral 00:00: (three) [place] solution 00 times Medical daily as Branch needed for Constipati on or For bowel movement. pantoprazol 2020-0 Yes [id number] 40mg Take 1 Univers e 7-28 tablet by ity of (PROTONIX) 00:00: mouth [place] 40 mg EC 00 daily. Medical tablet Branch proMETHazin 2020-0 Yes [id number] 25mg Take 1 Univers e 25 mg 7-28 tablet by ity of tablet 00:00: mouth [place] 00 every 6 Medical (six) Branch hours as needed for N/V unresponsi ve to Ondansetro n. proMETHazin 2020-0 Yes [id number] 25mg Insert 1 [facility] e 7-28 Suppositor ity of (PHENERGAN) 00:00: y into [place] 25 mg 00 rectum Medical suppository every 4 Branc h (four) hours as needed for Nausea and Vomiting (N/V) or N/V unresponsi ve to oral antiemetic s. dicyclomine 2020-0 Yes [id number] 20mg Take 1 [facility] 20 mg 7-28 tablet by ity of tablet 00:00: mouth [place] 00 every 6 Medical (six) Branch hours as needed for Abdominal pain. proMETHazin 2020-0 Yes [id number] 25mg Take 1 Univers e 25 mg 7-28 tablet by ity of tablet 00:00: mouth [place] 00 every 6 Medical (six) Branch hours as needed for N/V unresponsi ve to Ondansetro n. proMETHazin 2020-0 Yes [id number] 25mg Insert 1 [facility] e 7-28 Suppositor ity of (PHENERGAN) 00:00: y into [place] 25 mg 00 rectum Medical suppository every 4 Branc h (four) hours as needed for Nausea and Vomiting (N/V) or N/V unresponsi ve to oral antiemetic s. lactulose 2020-0 Yes [id number] 30mL Take 30 mL [facility] 10 gram/15 7-28 by mouth 3 ity of mL oral 00:00: (three) [place] solution 00 times Medical daily as Branch needed for Constipati on or For bowel movement. lactulose 2020-0 Yes [id number] 30mL Take 30 mL [facility] 10 gram/15 7-28 by mouth 3 ity of mL oral 00:00: (three) [place] solution 00 times Medical daily as Branch needed for Constipati on or For bowel movement. dicyclomine 2020-0 Yes [id number] 20mg Take 1 [facility] 20 mg 7-28 tablet by ity of tablet 00:00: mouth [place] 00 every 6 Medical (six) Branch hours as needed for Abdominal pain. proMETHazin 2020-0 Yes [id number] 25mg Take 1 Univers e 25 mg 7-28 tablet by ity of tablet 00:00: mouth [place] 00 every 6 Medical (six) Branch hours as needed for N/V unresponsi ve to Ondansetro n. proMETHazin 2020-0 Yes [id number] 25mg Insert 1 [facility] e 7-28 Suppositor ity of (PHENERGAN) 00:00: y into [place] 25 mg 00 rectum Medical suppository every 4 Branc h (four) hours as needed for Nausea and Vomiting (N/V) or N/V unresponsi ve to oral antiemetic s. lactulose 2020-0 Yes [id number] 30mL Take 30 mL [facility] 10 gram/15 7-28 by mouth 3 ity of mL oral 00:00: (three) [place] solution 00 times Medical daily as Branch needed for Constipati on or For bowel movement. dicyclomine 2020-0 Yes [id number] 20mg Take 1 [facility] 20 mg 7-28 tablet by ity of tablet 00:00: mouth [place] 00 every 6 Medical (six) Branch hours as needed for Abdominal pain. proMETHazin 2020-0 Yes [id number] 25mg Take 1 Univers e 25 mg 7-28 tablet by ity of tablet 00:00: mouth [place] 00 every 6 Medical (six) Branch hours as needed for N/V unresponsi ve to Ondansetro n. proMETHazin 2020-0 Yes [id number] 25mg Insert 1 [facility] e 7-28 Suppositor ity of (PHENERGAN) 00:00: y into [place] 25 mg 00 rectum Medical suppository every 4 Branc h (four) hours as needed for Nausea and Vomiting (N/V) or N/V unresponsi ve to oral antiemetic s. lactulose 2020-0 Yes [id number] 30mL Take 30 mL [facility] 10 gram/15 7-28 by mouth 3 ity of mL oral 00:00: (three) [place] solution 00 times Medical daily as Branch needed for Constipati on or For bowel movement. dicyclomine 2020-0 Yes [id number] 20mg Take 1 [facility] 20 mg 7-28 tablet by ity of tablet 00:00: mouth [place] 00 every 6 Medical (six) Branch hours as needed for Abdominal pain. proMETHazin 2020-0 Yes [id number] 25mg Take 1 Univers e 25 mg 7-28 tablet by ity of tablet 00:00: mouth [place] 00 every 6 Medical (six) Branch hours as needed for N/V unresponsi ve to Ondansetro n. proMETHazin 2020-0 Yes [id number] 25mg Insert 1 [facility] e 7-28 Suppositor ity of (PHENERGAN) 00:00: y into [place] 25 mg 00 rectum Medical suppository every 4 Branc h (four) hours as needed for Nausea and Vomiting (N/V) or N/V unresponsi ve to oral antiemetic s. lactulose 2020-0 Yes [id number] 30mL Take 30 mL [facility] 10 gram/15 7-28 by mouth 3 ity of mL oral 00:00: (three) [place] solution 00 times Medical daily as Branch needed for Constipati on or For bowel movement. dicyclomine 2020-0 Yes [id number] 20mg Take 1 [facility] 20 mg 7-28 tablet by ity of tablet 00:00: mouth [place] 00 every 6 Medical (six) Branch hours as needed for Abdominal pain. proMETHazin 2020-0 Yes [id number] 25mg Take 1 Univers e 25 mg 7-28 tablet by ity of tablet 00:00: mouth [place] 00 every 6 Medical (six) Branch hours as needed for N/V unresponsi ve to Ondansetro n. proMETHazin 2020-0 Yes [id number] 25mg Insert 1 [facility] e 7-28 Suppositor [facility] ([place]GAN[place] 00 rectum [facility] suppository every 4 Branc h (four) hours as needed for Nausea and Vomiting (N/V) or N/V unresponsi ve to oral antiemetic s. lactulose 2020-0 Yes [id number] 30mL Take 30 mL [facility] 10 gram/15 7-28 by mouth 3 ity of mL oral 00:00: (three) [place] solution 00 times Medical daily as Branch needed for Constipati on or For bowel movement. dicyclomine 2020-0 Yes [id number] 20mg Take 1 [facility] 20 mg 7-28 tablet by ity of tablet 00:00: mouth [place] 00 every 6 Medical (six) Branch hours as needed for Abdominal pain. proMETHazin 2020-0 Yes [id number] 25mg Take 1 [facility] e 25 mg 7-28 tablet by ity of tablet 00:00: mouth [place] 00 every 6 Medical (six) Branch hours as needed for N/V unresponsi ve to Ondansetro n. proMETHazin 2020-0 Yes [id number] 25mg Insert 1 [facility] e 7-28 Suppositor [facility]y of (PHENERGAN) 00:00: [place] 25 mg 00 rectum Medical suppository every 4 Branc h (four) hours as needed for Nausea and Vomiting (N/V) or N/V unresponsi ve to oral antiemetic s. lactulose 2020-0 Yes [id number] 30mL Take 30 mL [facility] 10 gram/15 7-28 by mouth 3 ity of mL oral 00:00: (three) [place] solution 00 times Medical daily as Branch needed for Constipati on or For bowel movement. dicyclomine 2020-0 Yes [id number] 20mg Take 1 [facility] 20 mg 7-28 tablet by ity of tablet 00:00: mouth [place] 00 every 6 Medical (six) Branch hours as needed for Abdominal pain. proMETHazin 2020-0 Yes [id number] 25mg Take 1 [facility] e 25 mg 7-28 tablet by ity of tablet 00:00: mouth [place] 00 every 6 Medical (six) Branch hours as needed for N/V unresponsi ve to Ondansetro n. proMETHazin 2020-0 Yes [id number] 25mg Insert 1 [facility] e 7-28 Suppositor ity of (PHENERGAN) 00:00: [place] 25 mg 00 rectum Medical suppository every 4 Branc h (four) hours as needed for Nausea and Vomiting (N/V) or N/V unresponsi ve to oral antiemetic s. lactulose 2020-0 Yes [id number] 30mL Take 30 mL [facility] 10 gram/15 7-28 by mouth 3 ity of mL oral 00:00: (three) [place] solution 00 times Medical daily as Branch needed for Constipati on or For bowel movement. dicyclomine 2020-0 Yes [id number] 20mg Take 1 [facility] 20 mg 7-28 tablet by ity of tablet 00:00: mouth [place] 00 every 6 Medical (six) Branch hours as needed for Abdominal pain. proMETHazin 2020-0 Yes [id number] 25mg Take 1 [facility] e 25 mg 7-28 tablet by ity of tablet 00:00: mouth [place] 00 every 6 Medical (six) Branch hours as needed for N/V unresponsi ve to Ondansetro n. proMETHazin 2020-0 Yes [id number] 25mg Insert 1 [facility] 7-28 Suppositor ity of (PHENERGAN) 00:00: [place] 25 mg 00 rectum Medical suppository every 4 Branc h (four) hours as needed for Nausea and Vomiting (N/V) or N/V unresponsi ve to oral antiemetic s. lactulose 2020-0 Yes [id number] 30mL Take 30 mL [facility] 10 gram/15 7-28 by mouth 3 ity of mL oral 00:00: (three) [place] solution 00 times Medical daily as Branch needed for Constipati on or For bowel movement. dicyclomine 2020-0 Yes [id number] 20mg Take 1 [facility] 20 mg 7-28 tablet by ity of tablet 00:00: mouth [place] 00 every 6 Medical (six) Branch hours as needed for Abdominal pain. proMETHazin 2020-0 Yes [id number] 25mg Take 1 [facility] e 25 mg 7-28 tablet by ity of tablet 00:00: mouth [place] 00 every 6 Medical (six) Branch hours as needed for N/V unresponsi ve to Ondansetro n. proMETHazin 2020-0 Yes [id number] 25mg Insert 1 [facility] 7-28 Suppositor [facility]y of (PHENERGAN) 00:00: y [place] 25 mg 00 rectum Medical suppository every 4 Branc h (four) hours as needed for Nausea and Vomiting (N/V) or N/V unresponsi ve to oral antiemetic s. lactulose 2020-0 Yes [id number] 30mL Take 30 mL [facility] 10 gram/15 7-28 by mouth 3 ity of mL oral 00:00: (three) [place] solution 00 times Medical daily as Branch needed for Constipati on or For bowel movement. dicyclomine 2020-0 Yes [id number] 20mg Take 1 [facility] 20 mg 7-28 tablet by ity of tablet 00:00: mouth [place] 00 every 6 Medical (six) Branch hours as needed for Abdominal pain. proMETHazin 2020-0 Yes [id number] 25mg Take 1 [facility] e 25 mg 7-28 tablet by ity of tablet 00:00: mouth [place] 00 every 6 Medical (six) Branch hours as needed for N/V unresponsi ve to Ondansetro n. proMETHazin 2020-0 Yes [id number] 25mg Insert 1 [facility] e 7-28 Suppositor ity of (PHENERGAN) 00:00: y into [place] 25 mg 00 rectum Medical suppository every 4 Branc h (four) hours as needed for Nausea and Vomiting (N/V) or N/V unresponsi ve to oral antiemetic s. lactulose 2020-0 Yes [id number] 30mL Take 30 mL [facility] 10 gram/15 7-28 by mouth 3 ity of mL oral 00:00: (three) [place] solution 00 times Medical daily as Branch needed for Constipati on or For bowel movement. dicyclomine 2020-0 Yes [id number] 20mg Take 1 [facility] 20 mg 7-28 tablet by ity of tablet 00:00: mouth [place] 00 every 6 Medical (six) Branch hours as needed for Abdominal pain. proMETHazin 2020-0 Yes [id number] 25mg Take 1 [facility] e 25 mg 7-28 tablet by ity of tablet 00:00: mouth [place] 00 every 6 Medical (six) Branch hours as needed for N/V unresponsi ve to Ondansetro n. proMETHazin 2020-0 Yes [id number] 25mg Insert 1 [facility] 7-28 Suppositor ity of (PHENERGAN) 00:00: y [place] 25 mg 00 rectum Medical suppository every 4 Branc h (four) hours as needed for Nausea and Vomiting (N/V) or N/V unresponsi ve to oral antiemetic s. lactulose 2020-0 Yes [id number] 30mL Take 30 mL [facility] 10 gram/15 7-28 by mouth 3 ity of mL oral 00:00: (three) [place] solution 00 times Medical daily as Branch needed for Constipati on or For bowel movement. dicyclomine 2020-0 Yes [id number] 20mg Take 1 [facility] 20 mg 7-28 tablet by ity of tablet 00:00: mouth [place] 00 every 6 Medical (six) Branch hours as needed for Abdominal pain. proMETHazin 2020-0 Yes [id number] 25mg Take 1 [facility] e 25 mg 7-28 tablet by ity of tablet 00:00: mouth [place] 00 every 6 Medical (six) Branch hours as needed for N/V unresponsi ve to Ondansetro n. proMETHazin 2020-0 Yes [id number] 25mg Insert 1 [facility] 7-28 Suppositor ity of (PHENERGAN) 00:00: y [place] 25 mg 00 rectum Medical suppository every 4 Branc h (four) hours as needed for Nausea and Vomiting (N/V) or N/V unresponsi ve to oral antiemetic s. lactulose 2020-0 Yes [id number] 30mL Take 30 mL [facility] 10 gram/15 7-28 by mouth 3 ity of mL oral 00:00: (three) [place] solution 00 times Medical daily as Branch needed for Constipati on or For bowel movement. dicyclomine 2020-0 Yes [id number] 20mg Take 1 [facility] 20 mg 7-28 tablet by ity of tablet 00:00: mouth [place] 00 every 6 Medical (six) Branch hours as needed for Abdominal pain. proMETHazin 2020-0 Yes [id number] 25mg Take 1 [facility] e 25 mg 7-28 tablet by ity of tablet 00:00: mouth [place] 00 every 6 Medical (six) Branch hours as needed for N/V unresponsi ve to Ondansetro n. proMETHazin 2020-0 Yes [id number] 25mg Insert 1 [facility] e 7-28 Suppositor ity of (PHENERGAN) 00:00: y [place] 25 mg 00 rectum Medical suppository every 4 Branc h (four) hours as needed for Nausea and Vomiting (N/V) or N/V unresponsi ve to oral antiemetic s. lactulose 2020-0 Yes [id number] 30mL Take 30 mL [facility] 10 gram/15 7-28 by mouth 3 ity of mL oral 00:00: (three) [place] solution 00 times Medical daily as Branch needed for Constipati on or For bowel movement. dicyclomine 2020-0 Yes [id number] 20mg Take 1 [facility] 20 mg 7-28 tablet by ity of tablet 00:00: mouth [place] 00 every 6 Medical (six) Branch hours as needed for Abdominal pain. proMETHazin 2020-0 Yes [id number] 25mg Take 1 [facility] e 25 mg 7-28 tablet by ity of tablet 00:00: mouth [place] 00 every 6 Medical (six) Branch hours as needed for N/V unresponsi ve to Ondansetro n. proMETHazin 2020-0 Yes [id number] 25mg Insert 1 [facility] 7-28 Suppositor ity of (PHENERGAN) 00:00: y [place] 25 mg 00 rectum Medical suppository every 4 Branc h (four) hours as needed for Nausea and Vomiting (N/V) or N/V unresponsi ve to oral antiemetic s. lactulose 2020-0 Yes [id number] 30mL Take 30 mL [facility] 10 gram/15 7-28 by mouth 3 ity of mL oral 00:00: (three) [place] solution 00 times Medical daily as Branch needed for Constipati on or For bowel movement. dicyclomine 2020-0 Yes [id number] 20mg Take 1 [facility] 20 mg 7-28 tablet by ity of tablet 00:00: mouth [place] 00 every 6 Medical (six) Branch hours as needed for Abdominal pain. proMETHazin 2020-0 Yes [id number] 25mg Take 1 [facility] e 25 mg 7-28 tablet by ity of tablet 00:00: mouth [place] 00 every 6 Medical (six) Branch hours as needed for N/V unresponsi ve to Ondansetro n. proMETHazin 2020-0 Yes [id number] 25mg Insert 1 [facility] e 7-28 Suppositor ity of (PHENERGAN) 00:00: y [place] 25 mg 00 rectum Medical suppository every 4 Branc h (four) hours as needed for Nausea and Vomiting (N/V) or N/V unresponsi ve to oral antiemetic s. lactulose 2020-0 Yes [id number] 30mL Take 30 mL [facility] 10 gram/15 7-28 by mouth 3 ity of mL oral 00:00: (three) [place] solution 00 times Medical daily as Branch needed for Constipati on or For bowel movement. dicyclomine 2020-0 Yes [id number] 20mg Take 1 [facility] 20 mg 7-28 tablet by ity of tablet 00:00: mouth [place] 00 every 6 Medical (six) Branch hours as needed for Abdominal pain. proMETHazin 2020-0 Yes [id number] 25mg Take 1 [facility] e 25 mg 7-28 tablet by ity of tablet 00:00: mouth [place] 00 every 6 Medical (six) Branch hours as needed for N/V unresponsi ve to Ondansetro n. proMETHazin 2020-0 Yes [id number] 25mg Insert 1 [facility] e 7-28 Suppositor ity of (PHENERGAN) 00:00: y [place] 25 mg 00 rectum Medical suppository every 4 Branc h (four) hours as needed for Nausea and Vomiting (N/V) or N/V unresponsi ve to oral antiemetic s. lactulose 2020-0 Yes [id number] 30mL Take 30 mL [facility] 10 gram/15 7-28 by mouth 3 ity of mL oral 00:00: (three) [place] solution 00 times Medical daily as Branch needed for Constipati on or For bowel movement. dicyclomine 2020-0 Yes [id number] 20mg Take 1 [facility] 20 mg 7-28 tablet by ity of tablet 00:00: mouth [place] 00 every 6 Medical (six) Branch hours as needed for Abdominal pain. proMETHazin 2020-0 Yes [id number] 25mg Take 1 [facility] e 25 mg 7-28 tablet by ity of tablet 00:00: mouth [place] 00 every 6 Medical (six) Branch hours as needed for N/V unresponsi ve to Ondansetro n. proMETHazin 2020-0 Yes [id number] 25mg Insert 1 [facility] e 7-28 Suppositor ity of (PHENERGAN) 00:00: y [place] 25 mg 00 rectum Medical suppository every 4 Branc h (four) hours as needed for Nausea and Vomiting (N/V) or N/V unresponsi ve to oral antiemetic s. lactulose 2020-0 Yes [id number] 30mL Take 30 mL [facility] 10 gram/15 7-28 by mouth 3 ity of mL oral 00:00: (three) [place] solution 00 times Medical daily as Branch needed for Constipati on or For bowel movement. dicyclomine 2020-0 Yes [id number] 20mg Take 1 [facility] 20 mg 7-28 tablet by ity of tablet 00:00: mouth [place] 00 every 6 Medical (six) Branch hours as needed for Abdominal pain. proMETHazin 2020-0 Yes [id number] 25mg Take 1 [facility] e 25 mg 7-28 tablet by ity of tablet 00:00: mouth [place] 00 every 6 Medical (six) Branch hours as needed for N/V unresponsi ve to Ondansetro n. proMETHazin 2020-0 Yes [id number] 25mg Insert 1 [facility] e 7-28 Suppositor ity of (PHENERGAN) 00:00: y [place] 25 mg 00 rectum Medical suppository every 4 Branc h (four) hours as needed for Nausea and Vomiting (N/V) or N/V unresponsi ve to oral antiemetic s. lactulose 2020-0 Yes [id number] 30mL Take 30 mL [facility] 10 gram/15 7-28 by mouth 3 ity of mL oral 00:00: (three) [place] solution 00 times Medical daily as Branch needed for Constipati on or For bowel movement. dicyclomine 2020-0 Yes [id number] 20mg Take 1 [facility] 20 mg 7-28 tablet by ity of tablet 00:00: mouth [place] 00 every 6 Medical (six) Branch hours as needed for Abdominal pain. dicyclomine 2020-0 Yes [id number] 20mg Take 1 [facility] 20 mg 7-28 tablet by ity of tablet 00:00: mouth [place] 00 every 6 Medical (six) Branch hours as needed for Abdominal pain. proMETHazin 2020-0 Yes [id number] 25mg Take 1 [facility] e 25 mg 7-28 tablet by ity of tablet 00:00: mouth [place] 00 every 6 Medical (six) Branch hours as needed for N/V unresponsi ve to Ondansetro n. proMETHazin 2020-0 Yes [id number] 25mg Insert 1 [facility] e 7-28 Suppositor ity of (PHENERGAN) 00:00: y [place] 25 mg 00 rectum Medical suppository every 4 Branc h (four) hours as needed for Nausea and Vomiting (N/V) or N/V unresponsi ve to oral antiemetic s. lactulose 2020-0 Yes [id number] 30mL Take 30 mL [facility] 10 gram/15 7-28 by mouth 3 ity of mL oral 00:00: (three) [place] solution 00 times Medical daily as Branch needed for Constipati on or For bowel movement. proMETHazin 2020-0 Yes [id number] 25mg Take 1 [facility] e 25 mg 7-28 tablet by ity of tablet 00:00: mouth [place] 00 every 6 Medical (six) Branch hours as needed for N/V unresponsi ve to Ondansetro n. proMETHazin 2020-0 Yes [id number] 25mg Insert 1 [facility] e 7-28 Suppositor ity of (PHENERGAN) 00:00: y [place] 25 mg 00 rectum Medical suppository every 4 Branc h (four) hours as needed for Nausea and Vomiting (N/V) or N/V unresponsi ve to oral antiemetic s. dicyclomine 2020-0 Yes [id number] 20mg Take 1 [facility] 20 mg 7-28 tablet by ity of tablet 00:00: mouth [place] 00 every 6 Medical (six) Branch hours as needed for Abdominal pain. proMETHazin 2020-0 Yes [id number] 25mg Take 1 [facility] e 25 mg 7-28 tablet by ity of tablet 00:00: mouth [place] 00 every 6 Medical (six) Branch hours as needed for N/V unresponsi ve to Ondansetro n. proMETHazin 2020-0 Yes [id number] 25mg Insert 1 [facility] e 7-28 Suppositor ity of (PHENERGAN) 00:00: y [place] 25 mg 00 rectum Medical suppository every 4 Branc h (four) hours as needed for Nausea and Vomiting (N/V) or N/V unresponsi ve to oral antiemetic s. lactulose 2020-0 Yes [id number] 30mL Take 30 mL [facility] 10 gram/15 7-28 by mouth 3 ity of mL oral 00:00: (three) [place] solution 00 times Medical daily as Branch needed for Constipati on or For bowel movement. lactulose 2020-0 Yes [id number] 30mL Take 30 mL [facility] 10 gram/15 7-28 by mouth 3 ity of mL oral 00:00: (three) [place] solution 00 times Medical daily as Branch needed for Constipati on or For bowel movement. dicyclomine 2020-0 Yes [id number] 20mg Take 1 [facility] 20 mg 7-28 tablet by ity of tablet 00:00: mouth [place] 00 every 6 Medical (six) Branch hours as needed for Abdominal pain. proMETHazin 2020-0 Yes [id number] 25mg Take 1 [facility] e 25 mg 7-28 tablet by ity of tablet 00:00: mouth [place] 00 every 6 Medical (six) Branch hours as needed for N/V unresponsi ve to Ondansetro n. proMETHazin 2020-0 Yes [id number] 25mg Insert 1 [facility] e 7-28 Suppositor ity of (PHENERGAN) 00:00: y into [place] 25 mg 00 rectum Medical suppository every 4 Branc h (four) hours as needed for Nausea and Vomiting (N/V) or N/V unresponsi ve to oral antiemetic s. lactulose 2020-0 Yes [id number] 30mL Take 30 mL [facility] 10 gram/15 7-28 by mouth 3 ity of mL oral 00:00: (three) [place] solution 00 times Medical daily as Branch needed for Constipati on or For bowel movement. dicyclomine 2020-0 Yes [id number] 20mg Take 1 [facility] 20 mg 7-28 tablet by ity of tablet 00:00: mouth [place] 00 every 6 Medical (six) Branch hours as needed for Abdominal pain. proMETHazin 2020-0 Yes [id number] 25mg Take 1 [facility] e 25 mg 7-28 tablet by ity of tablet 00:00: mouth [place] 00 every 6 Medical (six) Branch hours as needed for N/V unresponsi ve to Ondansetro n. proMETHazin 2020-0 Yes [id number] 25mg Insert 1 [facility] e 7-28 Suppositor ity of (PHENERGAN) 00:00: y into [place] 25 mg 00 rectum Medical suppository every 4 Branc h (four) hours as needed for Nausea and Vomiting (N/V) or N/V unresponsi ve to oral antiemetic s. lactulose 2020-0 Yes [id number] 30mL Take 30 mL [facility] 10 gram/15 7-28 by mouth 3 ity of mL oral 00:00: (three) [place] solution 00 times Medical daily as Branch needed for Constipati on or For bowel movement. dicyclomine 2020-0 Yes [id number] 20mg Take 1 [facility] 20 mg 7-28 tablet by ity of tablet 00:00: mouth [place] 00 every 6 Medical (six) Branch hours as needed for Abdominal pain. proMETHazin 2020-0 Yes [id number] 25mg Take 1 [facility] e 25 mg 7-28 tablet by ity of tablet 00:00: mouth [place] 00 every 6 Medical (six) Branch hours as needed for N/V unresponsi ve to Ondansetro n. proMETHazin 2020-0 Yes [id number] 25mg Insert 1 [facility] e 7-28 Suppositor ity of (PHENERGAN) 00:00: y into [place] 25 mg 00 rectum Medical suppository every 4 Branc h (four) hours as needed for Nausea and Vomiting (N/V) or N/V unresponsi ve to oral antiemetic s. lactulose 2020-0 Yes [id number] 30mL Take 30 mL [facility] 10 gram/15 7-28 by mouth 3 ity of mL oral 00:00: (three) [place] solution 00 times Medical daily as Branch needed for Constipati on or For bowel movement. dicyclomine Yes [id number] 20mg Take 1 [facility] 20 mg 7-28 tablet by ity of tablet 00:00: mouth [place] 00 every 6 Medical (six) Branch hours as needed for Abdominal pain. proMETHazin Yes [id number] 25mg Take 1 [facility] e 25 mg 7-28 tablet by ity of tablet 00:00: mouth [place] 00 every 6 Medical (six) Branch hours as needed for N/V unresponsi ve to Ondansetro n. proMETHazin Yes [id number] 25mg Insert 1 [facility] e 7-28 Suppositor ity of (PHENERGAN) 00:00: y [place] 25 mg 00 rectum Medical suppository every 4 Branc h (four) hours as needed for Nausea and Vomiting (N/V) or N/V unresponsi ve to oral antiemetic s. lactulose Yes [id number] 30mL Take 30 mL [facility] 10 gram/15 7-28 by mouth 3 ity of mL oral 00:00: (three) [place] solution 00 times Medical daily as Branch needed for Constipati on or For bowel movement. pantoprazol 2020- No [id number] 40mg Take 1 [facility] e 7-28 07-30 tablet by ity of (PROTONIX) 00:00: 00:00 mouth [place] 40 mg EC 00 :00 daily. Medical tablet Branch Vital Signs Vital Name Observation Time Observation Value Comments Source Systolic blood 2022-05-13 20:17:00 127 mm[facility]Hg[facility] 2022-05-13 20:17:00 81 mm[Hg] [facility] Heart rate 2022-05-13 20:17:00 78 /min [facility] Body height 2022-05-13 20:17:00 157.5 cm [facility] Body weight 2022-05-13 20:17:00 94.711 kg [facility] BMI 2022-05-13 20:17:00 38.19 kg/m2 [facility] Oxygen saturation in 2022-05-13 20:17:00 97 /min [facility] Arterial blood by [facility] Pulse oximetry Branch Systolic blood 2022-05-06 16:29:00 130 mm[Hg] Univer [facility]ity of [facility] [place] [facility] Diastolic blood 2022-05-06 16:29:00 85 mm[Hg] Unive rsity of pressure [place] [facility] Heart rate 2022-05-06 16:29:00 73 /min [facility] [place] [facility] Body temperature 2022-05-06 16:29:00 36.94 Loan [facility] ers[facility] [place] [facility] Respiratory rate 2022-05-06 16:29:00 18 /min [facility] [place] [facility] Body height 2022-05-06 16:29:00 157.5 cm [facility] [place] [facility] Body weight 2022-05-06 16:29:00 95.301 kg [facility] [place] [facility] BMI 2022-05-06 16:29:00 38.43 kg/m2 [facility] [place] [facility] Oxygen saturation in 2022-05-06 16:29:00 97 /min [facility] Arterial blood by [employer] [facility] Pulse oximetry Branch Systolic blood 2022-04-01 20:43:00 121 mm[Hg] Univer sity of [facility] [place] [facility] Diastolic blood 2022-04-01 20:43:00 82 mm[Hg] Unive rsity of pressure [place] [facility] Heart rate 2022-04-01 20:43:00 65 /min [facility] [place] [facility] Body temperature 2022-04-01 20:43:00 36.83 Loan [facility] [place] [facility] Respiratory rate 2022-04-01 20:43:00 18 /min [facility] [place] [facility] Body height 2022-04-01 20:43:00 157.5 cm [facility] [place] [facility] Body weight 2022-04-01 20:43:00 92.987 kg [facility] [place] [facility] BMI 2022-04-01 20:43:00 37.49 kg/m2 [facility] [place] [facility] Oxygen saturation in 2022-04-01 20:43:00 98 /min [facility] Arterial blood by [employer] [facility] Pulse oximetry Branch Systolic blood 2021-11-19 07:00:00 139 mm[Hg] Univer [facility]ity of [facility] [place] [facility] Diastolic blood 2021-11-19 07:00:00 97 mm[Hg] Unive rsity of [facility] [place] [facility] Heart rate 2021-11-19 07:00:00 60 /min [facility] [place] [facility] Respiratory rate 2021-11-19 07:00:00 24 /min [facility] [place] [facility] Oxygen saturation in 2021-11-19 07:00:00 97 /min [facility] of Arterial blood by [facility] Pulse oximetry Branch Body temperature 2021-11-19 04:46:00 36.83 Loan [facility] [place] [facility] Body height 2021-11-19 04:46:00 157.5 cm [facility] [place] [facility] Body weight 2021-11-19 04:46:00 100.699 kg [facility] [place] [facility] BMI 2021-11-19 04:46:00 40.60 kg/m2 [facility] [place] [facility] Systolic blood 2021-07-31 18:03:00 127 mm[Hg] [facility]ity of [facility] Diastolic blood 2021-07-31 18:03:00 97 mm[Hg] Unive rsity of [facility] Heart rate 2021-07-31 18:03:00 71 /min [facility] [place] [facility] Body temperature 2021-07-31 18:03:00 37.17 Loan [facility] ersity of [place] [facility] Respiratory rate 2021-07-31 18:03:00 19 /min [facility] [place] [facility] Body height 2021-07-31 18:03:00 157.5 cm [facility] [place] [facility] Body weight 2021-07-31 18:03:00 96.616 kg [facility] [place] [facility] BMI 2021-07-31 18:03:00 38.96 kg/m2 [facility] [place] [facility] Oxygen saturation in 2021-07-31 18:03:00 99 /min [facility] of Arterial blood by [facility] Pulse oximetry Branch Systolic blood 2021-04-01 15:14:00 134 mm[Hg] [facility] pressure Medicine Diastolic blood 2021-04-01 15:14:00 82 mm[Hg] [facility] Medicine Heart rate 2021-04-01 15:14:00 78 /min [facility] Body temperature 2021-04-01 15:14:00 37.39 Loan [facility] Respiratory rate 2021-04-01 15:14:00 16 /min [facility] Body height 2021-04-01 15:14:00 157.5 cm [facility] Body weight 2021-04-01 15:14:00 83.915 kg [facility] BMI 2021-04-01 15:14:00 33.84 kg/m2 [facility] Systolic blood 2020-09-24 03:00:00 128 mm[Hg] [facility] Diastolic blood 2020-09-24 03:00:00 90 mm[Hg] [facility] Heart rate 2020-09-24 03:00:00 57 /min [facility] [place] [facility] Respiratory rate 2020-09-24 03:00:00 12 /min [facility] [place] [facility] Oxygen saturation in 2020-09-24 03:00:00 97 /min [facility] Arterial blood by [place] [employer] [facility] Pulse oximetry Branch Body temperature 2020-09-23 23:34:00 36.94 Loan [facility] [place] [facility] Body weight 2020-09-23 23:34:00 77.111 kg [facility] [place] [facility] BMI 2020-09-23 23:34:00 31.09 kg/m2 [facility] Systolic blood 2019-12-11 15:50:00 149 mm[Hg] [facility] Diastolic blood 2019-12-11 15:50:00 96 mm[Hg] [facility] Heart rate 2019-12-11 15:50:00 75 /min [facility] [place] [facility] Body temperature 2019-12-11 15:50:00 36.83 Loan [facility] [place] [facility] Respiratory rate 2019-12-11 15:50:00 20 /min [facility] Oxygen saturation in 2019-12-11 15:50:00 99 /min [facility] Arterial blood by [place] [employer] [facility] Pulse oximetry Branch Body weight 2019-12-11 12:55:00 77.111 kg [facility] [place] [facility] BMI 2019-12-11 12:55:00 31.09 kg/m2 [facility] [place] [facility] Systolic blood 2019-12-11 15:50:00 149 mm[Hg] [facility] Diastolic blood 2019-12-11 15:50:00 96 mm[Hg] [facility]ive [facility]ity of [facility] Heart rate 2019-12-11 15:50:00 75 /min [facility] [place] [facility] Body temperature 2019-12-11 15:50:00 36.83 Loan [facility] [place] [facility] Respiratory rate 2019-12-11 15:50:00 20 /min [facility] [place] [facility] Oxygen saturation in 2019-12-11 15:50:00 99 /min [facility] Arterial blood by [place] [employer] [facility] Pulse oximetry Branch Body weight 2019-12-11 12:55:00 77.111 kg [facility] BMI 2019-12-11 12:55:00 31.09 kg/m2 [facility] Systolic blood 2019-11-30 03:00:00 127 mm[Hg] [facility]ity of [facility] Diastolic blood 2019-11-30 03:00:00 78 mm[Hg] [facility] Heart rate 2019-11-30 03:00:00 71 /min [facility] Respiratory rate 2019-11-30 03:00:00 20 /min [facility] Oxygen saturation in 2019-11-30 03:00:00 98 /min University of Arterial blood by [facility] Pulse oximetry Branch Body temperature 2019-11-29 22:39:00 37.44 Loan [facility] Body height 2019-11-29 22:39:00 157.5 cm [facility] Body weight 2019-11-29 22:39:00 77.111 kg [facility] BMI 2019-11-29 22:39:00 31.09 kg/m2 [facility] Systolic blood 2019-11-30 03:00:00 127 mm[Hg] [facility] Diastolic blood 2019-11-30 03:00:00 78 mm[Hg] [facility] Heart rate 2019-11-30 03:00:00 71 /min [facility] Respiratory rate 2019-11-30 03:00:00 20 /min [facility] Oxygen saturation in 2019-11-30 03:00:00 98 /min [facility] Pulse oximetry Branch Body temperature 2019-11-29 22:39:00 37.44 Loan [facility] Body height 2019-11-29 22:39:00 157.5 cm [facility] Body weight 2019-11-29 22:39:00 77.111 kg [facility] BMI 2019-11-29 22:39:00 31.09 kg/m2 [facility] Systolic blood 2019-11-28 03:42:00 158 mm[Hg] [facility] Diastolic blood 2019-11-28 03:42:00 88 mm[Hg] [facility] Heart rate 2019-11-28 03:42:00 79 /min [facility] Respiratory rate 2019-11-28 03:42:00 20 /min [facility] Oxygen saturation in 2019-11-28 03:42:00 98 /min University of Arterial blood by [facility] landon Pulse oximetry Branch Body temperature 2019-11-28 00:40:00 37.5 Loan [facility] Body height 2019-11-28 00:37:00 157.5 cm [facility] Body weight 2019-11-28 00:37:00 77.111 kg [facility] BMI 2019-11-28 00:37:00 31.09 kg/m2 [facility] Systolic blood 2019-11-28 03:42:00 158 mm[Hg] [facility] Diastolic blood 2019-11-28 03:42:00 88 mm[Hg] [facility] Heart rate 2019-11-28 03:42:00 79 /min [facility] Respiratory rate 2019-11-28 03:42:00 20 /min [facility] Oxygen saturation in 2019-11-28 03:42:00 98 /min [facility] Arterial blood by [facility] landon Pulse oximetry Branch Body temperature 2019-11-28 00:40:00 37.5 Loan [facility] Body height 2019-11-28 00:37:00 157.5 cm [facility] Body weight 2019-11-28 00:37:00 77.111 kg [facility] BMI 2019-11-28 00:37:00 31.09 kg/m2 [facility] Procedures Procedure Date / Time Performing Clinician Source Performed REFERRAL- 2022-05-21 06:01:00 Doctor Unassigned, No [facility] REQUEST/RESPONSE [facility] SEDIMENTATION RATE 2022-05-13 21:28:00 Dara Dc [facility] ASSIGNMENT OF BENEFITS 2022-05-06 16:13:45 Doctor Unassigned, No [facility] REFERRAL- 2022-04-02 06:01:00 Doctor Unassigned, No [facility] REQUEST/RESPONSE [facility] CT CHEST PULMONARY 2021-11-19 06:57:47 Afia Adkins [facility] ANGIOGRAM Medical Branch TROPONIN I 2021-11-19 06:30:00 Afia Adkins [facility] COMP. METABOLIC PANEL 2021-11-19 06:30:00 Afia Adkins [facility] ([id number]) [facility] CBC WITH DIFF 2021-11-19 06:30:00 Afia Adkins [facility] CONSENT/REFUSAL FOR 2021-11-19 04:34:04 Doctor Unassigned, [facility] POCT TEST 2021-07-31 18:42:00 Mackenzie Willis [facility] CONSENT/REFUSAL FOR 2021-07-31 17:49:05 Doctor Unassigned, No Un [facility] DIAGNOSIS AND TREATMENT [facility] NOTICE OF PRIVACY 2021-07-31 17:48:51 Doctor Unassigned, No [facility] PRACTICES [facility] D-DIMER 2020-09-24 00:40:[address] [facility] XR CHEST 1 VW 2020-09-24 00:37:[address] [facility] LIPASE 2020-09-24 00:01:[address] [facility] TROPONIN I 2020-09-24 00:01:[address] [facility] COMP. METABOLIC PANEL 2020-09-24 00:01:00 Jorge Saul [facility] ([id number]) [facility] CBC WITH DIFF 2020-09-24 00:01:[address] [facility] NOTICE OF PRIVACY 2020-09-23 23:25:33 Doctor Unassigned, No [facility] PRACTICES Name [facility] CONSENT/REFUSAL FOR 2020-09-23 23:24:41 [facility] Name [facility] US GALL BLADDER 2019-12-11 15:08:[address] [facility] LIPASE 2019-12-11 14:35:[address] [facility] TEST, SERUM 2019-12-11 14:35:00 Sia [facility] HEPATIC FUNCTION PANEL 2019-12-11 14:35:00 Sia [facility] ([id number]) (ALB,T.PRO,BILI [facility] T,BU/BC,ALT,AST,ALK PHOS) BASIC METABOLIC PANEL 2019-12-11 14:35:00 Sia [facility] (NA, K, CL, CO2, Medical Branch GLUCOSE, BUN, CREATININE, CA) CBC WITH DIFF 2019-12-11 14:35:[address] [facility] COMP. METABOLIC PANEL 2019-11-30 02:21:00 Arley Ch [facility] ([id number]) [facility] CBC WITH DIFF 2019-11-30 01:10:[address] [facility] RAPID STREP SCREEN FOR 2019-11-29 22:47:00 Arley Ch [facility] GROUP A Medical Branch NOTICE OF PRIVACY 2019-11-29 22:31:49 Doctor Unassigned, No [facility] PRACTICES Name [facility] ADC / LCC - DRUG SCREEN 2019-11-28 03:43:00 Xiao Mott [facility] TRIAGE [facility] URINALYSIS 2019-11-28 03:22:[address] [facility] CT ABDOMEN PELVIS W 2019-11-28 03:03:48 Xiao Mott [facility] CONTRAST [facility] EKG-12 LEAD 2019-11-28 02:24:[address] [facility] LIPASE 2019-11-28 00:44:[address] [facility] TROPONIN I 2019-11-28 00:44:[address] [facility] COMP. METABOLIC PANEL 2019-11-28 00:44:00 Xiao Mott [facility] ([id number]) [facility] CBC WITH DIFF 2019-11-28 00:44:[address] [facility] CONSENT/REFUSAL FOR 2019-11-28 00:21:45 Doctor Unassigned, No [facility] Name [facility] NOTICE OF PRIVACY 2019-11-28 00:21:31 Doctor Unassigned, No Univ [facility] PRACTICES Name [facility] Plan of Care Planned Activity Planned Date Details Comments Source Future Scheduled 2022-05-[address] [facility] Test 00:00:00 (12+) [code = Medical Center DEPRESSION SCREENING (12+)] Future Scheduled 2022-05-[address] [facility] Test 00:00:00 (12+) [code = [facility] Center DEPRESSION SCREENING (12+)] Future Scheduled 2021-12-31 INFLUENZA VACCINE (#1) C [...] 09:24:40 CONTRAST [code = starting of Medicine 67369-6] 04/01/2021 until 04/01/2022 Future Scheduled 2021-04-01 MRI THORACIC SPINE WO 1 Occurrences [employer] Test 09:24:40 CONTRAST [code = starting of Medicine 01381-5] 04/01/2021 until 04/01/2022 Future Scheduled 2021-04-01 PT INSTR GIVEN - Ordered: [facility] Test 09:20:37 TOBACCO [code = NOCPT] 04/01/2021 of Me dicine Future Scheduled 2021-04-01 Screening for malignant [employer] Test 09:16:36 neoplasm of colon of Medicin e (procedure) [code = 858663150] Future Scheduled 2021-04-01 Screening for malignant [facility] Test 09:16:36 neoplasm of breast of Medici ne (procedure) [code = 694695407] Future Scheduled 2021-04-01 COVID-19 Vaccine (1) [employer] Test 09:16:36 [code = COVID-19 of Medicine Vaccine (1)] Future Scheduled 2021-04-01 TETANUS SHOT (ADULT) [employer] Test 09:16:36 [code = TETANUS SHOT of Medi cine (ADULT)] Future Scheduled 2021-04-01 BMI FOLLOW UP PLAN [employer] Test 09:16:36 [code = BMI FOLLOW UP of Med icine PLAN] Future Scheduled 2021-04-01 Hepatitis C screening [facility] Test 09:16:36 (procedure) [code = of Medic ine 033847495] Future Scheduled 2021-04-01 [facility]36 virus screening of Medicine (procedure) [code = 140905508] Future Scheduled 2021-04-01 Screening for malignant [facility] Test 09:16:36 neoplasm of cervix of Medici ne (procedure) [code = 969250913] Future Scheduled 2021-04-01 FLU VACCINE > 6 MONTHS B [facility] Test 09:16:36 [code = FLU VACCINE > 6 of M edicine MONTHS] Future Scheduled 2021-04-01 ZOSTER VACCINE (1 of 2) [facility] Test 09:16:36 [code = ZOSTER VACCINE of Me dicine (1 of 2)] Future Scheduled 2016-08-31 Lipid panel (procedure) [facility] Test 00:00:00 [code = 76921501] Medical Ce nter Future Scheduled 2016-08-31 Lipid panel (procedure) [facility] Test 00:00:00 [code = 82721776] Medical Ce nter Future Scheduled 2016-08-31 Lipid panel (procedure) [facility] Test 00:00:00 [code = 92820869] Medical Ce nter Future Scheduled 2016-08-31 Lipid panel (procedure) [facility] Test 00:00:00 [code = 29562381] Medical Ce nter Future Scheduled 1992-08-31 Screening for malignant [facility] Test 00:00:00 neoplasm of cervix Medical C enter (procedure) [code = 500749716] Future Scheduled 1992-08-31 Screening for malignant [facility] Test 00:00:00 neoplasm of cervix Medical C enter (procedure) [code = 566148660] Future Scheduled 1992-08-31 Screening for malignant [facility] Test 00:00:00 neoplasm of cervix Medical C enter (procedure) [code = 651107000] Future Scheduled 1992-08-31 Screening for malignant [facility] Test 00:00:00 neoplasm of cervix Medical C enter (procedure) [code = 482784104] Future Scheduled 1990-08-31 DTAP/TDAP/TD VACCINES CH I [...] HEPATITIS C Medical Center SCREENING] Future Scheduled [address] [facility] Test 00:00:00 Counseling and Medical Cente r Screening (12+) [code = Tobacco Cessation Counseling and Screening (12+)] Future Scheduled [address] [facility] Test 00:00:00 Counseling and Medical Cente r Screening (12+) [code = Tobacco Cessation Counseling and Screening (12+)] Future Scheduled 1972-03-03 COVID-19 VACCINE (#1) CH [...] colon Medical Ce nter (procedure) [code = 984453859] Future Scheduled 1971 Screening for malignant [facility] Test 00:00:00 neoplasm of breast Medical C enter (procedure) [code = 441609733] Future Scheduled 1971 Sigmoidoscopy [code = [facility] S[facility]oscopy] Medical Cente r Future Scheduled 1971 CT Colonography (combo) [facility] Test 00:00:00 [code = CT Colonography [facility] (combo)] Future Scheduled 1971 Screening for malignant [facility] Test 00:00:00 neoplasm of colon Medical Ce nter (procedure) [code = 303954493] Future Scheduled 1971 Screening for malignant [facility] Test 00:00:00 neoplasm of colon Medical Ce nter (procedure) [code = 764162925] Future Scheduled 1971 Screening for malignant [facility] Test 00:00:00 neoplasm of colon Medical Ce nter (procedure) [code = 164289490] Future Scheduled 1971 Screening for malignant [facility] Test 00:00:00 neoplasm of colon Medical Ce nter (procedure) [code = 153687183] Future Scheduled 1971 Sigmoidoscopy [facility]code [facility] Sigmoidoscopy] Medical Cente r Future Scheduled 1971 Screening for malignant [facility] Test 00:00:00 neoplasm of breast Medical C enter (procedure) [code = 642807592] Future Scheduled 1971 CT Colonography (combo) [facility] Test 00:00:00 [code = CT Colonography [facility] (combo)] Future Scheduled 1971 Screening for malignant [facility] Test 00:00:00 neoplasm of colon Medical Ce nter (procedure) [code = 838850676] Future Scheduled 1971 Screening for malignant [facility] Test 00:00:00 neoplasm of colon Medical Ce nter (procedure) [code = 995613280] Future Scheduled 1971 Screening for malignant [facility] Test 00:00:00 neoplasm of colon Medical Ce nter (procedure) [code = 394098101] Future Scheduled 1971 Screening for malignant [facility] Test 00:00:00 neoplasm of colon Medical Ce nter (procedure) [code = 488073473] Future Scheduled 1971 Sigmoidoscopy [facility]code [facility]oscopy] Medical Cente r Future Scheduled 1971 Screening for malignant [facility] Test 00:00:00 neoplasm of breast Medical C enter (procedure) [code = 499536328] Future Scheduled 1971 CT Colonography (combo) [facility] Test 00:00:00 [code = CT Colonography [facility] (combo)] Future Scheduled 1971 Screening for malignant [facility] Test 00:00:00 neoplasm of colon Medical Ce nter (procedure) [code = 245469502] Future Scheduled 1971 Screening for malignant [facility] Test 00:00:00 neoplasm of colon Medical Ce nter (procedure) [code = 022360509] Future Scheduled 1971 Screening for malignant [facility] Test 00:00:00 neoplasm of breast Medical C enter (procedure) [code = 833037034] Future Scheduled 1971 CT Colonography (combo) [facility] Test 00:00:00 [code = CT Colonography [facility] (combo)] Future Scheduled 1971 Screening for malignant [facility] Test 00:00:00 neoplasm of colon Medical Ce nter (procedure) [code = 111457999] Future Scheduled 1971 Screening for malignant [facility] Test 00:00:00 neoplasm of colon Medical Ce nter (procedure) [code = 623169233] Future Scheduled 1971 Screening for malignant [facility] Test 00:00:00 neoplasm of colon Medical Ce nter (procedure) [code = 518881247] Future Scheduled 1971 Screening for malignant [facility] Test 00:00:00 neoplasm of colon Medical Ce nter (procedure) [code = 025967537] Future Scheduled 1971 Sigmoidoscopy [facility]code [facility] S[facility]oidoscopy] Medical Breezy r Future Scheduled 1971 Screening for malignant [facility] Test 00:00:00 neoplasm of colon Medical Ce nter (procedure) [code = 079689518] Encounters Start End Encounter Admission Attending Care Care Encounter Source Date/Time Date/Time Type Type Clinicians Facility Department ID 2022-05-27 2022-05-27 Outpatient Trini [facility] [id number] Univers 11:30:00 11:30:00 DARA bowles [facility] 2022-05-21 2022-05-21 Outpatient Trini [facility] [id number] Univers 14:00:00 14:00:00 [facility] 2022-05-21 Orders Doctor VIJAY 1.2.840.114 [id number] Univers 00:00:00 00:00:00 Only Unassigned, MORENA 350.1.13.10 ity of [place] [facility] 4.2.7.2.686 [place] as [phone] [facility] 009 Branch 2022-05-21 2022-05-21 Telephone Whalen SHEARN [id number] Univers 00:00:00 00:00:00 BUNNY Dyer 350.1.13.10 ity of [place]2.[place] [id number] [facility] 086 Branch 2022-05-13 2022-05-13 Roof Bolter Operator Lab, Ang - Db [facility] 1.2.840.1 [id number] Univers 15:30:00 15:45:00 Visit Dara Dc 350.1.13.10 it[facility] 4.2.7.2.686 [place] as KAY?BLEA [phone] [address] MEDICAL OFFICE BUILDING 2022-05-13 2022-05-13 Outpatient Trini [facility] [id number] Univers 14:30:00 15:12:41 DARA bowles [facility] 2022-05-13 2022-05-13 Office [facility] 1.2.840.114 [id number] Univers 14:30:00 15:12:41 Visit Dara HEALTH 350.1.13.10 it y of [place] 4.2.7.2.686 Howard as KAY?BLEA [id number] [address] [facility] 2022-05-07 2022-05-07 Telephone [facility] [id number] Univers 00:00:00 00:00:00 Dara HEALTH 350.1.13.10 it y of [place] 4.2.7.2.686 Howard as KAY?BLEA [id number] [address] [facility] 2022-05-06 2022-05-06 Outpatient [facility] [id number] Univers 10:30:00 11:17:27 DARA ity [facility] 2022-05-06 2022-05-06 [facility] 1.2.840.114 [id number] Univers 10:30:00 11:17:27 Visit Dara HEALTH 350.1.13.10 it y of [place] 4.2.7.2.686 [place] as KAY?BLEA [id number] [address] [facility] 2022-05-06 2022-05-06 Orders Doctor VIJAY 1.2.840.114 [id number] Univers 00:00:00 00:00:00 Only Unassigned, MORENA 350.1.13.10 ity of [place] [facility] 4.2.7.2.686 [place] as [id number] [address] 2022-05-05 2022-05-05 Telephone [facility] 1.2.576.516 [id number] Univers 00:00:00 00:00:00 Dara HEALTH 350.1.13.10 it y of [place] 4.2.7.2.686 Howard as KAY?BLEA [id number] [address] [facility] 2022-04-13 2022-04-13 Telephone [facility] 1.2.083.935 [id number] Univers 00:00:00 00:00:00 Dara HEALTH 350.1.13.10 it y [facility] 4.2.7.2.686 [place] as KAY?BLEA [id number] [facility] [address] [facility] 2022-04-06 2022-04-06 Telephone Whalen SHEARN 1.2.401.879 [id number] Univers 00:00:00 00:00:00 BUNNY Dyer 350.1.13.10 ity of [place] 4[place].2.[place] [id number] [address] 2022-04-02 2022-04-02 Roof Bolter Operator Lab, [place] 1.2.840.1 [id number] Univers 10:00:00 10:15:00 Visit Freeman Dca HEALTH 350.1.13.10 ity of [place] 4.2.7.2.686 Howard as KAY?BLEA [phone] [facility] [address] [facility] 2022-04-02 2022-04-02 Outpatient Trini [facility] [id number] Univers 10:00:00 10:00:00 DARA bowles of [facility] 2022-04-02 2022-04-02 Orders Doctor VIJAY 1.2.840.114 [id number] Univers 00:00:00 00:00:00 Only Unassigned, MORENA 350.1.13.10 ity of [place] [facility] 4.2.7.2.686 [place] as [id number] [address] 2022-04-02 2022-04-02 Telephone Whalen SHEARN 1.2.503.936 [id number] Univers 00:00:00 00:00:00 BUNNY Dyer 350.1.13.10 ity of [place].2.[place] [id number] [address] 2022-04-01 2022-04-01 Outpatient Trini DC [facility] [id number] Univers 14:30:00 16:57:51 DARA ity of [facility] 2022-04-01 2022-04-01 Office Dao [facility] 1.2.840.114 [id number] Univers 14:30:00 16:57:51 Visit Dara HEALTH 350.1.13.10 it y of [facility] 4.2.7.2.686 [place] as KAY?BLEA [id number] [address] [facility] 2022-03-18 2022-03-18 Abstract [facility] 1.2.840.114 [id number] Univers 00:00:00 00:00:00 Dara HEALTH 350.1.13.10 it y of [facility] 4.2.7.2.686 [place] as KAY?BLEA [id number] [address] 2021-11-19 2021-11-19 Emergency X [facility] ERT [id number] Univers 00:31:00 02:52:00 [facility] 2021-11-19 2021-11-19 Emergency [facility] 1.2.223.291 [id number] Univers 00:31:00 02:52:00 Afia S KARMEN 350.1.13.10 i ty of [place] 4.2.7.2.686 [facility] [id number] [address] 2021-07-31 2021-07-31 Emergency [facility] E[facility] [id number] Univers 13:04:00 14:24:00 CHRISTJOSE JUANER it y of [facility] 2021-07-31 2021-07-31 Emergency [facility] 1.2.425.652 [id number] Univers 13:04:00 14:24:00 Christjose juaner KARMEN 350.1.13.10 ity of [place] 4.2.7.2.686 [facility] [id number] [address] 2021-04-01 2021-04-01 Office DAVID CERVANTES JR. 1.2.786.555 [id number] [facility] 09:07:17 16:23:07 Visit BLAKE AMBULATOR 350.1.13.21 College Y 0.2.7.2.686 of [id number] [facility] 805 e 2020-12-01 2020-12-01 Outpatient BILLY GARCIA, [facility] [id number] [facility] 13:22:49 15:25:46 BLAKE Orantes e of Medicin e 2020-12-01 2020-12-01 Outpatient CERVANTES, SLE [facility] [id number] [facility] 00:00:00 00:00:00 BLAKE 2020-09-23 2020-09-23 Emergency [facility] 1.2.840.114 [id number] Univers 18:36:00 22:14:00 Jorge Pamella Ma 350.1.13.10 i ty of [place] 4.2.7.2.686 [id number] [address] 2020-09-23 2020-09-23 Emergency X [facility][NOTE 3] ERT [id number] Univers 18:36:00 22:14:00 JORGE ity of [facility] 2019-12-11 2019-12-11 Emergency Kaale, TRAUMA 1.2.434.631 [id number] Univers 07:58:00 11:57:00 [facility] 350.1.13.10 [place] [id number] [facility] 014 Branch 2019-12-11 2019-12-11 Emergency Kaale, TRAUMA 1.2.807.891 [id number] 07:58:00 11:57:00 [facility] 350.1.13.10 4.2.7.2.686 [id number] [facility] 2019-12-11 2019-12-11 Emergency X [facility] ERT [id number] Univers 07:53:00 07:53:00 ity of [facility] 2019-12-02 2019-12-02 Telephone Darell LINARES 1.2.840.114 [id number] Univers 00:00:00 00:00:00 Melvina real 350.1.13.10 ity of [facility] 4.2.7.2.686 [place] as [id number] [facility] 019 Branch 2019-12-02 2019-12-02 Letter Darell LINARES 1.2.840.114 [id number] [facility] 00:00:00 00:00:00 (Out) Melvina real 350.1.13.10 ity of [facility] 4.2.7.2.686 [facility] [id number] [facility] [address] 2019-12-02 2019-12-02 Letter Darell LINARES 1.2.840.114 [id number] 00:00:00 00:00:00 (Out) Melvina real 350.1.13.10 [facility] 4.2.7.2.686 [id number] [facility] 2019-12-02 2019-12-02 Telephone Darell LINARES 1.2.840.114 [id number] 00:00:00 00:00:00 Melvina real 350.1.13.10 [facility] 4.2.7.2.686 [id number] [facility] 2019-11-29 2019-11-[address] [facility] [id number] [facility] 17:39:52 22:40:00 Arley Ma 350.1.13.10 ity of [place] 4.2.7.2.686 [facility] [id number] [address] 2019-11-29 2019-11-[address] [facility] 1.2.943.764 [id number] 17:39:52 22:40:00 Arley Ma 350.1.13.10 [place] 4.2.7.2.686 [place] [id number] [facility] 2019-11-29 2019-11-29 Emergency X [facility] ERT [id number] Univers 17:39:52 17:39:52 ARLEY ity [facility] 2019-11-27 2019-11-28 Emergency [facility] 1.2.452.380 [id number] [facility] 19:33:27 00:42:00 Latashaminesh Ma 350.1.13.10 ity of [place] 4.2.7.2.686 [facility] [id number] [address] 2019-11-27 2019-11-28 Emergency [facility] 1.2.785.006 [id number] 19:33:27 00:42:00 Xiao Ma 350.1.13.10 [place] 4.2.7.2.686 [place] [id number] 2019-11-27 2019-11-27 Emergency X FLIP [facility] ERT [id number] Univers 19:33:27 19:33:27 XIAO bowles [facility] Results Test Description Test Time Test Comments Results Result Comments Source SEDIMENTATION RATE 2022-05-14 05:57:43 Test Item Value Reference Range Interpretation Comme nts ESR (test code = 40400-4) See_Comment [ Automated message] The system which generated this result transmitted ref erence range: 0 - 20 mm/HR. The r eference range was not used to int erpret this result as normal/abnor mal. Lab Interpretation (test code = Normal 43889-1) [facility] [id number] 07:11:43 Test Item Value Reference Interpretation Comments Range TROPONIN I (test 0.003 ng/mL See_Comment [Automated code = 5426471184) message] The system which generated this result transmitted reference range : <=0.034. The reference range was not used to interpret this result as normal/abnormal . ANNI (test code = Reference (Normal) ANNI) Range (defined by the 99th percentile reference [...] biotin. Lab Interpretation Normal (test code = 68296-2) [facility]. METABOLIC PANEL (83933)2021-11-19 07:00:21 Test Item Value Reference Range Interpretation Comments NA (test code = 138 mmol/L 135-145 0090904709) K (test code = 4.2 mmol/L 3.5-5 1056373880) CL (test code = 104 mmol/L 98-108 3826909119) CO2 TOTAL (test code = 29 mmol/L 23-31 5146957354) AGAP (test code = 2-16 0584487121) BUN (test code = 11 mg/dL 7-23 9077602891) GLUCOSE (test code = 98 mg/dL 70-110 4081560654) CREATININE (test code = 0.68 mg/dL 0.5-1.04 6777354129) TOTAL BILI (test code = 0.3 mg/dL 0.1-1.8 0447890602) CALCIUM (test code = 9.5 mg/dL 8.6-10.6 0564837254) T PROTEIN (test code = 6.8 g/dL 6.3-8.2 9498086573) ALBUMIN (test code = 4.2 g/dL 3.5-5 2233282489) ALK PHOS (test code = 54 U/L 34-122 1229486899) ALTv (test code = 43 U/L 5-35 H 2-6) AST(SGOT) (test code = 39 U/L 13-40 4642418331) eGFR (test code = mL/min/1.73m2 8268381101) ANNI (test code = ANNI) Association of [...] tests). Lab Interpretation Abnormal (test code = 64753-9) [facility] WITH [id number] 06:47:40 Test Item Value Reference Range Interpretation Comments WBC (test code = See_Comment [Automated 5390-2) message] The sy stem which generated this result transmitted reference range : 4.30 - 11.10 10*3/?L. The reference range was not used to interpret this result as normal/abnormal . RBC (test code = See_Comment L [Automated 789-8) message] The sy stem which [...] RDW-SD (test code = 46.6 fL 39-49.9 83749-1) RDW-CV (test code = 13.4 % 12-15.5 788-0) PLT (test code = See_Comment [Automated 777-3) message] The sy stem which generated this result transmitted reference range : 166 - 358 10*3/ ?L. The reference r bhavani was not used to interpret this result as normal/abnormal . MPV (test code = 10.8 fL 9.5-12.9 56119-5) NRBC/100 WBC (test See_Comment [Automat ed code = 6017370954) message] The system which generated this result transmitted reference range : 0.0 - 10.0 /100 WBCs. The refer ence range was not u sed to interpret th is result as normal/abnormal . NRBC x10^3 (test code See_Comment [Auto mated = 6315964286) message] The s ystem which generated this result transmitted reference range : 10*3/?L. The reference range was not used to interpret this result as normal/abnormal . GRAN MAT (NEUT) % 47.3 % (test code = 770-8) IMM GRAN % (test code 0.20 % = 1398878296) LYMPH % (test code = 41.2 % 736-9) MONO % (test code = 9.7 % 5905-5) EOS % (test code = 1.3 % 713-8) BASO % (test code = 0.3 % 706-2) GRAN MAT x10^3(ANC) 4.36 10*3/uL 1.88-7.09 (test code = 6324760611) IMM GRAN x10^3 (test 0-0.06 code = 6493759927) LYMPH x10^3 (test code 3.79 10*3/uL 1.32-3.29 H = 731-0) MONO x10^3 (test code 0.89 10*3/uL 0.33-0.92 = 742-7) EOS x10^3 (test code = 0.12 10*3/uL 0.03-0.39 711-2) BASO x10^3 (test code 0.03 10*3/uL 0.01-0.07 = 704-7) Lab Interpretation Abnormal (test code = 22576-3) [facility] [id number] 18:42:00 Test Item Value Reference Range Interpretation Comments POCT PREG (test code = 1605) negative On board controls acceptable with present C Line (test code = 3574) POCT PREG LOT # (test code = 3575) [id number] POCT PREG TEST DATE (test 01/29/2023 code = 3576) Lab Interpretation (test code = Normal 52883-0) [facility] CenterRAD, SPINE, CERVICAL, COMPLETE, WITH FLEX 2020-12-01 15:57:00Reason for Exam:->neck pain, chronicReason for Exam:- >headaches due to old head injury [facility] : 1970 Sex: FFINAL [...] MDReport Verified Date/Time: 12/01/2020 15:57:57 Reading Location: [facility] Reading Room [address] [place] [address] -[id number] 01:08:22 Test Item Value Reference Interpretation Comments Range D-DIMER (test code = <0.27 See_Comment [Autom ated 3108028489) message] The system which generated this result [...] diagnosis. Lab Interpretation Normal (test code = 26569-9) [facility] [id number] 00:31:25 Test Item Value Reference Range Interpretation Comments TROPONIN I (test <0.012 See_Comment [Automated code = 2512125882) message] The system which generated this result [...] ? Lab Interpretation Normal (test code = 41215-7) [facility]COMP[facility] METABOLIC PANEL (13605)2020-09-24 00:21:01 Test Item Value Reference Range Interpretation Comments NA (test code = 140 mmol/L 135-145 2421737047) K (test code = 3.6 mmol/L 3.5-5.0 1951166061) CL (test code = 108 mmol/L 98-108 0667900019) CO2 TOTAL (test code = 25 mmol/L 23-31 9592874990) AGAP (test code = 2-16 8670148789) BUN (test code = 8 mg/dL 7-23 2117491548) GLUCOSE (test code = 100 mg/dL 70-110 7596674682) CREATININE (test code = 0.56 mg/dL 0.50-1.04 8216049421) TOTAL BILI (test code = 0.3 mg/dL 0.1-1.4 7025850618) CALCIUM (test code = 9.4 mg/dL 8.6-10.6 1772797553) T PROTEIN (test code = 7.1 g/dL 6.3-8.2 0646993120) ALBUMIN (test code = 4.4 g/dL 3.5-5.0 0572259526) ALK PHOS (test code = 59 U/L 34-122 6399262603) ALTv (test code = 120 U/L 5-35 H 1742-6) AST(SGOT) (test code = 81 U/L 13-40 H 5530546674) eGFR (test code = mL/min/1.73m2 0362618822) ANNI (test code = ANNI) Association of [...] tests). Lab Interpretation Abnormal (test code = 53218-4) [facility] CenterLIPASE, [id number] 00:20:41 Test Item Value Reference Range Interpretation Comments LIPASE (test code = 7612563604) 172 U/L 0-220 Lab Interpretation (test code = Normal 69890-3) [facility]CB WITH [id number] 00:08:14 Test Item Value Reference Range Interpretation Comments WBC (test code = See_Comment [Automated message] 0290-2) The system [employer] generated this result transmitted ref erence range: 4.30 - 1 1.10 10*3/?L. The re ference range was not u sed to interpret this result as normal/abnor mal. RBC (test code = See_Comment [Automated message] 109-8) The system [employer] generated this result transmitted ref erence range: [...] RDW-SD (test code 46.3 fL 39.0-49.9 = 30403-1) RDW-CV (test code 13.1 % 12.0-15.5 = 788-0) PLT (test code = See_Comment [Automated message] 357-3) The system whic h generated this result transmitted ref erence range: 166 - 35 8 10*3/?L. The re ference range was not u sed to interpret this result as normal/abnor mal. MPV (test code = 10.8 fL 9.5-12.9 90153-0) NRBC/100 WBC (test See_Comment [Automat ed message] code = 8061406813) The syste m which generated this result transmitted ref erence range: 0.0 - 10 .0 /100 WBCs. The refer ence range was not u sed to interpret this result as normal/abnor mal. NRBC x10^3 (test <0.01 See_Comment [Automated message] code = 1652393859) The syste m which generated this result transmitted ref erence range: 10*3/?L. The reference range was not used to interpr et this result as normal/abnormal . GRAN MAT (NEUT) % 35.8 % (test code = 770-8) IMM GRAN % (test 0.20 % code = 1393313413) LYMPH % (test code 52.0 % = 736-9) MONO % (test code 9.8 % = 5905-5) EOS % (test code = 1.9 % 713-8) BASO % (test code 0.3 % = 706-2) GRAN MAT 2.09 10*3/uL 1.88-7.09 x10^3(ANC) (test code = 9910642391) IMM GRAN x10^3 <0.03 0.00-0.06 (test code = 0584251705) LYMPH x10^3 (test 3.03 10*3/uL 1.32-3.29 code = 731-0) MONO x10^3 (test 0.57 10*3/uL 0.33-0.92 code = 742-7) EOS x10^3 (test 0.11 10*3/uL 0.03-0.39 code = 711-2) BASO x10^3 (test <0.03 0.01-0.07 code = 704-7) [facility] GALL [id number] 16:11:13 No cholelithiasis or sonographic evidence of [...] is unremarkable.IMPRESSIONNo cholelithiasis or sonographic evidence of cholecystitis.Lazaro Sherman MD., have reviewed this study and agree with the abovereport.[facility] CenterLipase [id number] 15:06:00 Test Item Value Reference Range Interpretation Comments LIPASE (test code = 0697036295) 346 U/L 0-220 H Lab Interpretation (test code = Abnormal 03436-6) [facility] CenterBasi Metabolic Panel (NA, K, CL, CO2, GLUCOSE, BUN, CREATININE, CA)2019-12-11 15:01:00 Test Item Value Reference Range Interpretation Comments NA (test code = 137 mmol/L 135-145 6735688965) K (test code = 4.6 mmol/L 3.5-5 1483830227) CL (test code = 104 mmol/L 98-108 2353532066) CO2 TOTAL (test code = 23 mmol/L 23-31 5133717830) AGAP (test code = 2-16 0164175579) BUN (test code = 8 mg/dL 7-23 3006808031) GLUCOSE (test code = 96 mg/dL 70-110 4710068515) CREATININE (test code 0.68 mg/dL 0.5-1.04 = 6612504660) CALCIUM (test code = 10.1 mg/dL 8.6-10.6 2575373409) eGFR Calculation mL/min/1.73m2 (Non-) (test code = 7646266038) eGFR Calculation mL/min/1.73m2 () (test code = 8892411578) ANNI (test code = ANNI) Association of [...] or urine or abnormalities in imaging tests). [facility] CenterHepatic Function Panel (ALB, T.PRO, BILI T, BU/BC, ALT, AST, ALK PHOS)2019-12-11 15:01:00 Test Item Value Reference Range Interpretation Comments TOTAL BILI (test code = 1923649228) 0.7 mg/dL 0.1-1.1 BILI UNCON (test code = 0746896233) 0.8 mg/dL 0.1-1.1 BILI CONJ (test code = 0361792524) 0.0 mg/dL 0-0.3 T PROTEIN (test code = 5019958660) 7.6 g/dL 6.3-8.2 ALBUMIN (test code = 3937989280) 4.6 g/dL 3.5-5 ALK PHOS (test code = 8491477704) 53 U/L 34-122 ALTv (test code = 1742-6) 36 U/L 5-35 H AST(SGOT) (test code = 2232812823) 40 U/L 13-40 Lab Interpretation (test code = Abnormal 69603-8) [facility] CenterPregnancy Test, [id number] 15:00:00 Test Item Value Reference Range Interpretation Comments PREG SERUM (test code Negative = 9373883136) ANNI (test code = ANNI) Less than 10 IU/L. ?If low titer or ectopic is suspected, resubmit specimen in 48-[address] [facility] CenterCBC with [id number] 14:48:00 Test Item Value Reference Range Interpretation Comments WBC (test code = See_Comment [Automated 1444-2) message] The sy stem which generated this result transmitted reference range : 4.30 - 11.10 10*3/?L. The reference range was not used to interpret this result as normal/abnormal . RBC (test code = See_Comment [Automated 435-8) message] The sy stem which generated this [...] RDW-SD (test code = 48.1 fL 39-49.9 59934-7) RDW-CV (test code = 13.4 % 12-15.5 788-0) PLT (test code = See_Comment [Automated 777-3) message] The sy stem which generated this result transmitted reference range : 166 - 358 10*3/ ?L. The reference r bhavani was not used to interpret this result as normal/abnormal . MPV (test code = 10.6 fL 9.5-12.9 47927-7) NRBC/100 WBC (test See_Comment [Automat ed code = 8824742509) message] The system which generated this result transmitted reference range : 0.0 - 10.0 /100 WBCs. The refer ence range was not u sed to interpret th is result as normal/abnormal . NRBC x10^3 (test code <0.01 See_Comment [Auto mated = 7919513073) message] The s ystem which generated this result transmitted reference range : 10*3/?L. The reference range was not used to interpret this result as normal/abnormal . GRAN MAT (NEUT) % 50.1 % (test code = 770-8) IMM GRAN % (test code 0.30 % = 0935925581) LYMPH % (test code = 36.4 % 736-9) MONO % (test code = 11.5 % 5905-5) EOS % (test code = 1.4 % 713-8) BASO % (test code = 0.3 % 706-2) GRAN MAT x10^3(ANC) 3.17 10*3/uL 1.88-7.09 (test code = 2134422418) IMM GRAN x10^3 (test <0.03 0-0.06 code = 0754763263) LYMPH x10^3 (test code 2.31 10*3/uL 1.32-3.29 = 731-0) MONO x10^3 (test code 0.73 10*3/uL 0.33-0.92 = 742-7) EOS x10^3 (test code = 0.09 10*3/uL 0.03-0.39 711-2) BASO x10^3 (test code <0.03 0.01-0.07 = 704-7) Lab Interpretation Abnormal (test code = 99045-0) [facility]. METABOLIC PANEL (44992)2019-11-30 03:03:00 Test Item Value Reference Range Interpretation Comments NA (test code = 134 mmol/L 135-145 L 9961065224) K (test code = 3.9 mmol/L 3.5-5 9517753636) CL (test code = 100 mmol/L 98-108 1643706116) CO2 TOTAL (test code = 24 mmol/L 23-31 8751855467) AGAP (test code = 2-16 5802812212) BUN (test code = 17 mg/dL 7-23 3958999721) GLUCOSE (test code = 95 mg/dL 70-110 7695127920) CREATININE (test code = 0.80 mg/dL 0.5-1.04 3233132368) TOTAL BILI (test code = 0.5 mg/dL 0.1-1.4 6100059598) CALCIUM (test code = 9.8 mg/dL 8.6-10.6 3273496476) T PROTEIN (test code = 7.7 g/dL 6.3-8.2 9402371193) ALBUMIN (test code = 4.5 g/dL 3.5-5 6925710425) ALK PHOS (test code = 41 U/L 34-122 4242153747) ALTv (test code = 27 U/L 5-35 1742-6) AST(SGOT) (test code = 31 U/L 13-40 6520048546) eGFR Calculation mL/min/1.73m2 (Non-) (test code = 8210271786) eGFR Calculation mL/min/1.73m2 () (test code = 9834290110) ANNI (test code = ANNI) Association of [...] tests). Lab Interpretation Abnormal (test code = 35598-4) [facility] WITH [id number] 01:43:00 Test Item Value Reference Range Interpretation Comments WBC (test code = See_Comment [Automated message] 6690-2) The system [employer] generated this result transmitted ref erence range: 4.30 - 1 1.10 10*3/?L. The re ference range was not u sed to interpret this result as normal/abnor mal. RBC (test code = See_Comment [Automated message] 789-8) The system [employer] generated this result transmitted ref erence range: [...] RDW-SD (test code 42.8 fL 39-49.9 = 62372-5) RDW-CV (test code 12.9 % 12-15.5 = 788-0) PLT (test code = See_Comment [Automated message] 777-3) The system whic h generated this result transmitted ref erence range: 166 - 35 8 10*3/?L. The re ference range was not u sed to interpret this result as normal/abnor mal. MPV (test code = 10.9 fL 9.5-12.9 00478-6) NRBC/100 WBC (test See_Comment [Automat ed message] code = 1809257847) The syste m which generated this result transmitted ref erence range: 0.0 - 10 .0 /100 WBCs. The refer ence range was not u sed to interpret this result as normal/abnor mal. NRBC x10^3 (test <0.01 See_Comment [Automated message] code = 8951307382) The syste m which generated this result transmitted ref erence range: 10*3/?L. The reference range was not used to interpr et this result as normal/abnormal . GRAN MAT (NEUT) % 61.3 % (test code = 770-8) IMM GRAN % (test 0.20 % code = 0560217722) LYMPH % (test code 29.9 % = 736-9) MONO % (test code 6.3 % = 5905-5) EOS % (test code = 1.7 % 713-8) BASO % (test code 0.6 % = 706-2) GRAN MAT 5.19 10*3/uL 1.88-7.09 x10^3(ANC) (test code = 7428586747) IMM GRAN x10^3 <0.03 0-0.06 (test code = 7842189415) LYMPH x10^3 (test 2.53 10*3/uL 1.32-3.29 code = 731-0) MONO x10^3 (test 0.53 10*3/uL 0.33-0.92 code = 742-7) EOS x10^3 (test 0.14 10*3/uL 0.03-0.39 code = 711-2) BASO x10^3 (test 0.05 10*3/uL 0.01-0.07 code = 704-7) [facility]RA[facility] [id number] 00:25:00 Test Item Value Reference Range Interpretation Comments Streptococcus pyogenes (group A) Negative Negative antigen (test code = 81102-4) Lab Interpretation (test code = Normal 63903-8) [facility] - DRUG SCREEN [id number] 04:11:00 Test Item Value Reference Range Interpretation Comments BENZO U (test code = Presumptive Negative A 8205650089) Positive NICHOLAS U (test code = Negative Negative 3853844364) AMPHET (test code = Negative Negative 3574818480) THC (test code = Presumptive Negative A Confirmatio n of 7214241147) Positive Presumptive Positive THC result requires physician order . METHADONE (test code Negative Negative = 5020363387) Meth U (test code = Negative Negative 1921813555) OPIATES (test code = Presumptive Negative A 4102958280) Positive Cocaine Metabolite Negative Negative (test code = 8655372684) PROPOXY (test code = Negative Negative 1869052871) Tric U (test code = Negative Negative 9077945874) PCP (test code = Negative Negative 0021535246) OXYCOD (test code = Negative Negative 6593814714) ANNI (test code = Urine Drug Cutoff [...] testing). Lab Interpretation Abnormal (test code = 06528-9) [facility] CenterUrinalysis2020-07-29 03:58:00 Test Item Value Reference Range Interpretation Comments APPEARANCE (test code = Clear Clear 2582932291) COLOR (test code = Yellow Yellow 1767920655) PH (test code = 4.8-8.0 9208069702) SP GRAVITY (test code = 1.003-1.030 5358881622) GLU U QUAL (test code = Normal Normal 6341158669) BLOOD (test code = 1+ Negative A 1335668342) KETONES (test code = 5 mg/dL Negative A 9924413856) PROTEIN (test code = Negative Negative 2887-8) UROBILIN (test code = Normal Normal 2729173685) BILIRUBIN (test code = Negative Negative 0649749794) NITRITE (test code = Negative Negative 6837175997) LEUK DIEUDONNE (test code = Negative Negative 6019268865) RBC/HPF (test code = See_Comment [Autom ated message] 1216589297) The system [employer] generated this result transmitted ref erence range: 0 - 3 HP F. The reference range was not used to int erpret this result as normal/abnormal . WBC/HPF (test code = <1 See_Comment [Autom ated message] 1566240073) The system [employer] generated this result transmitted ref erence range: 0 - 5 HP F. The reference range was not used to int erpret this result as normal/abnormal . BACTERIA (test code = Negative Negative 5404541930) MUCOUS (test code = Slight Negative LPF A 7317971927) SQ EPITH (test code = HPF 1108264801) Lab Interpretation (test Abnormal code = 55045-0) [facility]CT [facility]EN PEL[facility] W [id number] 03:20:101. ?Mild to moderate stool burden within [...] left anterolateral andposterior ribs.5. Subtle findings as above.[facility] TROPONIN [id number] 02:50:00 Test Item Value Reference Range Interpretation Comments TROPONIN I (test <0.012 See_Comment [Automated code = 2195682167) message] The system which generated this result [...] ? Lab Interpretation Normal (test code = 78004-0) [facility] CenterComplete Metabolic [id number] 01:12:00 Test Item Value Reference Range Interpretation Comments NA (test code = 138 mmol/L 135-145 6198738503) K (test code = 3.6 mmol/L 3.5-5 6239482111) CL (test code = 104 mmol/L 98-108 2601405522) CO2 TOTAL (test code = 26 mmol/L 23-31 6624119001) AGAP (test code = 2-16 3127493342) BUN (test code = 11 mg/dL 7-23 1056843854) GLUCOSE (test code = 128 mg/dL 70-110 H 7777318307) CREATININE (test code = 0.72 mg/dL 0.5-1.04 8679052678) TOTAL BILI (test code = 0.7 mg/dL 0.1-1.0 2024904976) CALCIUM (test code = 10.0 mg/dL 8.6-10.6 5106284527) T PROTEIN (test code = 8.4 g/dL 6.3-8.2 H 2271917011) ALBUMIN (test code = 4.8 g/dL 3.5-5 5770126180) ALK PHOS (test code = 40 U/L 34-122 6212067671) ALTv (test code = 32 U/L 5-35 1742-6) AST(SGOT) (test code = 42 U/L 13-40 H 9541581807) eGFR Calculation mL/min/1.73m2 (Non-) (test code = 0913621532) eGFR Calculation mL/min/1.73m2 () (test code = 7976831592) ANNI (test code = ANNI) Association of [...] tests). Lab Interpretation Abnormal (test code = 63164-7) [facility] CenterLipase, [id number] 01:12:00 Test Item Value Reference Range Interpretation Comments LIPASE (test code = 7658320335) 87 U/L 0-220 Lab Interpretation (test code = Normal 93777-0) [facility] CenterCB with [id number] 01:00:00 Test Item Value Reference Range Interpretation Comments WBC (test code = See_Comment [Automated message] 6390-2) The system [employer] generated this result transmitted ref erence range: 4.30 - 1 1.10 10*3/?L. The re ference range was not u sed to interpret this result as normal/abnor mal. RBC (test code = See_Comment [Automated message] 089-8) The system [employer] generated this result transmitted ref erence range: [...] RDW-SD (test code 44.9 fL 39-49.9 = 65794-9) RDW-CV (test code 13.1 % 12-15.5 = 788-0) PLT (test code = See_Comment [Automated message] 747-3) The system [employer] generated this result transmitted ref erence range: 166 - 35 8 10*3/?L. The re ference range was not u sed to interpret this result as normal/abnor mal. MPV (test code = 10.9 fL 9.5-12.9 15730-7) NRBC/100 WBC (test See_Comment [Automat ed message] code = 2756658324) The [employer] which generated this result transmitted ref erence range: 0.0 - 10 .0 /100 WBCs. The refer ence range was not u sed to interpret this result as normal/abnor mal. NRBC x10^3 (test <0.01 See_Comment [Automated message] code = 6515935446) The syste m which generated this result transmitted ref erence range: 10*3/?L. The reference range was not used to interpr et this result as normal/abnormal . GRAN MAT (NEUT) % 64.1 % (test code = 770-8) IMM GRAN % (test 0.50 % code = 2629719576) LYMPH % (test code 26.8 % = 736-9) MONO % (test code 7.5 % = 5905-5) EOS % (test code = 0.6 % 713-8) BASO % (test code 0.5 % = 706-2) GRAN MAT 6.75 10*3/uL 1.88-7.09 x10^3(ANC) (test code = 1721275074) IMM GRAN x10^3 0.05 10*3/uL 0-0.06 (test code = 1108301424) LYMPH x10^3 (test 2.82 10*3/uL 1.32-3.29 code = 731-0) MONO x10^3 (test 0.79 10*3/uL 0.33-0.92 code = 742-7) EOS x10^3 (test 0.06 10*3/uL 0.03-0.39 code = 711-2) BASO x10^3 (test 0.05 10*3/uL 0.01-0.07 code = 704-7) [facility]
[2022-05-25] MEDS ORDERED: dexAMETHasone 10 MG/ML VIAL ONE (04:27)
[2022-05-25] MEDS ORDERED: MORPHINE 4 MG/ML SYR ONE (04:27)
[2022-05-25] MEDS ORDERED: KETOROLAC 30 MG/ML INJ ONE (04:28)
--- NOTE | 2022-05-25 04:39 | EDPHYS ---
Physician Documentation [facility] Name: Ninfa Gordon Age: 51 yrs Sex: Female : 1970 Arrival Date: 05/25/2022 Time: 03:40 Bed 7 Private MD: ED Physician Param Duarte HPI: 05/25 04:12 This 51 yrs old Female presents to ER via Ambulatory with complaints of Neck rn Pain, <24hrs Old, Back Pain, Leg Pain, Foot Pain, Suture Removal. 04:12 The patient or guardian complains of pain, that is chronic. The symptoms are located rn diffusely. Onset: The symptoms/episode began/occurred 4 year(s) ago. Associated signs and symptoms: Pertinent positives: tingling, Pertinent negatives: fever, bladder incontinence, bowel incontinence, weakness. The pain radiates to the right arm and right leg. Severity of symptoms: At their worst the symptoms were moderate, in the emergency department the symptoms are unchanged. The patient has experienced similar episodes in the past, chronically. The patient has not recently seen a physician. Pt reports injury in 2019 when nick size beds fell on her at work. Suffered cervical and back injuries. Since then, has had chronic neck and back pain that radiates to legs and arms. No new injury or symptoms, just not able to get into pain management and is under indigent care. Came tonight because having trouble sleeping. . Historical: - Allergies: 03:56 Protonix; pf1 - Home Meds: 03:56 Clonazepam Oral [Active]; Doxepin Oral [Active]; Lorazepam Oral [Active]; pf1 - PMHx: 03:56 Anxiety; depressive disorder; Diverticulitis; PTSD; Chronic back pain; chronic neck pf1 pain; rib fractures; - PSHx: 03:56 Biopsy of Lungs; section; pf1 - Immunization history:: Adult Immunizations not up to date, Client reports having NOT received the Covid vaccine. Last tetanus immunization: < 5 years ago Flu vaccine is not up to date. Patient has never been vaccinated. - Social history:: Smoking status: Patient reports the use of cigarette tobacco products, smokes one-half pack cigarettes per day, Patient uses alcohol, but reports only rare drinking. street drugs, marijuana. - Family history:: not pertinent. - Hospitalizations: : No recent hospitalization is reported. ROS: 04:12 Constitutional: Negative for fever, chills, and weight loss, Eyes: Negative for injury, rn pain, redness, and discharge, Neck: Negative for injury, and swelling, Cardiovascular: Negative for chest pain, palpitations, and edema, Respiratory: Negative for shortness of breath, cough, wheezing, and pleuritic chest pain, Abdomen/GI: Negative for abdominal pain, nausea, vomiting, diarrhea, and constipation, Back: + chronic back pain MS/Extremity: Negative for injury and deformity, Skin: Negative for injury, rash, and discoloration, Neuro: Negative for headache, weakness, and seizure. Exam: 04:12 Constitutional: This is a well developed, well nourished patient who is awake, alert, rn and in no acute distress. Ambulatory to room and triage with cane. Head/Face: Normocephalic, atraumatic. Cardiovascular: Regular rate and rhythm. No pulse deficits. Respiratory: No increased work of breathing, no retractions or nasal flaring. Skin: Warm, dry MS/ Extremity: Pulses equal, no cyanosis. Neurovascular intact. Neuro: Awake and alert, GCS 15, oriented to person, place, time, and situation. Cranial nerves II-XII grossly intact. Motor strength 5/5 in all extremities. Sensory grossly intact. Vital Signs: 03:46 BP 128 / 81; Pulse 80; Resp 18; Temp 98.5; Pulse Ox 98% on R/A; Weight 95.25 kg; Height pf1 5 ft. 2 in. (157.48 cm); Pain 8/10; 04:09 BP 122 / 84; Pulse 70; Resp 10; Temp 98.6; Pulse Ox 99% on R/A; Weight 95.25 kg; Height rv1 5 ft. 2 in. (157.48 cm); Pain 9/10; 05:00 BP 125 / 93; Pulse 67; Resp 18; Pulse Ox 99% on R/A; jb4 04:09 Body Mass Index 38.41 (95.25 kg, 157.48 cm) rv1 MDM: 03:40 Patient medically screened. rn 04:37 Differential diagnosis: appendicitis, cystitis, pyelonephritis, ureterolithiasis, rn hydrnephrosis. Data reviewed: vital signs, nurses notes, lab test result(s), radiologic studies, CT scan. Independent interpretation of the following test(s) in the Emergency Department CT Scan: My interpretation is CT stone shows possible stone in bladder. 04:38 Counseling: I had a detailed discussion with the patient and/or guardian regarding: the rn historical points, exam findings, and any diagnostic results supporting the discharge/admit diagnosis, the need for outpatient follow up, to return to the emergency department if symptoms worsen or persist or if there are any questions or concerns that arise at home. Response to treatment: the patient's symptoms have markedly improved after treatment, and as a result, I will discharge patient. Special discussion: I discussed with the patient/guardian in detail that at this point there is no indication for admission to the hospital. It is understood, however, that if the symptoms persist or worsen the patient needs to return immediately for re-evaluation. Based on the history and exam findings, there is no indication for further emergent testing or inpatient evaluation. I discussed with the patient/guardian the need to see the painter sign maintenance for further evaluation of the symptoms. 05/25 03:53 Order name: IV Start; Complete Time: 04:19 rn Administered Medications: 04:36 Drug: Ketorolac 15 mg Route: IVP; Site: left antecubital; jb4 04:36 Drug: Decadron - Dexamethasone 10 mg Route: IVP; Site: left antecubital; jb4 04:36 Drug: morphine 4 mg Route: IVP; Infused Over: 4 mins; Site: left antecubital; jb4 05:22 Drug: HYDROcodone-acetaminophen 5 mg-325 mg 1 tabs Route: PO; jb4 05:22 Drug: Zofran (Ondansetron) 4 mg Route: IVP; Site: left antecubital; jb4 Disposition Summary: 05/25/22 04:39 Discharge Ordered Location: Home rn Problem: chronic rn Symptoms: have improved rn Condition: Stable rn Diagnosis - Chronic pain due to trauma rn - Cervical disc disorder with radiculopathy, unspecified cervical region rn - Radiculopathy, lumbosacral region rn Followup: rn - With: Private Physician - When: As needed - Reason: Recheck today's complaints, Re-evaluation by your physician Discharge Instructions: - Discharge Summary Sheet rn - Chronic Back Pain rn - Lumbosacral Radiculopathy rn - Neuropathic Pain rn - Back Exercises rn Forms: - Medication Reconciliation Form rn - Thank You Letter rn - Antibiotic furniture and bedding inspector - Prescription Opioid Use rn Signatures: Param Duarte MD MD rn Bryson, James, RN RN jb4 Marina benitez RN RN pf1
--- NOTE | 2022-05-25 04:39 | ER ---
Nurse's Notes [facility] Name: Ninfa Gordon Age: 51 yrs Sex: Female : 1970 Arrival Date: 05/25/2022 Time: 03:40 Bed 7 Private MD: Diagnosis: Chronic pain due to trauma;Cervical disc disorder with radiculopathy, unspecified cervical region;Radiculopathy, lumbosacral region Presentation: 05/25 03:46 Chief complaint: Patient states: Patient C/O chronic neck pain that radiates down back, pf1 legs and feet that is causing a tingling sensation,onset 4 days. Patient stated is having trouble sleeping tonight. Patient stated chronic pain,onset 2018. Patient stated had a concussion in 2019 from nick size bed frame, box spring and mattress fall onto head, since then has the chronic neck and back pain. Coronavirus screen: Vaccine status: Patient reports being unvaccinated. Client denies travel out of the [place] in the last 14 days. At this time, the client does not indicate any symptoms associated with coronavirus-19. Ebola Screen: Patient negative for fever greater than or equal to 101.5 degrees Fahrenheit, and additional compatible Ebola Virus Disease symptoms. Initial Sepsis Screen: Does the patient meet any 2 criteria? No. Patient's initial sepsis screen is negative. Does the patient have a suspected source of infection? No. Patient's initial sepsis screen is negative. Risk Assessment: Do you want to hurt yourself or someone else? Patient reports no desire to harm self or others. Onset of symptoms was May 21, 2022. 03:46 Method Of Arrival: Ambulatory pf1 03:46 Acuity: TRES 4 pf1 Historical: - Allergies: 03:56 Protonix; pf1 - Home Meds: 03:56 Clonazepam Oral [Active]; Doxepin Oral [Active]; Lorazepam Oral [Active]; pf1 - PMHx: 03:56 Anxiety; depressive disorder; Diverticulitis; PTSD; Chronic back pain; chronic neck pf1 pain; rib fractures; - PSHx: 03:56 Biopsy of Lungs; section; pf1 - Immunization history:: Adult Immunizations not up to date, Client reports having NOT received the Covid vaccine. Last tetanus immunization: < 5 years ago Flu vaccine is not up to date. Patient has never been vaccinated. - Social history:: Smoking status: Patient reports the use of cigarette tobacco products, smokes one-half pack cigarettes per day, Patient uses alcohol, but reports only rare drinking. street drugs, marijuana. - Family history:: not pertinent. - Hospitalizations: : No recent hospitalization is reported. Screenin:02 [facility] ED Fall Risk Assessment (Adult) History of falling in the last 3 months, jb4 including since admission No falls in past 3 months (0 pts) Confusion or Disorientation No (0 pts) Intoxicated or Sedated No (0 pts) Impaired Gait No (0 pts) Mobility Assist Device Used Yes (1 pt) Altered Elimination No (0 pt) Score/Fall Risk Level 0 - 2 = Low Risk Oriented to surroundings, Maintained a safe environment. Abuse screen: Denies threats or abuse. Nutritional screening: No deficits noted. Tuberculosis screening: No symptoms or risk factors identified. Assessment: 04:00 General: Appears in no apparent distress. uncomfortable, Behavior is calm, cooperative, jb4 appropriate for age. Pain: Complains of pain in thoracic area and sacrum Pain does not radiate. Pain currently is 10 out of 10 on a pain scale. Neuro: Level of Consciousness is awake, alert, obeys commands, Oriented to person, place, time, situation. Cardiovascular: Patient's skin is warm and dry. Respiratory: Airway is patent Respiratory effort is even, unlabored, Respiratory pattern is regular, symmetrical. GI: No signs and/or symptoms were reported involving the gastrointestinal system. : No signs and/or symptoms were reported regarding the genitourinary system. EENT: No signs and/or symptoms were reported regarding the EENT system. Derm: Skin is intact, Skin is pink, warm \T\ dry. Musculoskeletal: Circulation, motion, and sensation intact. Range of motion: intact in all extremities. 05:00 Reassessment: Patient appears in no apparent distress at this time. Patient and/or jb4 family updated on plan of care and expected duration. Pain level reassessed. Patient is alert, oriented x 3, equal unlabored respirations, skin warm/dry/pink. 05:47 Reassessment: D/c pending ride home. jb4 Vital Signs: 03:46 BP 128 / 81; Pulse 80; Resp 18; Temp 98.5; Pulse Ox 98% on R/A; Weight 95.25 kg; Height pf1 5 ft. 2 in. (157.48 cm); Pain 8/10; 04:09 BP 122 / 84; Pulse 70; Resp 10; Temp 98.6; Pulse Ox 99% on R/A; Weight 95.25 kg; Height rv1 5 ft. 2 in. (157.48 cm); Pain 9/10; 05:00 BP 125 / 93; Pulse 67; Resp 18; Pulse Ox 99% on R/A; jb4 04:09 Body Mass Index 38.41 (95.25 kg, 157.48 cm) rv1 ED Course: 03:40 Patient arrived in ED. ja2 03:40 aPram Duarte MD is Attending Physician. rn 03:56 Triage completed. pf1 04:36 Zachary Buitrgao, RN is Primary Nurse. jb4 07:02 Patient has correct armband on for positive identification. Placed in gown. Bed in low jb4 position. Call light in reach. Side rails up X 1. 07:02 No provider procedures requiring assistance completed. IV discontinued, intact, jb4 bleeding controlled, No redness/swelling at site. Pressure dressing applied. Administered Medications: 04:36 Drug: Ketorolac 15 mg Route: IVP; Site: left antecubital; jb4 04:36 Drug: Decadron - Dexamethasone 10 mg Route: IVP; Site: left antecubital; jb4 04:36 Drug: morphine 4 mg Route: IVP; Infused Over: 4 mins; Site: left antecubital; jb4 05:22 Drug: HYDROcodone-acetaminophen 5 mg-325 mg 1 tabs Route: PO; jb4 05:22 Drug: Zofran (Ondansetron) 4 mg Route: IVP; Site: left antecubital; jb4 Outcome: 04:39 Discharge ordered by . rn 07:02 Discharged to home ambulatory. jb4 07:02 Condition: stable 07:02 Discharge instructions given to patient, family, Instructed on discharge instructions, follow up and referral plans. Demonstrated understanding of instructions, follow-up care. 07:03 Patient left the ED. jb4 Signatures: Param Duarte MD MD rn Bryson, James, RN RN jb4 Ragini Tristan 2 Marina benitez RN RN pf1 Melendez, Marbella rv1
[2022-05-25] MEDS ORDERED: HYDROCODONE/APAP 5/325 MG TAB ONE (05:17)
[2022-05-25] MEDS ORDERED: ONDANSETRON 4 MG/2 ML VIAL ONE (05:17)
[2022-05-25 07:12] VITALS: TEMP 98.6; O2SAT 99
[2022-05-25 07:13] VITALS: BP 125/93
== END 2022-05-25 07:03 | disposition home or self-care (01) ==
LOC: ER 03:36
DX: G89.21 Chronic pain due to trauma (principal); M54.17 Radiculopathy, lumbosacral region; M50.90 Cervical disc disorder, unspecified, unspecified cervical region
CPT/HCPCS: 96374; 96375; 99283; J1100; J2405